=== PATIENT | male | born 1940 | race Hispanic/Latino ===

== ENCOUNTER 2017-05-25 10:32 | Inpatient (IN) | payer BC, MEDICARE ==
[2017-05-25 10:35] VITALS: BMI 26.4
[2017-05-25 11:25] LABS: BASO # 0.02 K/mm3 (0.0-2.0); BASO % 0.4 % (0.0-3.0); EOS # 0.1 (0.0-0.7); EOS % 1.2 % (1.5-5.0); GRAN # 2.57 (1.4-6.5); GRAN % 50.5 % (50.0-68.0); HEMATOCRIT 36.1 % (42.0-52.0); LYMPH # 1.7 (1.2-3.4); LYMPH % 32.9 % (22.0-35.0); MEAN CELL VOLUME 92.6 fl (80.0-105.0); MEAN CORPUSCULAR HEMOGLOBIN 31.5 pg (25.0-35.0); MEAN CORPUSCULAR HGB CONC 34.1 g/dl (31.0-37.0); MEAN PLATELET VOLUME 10.2 fl (7.0-11.0); MONO # 0.8 (0.1-0.6); RED CELL DISTRIBUTION WIDTH 14.6 % (11.5-14.5); WHITE BLOOD COUNT 5.1 10^3/ul (4.5-11.0)
[2017-05-25 11:29] LABS: ALB/GLOB RATIO 1.5 (1.1-1.8); ALKALINE PHOSPHATASE 108 U/L (38-126); ALT/SGPT 32 U/L (7-56); AST/SGOT 25 U/L (17-59); BILIRUBIN,TOTAL 0.6 mg/dL (0.2-1.3); BLOOD UREA NITROGEN 11 mg/dL (7-21); CALCIUM 8.8 mg/dL (8.4-10.5); CARBON DIOXIDE 27 mmol/L (21-33); CHLORIDE 107 mmol/L (98-107); GFR AFRICAN-AMERICAN > 60; GLUCOSE,RANDOM 104 mg/dL (70-110); POTASSIUM 3.7 mmol/L (3.6-5.0); SODIUM 143 mmol/L (132-148); TOTAL PROTEIN 6.9 g/dL (5.8-8.3)
--- NOTE | 2017-05-25 11:34 | ED PDOC ---
Arrival/HPI <Fabio Gallardo - Last Filed: 05/25/17 15:48> <Beverly Rowley - Last Filed: 05/25/17 17:33> - General Chief Complaint: Chest Pain Time Seen by Provider: 05/25/17 10:49 - History of Present Illness Narrative History of Present Illness (Text): 77 year old male with a past medical history of Parkinson's disease, Kishore's disease, and CAD s/p PTCA with stent placement who presents with one day duration of chest pain, dyspnea, and dizziness that started at 10:00 AM this morning. The pain is dull and aching, substernal, 5/10 in intensity, and without radiation. On further questioning, he admits to concurrent dysphagia over the past week with solids and liquids. He denies any fever, chills, nausea , or syncopal episodes. 05/25/17 11:33 (Fabio Gallardo) Past Medical History - Provider Review Nursing Documentation Reviewed: Yes - Cardiac Hx Hypertension: Yes - Pulmonary Hx Respiratory Disorders: No - Neurological Hx Parkinson's Disease: Yes - HEENT Hx HEENT Disorder: No - Renal Hx Renal Disorder: Yes Hx Pyelonephritis: Yes (right sided) - Endocrine/Metabolic Hx Endocrine Disorders: Yes - Hematological/Oncological Hx Blood Transfusions: No - Integumentary Hx Dermatological Disorder: No - Musculoskeletal/Rheumatological Hx Musculoskeletal Disorders: Yes Hx Unsteady Gait: Yes Other/Comment: uses walker - Gastrointestinal Hx Gastrointestinal Disorders: Yes Other/Comment: constipation - Genitourinary/Gynecological Hx Genitourinary Disorders: Yes Hx Urinary Tract Infection: Yes (e.coli) - Psychiatric Hx Emotional Abuse: No Hx Physical Abuse: No Hx Substance Use: No - Surgical History Other/Comment: 4 stents - Anesthesia Hx Anesthesia: Yes Hx Anesthesia Reactions: No Hx Malignant Hyperthermia: No - Suicidal Assessment Feels Threatened In Home Enviroment: No <Fabio Gallardo - Last Filed: 05/25/17 15:48> Family/Social History - Physician Review Nursing Documentation Reviewed: Yes Family/Social History: Unknown Family HX Smoking Status: Former Smoker Hx Alcohol Use: No (PAST HX HEAVY DRINKING;STOPPED PAST YR) Amount per day: 4 Hx Substance Use: No Hx Substance Use Treatment: No <Fabio Gallardo - Last Filed: 05/25/17 15:48> Allergies/Home Meds <SamiFabio - Last Filed: 05/25/17 15:48> <Beverly Rowley - Last Filed: 05/25/17 17:33> Allergies/Adverse Reactions: Allergies acetaminophen [From Percocet] Adverse Reaction (Verified 05/25/17 16:23) FATIGUE also more confused oxycodone [From Percocet] Adverse Reaction (Verified 05/25/17 16:23) FATIGUE also more confused Home Medications: Home Meds Medication Instructions Recorded Confirmed Carbidopa/Levodopa/Entacapone 1 tab PO TID 03/04/12 05/25/17 [Stalevo 150] Rasagiline Mesylate [Azilect] 1 mg PO DAILY 03/04/12 05/25/17 Aspirin [Ecotrin] 81 mg PO DAILY 06/14/16 05/25/17 Fludrocortisone [Florinef] 1 tab PO DAILY 06/14/16 05/25/17 Simvastatin 20 mg PO DAILY 06/14/16 05/25/17 Potassium Chloride [K-Dur 20 mEq 1 tab PO DAILY 05/25/17 05/25/17 ER Tab] Vit C/E/Zn/Coppr/Lutein/Zeaxan 1 cap PO DAILY 05/25/17 05/25/17 [Preservision Areds 2 Softgel] Review of Systems - Review of Systems Constitutional: absent: Fatigue, Fevers, Night Sweats Eyes: absent: Vision Changes, Eye Pain ENT: Voice Changes. absent: Hearing Changes, Tinnitus Respiratory: SOB. absent: Cough, Sputum, Wheezing Cardiovascular: Chest Pain. absent: Palpitations, Edema, Calf Pain, Orthopnea Gastrointestinal: absent: Abdominal Pain, Stool Changes, Constipation, Diarrhea , Nausea, Vomiting Genitourinary Male: absent: Dysuria, Frequency, Hematuria Musculoskeletal: absent: Arthralgias, Back Pain, Neck Pain Skin: absent: Rash, Pruritis, Skin Lesions Neurological: Dizziness. absent: Headache, Focal Weakness Hemo/Lymphatic: absent: Easy Bleeding, Easy Bruising Psychiatric: absent: Anxiety, Depression <Fabio Gallardo - Last Filed: 05/25/17 15:48> Physical Exam Temperature: Afebrile Blood Pressure: Hypertensive Pulse: Regular Respiratory Rate: Normal Appearance: Positive for: Non-Toxic, Other (statuesque facial appearance) Mental Status: Positive for: Alert and Oriented X 3 - Systems Exam Head: Present: Atraumatic, Normocephalic Pupils: Present: PERRL Extroacular Muscles: Present: EOMI Conjunctiva: Present: Normal Mouth: Present: Moist Mucous Membranes Respiratory/Chest: Present: Clear to Auscultation, Good Air Exchange. No: Respiratory Distress, Accessory Muscle Use Cardiovascular: Present: Regular Rate and Rhythm, Normal S1, S2. No: Murmurs Abdomen: Present: Normal Bowel Sounds. No: Tenderness, Distention Back: Present: Normal Inspection. No: CVA Tenderness, Midline Tenderness Upper Extremity: Present: Other (resting tremor) Lower Extremity: Present: Normal Inspection. No: Edema, CALF TENDERNESS Neurological: Present: CN II-XII Intact, Memory Normal. No: Gait Normal Skin: Present: Warm, Dry, Normal Color Psychiatric: Present: Alert, Oriented x 3, Normal Insight <Fabio Gallardo - Last Filed: 05/25/17 15:48> Vital Signs Temp Pulse Resp BP Pulse Ox 05/25/17 16:04 65 18 158/89 H 99 05/25/17 14:20 162/95 H 05/25/17 13:40 69 18 145/71 99 05/25/17 12:26 71 18 148/75 99 05/25/17 11:46 75 19 150/86 99 05/25/17 10:33 98.1 F 70 18 150/85 98 Medical Decision Making - EKG Interpretation Interpreted by ED Physician: Yes (NSR with no ST-T wave changes) Type: 12 lead EKG <Fabio Gallardo - Last Filed: 05/25/17 15:48> - RAD Interpretation Mental Health Nurse Practitioner: Radiologist <Beverly Rowley - Last Filed: 05/25/17 17:33> ED Course and Treatment: Diagnostic test, including, but not limited to EKG, troponin I, CBC, UA were grossly unremarkable, or of any clinical significance. D-dimer was slightly elevated; CT PE protocol preliminary read is grossly negative for pulmonary embolism. Will follow up with official radiologist read. 05/25/17 14:36 (Fabio Gallardo) 05/25/17 17:30 Patient seen and examined by me with medical insurance coder. On my exam, which is supplemented by family, patient has had intemittent chest pain and shortness of breath for SEVERAL WEEKS, possibly worse for past few days. He currently denies chest pain while in Emergency department but states that he has been short of breath with exertion recently. His past history is significant for cardiac cath late 2015 with history of multiple cardiac stents. He states he has been compliant with plavix, aspirin and his other medications. Initial EKG unremarkable and he continues to deny chest pain while in Emergency department. Initial troponin unremarakble. As ddimer elevated, ct angio obtained which was unremarkable for gross PE, other abormal findings reviewed with patient. He denies back pain or pain radiating to arm or neck. As he has significant past cardiac history, have consulted Dr. Corrales and discussed case with pmd Dr. Juan Pablo Levy, accepts admission to his service. Treatment plan reviewed with patient and family. (Beverly Rowley) - Lab Interpretations Lab Results: 05/25/17 11:16 05/25/17 11:16 Lab Results 05/25/17 11:16: D-Dimer, Quantitative 1.53 H 05/25/17 11:16: Sodium 143, Potassium 3.7, Chloride 107, Carbon Dioxide 27, Anion Gap 13, BUN 11, Creatinine 0.6 L, Est GFR ( Amer) > 60, Est GFR ( Non-Af Amer) > 60, Random Glucose 104, Calcium 8.8, Total Bilirubin 0.6, AST 25 , ALT 32, Alkaline Phosphatase 108, Lactate Dehydrogenase 499, Total Creatine Kinase 125, Troponin I < 0.01 D, NT-Pro-B Natriuret Pep 845 H, Total Protein 6.9, Albumin 4.1, Globulin 2.8, Albumin/Globulin Ratio 1.5 05/25/17 11:16: WBC 5.1 D, RBC 3.90, Hgb 12.3 L, Hct 36.1 L, MCV 92.6, MCH 31.5 , MCHC 34.1, RDW 14.6 H, Plt Count 146, MPV 10.2, Gran % 50.5, Lymph % (Auto) 32.9, [place] % (Auto) 15.0 H, Eos % (Auto) 1.2 L, Baso % (Auto) 0.4, Gran # 2.57, Lymph # 1.7, [place] # 0.8 H, Eos # 0.1, Baso # 0.02 - RAD Interpretation Radiology Orders: 05/25/17 11:07 CHEST PORTABLE [RAD] Stat - Medication Orders Current Medication Orders: Aspirin (Ecotrin) 81 mg PO DAILY PENDING SALE TO [facility] Atorvastatin Calcium (Lipitor) 10 mg PO DIN PENDING SALE TO [facility] Last Admin: 05/25/17 17:05 Dose: 10 mg Carbidopa/Levodopa/Entacapone (Stalevo 150) 1 tab PO TID PENDING SALE TO [facility] Clopidogrel Bisulfate (Plavix) 75 mg PO DAILY PENDING SALE TO [facility] Fludrocortisone Acetate (Florinef) 0.1 mg PO DAILY PENDING SALE TO [facility] Sodium Chloride (Sodium Chloride 0.9%) 1,000 mls @ 75 mls/hr IV .[id number] BRISEYDA Stop: 05/26/17 23:59 Last Admin: 05/25/17 16:39 Dose: 75 mls/hr eMAR Start Stop Document 05/25/17 16:39 AD (Rec: 05/25/17 16:39 AD [id number]) Intravenous Solution Start Date 05/25/17 Start Time 16:39 Potassium Chloride (K-Dur 20 Meq Er Tab) 20 meq PO DAILY PENDING SALE TO [facility] Discontinued Medications Aspirin (Aspirin) 325 mg PO STAT ONE Stop: 05/25/17 12:56 Last Admin: 05/25/17 13:43 Dose: 325 mg Enoxaparin Sodium (Lovenox) 80 mg SC STAT STA PRN Reason: Protocol Stop: 05/25/17 15:44 Last Admin: 05/25/17 16:27 Dose: 80 mg Subcutaneous Administrations Document 05/25/17 16:27 GMI (Rec: 05/25/17 16:27 GMI [id number]) Injection Site MAR Injection Site Left Abdomen Charges for Administration # of Subcutaneous Administrations 1 Potassium Chloride (K-Dur 20 Meq Er Tab) 40 meq PO STAT STA Stop: 05/25/17 16:08 Last Admin: 05/25/17 16:27 Dose: 40 meq Disposition/Present on Arrival - Present on Arrival Any Indicators Present on Arrival: No History of DVT/PE: No History of Uncontrolled Diabetes: No Urinary Catheter: No History of Decub. Ulcer: No History Surgical Site Infection Following: None - Disposition Have Diagnosis and Disposition been Completed?: Yes Disposition Time: 15:49 <Fabio Gallardo - Last Filed: 05/25/17 15:48> - Disposition Patient Plan: Admission, Telemetry <Beverly Rowley - Last Filed: 05/25/17 17:33> - Disposition Diagnosis: Chest pain, Dyspnea Disposition: HOSPITALIZED Patient Problems: Current Active Problems Problem Status Onset Chest pain Acute Condition: FAIR
[2017-05-25 11:43] LABS: TROPONIN I < 0.01 ng/mL
[2017-05-25] MEDS ORDERED: Iohexol 350 MG/100 ML VIAL ONE (12:44)
[2017-05-25 12:56] LABS: URINE BILIRUBIN NEGATIVE (NEGATIVE); URINE BLOOD NEGATIVE (NEGATIVE); URINE GLUCOSE (UA) NEGATIVE (NEGATIVE); URINE KETONE NEGATIVE (NEGATIVE); URINE LEUKOCYTE ESTERASE NEGATIVE Leu/uL (NEGATIVE)
[2017-05-25 12:57] LABS: URINE APPEARANCE CLEAR (CLEAR); URINE COLOR YELLOW (YELLOW); URINE PROTEIN NEGATIVE mg/dL (<30 mg/dL)
[2017-05-25 13:06] LABS: INR 1.06 (0.93-1.08); PARTIAL THROMBOPLASTIN TIME 28.4 Seconds (23.7-30.8)
--- NOTE | 2017-05-25 13:32 | RAD ---
HISTORY: chest pain COMPARISON: Correlation made with concurrent CTA of the chest. FINDINGS: LUNGS: No active pulmonary disease. PLEURA: No significant pleural effusion identified, no pneumothorax apparent. CARDIOVASCULAR: Cardiomegaly. OSSEOUS STRUCTURES: No significant abnormalities. VISUALIZED UPPER ABDOMEN: Normal. OTHER FINDINGS: None. IMPRESSION: No acute infiltrates. . Cardiomegaly.
--- NOTE | 2017-05-25 14:46 | CT ---
PROCEDURE: CT Chest with contrast (Pulmonary Angiogram) HISTORY: r/o PE COMPARISON: Correlation made with concurrent chest radiograph 05/25/2017 TECHNIQUE: Axial computed tomography images were obtained of the chest in the pulmonary arterial phase of enhancement. Coronal and sagittal reformatted images were created and reviewed. Intravenous contrast dose: In 100 cc Omnipaque 350 Radiation dose: Total exam DLP = 669.59 mGy-cm. This CT exam was performed using one or more of the following dose reduction techniques: Automated exposure control, adjustment of the mA and/or kV according to patient size, and/or use of iterative reconstruction technique. FINDINGS: PULMONARY ARTERIES: The visualized pulmonary trunk, right and left main, lobar, segmental and proximal subsegmental branches of the pulmonary arteries are well opacified with no definitive filling defects seen to suggest acute pulmonary embolus. The pulmonary trunk measures approximately 2.83 cm. AORTA: Mild fusiform aneurysmal dilatation of the ascending thoracic aorta measuring nearly 4 cm in transverse dimension. Descending thoracic aorta measures approximately 3.6 cm. . There is a small amount of fluid anterior to the ascending aorta and pulmonary trunk. LUNGS: Mild passive-dependent atelectasis both posterior lower lung muse. Chronic atelectasis and or scarring changes seen left lingular region which appears to be associate with a tiny calcified granuloma. Lung muse are otherwise clear without focal consolidation. There is a small elliptical shaped bleb seen along the pleural surface superior aspect right lower lobe bordering the fissure. PLEURAL SPACES: No effusion or pneumothorax HEART: Heart size upper limits of normal. No evidence of significant pericardial effusion. LYMPH NODES: Small calcified subcarinal lymph nodes and few tiny at calcified left hilar lymph nodes present. Central airways are midline and patent. No significant central endobronchial lesions are identified. BONES, CHEST WALL: Mild multilevel degenerative spondylosis of the thoracic spine OTHER FINDINGS: Unremarkable. IMPRESSION: No evidence acute central pulmonary embolus. Mild fusiform aneurysmal dilatation at ascending thoracic aorta. . There is a small amount of fluid seen adjacent to the anterior margin of the the ascending aorta and pulmonary trunk
[2017-05-25] MEDS ORDERED: Enoxaparin 80 mg Syringe SC STA (15:43)
[2017-05-25] MEDS ORDERED: Potassium Chloride 20 mEq ER Tab PO STA (16:07)
[2017-05-25] MEDS ORDERED: Sodium Chloride 0.9% 1,000 ML IV SCH (16:15)
[2017-05-25] MEDS: Carbidopa/Levodopa/Entacapone 37.5mg-150mg-200mg PO SCH (18:53)
--- NOTE | 2017-05-26 03:19 | CON ---
DATE: 05/26/2017 CONSULT SERVICE: Cardiology division. REASON FOR CONSULTATION: Followup chest pain, history of coronary artery disease, cardiac evaluation. HISTORY OF PRESENT ILLNESS: This is a 77-year-old male with a past medical history of significant coronary artery disease, status post stent who came into the emergency room with a one day duration of chest pain, shortness of breath, and dizziness with exertion. It started at 10:00 a.m. this morning. The chest pain is a dull aching sensation and moderate in intensity without radiation, retrosternal associated with mild shortness of breath. A 77-year-old male with past medical history of significant of Parkinson's disease, postural hypotension, hypertension, Garland's disease, history of coronary artery disease, triple-vessel disease status post cardiac catheterization on 06/11/2016, in stable disease, [id number] EF. EDP with a range of 16, ejection fraction 50%, rate is 94 target CABG, high risk postop complication of CABG, with Parkinson disease. Mostly, the patient is bed bound and on a vent. The patient's PTCA of RCA and LAD and mid circumflex, had PTCA done LAD to mid circumflex in 07/05/2016, so twice the patient had staged angioplasty in 06/2016 of RCA and a staged PTCA of LAD and circumflex on 07/05/2016. PAST MEDICAL HISTORY: Significant as mentioned history of PTCA of RCA on 06/11/2016 of RCA and then a staged PTCA on 07/15/2016 of mid LAD stent of a diagonal. Circumflex was attempted and it was unsuccessful, admitted with shortness of breath and one day chest pain, though it appears a atypical. The patient's other previous workup as follows; the patient has history of echocardiography, diastolic ejection fraction of 30%, LV diastolic dysfunction. The patient has a bilateral carotid duplex that shows 20% to 39% right ICA, the left ICA has 30% to 49% stenosis, Last catheterization on 07/15/2016, with a PTCA of the LAD and diagonal, one was done and status post attempt was unsuccessful. Estimated ejection fraction 50%, left ventricular ejection fraction 20% to 24%. REVIEW OF SYSTEMS: As per HPI. CURRENT MEDICATIONS: The patient is taking aspirin, Plavix, potassium chloride and simvastatin. PHYSICAL EXAMINATION: VITAL SIGNS: Temperature afebrile, heart rate is 89, blood pressure 162/95. HEENT: PERRLA intact. NECK: Supple. No carotid bruits. No thyromegaly. CHEST: Clear to auscultation. HEART: S1, S2 regular. ABDOMEN: Soft. EXTREMITIES: Clubbing and cyanosis negative. LABORATORY DATA: Blood workup as follows; WBC is 5.0, hemoglobin 12.3, hematocrit 36.1, platelet count 146. Chemistry shows sodium 140, potassium 3.0, chloride 105, carbon dioxide 29, anion gap of 13, BUN 11, creatinine 0.6. IMPRESSION: Unstable angina, hypertension, diabetes, history of coronary artery disease, status post percutaneous transluminal coronary angioplasty of the right coronary artery on 06/11/2016 and a staged percutaneous transluminal coronary angioplasty of the left anterior descending and diagonal on 07/15/2016, and admitted with unstable angina, D-dimer positive. RECOMMENDATIONS: We will get a CT angiogram to rule out PE as a negative. We will start Lovenox, as stabilized possible cardiac catheterization. The risks, benefits and alternatives discussed with the patient. The patient agreed to proceed for cardiac catheterization. Further recommendations after cardiac catheterization. We will load with Plavix. Thank you Dr. Urias for providing us the opportunity in taking care of patient, Edwardo Morrison. We will follow with you. Lai Corrales MD
[2017-05-26 06:33] VITALS: TEMP 97.6; O2SAT 95
[2017-05-26 06:49] LABS: BASO # 0.01 K/mm3 (0.0-2.0); BASO % 0.2 % (0.0-3.0); EOS % 0.5 % (1.5-5.0); GRAN # 3.34 (1.4-6.5); LYMPH # 1.9 (1.2-3.4); LYMPH % 30.6 % (22.0-35.0); MEAN CELL VOLUME 90.9 fl (80.0-105.0); MEAN CORPUSCULAR HEMOGLOBIN 30.8 pg (25.0-35.0); MEAN CORPUSCULAR HGB CONC 33.9 g/dl (31.0-37.0); MEAN PLATELET VOLUME 9.8 fl (7.0-11.0); MONO # 0.8 (0.1-0.6); MONO % 13.7 % (1.0-6.0); RED CELL DISTRIBUTION WIDTH 14.5 % (11.5-14.5); WHITE BLOOD COUNT 6.1 10^3/ul (4.5-11.0)
[2017-05-26 07:11] LABS: ALB/GLOB RATIO 1.5 (1.1-1.8); ALKALINE PHOSPHATASE 93 U/L (38-126); ALT/SGPT 27 U/L (7-56); AST/SGOT 25 U/L (17-59); BILIRUBIN,TOTAL 0.9 mg/dL (0.2-1.3); BLOOD UREA NITROGEN 9 mg/dL (7-21); CALCIUM 8.8 mg/dL (8.4-10.5); CARBON DIOXIDE 26 mmol/L (21-33); CHLORIDE 109 mmol/L (98-107); CHOLESTEROL 145 mg/dL (130-200); GFR AFRICAN-AMERICAN > 60; GLUCOSE,RANDOM 108 mg/dL (70-110); MAGNESIUM 1.8 mg/dL (1.7-2.2); PHOSPHOROUS 2.4 mg/dL (2.5-4.5); POTASSIUM 3.5 mmol/L (3.6-5.0); SODIUM 141 mmol/L (132-148); TOTAL PROTEIN 6.7 g/dL (5.8-8.3)
[2017-05-26] MEDS ORDERED: Lidocaine 2% Inj (20ml) ONE (09:48)
[2017-05-26] MEDS ORDERED: Potassium Chloride 20 mEq ER Tab PO SCH (10:00)
[2017-05-26] MEDS ORDERED: Midazolam 2 MG/2 ML VIAL ONE (11:15)
[2017-05-26] MEDS ORDERED: Nitroglycerin 50mg in D5W 50 MG/250 ML BOTTLE IV ONE (11:31)
[2017-05-26] MEDS ORDERED: Bacitracin 500 Units/gm Oint Foilpak UD TOP ONE (12:09)
[2017-05-26] MEDS ORDERED: Potassium Chloride 20 mEq ER Tab PO ONE (12:14)
[2017-05-26] MEDS ORDERED: Sodium Chloride 0.9% 1,000 ML IV SCH (12:15)
--- NOTE | 2017-05-26 12:20 | HP ---
HISTORY OF PRESENT ILLNESS: The patient is a 77-year-old man with a past medical history of triple vessel CAD s/ PCI with stent placement and hypertension who presented to [facility] with a 2-3 day history of progressively worsening substernal chest discomfort. The patient states that he was in usual state of health until the onset of his symptoms approximately 2 to 3 days ago and states that over the following couple of days his symptoms had increased. He also reports associated dyspnea with exertion but denies radiation of chest pain. Upon arrival to the ED he was noted to be afebrile and hemodynamically stable and routine laboratory studies were initially unremarkable with the exception of a elevated D-dimmer. He underwent a CT of the chest with IV contrast which was negative for PE and was subsequently admitted to the telemetry estrella for continued monitoring and to rule out acute coronary syndrome. PAST MEDICAL HISTORY: As per HPI. Also history of Parkinson's disease. PAST SURGICAL HISTORY: As per HPI. Also appendectomy ALLERGIES: ACETAMINOPHEN AND OXYCODONE. MEDICATIONS: Florinef 0.1 mg p.o. daily, Plavix 75 mg p.o. daily, Lipitor 10 mg p.o. daily, Aspirin 81 mg p.o. daily, Stalevo 150 mg p.o. t.i.d., and Azilect 1 mg p.o. daily. FAMILY HISTORY: Noncontributory. SOCIAL HISTORY: The patient reports social alcohol use and denies tobacco or illicit drug abuse. REVIEW OF SYSTEMS: A 14-point review of systems is negative except as per HPI. PHYSICAL EXAMINATION VITAL SIGNS: Temperature of 97.6, pulse of 75, blood pressure of 128/88, respiratory rate of 20, and oxygen saturation of 95% on room air. GENERAL: No apparent distress. HEENT: PERRL. EOMI. No scleral icterus. No conjunctival pallor. NECK: No JVD. No bruits. LUNGS: Clear to auscultation. CARDIOVASCULAR: Regular rate and rhythm. Normal S1 and S2. Grade III/ murmur to RUSB, Grade II/ murmur to LLSB ABDOMEN: Normoactive bowel sounds. Soft, nontender and nondistended. EXTREMITIES: No edema. NEUROLOGICAL: Awake, alert and oriented x3. No focal motor deficits. LABORATORY DATA: WBC of 6.1 with 55% neutrophils, hemoglobin of 12, hematocrit of 36, and platelets of 142. Chemistry reviewed and largely unremarkable. Troponin is less than 0.01. IMAGING STUDIES: 1. Chest x-ray demonstrates no acute pathology. 2. CT of the chest with IV contrast demonstrates no evidence of PE. ASSESSMENT: The patient is a 77-year-old man with a past medical history of CAD s/p PCI with stent placement and hypertension who presented with a 2-3 day history of worsening substernal chest discomfort associated with dyspnea PLAN: 1. Chest pain, rule out ACS. Initial troponin is negative. The patient has been evaluated by Dr. Corrales of cardiology and is pending cardiac catheterization this morning. We will continue to monitor hemodynamics. 2. Hypertension, blood pressure remains stable. We will continue to monitored and adjust antihypertensive as needed. 3. Triple vessel CAD s/p PCI with stent placement. Continue with Aspirin 81 mg p.o. daily, Plavix 75 mg daily, and Lipitor 10 mg p.o. daily. As above the patient is pending cardiac catheterization later today. 4. Parkinson's diseases. Continue Stalevo 150 mg p.o. t.i.d. 5. Prophylaxis. GI prophylaxis is not indicated as the patient is eating. DVT prophylaxis is not as the patient is ambulatory. CODE STATUS: Full code. Orlando Levy MD MTDD
--- NOTE | 2017-05-26 12:25 | CARD ---
APPROVED REPORT EKG Measurement Heart [id number] 112P [id number] <Conclusion> Normal sinus rhythm Normal ECG
[2017-05-26] MEDS: Carbidopa/Levodopa/Entacapone 37.5mg-150mg-200mg PO SCH ×2 (13:40→17:24)
[2017-05-26] MEDS ORDERED: Bacitracin 500 Units/gm Oint Foilpak UD ONE (14:38)
[2017-05-26 15:40] VITALS: RESP 18
[2017-05-26 16:43] VITALS: BP 130/70; PULSE 72
--- NOTE | 2017-05-26 19:25 | PN ---
REASON FOR CONSULTATION: Follow up chest pain, acute coronary syndrome, and unstable angina. SUBJECTIVE: Denies any chest pain today. OBJECTIVE: GENERAL: Not in apparent distress. VITAL SIGNS: Temperature afebrile, heart rate 75, blood pressure 127/79. HEENT: PERRLA intact. NECK: Supple. No carotid bruit or thyromegaly. CHEST: Clear to auscultation. HEART: S1 and S2 regular. ABDOMEN: Soft. EXTREMITIES: Clubbing and cyanosis negative. LABORATORY DATA: Blood workup as follows: WBC is 6.3, hemoglobin 12.2, hematocrit 36, platelet count 142. Troponin remains negative. Chemistry shows sodium 141, potassium 3.5, chloride 109, carbon dioxide 26, anion gap of 10, creatinine 0.5, TSH 2.49, total protein 6.7, albumin-globulin ratio 1.5, triglyceride 79, cholesterol 145, LDL 80, HDL 50. IMPRESSION: Acute coronary syndrome with history of coronary artery disease, history of percutaneous transluminal coronary angioplasty of the right coronary artery on 06/11/2016, and history of left anterior descending and diagonal stent in 2011. The patient underwent cardiac catheterization, admitted because of unstable angina. She had patent stent in diagonal, patent stent in left anterior descending, has had totally occluded unchanged patent stent widely in right coronary artery. Medical treatment recommended. No significant aortic stenosis noted across the valve. RECOMMENDATION: We will continue aspirin, continue Plavix, supplement potassium, continue atorvastatin. We will add Ranexa 500 mg p.o. b.i.d. in addition to pervious medications because of underlying segmental disease. We will discuss with Dr. Orlando Levy. When the patient is stable, we will discharge home. Thank you Dr. Levy for providing me the opportunity in taking care of the patient. We will follow with you. We will supplement potassium. Lai Corrales MD
--- NOTE | 2017-05-26 22:17 | CARD ---
APPROVED REPORT Procedure(s) performed: Left Heart Catheterization HISTORY The patient is a 77 year-old male with a history of : peripheral vascular disease, previous diagnostic cath, tobacco history() : The patient is a former smoker , previous PCI (The PCI date was 06/17/2016), hypertension , dyslipidemia , Hx ofParkinson's Disease, admitted with ACS/ Unstable angina. INDICATION The indication(s) include : unstable angina . CASE TECHNIQUE The patient was brought urgently to the Cardiac Catheterization Laboratory in a fasting state and was prepped and draped in a sterile manner. The left wrist was infiltrated with 2% Lidocaine subcutaneous anesthesia. A 6 Fr Glidesheath (Radial) sheath was inserted into the left radial artery without difficulty. Coronary angiography was performed using coronary diagnostic catheters. The left coronary system was accessed and visualized with a Diagnostic ,5 Fr JL 3.5 catheter. The right coronary system was accessed and visualized with a Diagnostic ,5 Fr JR 4 catheter. The left ventricle was accessed and visualized with a 5 Fr Pigtail 145 (Angled) catheter. Left ventricular/Aortic Valve gradient assessed on pullback. Left ventriculogram was performed in DEY projection. Closure device was deployed with a Fr TR Band (Large) without any complications. The patient tolerated the procedure well and there were no complications associated with the procedure. Vessel Analysis The patient's coronary anatomy is right dominant. The left main coronary artery is a medium size vessel with diffuse calcification noted throughout this vessel and without significant stenosis. There is a 20% stenosis in the distal segment. The left main bifurcates to the left anterior descending and circumflex. The left anterior descending artery is a medium size vessel with diffuse calcification noted throughout this vessel and without significant stenosis. patent stent in mid segment The first diagonal branch is a large size vessel patent stent in mid segment. The second diagonal branch is a medium size vessel with diffuse calcification noted throughout this vessel and without significant stenosis. The circumflex artery is a medium size vessel with diffuse calcification noted throughout this vessel and with significant stenosis. There is a 100% stenosis in the mid segment. bridge collateral The right coronary artery is a large size vessel with diffuse calcification noted throughout this vessel and without significant stenosis. patent stent in mid segment The right posterior descending artery is a large size vessel with intimal irregularities and without significant stenosis. The right posterolateral branch is a medium size vessel with intimal irregularities and without significant stenosis. RCA is a superdominant Large vessel wrap around apex Left Ventricle The left ventricle is borderline in size in size with low normal contractility. Ischemic cardiomyopathy. The left ventricular ejection fraction is estimated to be 45-50%. The left ventricular end diastolic pressure is 20 mmHg. There was no gradient across the aortic valve upon pullback. Conclusion Patent stents in LAD/D1 and RCA Circumflex is HELIUM ARC WELDER ( chronic total occlusion) with bridge collateral mild ischemic CMP.EF-45-50%,EDP-20 Recommendations Daily ASA with Plavix for at least one year Aggressive Medical Therapy Add Ranexa 500 po BID in current regimen. continue diuretics, JOSEPHINE, and Beta-christy Continue base line meds for Parkinson's disease. Cc: tyler; Juan Pablo Benites/ anthony.
== END 2017-05-26 18:20 | disposition home or self-care (01) | DRG 287 ==
LOC: ED 10:32 → ERH 12:32 → 2RNO 05-26 01:31 → 2RSO 05-26 12:16
PROVIDERS: ADMIT Student in an Organized Health Care Education/Training Program; ATTEND Student in an Organized Health Care Education/Training Program
PROC: 4A023N7 Measurement of Cardiac Sampling and Pressure, Left Heart, Percutaneous Approach (ICD-10-PCS; principal; 2017-05-26)
PROC: B2111ZZ Fluoroscopy of Multiple Coronary Arteries using Low Osmolar Contrast (ICD-10-PCS; 2017-05-26)
PROC: B2151ZZ Fluoroscopy of Left Heart using Low Osmolar Contrast (ICD-10-PCS; 2017-05-26)
DX: I25.110 Atherosclerotic heart disease of native coronary artery with unstable angina pectoris (principal); E11.51 Type 2 diabetes mellitus with diabetic peripheral angiopathy without gangrene; G20 Parkinson's disease; I25.5 Ischemic cardiomyopathy; R07.89 Other chest pain; E78.5 Hyperlipidemia, unspecified; I10 Essential (primary) hypertension; Z95.5 Presence of coronary angioplasty implant and graft; Z95.1 Presence of aortocoronary bypass graft; Z87.891 Personal history of nicotine dependence; Z79.82 Long term (current) use of aspirin; Z79.02 Long term (current) use of antithrombotics/antiplatelets

== ENCOUNTER 2018-02-23 18:23 | Emergency (ER) | payer MEDICARE ==
[2018-02-23 18:34] VITALS: BMI 27.8
[2018-02-23 18:51] VITALS: TEMP 98.6
--- NOTE | 2018-02-23 19:21 | ED PDOC ---
Arrival/HPI - General Chief Complaint: Weakness/Neurological Deficit Time Seen by Provider: 02/23/18 19:16 Historian: Patient - History of Present Illness Narrative History of Present Illness (Text): 02/23/18 19:18 77 year old male with a past medical history of Parkinson's disease, Kishore's disease, and CAD s/p PTCA with 5 stents placement, presents to the Emergency department complaining of generalized weakness and increased right hand tremors for past few days. Patient states worsening symptoms with difficulty ambulating today prompting him to present to the Emergency department for medical evaluation. Patient denies any trauma, fever, chills, nausea, vomiting, abdominal pain, chest pain, shortness of breath, or any other complaints. PMD: Dr. Levy Time/Duration: < week Symptom Onset: Gradual Symptom Course: Unchanged Activities at Onset: Light Context: Home Past Medical History - Provider Review Nursing Documentation Reviewed: Yes - Cardiac Hx Hypertension: Yes - Pulmonary Hx Respiratory Disorders: No - Neurological Hx Parkinson's Disease: Yes - HEENT Hx HEENT Disorder: No - Renal Hx Renal Disorder: Yes Hx Pyelonephritis: Yes (right sided) - Endocrine/Metabolic Hx Endocrine Disorders: Yes - Hematological/Oncological Hx Blood Transfusions: No Hx Blood Transfusion Reaction: No - Integumentary Hx Dermatological Disorder: No - Musculoskeletal/Rheumatological Hx Falls: No - Gastrointestinal Hx Gastrointestinal Disorders: Yes Other/Comment: constipation - Genitourinary/Gynecological Hx Genitourinary Disorders: Yes Hx Urinary Tract Infection: Yes (e.coli) - Psychiatric Hx Emotional Abuse: No Hx Physical Abuse: No Hx Substance Use: No - Surgical History Hx Cardiac Catheterization: Yes Hx Coronary Stent: Yes - Anesthesia Hx Anesthesia: Yes Hx Anesthesia Reactions: No Hx Malignant Hyperthermia: No - Suicidal Assessment Feels Threatened In Home Enviroment: No Family/Social History - Physician Review Nursing Documentation Reviewed: Yes Family/Social History: No Known Family HX Smoking Status: Former Smoker Hx Alcohol Use: Yes (former) Amount per day: 4 Hx Substance Use: No Hx Substance Use Treatment: No Allergies/Home Meds Allergies/Adverse Reactions: Allergies acetaminophen [From Percocet] Adverse Reaction (Verified 02/23/18 18:40) FATIGUE also more confused oxycodone [From Percocet] Adverse Reaction (Verified 02/23/18 18:40) FATIGUE also more confused Home Medications: Home Meds Medication Instructions Recorded Confirmed Carbidopa/Levodopa/Entacapone 1 tab PO TID 03/04/12 02/23/18 [Stalevo 150] Rasagiline Mesylate [Azilect] 1 mg PO DAILY 03/04/12 02/23/18 Aspirin [Ecotrin] 81 mg PO DAILY 06/14/16 02/23/18 Potassium Chloride [K-Dur 20 mEq 1 tab PO DAILY 05/25/17 02/23/18 ER Tab] Vit C/E/Zn/Coppr/Lutein/Zeaxan 1 cap PO DAILY 05/25/17 02/23/18 [Preservision Areds 2 Softgel] Celecoxib [Celebrex] 200 mg PO BID PRN 02/23/18 02/23/18 Donepezil [Aricept] 10 mg PO HS 02/23/18 02/23/18 Review of Systems - Physician Review All systems were reviewed & negative as marked: Yes - Review of Systems Constitutional: absent: Fevers Respiratory: absent: SOB Cardiovascular: absent: Chest Pain Gastrointestinal: absent: Abdominal Pain, Diarrhea, Nausea, Vomiting Musculoskeletal: Other (Generalized weakness with difficulty walking. Increased tremors in right hand.) Physical Exam Vital Signs Reviewed: Yes Vital Signs Temp Pulse Resp BP Pulse Ox 02/23/18 21:40 80 17 142/88 97 02/23/18 18:35 98.6 F 85 18 109/71 98 Temperature: Afebrile Blood Pressure: Normal Pulse: Regular Respiratory Rate: Normal Appearance: Positive for: Well-Appearing, Non-Toxic, Comfortable Pain Distress: None Mental Status: Positive for: Alert and Oriented X 3 - Systems Exam Head: Present: Atraumatic, Normocephalic Pupils: Present: PERRL Extroacular Muscles: Present: EOMI Conjunctiva: Present: Normal Respiratory/Chest: Present: Clear to Auscultation, Good Air Exchange. No: Respiratory Distress, Accessory Muscle Use Cardiovascular: Present: Murmurs (Low pitched systolic murmur ), Normal S1, S2 Abdomen: No: Tenderness, Distention, Peritoneal Signs Back: Present: Normal Inspection Upper Extremity: Present: Other (Intermittent tremor in his right hand). No: Cyanosis, Edema Lower Extremity: Present: Normal Inspection, NORMAL PULSES, Neurovascularly Intact, Other (3/5 strength in bilteral legs). No: Edema Neurological: Present: GCS=15, CN II-XII Intact, Speech Normal Skin: Present: Warm (skin warm with 2+ pulses.), Dry, Normal Color. No: Rashes Psychiatric: Present: Alert, Oriented x 3, Normal Insight, Normal Concentration Medical Decision Making ED Course and Treatment: 02/23/18 19:25 Impression: 78 year old male presents to the Emergency department for generalized weakness and increased right hand tremor. Plan: -- EKG -- Labs -- Urinalysis -- Reassess and disposition Prior Visits: Notes and results from previous visits were reviewed. Progress Notes: 02/23/18 21:25 Upon reassessment, patient informs improved symptoms with no new complaints. Patient was made aware of his negative results and was given the option to stay in the hospital for further observation. Patient denies admission and requests to go home. Patient is in stable conditions and will be discharged home with instructions to follow-up with PMD. 02/23/18 21:[address] Levy, who is aware and agrees with Emergency department management plan to discharge patient with outpatient follow-up instructions. - Lab Interpretations Lab Results: 02/23/18 19:35 02/23/18 19:35 Lab Results 02/23/18 20:25: Urine Color Light yellow, Urine Appearance Clear, Urine pH 6.0, Ur Specific [place] 1.025, Urine Protein Negative, Urine Glucose (UA) Negative, Urine Ketones Trace H, Urine Blood Negative, Urine Nitrate Negative, Urine Bilirubin Negative, Urine Urobilinogen 1.0 H, Ur Leukocyte Esterase Negative 02/23/18 19:35: Sodium 141, Potassium 4.0, Chloride 107, Carbon Dioxide 24, Anion Gap 14, BUN 17, Creatinine 0.6 L, Est GFR ( Amer) > 60, Est GFR ( Non-Af Amer) > 60, Random Glucose 101, Calcium 8.7, Phosphorus 2.6, Magnesium 1.9, Total Bilirubin 0.4, AST 29, ALT 24, Alkaline Phosphatase 81, Total Protein 6.9, Albumin 4.1, Globulin 2.8, Albumin/Globulin Ratio 1.4 02/23/18 19:35: WBC 5.7, RBC 3.85, Hgb 12.2 L, Hct 35.6 L, MCV 92.5, MCH 31.7, MCHC 34.3, RDW 13.9, Plt Count 144, MPV 9.9, Gran % 60.6, Lymph % (Auto) 27.4, [place] % (Auto) 10.7 H, Eos % (Auto) 1.1 L, Baso % (Auto) 0.2, Gran # 3.45, Lymph # (Auto) 1.6, [place] # (Auto) 0.6, Eos # (Auto) 0.1, Baso # (Auto) 0.01 - EKG Interpretation EKG Interpretation (Text): 18:29- NSR, rate 85, normal axis, normal intervals, no ST/T changes Interpreted by ED Physician: Yes Type: 12 lead EKG - Medication Orders Current Medication Orders: Discontinued Medications Sodium Chloride (Sodium Chloride 0.9%) 1,000 mls @ 999 mls/hr IV .Q1H1M STA Stop: 02/23/18 20:28 Last Admin: 02/23/18 19:39 Dose: 999 mls/hr eMAR Start Stop Document 02/23/18 19:39 CNR (Rec: 02/23/18 19:39 CNR [id number]) Intravenous Solution Start Date 02/23/18 Start Time 19:39 - Scribe Statement The provider has reviewed the documentation as recorded by the Scribe Edwige Palomares. All medical record entries made by the Scribe were at my direction and personally dictated by me. I have reviewed the chart and agree that the record accurately reflects my personal performance of the history, physical exam, medical decision making, and the department course for this patient. I have also personally directed, reviewed, and agree with the discharge instructions and disposition. Disposition/Present on Arrival - Present on Arrival Any Indicators Present on Arrival: No History of DVT/PE: No History of Uncontrolled Diabetes: No Urinary Catheter: No History of Decub. Ulcer: No History Surgical Site Infection Following: None - Disposition Have Diagnosis and Disposition been Completed?: Yes Diagnosis: Generalized weakness Disposition: HOME/ ROUTINE Disposition Time: 21:40 Condition: FAIR Discharge Instructions (ExitCare): Weakness (ED) Additional Instructions: ZACHARY STERN, thank you for letting us take care of you today. Your provider was Steff Mendoza MD and you were treated for GENERAL WEAKNESS. The emergency medical care you received today was directed at your acute symptoms. If you were prescribed any medication, please fill it and take as directed. It may take several days for your symptoms to resolve. Return to the Emergency Department if your symptoms worsen, do not improve, or if you have any other problems. Please contact your doctor or call one of the physicians/clinics you have been referred to that are listed on the Patient Visit Information form that is included in your discharge packet. Bring any paperwork you were given at discharge with you along with any medications you are taking to your follow up visit. Our treatment cannot replace ongoing medical care by a primary care provider outside of the emergency department. Thank you for allowing the [facility] team to be part of your care today. If you had an X-Ray or CT scan: A Radiologist will review the ED reading if any change in treatment is needed we will contact you. If you had a blood, urine, or wound culture: It will take several days for the results, if any change in treatment is needed we will contact you. If you had an STI test: It will take 48 hours for the results. Please call after 1 week if you have not heard back. Referrals: Mildred REIS,Orlando Stone MD [Primary Care Provider] - Follow up with primary Forms: [employer] (Citizen Of [place])
[2018-02-23] MEDS ORDERED: Sodium Chloride 0.9% 1,000 ML IV STA (19:28)
[2018-02-23 19:49] LABS: BASO # 0.01 K/mm3 (0.0-2.0); BASO % 0.2 % (0.0-3.0); EOS # 0.1 (0.0-0.7); EOS % 1.1 % (1.5-5.0); GRAN # 3.45 (1.4-6.5); GRAN % 60.6 % (50.0-68.0); HEMOGLOBIN 12.2 g/dL (14.0-18.0); LYMPH # 1.6 (1.2-3.4); LYMPH % 27.4 % (22.0-35.0); MEAN CELL VOLUME 92.5 fl (80.0-105.0); MEAN CORPUSCULAR HEMOGLOBIN 31.7 pg (25.0-35.0); MEAN CORPUSCULAR HGB CONC 34.3 g/dl (31.0-37.0); MEAN PLATELET VOLUME 9.9 fl (7.0-11.0); MONO # 0.6 (0.1-0.6); MONO % 10.7 % (1.0-6.0); RBC 3.85 10^6/uL (3.5-6.1); RED CELL DISTRIBUTION WIDTH 13.9 % (11.5-14.5); WHITE BLOOD COUNT 5.7 10^3/ul (4.5-11.0)
[2018-02-23 20:06] LABS: ALB/GLOB RATIO 1.4 (1.1-1.8); ALBUMIN 4.1 g/dL (3.0-4.8); ALT/SGPT 24 U/L (7-56); AST/SGOT 29 U/L (17-59); BLOOD UREA NITROGEN 17 mg/dL (7-21); CALCIUM 8.7 mg/dL (8.4-10.5); GFR AFRICAN-AMERICAN > 60; GFR NON-AFRICAN AMERICAN > 60
[2018-02-23 20:41] LABS: URINE BILIRUBIN NEGATIVE (NEGATIVE); URINE BLOOD NEGATIVE (NEGATIVE); URINE GLUCOSE (UA) NEGATIVE (NEGATIVE); URINE LEUKOCYTE ESTERASE NEGATIVE Leu/uL (NEGATIVE); URINE PROTEIN NEGATIVE mg/dL (<30 mg/dL)
[2018-02-23 20:42] LABS: URINE APPEARANCE CLEAR (CLEAR); URINE COLOR LIGHT YELLOW (YELLOW)
[2018-02-23 21:57] VITALS: BP 142/88; PULSE 80; RESP 17; O2SAT 97
--- NOTE | 2018-02-24 09:32 | CARD ---
APPROVED REPORT Date of service: 02/23/2018 EKG Measurement Heart [id number] <Conclusion> Normal sinus rhythm Normal ECG
== END 2018-02-23 21:40 | disposition home or self-care (01) ==
LOC: ED 18:23
DX: R53.1 Weakness (principal); I25.10 Atherosclerotic heart disease of native coronary artery without angina pectoris; I10 Essential (primary) hypertension; G20 Parkinson's disease; Z98.61 Coronary angioplasty status; Z87.891 Personal history of nicotine dependence
CPT/HCPCS: 80053; 81003; 83735; 84100; 85025; 93005; 99284; J7030

== ENCOUNTER 2018-06-06 17:55 | Inpatient (IN) | payer BC, MEDICARE ==
--- NOTE | 2018-06-06 18:28 | ED PDOC ---
Arrival/HPI - History of Present Illness Narrative History of Present Illness (Text): 06/06/18 18:52 78 y/o male with PMH [place]'s disease, Parkinson's disease, and CAD s/p PTCA with 5 stents last year presents to the ED with c/o worsening confusion x 1 week. states pt is "talking nonsense" and seems very sleepy. Family found pt sleeping under dining room table this afternoon. Pt states he may have fallen sometime this week but is unsure. Pt was placed on a new unknown medication for his Parkinson's 2 weeks ago by his neurologist, which was stopped by his 5 days ago after she noticed increased confusion. Also c/o bilateral lower leg swelling that has worsened over the last week. Denies fever, chills, chest pain, palpitations, syncope, SOB, cough, headache, abdominal pain, urinary symptoms, weakness, numbness, paresthesias. <Manisha Francis - Last Filed: 06/07/18 01:42> <Reva Jones - Last Filed: 06/07/18 12:14> - General Chief Complaint: Altered Mental Status Time Seen by Provider: 06/06/18 17:59 Past Medical History - Provider Review Nursing Documentation Reviewed: Yes - Infectious Disease Hx of Infectious Diseases: None - Cardiac Hx Hypertension: Yes Other/Comment: cardiac stent - Pulmonary Hx Respiratory Disorders: No - Neurological Hx Dementia: Yes Hx Parkinson's Disease: Yes - HEENT Hx HEENT Disorder: No - Renal Hx Renal Disorder: Yes Hx Pyelonephritis: Yes (right sided) - Endocrine/Metabolic Hx Endocrine Disorders: Yes Other/Comment: oscar disease - Hematological/Oncological Hx Blood Transfusions: No Hx Blood Transfusion Reaction: No - Integumentary Hx Dermatological Disorder: No - Musculoskeletal/Rheumatological Hx Falls: No - Gastrointestinal Hx Gastrointestinal Disorders: Yes Other/Comment: constipation - Genitourinary/Gynecological Hx Genitourinary Disorders: Yes Hx Urinary Tract Infection: Yes (e.coli) - Psychiatric Hx Emotional Abuse: No Hx Physical Abuse: No Hx Substance Use: No - Surgical History Hx Cardiac Catheterization: Yes Hx Coronary Stent: Yes - Anesthesia Hx Anesthesia: Yes Hx Anesthesia Reactions: No Hx Malignant Hyperthermia: No - Suicidal Assessment Feels Threatened In Home Enviroment: No <Manisha Francis - Last Filed: 06/07/18 01:42> Family/Social History - Physician Review Nursing Documentation Reviewed: Yes Family/Social History: No Known Family HX Smoking Status: Former Smoker Hx Alcohol Use: Yes (former) Amount per day: 4 Hx Substance Use: No Hx Substance Use Treatment: No <Manisha Francis - Last Filed: 06/07/18 01:42> Allergies/Home Meds <Manisha Francis - Last Filed: 06/07/18 01:42> <Reva Jones - Last Filed: 06/07/18 12:14> Allergies/Adverse Reactions: Allergies acetaminophen [From Percocet] Adverse Reaction (Verified 02/23/18 18:40) FATIGUE also more confused oxycodone [From Percocet] Adverse Reaction (Verified 02/23/18 18:40) FATIGUE also more confused Home Medications: Home Meds Medication Instructions Recorded Confirmed RX: Carbidopa/Levodopa/Entacapone 1 tab PO TID 03/04/12 06/06/18 [Stalevo 150] RX: Rasagiline Mesylate [Azilect] 1 mg PO DAILY 03/04/12 06/06/18 RX: Potassium Chloride [K-Dur 20 1 tab PO DAILY 05/25/17 06/06/18 mEq ER Tab] Vit C/E/Zn/Coppr/Lutein/Zeaxan 1 cap PO DAILY 05/25/17 06/06/18 [Preservision Areds 2 Softgel] Donepezil [Aricept] 10 mg PO HS 02/23/18 06/06/18 Aspirin [Ecotrin] 81 mg PO DAILY 06/06/18 06/06/18 RX: Meclizine [Meclizine*] 1 tab PO Q8 PRN 06/06/18 06/06/18 RX: OLANZapine [Zyprexa] 2.5 mg PO HS 06/06/18 06/06/18 Review of Systems - Physician Review All systems were reviewed & negative as marked: Yes - Review of Systems Systems not reviewed;Unavailable: Altered Mental Status (AMS) Constitutional: Normal. absent: Fatigue, Weight Change, Fevers, Night Sweats Eyes: Normal. absent: Vision Changes, Eye Pain ENT: Normal. absent: Hearing Changes, Sore Throat, Epistaxis, Sinus Congestion Respiratory: Normal. absent: SOB, Cough Cardiovascular: Normal. absent: Chest Pain, Palpitations Gastrointestinal: Normal. absent: Abdominal Pain, Nausea, Vomiting Genitourinary Male: Normal. absent: Dysuria, Frequency Musculoskeletal: Other (bilateral leg swelling; no erythema, no warmth ). a bsent: Arthralgias Skin: absent: Rash, Pruritis, Skin Lesions, Laceration, Abscess, Ulcer, Cellulitis Neurological: Other (disoriented, confused). absent: Headache, Dizziness, Focal Weakness, Gait Changes, Speech Changes, Facial Droop, Disequilibrium, Seizure Endocrine: Normal. absent: Diaphoresis Hemo/Lymphatic: Normal. absent: Adenopathy Psychiatric: Normal <Manisha Francis - Last Filed: 06/07/18 01:42> Physical Exam Vital Signs Reviewed: Yes Temperature: Afebrile Blood Pressure: Normal Pulse: Regular Respiratory Rate: Normal Appearance: Positive for: Well-Appearing, Non-Toxic, Comfortable Pain Distress: None Mental Status: Positive for: Confused, Lethargic. No: Alert and Oriented X 3 (Alert; Oriented to self, time, but not place. Pt thinks he is in [place]. ) - Systems Exam Head: Present: Atraumatic, Normocephalic. No: Tenderness, Contusion, Swelling Pupils: Present: PERRL Extroacular Muscles: Present: EOMI Conjunctiva: Present: Normal Ears: Present: Normal Mouth: Present: Moist Mucous Membranes Pharnyx: Present: Normal. No: ERYTHEMA, EXUDATE Nose (External): Present: Atraumatic Nose (Internal): Present: Normal Inspection Neck: Present: Normal Range of Motion Respiratory/Chest: Present: Clear to Auscultation, Good Air Exchange. No: Respiratory Distress, Accessory Muscle Use Cardiovascular: Present: Regular Rate and Rhythm, Murmurs (systolic murmur loudest over aortic valve area), Normal S1, S2, Peripheal Pulses Present Abdomen: Present: Normal Bowel Sounds. No: Tenderness, Distention, Peritoneal Signs Upper Extremity: Present: Normal Inspection, Normal ROM, NORMAL PULSES, Neurovascularly Intact, Capillary Refill < 2s. No: Cyanosis, Edema, Tenderness, Swelling, Erythema, Temperature Abnormalties, Deformity Lower Extremity: Present: Edema (bilateral feet and ankles), NORMAL PULSES, Normal ROM, Neurovascularly Intact, Capillary Refill < 2 s. No: CALF TENDERNESS, Deformity, Temperature Abnormalties Neurological: Present: GCS=15, CN II-XII Intact, Motor Func Grossly Intact, Normal Sensory Function, Normal Cerebellar Funct. No: Other (facial droop) Skin: Present: Warm, Dry, Normal Color. No: Rashes Psychiatric: Present: Alert, Normal Insight, Normal Concentration, Normal Affect, Normal Mood, Other (able to follow commands and answer questions). No: Oriented x 3 (Oriented to person, time, not oriented to place. Pt thinks he is in [place]), Anxious, Agitated, Suicidal Ideation, Lethargic <Manisha Francis - Last Filed: 06/07/18 01:42> Vital Signs Pulse Resp BP Pulse Ox 06/06/18 19:26 79 18 149/80 99 06/06/18 18:24 83 19 127/80 97 <Reva Jones - Last Filed: 06/07/18 12:14> Medical Decision Making ED Course and Treatment: 06/07/18 18:20 Initial Plan: * CBC, CMP, Troponin * UA, culture * UDS (on 's request) * EKG * CT head * CXR NIHSS 0 CBC: wnl CMP: wnl Troponin: 0.03 EKG: rate 79, NSR, normal interval, no ST elevations or other signs of ischemia. Comparable to prior EKG 02/24/18. CXR: no active disease. read by me and Dr. Jones. [address] Santiago who accepted the pt for inpatient admission, remote telemetry on his service. Pending UA and CT head. 1944 CT head: no intracranial hemorrhage UA: no signs of infection Plan of care discussed with pt and family. They understand and agree with inpatient admission. Impression: Altered Mental Status Plan: Admission to remote tele - Lab Interpretations Narrative Lab Interpretation (Text): 06/07/18 02:18 06/06/18 06/06/18 06/06/18 21:45 18:23 18:23 WBC 7.6 D RBC 3.75 Hgb 12.0 L Hct 35.2 L MCV 93.9 MCH 32.0 MCHC 34.1 RDW 13.9 Plt Count 159 MPV 10.5 Gran % 62.9 Lymph % (Auto) 23.2 [place] % (Auto) 13.5 H Eos % (Auto) 0.3 L Baso % (Auto) 0.1 Gran # 4.80 Lymph # (Auto) 1.8 [place] # (Auto) 1.0 H Eos # (Auto) 0.0 Baso # (Auto) 0.01 Sodium 138 Potassium 4.4 Chloride 107 Carbon Dioxide 23 Anion Gap 13 BUN 15 Creatinine 0.6 L Est GFR ( Amer) > 60 Est GFR (Non-Af Amer) > 60 Random Glucose 85 Calcium 9.2 Total Bilirubin 1.3 AST 64 H D ALT 32 Alkaline Phosphatase 77 Troponin I 0.03 D NT-Pro-B Natriuret Pep 988 H Total Protein 7.7 Albumin 4.3 Globulin 3.4 Albumin/Globulin Ratio 1.3 Urine Color Yellow Urine Appearance Clear Urine pH 6.0 Ur Specific [place] >= 1.030 Urine Protein Negative Urine Glucose (UA) Negative Urine Ketones >=80 Urine Blood Negative Urine Nitrate Negative Urine Bilirubin Negative Urine Urobilinogen 0.2 Ur Leukocyte Esterase Negative I have reviewed the lab results: Yes Interpretation: All labs normal - RAD Interpretation Radiology Orders: 06/06/18 18:18 CHEST PORTABLE [RAD] Stat 06/06/18 18:23 HEAD W/O CONTRAST [CT] Stat Slabbing Machine Operator: ED Physician - EKG Interpretation Interpreted by ED Physician: Yes Type: 12 lead EKG Comparison: Com.w/previous EKG <Manisha Francis - Last Filed: 06/07/18 01:42> - Lab Interpretations Lab Results: 06/06/18 18:23 06/06/18 18:23 Lab Results 06/06/18 21:45: Urine Color Yellow, Urine Appearance Clear, Urine pH 6.0, Ur Specific [place] >= 1.030, Urine Protein Negative, Urine Glucose (UA) Negative, Urine Ketones >=80, Urine Blood Negative, Urine Nitrate Negative, Urine Bilirubin Negative, Urine Urobilinogen 0.2, Ur Leukocyte Esterase Negative 06/06/18 18:23: Sodium 138, Potassium 4.4, Chloride 107, Carbon Dioxide 23, Anion Gap 13, BUN 15, Creatinine 0.6 L, Est GFR ( Amer) > 60, Est GFR (Non-Af Amer) > 60, Random Glucose 85, Calcium 9.2, Total Bilirubin 1.3, AST 64 H D, ALT 32, Alkaline Phosphatase 77, Troponin I 0.03 D, NT-Pro-B Natriuret Pep 988 H, Total Protein 7.7, Albumin 4.3, Globulin 3.4, Albumin/Globulin Ratio 1.3 06/06/18 18:23: WBC 7.6 D, RBC 3.75, Hgb 12.0 L, Hct 35.2 L, MCV 93.9, MCH 32.0, MCHC 34.1, RDW 13.9, Plt Count 159, MPV 10.5, Gran % 62.9, Lymph % (Auto) 23.2, [place] % (Auto) 13.5 H, Eos % (Auto) 0.3 L, Baso % (Auto) 0.1, Gran # 4.80, Lymph # (Auto) 1.8, [place] # (Auto) 1.0 H, Eos # (Auto) 0.0, Baso # (Auto) 0.01 - RAD Interpretation Radiology Orders: 06/06/18 18:18 CHEST PORTABLE [RAD] Stat 06/06/18 18:23 HEAD W/O CONTRAST [CT] Stat - Medication Orders Current Medication Orders: Aspirin (Aspirin Chewable) 81 mg PO DAILY [facility] Last Admin: 06/07/18 09:35 Dose: 81 mg Carbidopa/Levodopa/Entacapone (Stalevo 150) 1 tab PO TID BRISEYDA Last Admin: 06/07/18 09:35 Dose: 1 tab Clopidogrel Bisulfate (Plavix) 75 mg PO DAILY BRISEYDA Donepezil HCl (Aricept) 10 mg PO HS BRISEYDA Last Admin: 06/06/18 21:57 Dose: 10 mg Sodium Chloride (Sodium Chloride 0.9%) 1,000 mls @ 75 mls/hr IV .[id number] BRISEYDA Last Admin: 06/07/18 09:36 Dose: 75 mls/hr eMAR Start Stop Document 06/07/18 09:36 RV (Rec: 06/07/18 09:36 RV [facility]) Intravenous Solution Start Date 06/07/18 Start Time 09:36 Olanzapine (Zyprexa) 2.5 mg PO DAILY [facility]; Protocol Last Admin: 06/07/18 09:35 Dose: 2.5 mg Behavioural Document 06/07/18 09:35 RV (Rec: 06/07/18 09:35 RV [facility]) Maintenance Maintenance Dose Yes Nonmedicinal Nonmedicinal Interventions Redirect Therapeutic Communication Give food/fluids Behavior Behavior for Medication: Anxiety Discontinued Medications Influenza Virus Vaccine (Flucelvax Quad 1423-2087 Syr) 60 mcg IM .ONCE ONE Stop: 06/07/18 00:48 Pneumococcal Polyvalent Vaccine (Pneumovax 23 Vaccine) 0.5 ml IM .ONCE ONE Stop: 06/07/18 00:48 <Reva Jones - Last Filed: 06/07/18 12:14> NIHSS Scale ([place]) Time Performed: 18:15 - How Severe is the [place] Baseline Level of Consciousness: 0=Alert LOC to Questions: 0=Both comments correct LOC to commands: 0=Obeys both correctly Best Gaze: 0=Normal Visual: 0=No visual loss Facial: 0=Normal Motor Arm - Left: 0=No drift Motor Arm - Right: 0=No drift Motor Leg - Left: 0=No drift Motor Leg - Right: 0=No drift Limb Ataxia: 0=Absent Sensory: 0=Normal Best Language: 0=No aphasia Dysarthia: 0=Normal articulation Extinction & Inattention (Neglect): 0=Normal, no object Score: 0 Risk Level: No Stroke Risk <Manisha Francis - Last Filed: 06/07/18 01:42> - PA / LUMBER STACKER DRIVER / Resident Statement MD/ has reviewed & agrees with the documentation as recorded. <Rvea Jones - Last Filed: 06/07/18 12:14> Disposition/Present on Arrival - Present on Arrival Any Indicators Present on Arrival: No History of DVT/PE: No History of Uncontrolled Diabetes: No Urinary Catheter: No History of Decub. Ulcer: No History Surgical Site Infection Following: None - Disposition Have Diagnosis and Disposition been Completed?: Yes Disposition Time: 20:00 Patient Plan: Admission <Manisha Francis - Last Filed: 06/07/18 01:42> <Reva Jones - Last Filed: 06/07/18 12:14> - Disposition Diagnosis: Altered mental status Disposition: HOSPITALIZED Patient Problems: Current Active Problems Problem Status Onset Altered mental status Acute Condition: STABLE
[2018-06-06 18:42] LABS: ALB/GLOB RATIO 1.3 (1.1-1.8); ALBUMIN 4.3 g/dL (3.0-4.8); BLOOD UREA NITROGEN 15 mg/dL (7-21); CALCIUM 9.2 mg/dL (8.4-10.5); GFR NON-AFRICAN AMERICAN > 60
[2018-06-06 18:50] LABS: BASO # 0.01 K/mm3 (0.0-2.0); BASO % 0.1 % (0.0-3.0); EOS % 0.3 % (1.5-5.0); GRAN # 4.8 (1.4-6.5); GRAN % 62.9 % (50.0-68.0); LYMPH # 1.8 (1.2-3.4); LYMPH % 23.2 % (22.0-35.0); MEAN CELL VOLUME 93.9 fl (80.0-105.0); MEAN CORPUSCULAR HGB CONC 34.1 g/dl (31.0-37.0); MEAN PLATELET VOLUME 10.5 fl (7.0-11.0); MONO % 13.5 % (1.0-6.0); RBC 3.75 10^6/uL (3.5-6.1); RED CELL DISTRIBUTION WIDTH 13.9 % (11.5-14.5); WHITE BLOOD COUNT 7.6 10^3/uL (4.5-11.0)
[2018-06-06 18:54] LABS: B-TYPE NATRIURETIC PEPTIDE 988 pg/mL (0-450); TROPONIN I 0.03 ng/mL
[2018-06-06 19:15] LABS: ALT/SGPT 32 U/L (7-56); AST/SGOT 64 U/L (17-59)
[2018-06-06] MEDS: Sodium Chloride 0.9% 1,000 ML IV SCH (21:57)
[2018-06-06 21:58] LABS: URINE BILIRUBIN NEGATIVE (NEGATIVE); URINE BLOOD NEGATIVE (NEGATIVE); URINE GLUCOSE (UA) NEGATIVE (NEGATIVE); URINE LEUKOCYTE ESTERASE NEGATIVE Leu/uL (NEGATIVE); URINE PROTEIN NEGATIVE mg/dL (<30 mg/dL); URINE UROBILINOGEN 0.2 E.U./dL (<1 E.U./dL)
[2018-06-06 21:59] LABS: URINE APPEARANCE CLEAR (CLEAR); URINE COLOR YELLOW (YELLOW)
--- NOTE | 2018-06-06 22:08 | CT ---
Date of service: 06/06/2018 PROCEDURE: CT HEAD WITHOUT CONTRAST. HISTORY: AMS COMPARISON: MRI brain without contrast from 10/17/2014. TECHNIQUE: Axial computed tomography images were obtained through the head/brain without intravenous contrast. Radiation dose: Total exam DLP = 1055.75 mGy-cm. This CT exam was performed using one or more of the following dose reduction techniques: Automated exposure control, adjustment of the mA and/or kV according to patient size, and/or use of iterative reconstruction technique. FINDINGS: HEMORRHAGE: No intracranial hemorrhage. BRAIN: There are mild chronic microangiopathic changes. There is no mass, mass effect or abnormal extra-axial fluid collection. There is no territorial infarction. The midline sagittal structures are normal. VENTRICLES: The ventricles are normal in size, shape and configuration. CALVARIUM: There is no calvarial fracture or extracranial soft tissue swelling. PARANASAL SINUSES: Predominantly clear. MASTOID AIR CELLS: Predominantly clear. OTHER FINDINGS: None. IMPRESSION: No acute intracranial abnormality.
[2018-06-06 22:33] LABS: BARBITURATES, UR NEGATIVE (NEGATIVE); BENZODIAZEPINES, UR NEGATIVE (NEGATIVE); OPIATES, UR NEGATIVE (NEGATIVE); PHENCYCLIDINE, UR NEGATIVE (NEGATIVE)
[2018-06-07 00:47] VITALS: BMI 25.0
[2018-06-07] MEDS ORDERED: Influenza Vaccine 60 mcg/0.5 mL SYR (4YR UP) IM ONE (00:47)
[2018-06-07] MEDS ORDERED: Pneumococcal 23-Valent Vaccine IM ONE (00:47)
[2018-06-07 08:14] LABS: BASO # 0.01 K/mm3 (0.0-2.0); BASO % 0.1 % (0.0-3.0); EOS % 0.2 % (1.5-5.0); GRAN # 5.9 (1.4-6.5); GRAN % 70.4 % (50.0-68.0); HEMOGLOBIN 11.7 g/dL (14.0-18.0); LYMPH # 1.3 (1.2-3.4); LYMPH % 15.8 % (22.0-35.0); MEAN CELL VOLUME 94.1 fl (80.0-105.0); MEAN CORPUSCULAR HEMOGLOBIN 31.2 pg (25.0-35.0); MEAN CORPUSCULAR HGB CONC 33.1 g/dl (31.0-37.0); MEAN PLATELET VOLUME 10.2 fl (7.0-11.0); MONO # 1.1 (0.1-0.6); MONO % 13.5 % (1.0-6.0); RBC 3.75 10^6/uL (3.5-6.1); RED CELL DISTRIBUTION WIDTH 13.8 % (11.5-14.5); WHITE BLOOD COUNT 8.4 10^3/uL (4.5-11.0)
[2018-06-07 08:56] LABS: ALB/GLOB RATIO 1.2 (1.1-1.8); ALBUMIN 3.7 g/dL (3.0-4.8); ALT/SGPT 34 U/L (7-56); AST/SGOT 78 U/L (17-59); BLOOD UREA NITROGEN 12 mg/dL (7-21); CALCIUM 8.8 mg/dL (8.4-10.5); GFR NON-AFRICAN AMERICAN > 60
[2018-06-07] MEDS: Carbidopa/Levodopa/Entacapone 37.5mg-150mg-200mg PO SCH ×4 (09:35→19:22)
[2018-06-07] MEDS: Sodium Chloride 0.9% 1,000 ML IV SCH (09:36)
--- NOTE | 2018-06-07 09:52 | CARD ---
APPROVED REPORT Date of service: 06/06/2018 EKG Measurement Heart [id number] <Conclusion> Normal sinus rhythm Normal ECG No change
--- NOTE | 2018-06-07 10:03 | RAD ---
Date of service: 06/06/2018 HISTORY: bilateral pedal edema COMPARISON: 05/25/2017. FINDINGS: LUNGS: The lungs are well inflated and clear. PLEURA: No pleural effusions or pneumothorax. CARDIOVASCULAR: The heart is normal in size. Atherosclerotic aortic arch calcifications are present. OSSEOUS STRUCTURES: Within normal limits for the patient's age. VISUALIZED UPPER ABDOMEN: Normal. OTHER FINDINGS: None. IMPRESSION: No active pulmonary disease.
--- NOTE | 2018-06-07 15:43 | HP ---
HISTORY OF PRESENT ILLNESS: The patient is a 78-year-old man with a past medical history of Parkinson disease who was brought to [facility] ED by his family for evaluation of a 1 week history of progressively worsening altered mental status. According to the patient's , for the past 1 week he has been progressively more somnolent and lethargic. He has also been becoming more confused and "talking nonsense". There was no report of auditory or visual hallucinations, head trauma, falls, fevers, chills, photophobia or nuchal rigidity. Furthermore there were no reports of GI or urinary complaints. Of note, the patient was started on a new medicine for his underlying Parkinson disease and his altered mental status appears to coincide with initiation of his new drug therapy. PAST MEDICAL HISTORY: As per HPI, also CAD s/p PCI with stent placement, ischemic cardiomyopathy (EF 45-50%) and hypertension. PAST SURGICAL HISTORY: Appendectomy. ALLERGIES: Acetaminophen and Oxycodone. MEDICATIONS: Aspirin 81 mg p.o. daily, Plavix 75 mg p.o. daily, Aricept 10 mg p.o. at bedtime, Stalevo 150 mg p.o. t.i.d., Azilect 1 mg p.o. daily and Olanzapine 2.5 mg p.o. at bedtime. FAMILY HISTORY: Noncontributory. SOCIAL HISTORY: The patient reports social alcohol use and denies tobacco or illicit drug abuse. REVIEW OF SYSTEMS: A 12-point review of systems is negative except as per HPI. PHYSICAL EXAMINATION: VITAL SIGNS: Temperature 98.1, pulse 67, blood pressure 139/82, respiratory rate 20, oxygen saturation 96% on room air. GENERAL: Elderly man appearing his stated age, lying in bed in no apparent distress. HEENT: Normocephalic and atraumatic. PERRL. EOMI. No scleral icterus. No conjunctival pallor. NECK: No JVD, no bruits. LUNGS: Decreased breath sounds at the bases. CARDIOVASCULAR: Regular rate and rhythm. Normal S1 and S2. Grade III/ murmur to RUSB and Grade II/ murmur to LLSB. ABDOMEN: Normoactive bowel sounds. Soft, nontender and nondistended. EXTREMITIES: No edema. NEUROLOGIC: Awake and alert, oriented only to person. Moving all extremities and able to follow simple commands. LABORATORY DATA: WBC 8.4 with 70% neutrophils, hemoglobin 11.7, hematocrit 35, platelets 151. Chemistry reviewed and unremarkable. Urinalysis unremarkable. Urine toxicology negative. IMAGING STUDIES: 1. Chest x-ray demonstrates no acute pathology. 2. CT of the head without contrast demonstrates no acute pathology. ASSESSMENT: The patient is a 78-year-old man with a past medical history of Parkinson disease, CAD s/p PCI with stent placement, ischemic cardiomyopathy and hypertension who presented for evaluation of a 1 week history of altered mental status. PLAN: 1. Altered mental status, etiology unknown, however consider secondary toxic metabolic encephalopathy vs drug-induced. Neuroimaging reviewed and negative for acute pathology. Furthermore there is no evidence of underlying infection at present. Input with Dr. Rehman of Neurology pending. Input with Dr. Obando of Psychiatry pending. We will need to discuss with the patient's and the neurologist regarding the new medical therapy which was initiated for his underlying Parkinson disease as this may have precipitated his confusion. 2. CAD s/p PCI with stent placement. Continue Aspirin 81 mg p.o. daily and Plavix 75 mg p.o. daily. The patient is off statin therapy due to prior history of myopathy. 3. Ischemic cardiomyopathy. The patient remains clinically euvolemic. Evaluation with Dr. Costello of Cardiology is pending. 4. Parkinson disease. Continue Stalevo 150 mg p.o. t.i.d. and Aricept 10 mg p.o. at bedtime. Evaluation with Dr. Rehman is pending. 5. Prophylaxis. GI prophylaxis not indicated as the patient is eating. Continue with Venodynes for DVT prophylaxis. Code status full code. Orlando Levy MD MTDLynne
--- NOTE | 2018-06-07 16:29 | CON ---
DATE: 06/07/2018 NEUROLOGY CONSULTATION CHIEF COMPLAINT: Confusion. HISTORY OF PRESENT ILLNESS: This is a 78-year-old man; history of K[place] disease, Parkinson disease, on Stalevo, coronary artery disease status post PTCA with 5 stents, who presented with worsening confusion over the past week. According to the , he was started on some new Parkinson's medication by his outpatient neurologist, which was stopped by his 5 days ago due to she noticed increased confusion. He also has bilateral leg swelling, which has worsened over the past week hence been admitted. He definitely have some severe cognitive impairment,which is Parkinson related, he is currently on Stalevo for his Parkinson's disease. CAT scan of the head showed no acute intracranial abnormalities, generalized atrophy. He is mildly dehydrated. Vital signs are stable. PAST MEDICAL HISTORY: As above. SOCIAL HISTORY: No illicit drug use, smoking, or EtOH abuse. REVIEW OF SYSTEMS: Fourteen-point review of systems is negative except as per the HPI. MEDICATIONS: Reviewed by nurses' reconciliation sheet. ALLERGIES: NO KNOWN DRUG ALLERGIES. FAMILY HISTORY: Noncontributory. LABORATORY DATA: Current labs, sodium is 136, potassium 4.1, chloride 105, carbon dioxide 25. BUN 12, creatinine 0.6. PHYSICAL EXAMINATION: VITAL SIGNS: Temperature of 98.1, pulse rate of 67, blood pressure 139/80, respiratory rate of 20, oxygen saturation 96% by room air. GENERAL: The patient is mildly lethargic, sitting up in bed, following simple commands. Has right hand tremor, resting tremor from his underlying Parkinson disease. HEENT: Head is atraumatic, normocephalic. PERRLA. Extraocular muscles intact. NECK: Supple. No JVD, no adenopathy noted. LUNGS: Clear to auscultation. No adventitious sounds. HEART: S1, S2. Normal rate and rhythm. No murmurs, rubs or gallops. ABDOMEN: Soft, nontender, and nondistended. Bowel sounds are present. EXTREMITIES: No clubbing. No cyanosis. Peripheral pulses are 2+ felt bilaterally. NEUROLOGIC: The patient is alert and oriented to person, place, month and year. Recall after 5 minutes is 0/3. Poor attention span. Slow thought process. Flat affect. Cranial nerves II through XII are intact. Speech is hypophonic, but no aphasia noted. Motor examination: Increased tone throughout, cognitive rigidity at the wrist bilaterally. Resting tremor seen mostly in the right hand, tremors of the chin, otherwise moves all extremities equally. Sensory exam is intact except for decreased vibration of the toes. DTRs are 2+ throughout and 1 at both ankles and knees. Coordination: [id number] intact, but slightly tremor . Gait is deferred for now. IMPRESSION: Worsening confusion secondary to underlying Parkinson's disease with underlying severe cognitive impairment. There is some episodes of delirium and I will recommend, 1. To continue his Stalevo which is 1 tablet p.o. t.i.d., which is given by his outpatient neurologist. No further adjustment seemed to be done. 2. Continue Zyprexa for his history of unknown psychiatric disorder, though could consider to stop if his rigidity worse. 4. Continue Aricept 10 mg p.o. at bedtime and consider Namenda as an outpatient 10 p.o., b.i.d. cognitive retrieval. 5. At this time Physical Therapy/Occupational Therapy evaluation could be better for some subacute rehab for his underling Parkinson's deconditioned state. 6. We will recommend to follow up with his outpatient neurologist. Thank you. Jeffrey Rehman MD
[2018-06-08 07:16] LABS: BASO # 0.01 K/mm3 (0.0-2.0); BASO % 0.1 % (0.0-3.0); EOS % 0.4 % (1.5-5.0); GRAN # 5.49 (1.4-6.5); GRAN % 69.7 % (50.0-68.0); HEMOGLOBIN 11.5 g/dL (14.0-18.0); LYMPH # 1.2 (1.2-3.4); LYMPH % 15.5 % (22.0-35.0); MEAN CELL VOLUME 94.5 fl (80.0-105.0); MEAN CORPUSCULAR HEMOGLOBIN 31.4 pg (25.0-35.0); MEAN CORPUSCULAR HGB CONC 33.2 g/dl (31.0-37.0); MONO # 1.1 (0.1-0.6); MONO % 14.3 % (1.0-6.0); RBC 3.66 10^6/uL (3.5-6.1); RED CELL DISTRIBUTION WIDTH 13.7 % (11.5-14.5); WHITE BLOOD COUNT 7.9 10^3/uL (4.5-11.0)
[2018-06-08 08:59] LABS: BLOOD UREA NITROGEN 11 mg/dL (7-21)
[2018-06-08 09:00] LABS: ALB/GLOB RATIO 1.2 (1.1-1.8); ALBUMIN 3.6 g/dL (3.0-4.8); ALT/SGPT 34 U/L (7-56); AST/SGOT 69 U/L (17-59); CALCIUM 8.6 mg/dL (8.4-10.5); GFR NON-AFRICAN AMERICAN > 60
[2018-06-08] MEDS: Carbidopa/Levodopa/Entacapone 37.5mg-150mg-200mg PO SCH ×3 (09:49→17:06)
--- NOTE | 2018-06-08 13:23 | CP.PCM.PN ---
Subjective - Date & Time of Evaluation Date of Evaluation: 06/08/18 Time of Evaluation: 13:00 - Subjective Subjective: DATE: 06/08/2018 NEUROLOGY CONSULTATION CHIEF COMPLAINT: F/U for Confusion. SUBJECTIVE: Patient was agitated and delirious overnight. Psych input awating. Patient is on geodon prn for agitation. PAST MEDICAL HISTORY: As above. SOCIAL HISTORY: No illicit drug use, smoking, or EtOH abuse. REVIEW OF SYSTEMS: Fourteen-point review of systems is negative except as per the HPI. MEDICATIONS: Reviewed by nurses' reconciliation sheet. ALLERGIES: NO KNOWN DRUG ALLERGIES. FAMILY HISTORY: Noncontributory. LABORATORY DATA: Reviewed via chart. PHYSICAL EXAMINATION: VITAL SIGNS: Reviewed via chart. GENERAL: The patient is mildly lethargic, sitting up in bed, following simple commands. Has right hand tremor, resting tremor from his underlying Parkinson disease. HEENT: Head is atraumatic, normocephalic. PERRLA. Extraocular muscles intact. NECK: Supple. No JVD, no adenopathy noted. LUNGS: Clear to auscultation. No adventitious sounds. HEART: S1, S2. Normal rate and rhythm. No murmurs, rubs or gallops. ABDOMEN: Soft, nontender, and nondistended. Bowel sounds are present. EXTREMITIES: No clubbing. No cyanosis. Peripheral pulses are 2+ felt bilaterally. NEUROLOGIC: The patient is alert and oriented to person, place, month and year. Recall after 5 minutes is 0/3. Poor attention span. Slow thought process. Flat affect. Cranial nerves II through XII are intact. Speech is hypophonic, but no aphasia noted. Motor examination: Increased tone throughout, cognitive rigidity at the wrist bilaterally. Resting tremor seen mostly in the right hand, tremors of the chin, otherwise moves all extremities equally. Sensory exam is intact except for decreased vibration of the toes. DTRs are 2+ throughout and 1 at both ankles and knees. Coordination: [id number] intact, but slightly tremor on the upper extremities. Gait is deferred for now. IMPRESSION: Worsening confusion secondary to underlying Parkinson's disease with underlying severe cognitive impairment. There is some episodes of delirium which can be expected in these type of cases. Recommend, 1. To continue his Stalevo which is 1 tablet p.o. t.i.d., which is given by his outpatient neurologist. No further adjustment seemed to be done. 2. Continue Zyprexa for his history of psychiatric disorder, though could consider to stop if his rigidity worse. 4. Continue Aricept 10 mg p.o. at bedtime and consider Namenda as an outpatient 10mg p.o., b.i.d. for cognition. 5. At this time Physical Therapy/Occupational Therapy evaluation could be better for some subacute rehab for his underling Parkinson's deconditioned state. 6. We will recommend to follow up with his outpatient neurologist. 7. consider seroquel 25 mg po qhs for agitation. Await psych input. Thank you. Jeffrey Rehman MD Objective - Vital Signs/Intake and Output Vital Signs (last 24 hours): Temp Pulse Resp BP Pulse Ox 97.8 F 79 20 151/81 H 96 06/08/18 06:00 06/08/18 10:00 06/08/18 06:00 06/08/18 06:00 06/08/18 06:00 Intake and Output: 06/08/18 06/08/18 06:59 18:59 Intake Total 240 Output Total 200 Balance 40 - Medications Medications: Current Medications Aspirin (Aspirin Chewable) 81 mg PO DAILY [facility] Last Admin: 06/08/18 09:49 Dose: 81 mg Carbidopa/Levodopa/Entacapone (Stalevo 150) 1 tab PO TID [facility] Last Admin: 06/08/18 09:49 Dose: 1 tab Clopidogrel Bisulfate (Plavix) 75 mg PO DAILY [facility] Last Admin: 06/08/18 09:49 Dose: 75 mg Donepezil HCl (Aricept) 10 mg PO HS [facility] Last Admin: 06/07/18 22:26 Dose: 10 mg Quetiapine Fumarate (Seroquel) 12.5 mg PO HS [facility]; Protocol Ziprasidone (Geodon Inj) 10 mg IM Q6 PRN; Protocol PRN Reason: Agitation Last Admin: 06/07/18 22:26 Dose: 10 mg - Labs Labs: 06/08/18 06:45 06/08/18 06:45
--- NOTE | 2018-06-08 14:11 | PN ---
SUBJECTIVE: The patient was seen and examined at bedside on the remote telemetry estrella. He remains confused, agitated and combative with the nursing staff staff. This morning he remains largely clinically unchanged. OBJECTIVE: VITAL SIGNS: Temperature 97.8, pulse 74, blood pressure 151/81, respiratory rate 20, and oxygen saturation 96% on room air. GENERAL: Elderly man appearing his stated age, in no apparent distress. HEENT: PERRL, EOMI. No scleral icterus. No conjunctival pallor. NECK: No JVD. LUNGS: Decreased breath sounds at the bases. CARDIOVASCULAR: Regular rate and rhythm. Normal S1 and S2. Grade III/ murmur to RUSB and Grade II/ murmur to LLSB. ABDOMEN: Normoactive bowel sounds. Soft, nontender and nondistended. EXTREMITIES: No edema. NEUROLOGIC: Awake and alert, oriented only to person. Moving all extremities and able to follow simple commands. LABORATORY DATA: WBC 7.9, hemoglobin 11.5, hematocrit 35, and platelets 156. Chemistry reviewed and unremarkable. ASSESSMENT: The patient is a 78-year-old man with a past medical history of Parkinson disease, CAD s/p PCI with stent placement, ischemic cardiomyopathy and hypertension who presented for evaluation of 1 week history of altered mental status. PLAN: 1. Altered mental status, etiology unknown; however, consider secondary to drug-induced vs toxic metabolic encephalopathy vs progression of underlying Parkinson disease. Input from Dr. Rehman noted and appreciated. Evaluation with Dr. Obando of Psychiatry is pending. 2. CAD s/p PCI with stent placement. Continue Aspirin 81 mg p.o. daily and Plavix 75 mg p.o. daily. 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 3. Ischemic cardiomyopathy. The patient remains clinically euvolemic. Evaluation with Dr. Costello of Cardiology is pending. 4. Parkinson disease. Continue Stalevo 150 mg p.o. t.i.d. and Aricept 10 mg p.o. at bedtime. Evaluation with Dr. Rehman greatly appreciated. 5. Prophylaxis. GI prophylaxis not indicated as the patient is eating. DVT prophylaxis not indicated as the patient is ambulatory. CODE STATUS: Full code. Orlando Padkowsky, MD [facility] # [id number] [facility]
--- NOTE | 2018-06-08 17:02 | RAD ---
Date of service: 06/08/2018 HISTORY: r/o aspiration COMPARISON: 06/06/2018 FINDINGS: LUNGS: No active pulmonary disease. PLEURA: No significant pleural effusion identified, no pneumothorax apparent. CARDIOVASCULAR: No radiographic findings to suggest acute or significant cardiovascular disease. Atherosclerotic calcifications identified primarily aortic arch. OSSEOUS STRUCTURES: No significant abnormalities. VISUALIZED UPPER ABDOMEN: Normal. OTHER FINDINGS: None. IMPRESSION: No active disease. No significant interval change compared to the prior examination(s).
--- NOTE | 2018-06-08 21:51 | CON ---
DATE: 06/08/2018 HISTORY OF PRESENT ILLNESS: The patient is a 78-year-old male with a medical history of Parkinson's disease. He was brought in by his family to [facility] ER for evaluation and treatment of a 1-week history of progressively worsening altered mental status with symptoms of confusion, disorientation, hallucination, delusions, and personality changes. Psychiatry was called to help elucidate the etiology of the patient's acute changes in mental status and I met with patient's at bedside and as well as met with the patient who notably could not contribute much to the entire conversation as he could not even respond to questioning or commands. is adamant that this is not the patient's baseline at all. He is usually quite verbal, active, and more reactive. She has fears that the patient also starts slurring his speech recently and she has fears about him having a stroke; however, she does confirm your reports about patient's change in mental status. She indicates that he has been actively hallucinating, is anxious, scared, unpredictable, and speaking nonsense and he can easily "snap out of this," however, has been unable and symptoms have been progressively worsening. does indicate that patient has tried a number of antipsychotics to help with these symptoms including Haldol and Zyprexa and she cannot remember others, and the Zyprexa has not been beneficial and she stopped giving it to him. also indicates that he has tried Seroquel in the past, unknown dose, but this was a long time ago and she might try this medication again at a much lower dose after I explained its indications, its preference for use in individuals with Parkinson's disease and possible benefits for hallucinations, anxiety, lability, and sleep. She reports preference that he starts this while he is hospitalized so that he can be monitored. As far as she knows, he does not have any depressive symptoms; however, she was never able to determine this fully because of his confusion and disorganization. His insight and judgment are obviously poor. He appear to be possibly hallucinating during my visit; however, he is unpredictable and has attempted to climb out of bed multiple times. He needs to be reoriented and redirected constantly and has had a burst of agitation and swearing at staff. RELEVANT PSYCHIATRIC MEDICATION: Geodon injection 10 mg IM every 6 hours p.r.n., the patient received 1 dose yesterday and Zyprexa 2.5 mg daily. Vital signs and labs are reviewed. IMPRESSION: This appears to be anxious delirium; although, cause is not nearly apparent at this time and likely psychosis and anxiety disorder secondary to general medical condition. RECOMMENDATIONS: We will start Seroquel. We will discontinue the Zyprexa and initiate Seroquel, which is the preferred antipsychotic for patients with Parkinson's disease. We will start Seroquel at 12.5 mg at very small dose for patient and try to determine if he tolerates this medication and see if there are any resultant benefit. is in agreement with this recommendation and Psychiatry will follow up with patient on 06/09/2018, specifically Dr. Obando will be meeting with the patient at that time to follow up on his progress. Echo Ferraro MD
--- NOTE | 2018-06-09 03:25 | CON ---
DATE: 06/08/2018 The patient is in room 377, bed 1. REASON FOR CONSULTATION: Altered mental status, coronary artery disease, mild ischemic cardiomyopathy, history of stent insertion. HISTORY OF PRESENT ILLNESS: The patient is a 78-year-old male admitted with 1-week history of progressive altered mental status and also the patient getting more somnolent and lethargic and the patient was recently started new medication for parkinsonism and change of symptoms started and coincided with that change. The patient known to have parkinsonism, postural hypotension, Kishore disease, history of hypertension, coronary artery disease status post stent insertion and angioplasty. The patient's ejection fraction 45-50% suggestive of mild ischemic cardiomyopathy. There is no history of chest pain, shortness of breath or palpitation associated with onset of this altered mental status. The patient lying flat in bed without any respiratory distress in the bed at present. PAST MEDICAL HISTORY: The patient known to have Parkinson, postural hypotension, Kishore disease, history of hypertension and the patient has history of coronary artery disease. He had PTCA of RCA on 06/11/2016 and then staged PTCA of mid LAD and diagonal stent on 07/15/2016. Circumflex was totally occluded and was not able to open; however, it has bridge collaterals. The patient had another cardiac catheterization on 05/26/2017, which showed a patent stent in LAD, diagonal 1 in RCA and circumflex was totally occluded with bridge collaterals, mild ischemic cardiomyopathy with LV ejection fraction 45-50% and EDP was 20 mmHg. The patient has also history of appendectomy. ALLERGIES: THE PATIENT ALLERGIC TO ACETAMINOPHEN AND OXYCODONE. PERSONAL HISTORY: Drinks socially. No smoking. HOME MEDICATIONS: The patient takes Zyprexa 2.5 mg p.o. at bedtime, Aricept 10 mg at bedtime, aspirin 81 mg daily, meclizine 1 tablet p.r.n. every 8 hourly, potassium 20 mEq daily, Azilect 1 mg daily, Plavix 75 mg daily, carbidopa/levodopa/entacapone 1 tablet p.o. t.i.d. PHYSICAL EXAMINATION: GENERAL: The patient on examination is still confused. VITAL SIGNS: Blood pressure 125/57, respirations 20, pulse 58 and temperature 100.3. HEENT: Head is normocephalic. Eyes: Pupils are normal. Conjunctivae normal. Nose and throat normal. NECK: JVP low. Carotid equal. Thorax; AP diameter normal. LUNGS: No rales. CARDIOVASCULAR: S1 and S2. ABDOMEN: Soft and nontender. No organomegaly. EXTREMITIES: No clubbing. No cyanosis. LABORATORY DATA: WBC 10.9, hemoglobin 11.5, hematocrit 34.6 and platelets 156. Sodium 140 and potassium 3.7. Troponin negative 0.03. Total protein and albumin normal. AST 69, ALT 34, alkaline phosphatase 75. BUN 11, creatinine 0.6. Random sugar 124, earlier sugar was 85 and 92. EKG showed normal sinus rhythm. Chest x-ray, no active pulmonary disease, lungs are clear, heart is normal size. CAT scan of the head, no acute intracranial abnormality. DIAGNOSES: Altered mental status, Parkinson disease, coronary artery disease, history of stent insertion, very mild ischemic cardiomyopathy with ejection fraction 45-50%, history of hypertension. The patient has low-grade fever, rule out sepsis. PLAN: We will do blood cultures and will do urine cultures and will also put Rocephin 1 g IV daily and we will continue Aricept 10 mg at bedtime, aspirin 81 daily, Plavix 75 daily, Seroquel 12.5 mg at bedtime, carbidopa/levodopa 1 tablet p.o. t.i.d. Diagnoses as mentioned before altered mental status, coronary artery disease, history of stent insertion, history of hypertension, history of hypotension, Hand disease. We will follow with you. Lai Costello MD
--- NOTE | 2018-06-09 06:09 | CP.PCM.PN ---
Subjective - Date & Time of Evaluation Date of Evaluation: 06/09/18 Time of Evaluation: 06:25 - Subjective Subjective: Awake,alert, verbally responds to questions, no distress Reason for consultation and follow up: Cardiac evaluation of coronary artery d isолег,post cardiac stent, admitted for altered mental status. Seen and examined by me and Dr. Corrales Objective - Vital Signs/Intake and Output Vital Signs (last 24 hours): Temp Pulse Resp BP Pulse Ox 100.3 F H 92 H 20 125/57 L 95 06/08/18 17:38 06/09/18 02:00 06/08/18 17:38 06/08/18 17:38 06/08/18 17:38 - Medications Medications: Current Medications Acetaminophen (Tylenol 650 Mg Supp) 650 mg RC Q6H PRN PRN Reason: Fever >100.4 F Last Admin: 06/08/18 17:06 Dose: 650 mg Aspirin (Aspirin Chewable) 81 mg PO DAILY [facility] Last Admin: 06/08/18 09:49 Dose: 81 mg Carbidopa/Levodopa/Entacapone (Stalevo 150) 1 tab PO TID [facility] Last Admin: 06/08/18 17:06 Dose: 1 tab Clopidogrel Bisulfate (Plavix) 75 mg PO DAILY [facility] Last Admin: 06/08/18 09:49 Dose: 75 mg Donepezil HCl (Aricept) 10 mg PO HS [facility] Last Admin: 06/08/18 23:40 Dose: 10 mg Ceftriaxone Sodium (Rocephin 1 Gram Ivpb) 1 gm in 100 mls @ 100 mls/hr IVPB DAILY [facility]; Protocol Quetiapine Fumarate (Seroquel) 12.5 mg PO HS [facility]; Protocol Last Admin: 06/08/18 23:40 Dose: 12.5 mg Ziprasidone (Geodon Inj) 10 mg IM Q6 PRN; Protocol PRN Reason: Agitation Last Admin: 06/08/18 19:26 Dose: 10 mg - Labs Labs: 06/08/18 06:45 06/08/18 06:45 - Constitutional Appears: Non-toxic, No Acute Distress - Head Exam Head Exam: NORMAL INSPECTION, NORMOCEPHALIC - ENT Exam ENT Exam: Mucous Membranes Dry - Respiratory Exam Respiratory Exam: Decreased Breath Sounds, NORMAL BREATHING PATTERN - Cardiovascular Exam Cardiovascular Exam: REGULAR RHYTHM, +S1, +S2 Additional comments: Telemetry NSR 70's - GI/Abdominal Exam GI & Abdominal Exam: Soft, Normal Bowel Sounds - Extremities Exam Extremities Exam: Full ROM, Normal Capillary Refill - Neurological Exam Neurological Exam: Alert, Awake Additional comments: confuse - Psychiatric Exam Additional comments: confuse - Skin Skin Exam: Dry, Normal Color, Warm Assessment and Plan - Assessment and Plan (Free Text) Assessment: A 78 year old male who was brought to the ER due to progressive altered mental status for the past week, being somnolent and lethargic. He was recently prescribed new medication for Parkinson's disease. attributed these symptoms to the new medication. History of postural hypotension,[place]'s disease, hypertension, coronary artery disease with stents,(PTCA of RCA 06/11/2016 and staged PTCA of mid LAD and D1 on 07/15/2016)circumflex totally occluded with collaterals. Recent cath was 05/26/2017 with patent stents. History of appendectomy Admitted for altered mental status. Cardiac status stable Plan: No distress, denies chest pain, denies shortness of breath Heart rate controlled Blood pressure controlled Cardiac status stable Neuro and Psych on consult Will discontinue telemetry On ASA 81 mg daily,plavix 75 mg daily Continue current treatment Continue current medications Will follow up Plan and treatment discussed with Dr. Corrales
[2018-06-09 07:18] LABS: BASO # 0.01 K/mm3 (0.0-2.0); BASO % 0.1 % (0.0-3.0); EOS % 0.2 % (1.5-5.0); GRAN # 8.2 (1.4-6.5); GRAN % 73.8 % (50.0-68.0); HEMOGLOBIN 12.3 g/dL (14.0-18.0); LYMPH # 1.6 (1.2-3.4); LYMPH % 14.1 % (22.0-35.0); MEAN CELL VOLUME 95.1 fl (80.0-105.0); MEAN CORPUSCULAR HEMOGLOBIN 31.9 pg (25.0-35.0); MEAN CORPUSCULAR HGB CONC 33.6 g/dl (31.0-37.0); MEAN PLATELET VOLUME 10.3 fl (7.0-11.0); MONO # 1.3 (0.1-0.6); MONO % 11.8 % (1.0-6.0); RBC 3.85 10^6/uL (3.5-6.1); RED CELL DISTRIBUTION WIDTH 13.9 % (11.5-14.5); WHITE BLOOD COUNT 11.1 10^3/uL (4.5-11.0)
[2018-06-09 07:41] LABS: ALB/GLOB RATIO 1.2 (1.1-1.8); ALBUMIN 3.8 g/dL (3.0-4.8); ALT/SGPT 33 U/L (7-56); AST/SGOT 53 U/L (17-59); BLOOD UREA NITROGEN 13 mg/dL (7-21); CALCIUM 9.2 mg/dL (8.4-10.5); GFR NON-AFRICAN AMERICAN > 60
--- NOTE | 2018-06-09 08:51 | PN ---
SUBJECTIVE: The patient was seen and examined at bedside on the remote telemetry estrella. Overnight he had a low-grade temperature of 100.3 and was started on intravenous Ceftriaxone. A chest x-ray was obtained which was negative and a urine culture and blood culture are pending. This morning he otherwise remains largely clinically unchanged. OBJECTIVE: VITAL SIGNS: Temperature 97.4, pulse 69, blood pressure 120/64, respiratory rate 20, oxygen saturation 94% on room air. GENERAL:. No apparent distress. HEENT: PERRL, EOMI. No scleral icterus. No conjunctival pallor. NECK: No JVD. LUNGS: Clear to auscultation anteriorly. CARDIOVASCULAR: Regular rate and rhythm. Normal S1 and S2. Grade III/ murmur to RUSB and grade II/ murmur to LLSB. ABDOMEN: Normoactive bowel sounds. Soft, nontender and nondistended. EXTREMITIES: No edema. NEUROLOGIC: Awake, alert and oriented to person and place. Moving all extremities and able to follow simple commands. LABORATORY DATA: WBC 11 with 74% neutrophils, hemoglobin 12, hematocrit 36, platelets 174. Chemistry reviewed and unremarkable. ASSESSMENT: The patient is a 78-year-old man with a past medical history of Parkinson disease, CAD s/p PCI with stent placement, ischemic cardiomyopathy and hypertension who presented for evaluation of a 1 week history of altered mental status. PLAN: 1. Altered mental status, etiology unknown however consider secondary to drug- induced vs toxic metabolic encephalopathy vs progression of underlying Parkinson disease. Input from Dr. Rehman and Dr. Ferraro greatly appreciated. In the setting of the patient's low-grade temperature a sepsis workup has been initiated. We will await culture reports. The patient remains on Ceftriaxone 1 g IV daily. 2. CAD s/p PCI with stent placement. Input from Dr. Costello appreciated. Continue Aspirin 81 mg p.o. daily and Plavix 75 mg p.o. daily. 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 3. Ischemic cardiomyopathy. The patient remains clinically euvolemic. Continue with care as above. 4. Parkinson disease. Continue Stalevo 150 mg p.o. t.i.d. and Aricept 10 mg p.o. at bedtime. Zyprexa has been discontinued and the patient has been started on Seroquel 12.5 mg p.o. at bedtime. 5. Prophylaxis. GI prophylaxis is not indicated as the patient is eating. Continue with SCDs for DVT prophylaxis. CODE STATUS: Full code. Orlando Levy MD [facility]
[2018-06-09] MEDS: Carbidopa/Levodopa/Entacapone 37.5mg-150mg-200mg PO SCH ×2 (09:42→13:42)
[2018-06-09] MEDS: cefTRIAXone 1 gm 1 GM/100 ML BAG IVPB SCH (09:44)
[2018-06-09] MEDS ORDERED: Potassium Chloride 20 mEq ER Tab PO ONE (11:44)
--- NOTE | 2018-06-09 17:26 | PN ---
DATE: 06/09/2018 REASON FOR CONSULTATION: Altered mental status, coronary artery disease, status post PTCA in the past. SUBJECTIVE: The patient denies any chest pain, shortness of breath, or any palpitations. The patient remained stable, no complaint of chest pain or dyspnea, this is more of an addition to dictated by nurse practitioner, Tiffany Lugo. OBJECTIVE: GENERAL: Not in apparent distress. VITAL SIGNS: Temperature afebrile, heart rate 60, and blood pressure 120/64. LABORATORY DATA: Hemoglobin 12, hematocrit 36.6, BUN 13, creatinine 0.62, and potassium 3.6. ASSESSMENT AND PLAN: Admitted with altered mental status, cardiac status is stable, history of percutaneous transluminal coronary angioplasty of right coronary artery on 06/11/2016 and percutaneous transluminal coronary angioplasty of left anterior descending on 07/15/2016, circumflex is totally occluded with collaterals. Recent catheterization on 05/26/2017, patent stent. The patient's cerebrovascular accident status is stable. Continue aspirin and continue Plavix. We will follow with you. Discontinue telemetry. History of underlying Parkinson's disease as well. We will supplement potassium. Thank you for providing us the opportunity in taking care of the patient. Lai Corrales MD
--- NOTE | 2018-06-09 20:29 | PN ---
DATE: 06/09/2018 SUBJECTIVE: In short, the patient is a 78-year-old male with history of Parkinson disease. The patient was brought for evaluation of altered mental status. Psych consult was called because the patient had hallucinations and also the patient is on anti-Parkinsonian medications, it is hard to find good balance between antipsychotic medications and anti-Parkinsonian medications. Agree with Dr. Ferraro to initiate Seroquel 12.5 mg at the nighttime. The patient was followed up today. The patient presented to be somewhat confused but not agitated. There is no option to have a meaningful conversation because of stuttering and some dysarthria. The patient does not present to be agitated, seems to be comfortable at the moment of the interview. VITAL SIGNS: This script writer reviewed vital signs. Vital signs seem to be stable. Temperature 97.4, pulse is 69, blood pressure 120/64, respiration 20, and oxygen saturation is 94. MEDICATIONS: Reviewed. The patient is on aspirin, carbidopa and levodopa, entacapone. The patient is on Rocephin, Plavix, Aricept. The patient was on Seroquel 12.5 mg at the nighttime and Geodon as needed. LABORATORY DATA: Reviewed. WBC cells climbing up 11.1. Chemistry reviewed. Urinalysis reviewed. Toxicology reviewed. MENTAL STATUS EXAMINATION: As this script writer described above, the patient presented to be alert but has dysarthria, speech garbled, difficulty to express himself. The patient knows that he is in the hospital, but he thinks that he is in the Emergency Room. Mood described as the patient was mumbling something. Affect was flat. Thought process seems to be disorganized, but compared with description in the Emergency Room, the patient seems to be doing a little bit better. Insight and judgment seem to seems to be limited. Impulses are unpredictable. IMPRESSION: Delirium. The patient also has Parkinson disease, hallucinations might be related to delirium as well as side effects from the medications. PLAN: Agree with Junito. Agree with Tameka. We will follow up and advise accordingly. This script writer wants to know who is power of document review attorney for the patient. The patient might be improving from ECT treatment. We will discuss that with medical team as well as with the family. Meanwhile, physical therapy recommended. Should you have any questions, give me a call back. Thank you very much for letting me to participate in the care of your patient. Michelle Obando MD [facility]
[2018-06-10 06:44] LABS: ALB/GLOB RATIO 1.2 (1.1-1.8); ALBUMIN 3.8 g/dL (3.0-4.8); ALT/SGPT 25 U/L (7-56); AST/SGOT 43 U/L (17-59); BLOOD UREA NITROGEN 18 mg/dL (7-21); CALCIUM 8.8 mg/dL (8.4-10.5); GFR NON-AFRICAN AMERICAN > 60
[2018-06-10 07:24] LABS: BASO # 0.01 K/mm3 (0.0-2.0); BASO % 0.1 % (0.0-3.0); EOS % 0.1 % (1.5-5.0); GRAN # 8.6 (1.4-6.5); GRAN % 74.9 % (50.0-68.0); HEMOGLOBIN 11.2 g/dL (14.0-18.0); LYMPH # 1.4 (1.2-3.4); LYMPH % 11.8 % (22.0-35.0); MEAN CELL VOLUME 95.2 fl (80.0-105.0); MEAN CORPUSCULAR HEMOGLOBIN 31.4 pg (25.0-35.0); MEAN CORPUSCULAR HGB CONC 32.9 g/dl (31.0-37.0); MEAN PLATELET VOLUME 10.6 fl (7.0-11.0); MONO # 1.5 (0.1-0.6); MONO % 13.1 % (1.0-6.0); RBC 3.57 10^6/uL (3.5-6.1); WHITE BLOOD COUNT 11.5 10^3/uL (4.5-11.0)
--- NOTE | 2018-06-10 08:06 | CP.PCM.PN ---
Subjective - Date & Time of Evaluation Date of Evaluation: 06/10/18 Time of Evaluation: 06:50 - Subjective Subjective: Awake,alert, no distress Reason for consultation and follow up: Cardiac evaluation of coronary artery disease,post cardiac stent, admitted for altered mental status. Seen and examined by me and Dr. Corrales Objective - Vital Signs/Intake and Output Vital Signs (last 24 hours): Temp Pulse Resp BP Pulse Ox 98.3 F 87 20 109/58 L 94 L 06/09/18 18:00 06/09/18 18:00 06/09/18 18:00 06/09/18 18:00 06/09/18 18:00 Intake and Output: 06/10/18 06/10/18 06:59 18:59 Intake Total 240 Balance 240 - Medications Medications: Current Medications Aspirin (Aspirin Chewable) 81 mg PO DAILY [facility] Last Admin: 06/09/18 09:42 Dose: 81 mg Carbidopa/Levodopa/Entacapone (Stalevo 150) 1 tab PO TID [facility] Last Admin: 06/09/18 13:42 Dose: 1 tab Clopidogrel Bisulfate (Plavix) 75 mg PO DAILY [facility] Last Admin: 06/09/18 09:42 Dose: 75 mg Donepezil HCl (Aricept) 10 mg PO HS [facility] Last Admin: 06/09/18 21:23 Dose: 10 mg Ceftriaxone Sodium (Rocephin 1 Gram Ivpb) 1 gm in 100 mls @ 100 mls/hr IVPB DAILY [facility]; Protocol Last Admin: 06/09/18 09:44 Dose: 100 mls/hr Quetiapine Fumarate (Seroquel) 12.5 mg PO HS [facility]; Protocol Last Admin: 06/09/18 21:23 Dose: 12.5 mg - Labs Labs: 06/10/18 06:10 06/10/18 06:10 - Constitutional Appears: Non-toxic, No Acute Distress - Head Exam Head Exam: NORMAL INSPECTION, NORMOCEPHALIC - Eye Exam Eye Exam: Normal appearance Pupil Exam: NORMAL ACCOMODATION - ENT Exam ENT Exam: Mucous Membranes Dry - Respiratory Exam Respiratory Exam: Decreased Breath Sounds, NORMAL BREATHING PATTERN - Cardiovascular Exam Cardiovascular Exam: +S1, +S2 - GI/Abdominal Exam GI & Abdominal Exam: Soft, Normal Bowel Sounds - Neurological Exam Neurological Exam: Alert, Awake Additional comments: confuse - Psychiatric Exam Psychiatric exam: Normal Affect, Normal Mood - Skin Skin Exam: Dry, Normal Color, Warm Assessment and Plan - Assessment and Plan (Free Text) Assessment: A 78 year old male who was brought to the ER due to progressive altered mental status for the past week, being somnolent and lethargic. He was recently prescribed new medication for Parkinson's disease. attributed these symptoms to the new medication. History of postural hypotension,Raymond's disease, hypertension, coronary artery disease with stents,(PTCA of RCA 06/11/2016 and staged PTCA of mid LAD and D1 on 07/15/2016)circumflex totally occluded with collaterals. Recent cath was 05/26/2017 with patent stents. History of appendectomy Admitted for altered mental status. Cardiac status stable Plan: Cardiac status stable No distress, denies chest pain, Denies shortness of breath Heart rate controlled Blood pressure controlled confuse but not agitated or combative Neuro and Psych on consult On ASA 81 mg daily,Plavix 75 mg daily Continue current treatment Continue current medications Chart reviewed Physical therapy Fall precaution Will follow up Plan and treatment discussed with Dr. Corrales
[2018-06-10] MEDS ORDERED: Potassium Chloride 20 mEq ER Tab PO ONE (09:55)
--- NOTE | 2018-06-10 10:18 | PN ---
SUBJECTIVE: The patient was seen and examined at bedside on the remote telemetry estrella. No acute events overnight. He remains afebrile and hemodynamically stable. He continues to remain confused and otherwise remains largely clinically unchanged. OBJECTIVE: VITAL SIGNS: Temperature 97.9, pulse 75, blood pressure 110/76, respiratory rate 20, oxygen saturation 100% on room air. GENERAL: No apparent distress. HEENT: PERRL, EOMI. No scleral icterus. No conjunctival pallor. NECK: No JVD. LUNGS: Clear to auscultation anteriorly. CARDIOVASCULAR: Regular rate and rhythm. Normal S1 and S2. Grade III/ murmur to RUSB and grade II/ murmur to LLSB. ABDOMEN: Normoactive bowel sounds. Soft, nontender and nondistended. EXTREMITIES: No edema. NEUROLOGIC: Awake, alert and oriented to person and place. Moving all extremity. LABORATORY DATA: WBC 11.5 with 75% neutrophils, hemoglobin 11, hematocrit 34, platelets 157. Chemistry reviewed and unremarkable. Blood culture with no growth to date. ASSESSMENT: The patient is a 78-year-old man with a past medical history of Parkinson disease, CAD s/p PCI with stent placement, ischemic cardiomyopathy and hypertension who presented for evaluation of 1 week history of altered mental status. PLAN: 1. Altered mental status, etiology unknown, however consider secondary to drug- induced versus toxic metabolic encephalopathy versus progression of underlying Parkinson disease. Input from Dr. Rehman and Dr. Obando greatly appreciated. MRI brain pending to r/o CVA. 2. CAD s/p PCI with stent placement. Input from Dr. Costello appreciated. Continue Aspirin 81 mg p.o. daily and Plavix 75 mg p.o. daily. 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 3. Ischemic cardiomyopathy. The patient remains clinically euvolemic. Continue with care as above. 4. Parkinson disease. Continue Stalevo 150 mg p.o. t.i.d., Aricept 10 mg p.o. at bedtime and Seroquel 12.5 mg p.o. at bedtime. 5. Prophylaxis. GI prophylaxis is not indicated as the patient is eating. Continue SCDs for DVT prophylaxis. CODE STATUS: Full code. Orlando Levy MD [facility] # [id number] [facility]
[2018-06-10] MEDS: cefTRIAXone 1 gm 1 GM/100 ML BAG IVPB SCH ×2 (10:23→10:24)
[2018-06-10] MEDS: Carbidopa/Levodopa/Entacapone 37.5mg-150mg-200mg PO SCH ×3 (10:23→18:19)
--- NOTE | 2018-06-10 15:50 | PN ---
DATE: 06/10/2018 REASON FOR CONSULTATION: History of coronary artery disease, status post PTCA in the past, admitted with altered mental status. This note is in addition to dictated by nurse practitioner. SUBJECTIVE: Patient denies any chest pain, shortness of breath, lying flat in the bed, comfortable. Cardiac status is stable. History of coronary artery disease status post PTCA of RCA on 06/11/2016 and staged PTCA of LAD and diagonal on 07/15/2016, circumflex totally occluded, well collateralized. Repeat cath on 05/26/2017, patent stent, patent PTCA site. Admitted with altered mental status, now improving. Mild confused, but not agitated or combative. Continue aspirin, continue Plavix, continue antibiotics. We will continue carbidopa for Parkinson's disease. We will follow with you. Potassium 3.8, we will supplement. Thank you, Dr. Levy, for providing us the opportunity in taking care of the patient, Edwardo Morrison. Lai Corrales MD
--- NOTE | 2018-06-10 18:30 | PN ---
DATE: 06/10/2018 FOLLOWUP SUBJECTIVE: The patient was seen today. The patient was not able to express himself, mumbling something to himself. This proposal lead writer would like to rule out refractory Parkinson's. This proposal lead writer needs to discuss case with Neurology team as well as primary care. At this point, the patient might benefit from ECT treatment, but as per report, the patient does not have power of attorney general and family is working on obtaining legal guardianship over the patient. PHYSICAL EXAMINATION: VITAL SIGNS: Seem to be stable. Temperature 97.9, pulse 75, blood pressure 110/76, respirations 20, oxygen saturation is 100%. MEDICATIONS: Reviewed. The patient is on aspirin, Rocephin, Plavix, Aricept, Seroquel 12.5 mg at the nighttime schedule. LABORATORY DATA: Reviewed. Most recent was from today. Leukocytosis 11.5, hemoglobin 11.2, and hematocrit 34. Chemistry reviewed. Urinalysis reviewed. Toxicology reviewed. Microbiology reviewed. MENTAL STATUS EXAMINATION: The patient seems to be confused, delirious, not able to provide any information. Insight and judgment seem to be impaired. IMPRESSION: Most likely, the patient is in delirium stage and advanced Parkinson's. Rule out refractory Parkinson's. PLAN: Seroquel was started 12.5 mg at the nighttime. We will continue that. We will discuss with the family as well as primary care team about option of ECT. Family should be involved. We will get back to you and advise accordingly. Thank you very much for letting me participate in care of your patient. Michelle Obando MD [facility]
--- NOTE | 2018-06-11 06:59 | CP.PCM.PN ---
Subjective - Date & Time of Evaluation Date of Evaluation: 06/11/18 Time of Evaluation: 06:25 - Subjective Subjective: Awake,alert, no distress, denies shortness of breath Reason for consultation and follow up: Cardiac evaluation of coronary artery dis ease,post cardiac stent, admitted for altered mental status. Seen and examined by me and Dr. Corrales Objective - Vital Signs/Intake and Output Vital Signs (last 24 hours): Temp Pulse Resp BP Pulse Ox 98.5 F 88 20 111/70 97 06/10/18 18:00 06/10/18 18:00 06/10/18 18:00 06/10/18 18:00 06/10/18 18:00 - Medications Medications: Current Medications Aspirin (Aspirin Chewable) 81 mg PO DAILY [facility] Last Admin: 06/10/18 10:23 Dose: 81 mg Carbidopa/Levodopa/Entacapone (Stalevo 150) 1 tab PO TID [facility] Last Admin: 06/10/18 18:19 Dose: 1 tab Clopidogrel Bisulfate (Plavix) 75 mg PO DAILY [facility] Last Admin: 06/10/18 10:23 Dose: 75 mg Donepezil HCl (Aricept) 10 mg PO HS [facility] Last Admin: 06/10/18 21:55 Dose: 10 mg Ceftriaxone Sodium (Rocephin 1 Gram Ivpb) 1 gm in 100 mls @ 100 mls/hr IVPB DAILY [facility]; Protocol Stop: 06/12/18 10:59 Last Admin: 06/10/18 10:24 Dose: 100 mls/hr Quetiapine Fumarate (Seroquel) 12.5 mg PO HS [facility]; Protocol Last Admin: 06/10/18 21:55 Dose: 12.5 mg - Labs Labs: 06/10/18 06:10 06/10/18 06:10 - Constitutional Appears: Non-toxic, No Acute Distress - Head Exam Head Exam: NORMAL INSPECTION, NORMOCEPHALIC - Eye Exam Eye Exam: Normal appearance Pupil Exam: NORMAL ACCOMODATION - ENT Exam ENT Exam: Mucous Membranes Dry - Respiratory Exam Respiratory Exam: Decreased Breath Sounds, NORMAL BREATHING PATTERN - Cardiovascular Exam Cardiovascular Exam: +S1, +S2 Additional comments: No JVD - GI/Abdominal Exam GI & Abdominal Exam: Soft, Normal Bowel Sounds - Extremities Exam Extremities Exam: Full ROM, Normal Capillary Refill - Neurological Exam Neurological Exam: Alert, Awake Additional comments: confuse - Psychiatric Exam Additional comments: confuse - Skin Skin Exam: Dry, Normal Color, Warm Assessment and Plan - Assessment and Plan (Free Text) Assessment: A 78 year old male who was brought to the ER due to progressive altered mental status for the past week, being somnolent and lethargic. He was recently prescribed new medication for Parkinson's disease. attributed these symptoms to the new medication. History of postural hypotension,Lamoure's disease, hypertension, coronary artery disease with stents,(PTCA of RCA 06/11/2016 and staged PTCA of mid LAD and D1 on 07/15/2016)circumflex totally occluded with collaterals. Recent cath was 05/26/2017 with patent stents. History of appendectomy Admitted for altered mental status. Cardiac status stable.For MRI of the brain to rule out CVA. Plan: Scheduled for MRI of brain to rule out CVA however unable to do the procedure due to patient unable to keep still inspite of giving Ativan No distress, denies chest pain, Denies shortness of breath Heart rate controlled Blood pressure controlled Cardiac status stable Neuro and Psych on consult On ASA 81 mg daily,Plavix 75 mg daily Continue current treatment Continue current medications Chart reviewed Physical therapy Fall precaution Will follow up Plan and treatment discussed with Dr. Corrales
[2018-06-11 07:06] LABS: BASO # 0.01 K/mm3 (0.0-2.0); BASO % 0.1 % (0.0-3.0); EOS # 0.1 (0.0-0.7); EOS % 0.6 % (1.5-5.0); GRAN # 8.96 (1.4-6.5); GRAN % 77.9 % (50.0-68.0); HEMOGLOBIN 11.5 g/dL (14.0-18.0); LYMPH # 1.3 (1.2-3.4); LYMPH % 11.7 % (22.0-35.0); MEAN CELL VOLUME 97.3 fl (80.0-105.0); MEAN CORPUSCULAR HEMOGLOBIN 31.3 pg (25.0-35.0); MEAN CORPUSCULAR HGB CONC 32.1 g/dl (31.0-37.0); MEAN PLATELET VOLUME 10.5 fl (7.0-11.0); MONO # 1.1 (0.1-0.6); MONO % 9.7 % (1.0-6.0); RBC 3.68 10^6/uL (3.5-6.1); WHITE BLOOD COUNT 11.5 10^3/uL (4.5-11.0)
[2018-06-11 07:19] LABS: ALB/GLOB RATIO 1.1 (1.1-1.8); ALBUMIN 3.8 g/dL (3.0-4.8); ALT/SGPT 16 U/L (7-56); AST/SGOT 40 U/L (17-59); BLOOD UREA NITROGEN 22 mg/dL (7-21); CALCIUM 9.2 mg/dL (8.4-10.5); GFR NON-AFRICAN AMERICAN > 60
--- NOTE | 2018-06-11 08:23 | PN ---
SUBJECTIVE: The patient was seen and examined at bedside on the remote telemetry estrella. He was unable to perform his MRI due to inability to lay still despite being administered Ativan. This morning he continues to have garbled speech and remains confused but denies any specific complaints. OBJECTIVE: VITAL SIGNS: Temperature 97.9, pulse 88, blood pressure 110/70, respiratory rate 20, oxygen saturation 98% on room air. GENERAL: No apparent distress. HEENT: PERRL, EOMI. No scleral icterus. No conjunctival pallor. NECK: No JVD. LUNGS: Clear to auscultation anteriorly. CARDIOVASCULAR: Regular rate and rhythm. Normal S1 and S2. Grade III/ murmur to RUSB and grade II/ murmur to LLSB. ABDOMEN: Normoactive bowel sounds. Soft, nontender, nondistended. EXTREMITIES: No edema. NEUROLOGIC: Awake, alert and oriented to person. Upper extremity tremors noted bilaterally. Moving all extremities. LABORATORY DATA: WBC 11.5 with 78% neutrophils, hemoglobin 11.5, hematocrit 36, platelets 167. Chemistry reviewed and unremarkable. Blood cultures with no growth to date. ASSESSMENT: The patient is a 78-year-old man with a past medical history of Parkinson disease, CAD s/p PCI with stent placement, ischemic cardiomyopathy and hypertension who presented for evaluation of 1 week history of altered mental status. PLAN: 1. Altered mental status, etiology unknown, however consider secondary to drug- induced vs toxic metabolic encephalopathy vs progression of underlying Parkinson disease. Input from Dr. Rehman and Dr. Obando appreciated. MRI was not performed due to the patient's inability to lay still. We will discuss with Neurology the utility of a repeat CT head at this point in time in lieu of an MRI. 2. CAD s/p PCI with stent placement. Input from Dr. Corrales appreciated. Continue Aspirin 81 mg p.o. daily and Plavix 75 mg p.o. daily. 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 3. Ischemic cardiomyopathy. The patient remains clinically euvolemic. Continue with care as above. 4. Parkinson disease. Continue Stalevo 150 mg p.o. t.i.d., Aricept 10 mg p.o. at bedtime and Seroquel 12.5 mg p.o. at bedtime. Continue PT OT. 5. Prophylaxis. GI prophylaxis is not indicated as the patient is eating. Continue SCDs for DVT prophylaxis. CODE STATUS: Full code. Orlando Levy MD [facility]
[2018-06-11] MEDS: cefTRIAXone 1 gm 1 GM/100 ML BAG IVPB SCH (09:14)
[2018-06-11] MEDS: Carbidopa/Levodopa/Entacapone 37.5mg-150mg-200mg PO SCH ×4 (09:14→17:11)
[2018-06-11] MEDS ORDERED: Potassium Chloride 20 mEq ER Tab PO ONE (15:20)
--- NOTE | 2018-06-11 16:04 | CT ---
Date of service: 06/11/2018 PROCEDURE: CT HEAD WITHOUT CONTRAST. HISTORY: AMS/agitation, r/o cva COMPARISON: 06/06/2018 TECHNIQUE: Axial computed tomography images were obtained through the head/brain without intravenous contrast. Radiation dose: Total exam DLP = 1115.23 mGy-cm. This CT exam was performed using one or more of the following dose reduction techniques: Automated exposure control, adjustment of the mA and/or kV according to patient size, and/or use of iterative reconstruction technique. FINDINGS: HEMORRHAGE: No intracranial hemorrhage. BRAIN: No mass effect or edema. Mild atrophy and mild microvascular changes VENTRICLES: Unremarkable. No hydrocephalus. CALVARIUM: Unremarkable. PARANASAL SINUSES: Unremarkable as visualized. No significant inflammatory changes. MASTOID AIR CELLS: Unremarkable as visualized. No inflammatory changes. OTHER FINDINGS: None. IMPRESSION: No acute intracranial findings
--- NOTE | 2018-06-11 16:54 | PN ---
DATE: 06/11/2018 SUBJECTIVE: In short, the patient is 78-year-old male with reported history of Parkinson's. The patient was admitted on the medical side in confusion stage and hallucinations. Etiology related most likely to combination of the factors. The patient's Parkinson's medications were recently increased and the patient most likely has metabolic encephalopathy and delirium. This data analyst report writer was involved into the patient care because of the confusion as well as hallucinations. Initially, the patient was seen by Dr. Ferraro who started small dose of Seroquel 12.5 mg at the nighttime, which I agree with. The patient was followed up for the past couple of days. The patient still has episodes of confusion as well as seeing things. Today, the patient was talking about people are jumping on him which is not true, but there is no aggression, no agitation. Movements are little bit better. This data analyst report writer would like to rule out refractory Parkinson's at this point. Discussed with the case management services as of now. The patient does not have power of associate attorney and family is working in order to obtain guardianship for the patient, but it is not clear. Also, this data analyst report writer contacted Dr. Orlando Levy. We will discuss this case in details. Going back to the patient's presentation, vital signs are stable. Temperature 97.5, pulse is 80, blood pressure 123/77, respiration 20, oxygen saturation is 97. Medications reviewed. The patient is on aspirin, Stalevo, Rocephin, also Plavix, Aricept as well as Seroquel 12.5 mg at the nighttime. Labs reviewed. The patient has leukocytosis 11.5, hemoglobin and hematocrit 11.5 and 35.8. Chemistry reviewed. Urinalysis reviewed. Toxicology reviewed. As per report, the patient was not able to stay still and was not able to have MRI testing. MENTAL STATUS EXAMINATION: The patient was alert and very incoherent speech. The patient is mumbling something. Patient has upper extremity cogwheel rigidity. Mood described like bad. Affect was flat. Thought process seems to be circumstantial, tangential and confused. Thought content, the patient had impression that somebody was jumping on him, which is not true. The patient has episodes of hallucinations and confusions. Insight and judgment seems to be impaired. Impulses are better controlled, but still unpredictable. IMPRESSION: Combination of medications for Parkinson's as well as delirium. Also, this data analyst report writer cannot exclude medication-induced psychosis as well as delirium, which seems to be multifactorial. Also rule out refractory Parkinson's. Considering the fact that patient's mental status was changed within couple of days leaves this data analyst report writer to impression that this is delirium. PLAN: In regards of the management, we will continue Seroquel as of now. We will need to speak to the family. I need to speak to the patient's primary care physician, Dr. Levy. We will discuss in details. Also, the patient was seen by Dr. Kramer as outpatient. We will give a call. Option to have ECT should be discussed, but at the same time, the patient needs to have power of associate attorney or legal guardian who is making decision for him because at present moment, the patient cannot make decision for himself. We will follow up and advise accordingly. Should you have any questions give me a call back. Thank you very much for letting me participate in the care of your patient. Michelle Obando MD [facility]
--- NOTE | 2018-06-11 22:52 | CP.PCM.PCO ---
<Ruben Bejarano - Last Filed: 06/11/18 22:50> Physician Communication Note - Physician Communication Note Physician Communication Note: Pt. seen overnight Addendum Addendum: 06/11/18 22:51 Nursing called resident to inform that patient was agitated, climbing out of bed, spitting/biting, refusing PO medications, extremely, punching staff. I assessed patient, agree with nursing findings; patient is very agitated at this time; Unable to reason with him to take PO medications (PO Seroquel not given, PO aricept not given) At this time we will sedate patient w/ GEODON 10mg IM <Nitish Huggins - Last Filed: 06/12/18 06:05> Attending/Attestation - Attestation I have personally seen and examined this patient.: Yes I have fully participated in the care of the patient.: Yes I have reviewed all pertinent clinical information: Yes
--- NOTE | 2018-06-12 07:06 | CP.PCM.PN ---
Subjective - Date & Time of Evaluation Date of Evaluation: 06/12/18 Time of Evaluation: 06:45 - Subjective Subjective: Awake,alert, no distress, denies shortness of breath,confuse Reason for consultation and follow up: Cardiac evaluation of coronary artery disease,post cardiac stent, admitted for altered mental status. Seen and examined by me and Dr. Corrales Objective - Vital Signs/Intake and Output Vital Signs (last 24 hours): Temp Pulse Resp BP Pulse Ox 99.2 F 71 19 104/66 94 L 06/11/18 16:29 06/11/18 16:29 06/11/18 16:29 06/11/18 16:29 06/11/18 16:29 - Medications Medications: Current Medications Aspirin (Aspirin Chewable) 81 mg PO DAILY [facility] Last Admin: 06/11/18 09:14 Dose: 81 mg Carbidopa/Levodopa/Entacapone (Stalevo 150) 1 tab PO TID [facility] Last Admin: 06/11/18 17:11 Dose: 1 tab Clopidogrel Bisulfate (Plavix) 75 mg PO DAILY [facility] Last Admin: 06/11/18 09:14 Dose: 75 mg Donepezil HCl (Aricept) 10 mg PO HS [facility] Last Admin: 06/11/18 21:07 Dose: Not Given Ceftriaxone Sodium (Rocephin 1 Gram Ivpb) 1 gm in 100 mls @ 100 mls/hr IVPB DAILY [facility]; Protocol Stop: 06/12/18 10:59 Last Admin: 06/11/18 09:14 Dose: 100 mls/hr Quetiapine Fumarate (Seroquel) 12.5 mg PO HS [facility]; Protocol Last Admin: 06/11/18 21:07 Dose: Not Given - Labs Labs: 06/11/18 06:30 06/11/18 06:30 - Constitutional Appears: Non-toxic, No Acute Distress - Head Exam Head Exam: NORMAL INSPECTION, NORMOCEPHALIC - Eye Exam Eye Exam: Normal appearance - ENT Exam ENT Exam: Mucous Membranes Dry - Respiratory Exam Respiratory Exam: Clear to Ausculation Bilateral, NORMAL BREATHING PATTERN - Cardiovascular Exam Cardiovascular Exam: +S1, +S2 - GI/Abdominal Exam GI & Abdominal Exam: Soft, Normal Bowel Sounds - Extremities Exam Extremities Exam: Full ROM, Normal Capillary Refill - Neurological Exam Neurological Exam: Alert, Awake Additional comments: confuse - Skin Skin Exam: Dry, Intact, Normal Color, Warm Assessment and Plan - Assessment and Plan (Free Text) Assessment: A 78 year old male who was brought to the ER due to progressive altered mental status for the past week, being somnolent and lethargic. He was recently prescribed new medication for Parkinson's disease. attributed these symptoms to the new medication. History of postural hypotension,Kishore's disease, hypertension, coronary artery disease with stents,(PTCA of RCA 06/11/2016 and staged PTCA of mid LAD and D1 on 07/15/2016)circumflex totally occluded with collaterals. Recent cath was 05/26/2017 with patent stents. History of appendectomy Admitted for altered mental status. Cardiac status stable.For MRI of the brain to rule out CVA.Scheduled for MRI of brain to rule out CVA however unable to do the procedure due to patient unable to keep still inspite of giving Ativan Episode of agitation last night. refuse oral medications.Geodon IM given. Plan: Episode of agitation and combative last night, uncooperative and unable to take oral medications, Geodon IM given. No distress, denies chest pain, Denies shortness of breath Heart rate controlled Blood pressure controlled Cardiac status stable On ASA 81 mg daily,Plavix 75 mg daily Continue current treatment Continue current medications Chart reviewed Physical therapy Fall precaution Will follow up Plan and treatment discussed with Dr. Corrales
[2018-06-12 07:23] LABS: BASO # 0.01 K/mm3 (0.0-2.0); BASO % 0.1 % (0.0-3.0); EOS # 0.1 (0.0-0.7); GRAN # 7.86 (1.4-6.5); GRAN % 76.3 % (50.0-68.0); HEMOGLOBIN 11.1 g/dL (14.0-18.0); LYMPH # 1.2 (1.2-3.4); LYMPH % 11.5 % (22.0-35.0); MEAN CELL VOLUME 97.2 fl (80.0-105.0); MEAN CORPUSCULAR HEMOGLOBIN 31.4 pg (25.0-35.0); MEAN CORPUSCULAR HGB CONC 32.4 g/dl (31.0-37.0); MEAN PLATELET VOLUME 11.1 fl (7.0-11.0); MONO # 1.1 (0.1-0.6); MONO % 11.1 % (1.0-6.0); RBC 3.53 10^6/uL (3.5-6.1); RED CELL DISTRIBUTION WIDTH 14.3 % (11.5-14.5); WHITE BLOOD COUNT 10.3 10^3/uL (4.5-11.0)
[2018-06-12 08:08] LABS: ALB/GLOB RATIO 1.1 (1.1-1.8); ALBUMIN 3.8 g/dL (3.0-4.8); ALT/SGPT 65 U/L (7-56); AST/SGOT 77 U/L (17-59); BLOOD UREA NITROGEN 27 mg/dL (7-21); CALCIUM 9.1 mg/dL (8.4-10.5); GFR NON-AFRICAN AMERICAN > 60
[2018-06-12] MEDS ORDERED: Potassium Chloride 20 mEq ER Tab PO ONE (08:40)
[2018-06-12 08:42] VITALS: RESP 20; TEMP 98.7
[2018-06-12] MEDS: Carbidopa/Levodopa/Entacapone 37.5mg-150mg-200mg PO SCH ×2 (09:24→13:29)
[2018-06-12] MEDS: cefTRIAXone 1 gm 1 GM/100 ML BAG IVPB SCH (09:24)
--- NOTE | 2018-06-12 09:48 | PN ---
DATE: 06/11/2018 REASON FOR CONSULTATION AND FOLLOWUP: Cardiac evaluation, history of coronary artery disease, status post PTCA admitted with altered mental status. SUBJECTIVE: The patient denies any chest pain, shortness of breath, or any palpitation. This note is in addition to dictated by our nurse practitioner. History of coronary artery disease, status post PTCA of LAD diagonal 1 in July 2016 and PTCA of RCA in 06/11/2016, status post repeat cardiac enzymes because of abnormal stress test 05/26/2017 patent stent. CVA status is stable. The patient has a Parkinson's disease but of pain because patient is shaking. RECOMMENDATIONS: Previous stent stable, continue aspirin, continue Plavix, continue medication for Parkinson disease. stent stable, we will follow with you. We will supplement potassium. Thank you Dr. Levy for providing us the opportunity in taking care of patient, Prince Brooke. We will follow with you stent stable. No further cardiac workup is planned at this time. Lai Corrales MD
--- NOTE | 2018-06-12 13:57 | PN ---
DATE: 06/12/2018 SUBJECTIVE: The patient is in room 377, bed 1. He is confused x3 and there have been no acute events overnight. PHYSICAL EXAMINATION: VITAL SIGNS: Temperature of 98.7, pulse rate is 74, blood pressure 127/73, respiration rate of 20 with O2 saturation of 94% on room air. HEENT: Unremarkable. NECK: Supple with a full range of motion. LUNGS: Clear bilaterally. HEART: With a regular rate and rhythm with a grade 2/6 systolic murmur in the lower left sternal border. ABDOMEN: Soft, nontender. No organomegaly. NEUROLOGICAL: The patient is confused x3, but there are no focal motor deficits. LABORATORY DATA: CBC: WBC 10.3, H and H 11.1 and 34.3. Chemistry: Chloride of 111, BUN and creatinine of 27 and 0.6, random glucose of 145. ALT and AST are slightly elevated at 77 and 65. ASSESSMENT AND PLAN: We will continue current regimen and ambulate the patient. Bubba Levy MD
--- NOTE | 2018-06-12 15:51 | PN ---
DATE: 06/12/2018 SUBJECTIVE: In short, the patient is 78-year-old male with reported history of Parkinson disease. The patient was admitted on the medical site for evaluation of altered mental status and worsening of Parkinson's. This publicity writer had prolonged conversation with primary care physician, Dr. Orlando Levy today. The patient was started on Zyprexa recently and since that time, the patient started to feel much worse. The patient was discontinued Zyprexa, but the patient was continued to be confused and that is why he was admitted on the medical site. In regards of patient worsening of his symptoms, Parkinson's was worsening for past 3-4 months. The patient was seen by Dr. Kramer in the community, this patient's neurologist. This publicity writer attempted to speak to Dr. Kramer, left him a message, awaiting for call back. The patient's , Melly contacted this publicity writer and left her message. This publicity writer called back on the phone, left her a message, awaiting for call back. This publicity writer is not sure who is the patient's power of health care attorney and if he has power of health care attorney or if the patient has legal guardianship because obviously, the patient is confused and required family members to make decisions for him. Vital signs: Reviewed. Temperature 98.7, pulse 74, blood pressure 127/73, respiration 26 and saturation is 94. Medications reviewed. The patient is on aspirin, Stalevo 150 mg daily, Plavix, Aricept, and Seroquel 12.5 mg at the nighttime. Labs reviewed. Microbiology reviewed. As per nursing staff report, the patient was combative, agitated yesterday, but today, the patient presented much better, comfortable and calm. MENTAL STATUS EXAMINATION: The patient presented to be alert. The patient appears to be confused. Speech was disorganized and garbled. The rest this publicity writer was not able to assess because of the speech. Insight and judgment seems to be limited. Impulses are unpredictable. IMPRESSION: Multifactorial delirium. The patient has Parkinson's disease, rule out refractory Parkinson's. CT scan of the head was obtained. There is no acute intracranial abnormalities. PLAN: Discussed with the primary care physician, Dr. Levy, attempted to speak to Dr. Kramer and left him a message, called back to the patient's , left her a message. Discussed about ECT option at this point because it is very fine line between antipsychotic medication and worsening of psychosis as well as antiparkinsonian medication worsening psychosis. At this point, ECT might be very attractive option for the patient. We need to discuss with the patient's family as well as life science research assistant as well as medical team need to give clearance. In the legal perspective, family need to obtain legal guardianship or power of health care attorney. As per nursing staff on the medical site, the patient was scheduled to be transferred to skilled facility for rehab, agree with that. This publicity writer discussed option of ECT for the future, especially, it might be beneficial for refractory Parkinson well as psychosis as well as depression. Motor function will be much better. We will also need to speak to neurologist in order to discuss this option. Care of this patient took more than 45 minutes. Meanwhile, continue Seroquel 12.5 mg at the nighttime, p.r.n. Geodon could be given in case of agitation. If the patient will be accepted to subacute rehab, there is no contraindication for that. Should you have any questions give me a call back Michelle Obando MD
--- NOTE | 2018-06-12 16:09 | PN ---
DATE: 06/12/2018 REASON FOR CONSULTATION AND FOLLOWUP: Cardiac evaluation, altered mental status, Parkinson's disease, history of CAD. This note is in addition to dictated by nurse practitioner. Patient is lying flat. Blood workup is within normal limit. Mild hypokalemia. No new complaints. RECOMMENDATIONS: Continue current treatment. We will supplement potassium. Continue antibiotics. Patient had episodes of agitation, on Geodon. We will follow with you. Thank you Dr. Levy for providing the opportunity in taking care of patient, Edwardo Morrison. Lai Corrales MD
[2018-06-12 16:18] VITALS: BP 135/85; PULSE 72; O2SAT 96
--- NOTE | 2018-06-15 08:41 | DS ---
ADMISSION DIAGNOSIS: Altered mental status. 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 SECONDARY DIAGNOSES: CAD s/p PCI with stent placement, ischemic cardiomyopathy and hypertension. CONSULTATIONS: Dr. Obando (Psychiatry), Dr. Rehman (Neurology) and Dr. Costello (Cardiology). IMAGING STUDIES: 1. Chest x-ray demonstrated no acute pathology. 2. CT of the head without contrast demonstrated no acute pathology. HISTORY OF PRESENT ILLNESS: The patient is a 78-year-old man with a past medical history of Parkinson disease who was brought to [facility] ED by his family for evaluation of a 1 week history of progressively worsening altered mental status. According to the patient's , for the past 1 week he has been progressively more somnolent and lethargic. He has also been increasingly more confused and "talking nonsense." There was no report of auditory or visual hallucinations, head trauma, falls, fevers, chills, photophobia or nuchal rigidity. Furthermore there were no reports of GI or urinary complaints. Of note, the patient was newly started on Zyprexa and his altered mental status appears to coincide with initiation of his new drug therapy. HOSPITAL COURSE: Upon admission to the remote telemetry estrella he was restarted on his home medications with the exception of Zyprexa. He was also evaluated by Dr. Rehman of Neurology and Dr. Obando of Psychiatry. Initial laboratory studies were consistent with dehydration and initially his altered mental status was felt to be secondary to profound dehydration and uremia. After adequate fluid resuscitation he remained altered, albeit improved, and thus continued workup was performed. Dr. Rehman of Neurology had ordered an MRI of the brain to rule out a CVA but the patient was unable to remain still for the exam. As such, he had a repeat CT of the head was obtained which was unremarkable. After conferring with the neurologist and psychiatrist it was felt that the etiology of the patient's altered mental status may be secondary to refractory Parkinson disease and recommendations were made from Dr. Obando for consideration for ECT therapy. The remainder of the patient's hospital course was unremarkable and he remained clinically stable. On hospital day #5 arrangements were made for transfer to subacute rehab. CONDITION: Fair, improved. DISPOSITION: [facility]. DISCHARGE MEDICATIONS: Aspirin 81 mg p.o. daily, Plavix 75 mg p.o. daily, Aricept 10 mg p.o. at bedtime, Stalevo 150 mg p.o. t.i.d., Azilect 1 mg p.o. daily and Seroquel 12.5 mg p.o. at bedtime. DISCHARGE INSTRUCTIONS: The patient's family was advised if he has any recurrence of the symptoms or any continued deterioration in his neuropsychiatric status to present to his PMD or to the nearest ED immediately. FOLLOWUP: The patient to follow up with his PMD within 1 week of discharge from [facility]. The patient to follow up with his neurologist as scheduled. Arrangements will be made for followup with Dr. Obando for possible ECT therapy if the family is agreeable. Orlando Levy MD MTDD
== END 2018-06-12 17:51 | DRG 947 ==
LOC: ED 17:55 → ERH 21:48 → 3RSO 22:40
PROVIDERS: ADMIT Student in an Organized Health Care Education/Training Program; ATTEND Student in an Organized Health Care Education/Training Program
DX: R41.82 Altered mental status, unspecified (principal); G93.41 Metabolic encephalopathy; E27.1 Primary adrenocortical insufficiency; T50.995A Adverse effect of other drugs, medicaments and biological substances, initial encounter; G20 Parkinson's disease; E86.0 Dehydration; F03.90 Unspecified dementia, unspecified severity, without behavioral disturbance, psychotic disturbance, mood disturbance, and anxiety; F80.81 Childhood onset fluency disorder; I25.5 Ischemic cardiomyopathy; I10 Essential (primary) hypertension; I25.10 Atherosclerotic heart disease of native coronary artery without angina pectoris; I25.82 Chronic total occlusion of coronary artery; E87.6 Hypokalemia; Z95.5 Presence of coronary angioplasty implant and graft; Z79.02 Long term (current) use of antithrombotics/antiplatelets; Z79.82 Long term (current) use of aspirin

== ENCOUNTER 2018-06-25 19:15 | Observation (INO) | payer MEDICARE ==
[2018-06-25 19:16] VITALS: BMI 25.0
--- NOTE | 2018-06-25 19:40 | ED PDOC ---
Arrival/HPI - General Chief Complaint: Psychiatric Evaluation Time Seen by Provider: 06/25/18 19:21 Historian: Patient, Retirement - History of Present Illness Narrative History of Present Illness (Text): 06/25/18 19:36 78 year old male, with past medical history of Parkinson's disease and dementia, presents to the ED from [facility] for evaluation of aggressive behavior prior to arrival. As per senior care documentation, patient was hitting and kicking staff and was difficult to be redirected by the staff. Patient was given 0.25mg of Zanax at 6pm prior to arrival. Upon arrival to ED, patient appears confused but denies any somatic complaints. HPI and ROS limited secondary to patient's dementia. PMD: Dr. Jose Yuan 06/25/18 21:20 Time/Duration: Prior to Arrival Symptom Onset: Gradual Symptom Course: Unchanged Activities at Onset: Light Context: Other (snf) Past Medical History - Provider Review Nursing Documentation Reviewed: Yes - Infectious Disease Hx of Infectious Diseases: None - Cardiac Other/Comment: cardiac stent - Pulmonary Hx Respiratory Disorders: No - Neurological Hx Dementia: Yes - HEENT Hx HEENT Disorder: No - Renal Hx Renal Disorder: Yes Hx Pyelonephritis: Yes (right sided) - Endocrine/Metabolic Hx Endocrine Disorders: Yes Other/Comment: oscar disease - Hematological/Oncological Hx Blood Transfusions: No Hx Blood Transfusion Reaction: No - Integumentary Hx Dermatological Disorder: No - Musculoskeletal/Rheumatological Hx Falls: No - Gastrointestinal Hx Gastrointestinal Disorders: Yes Other/Comment: constipation - Genitourinary/Gynecological Hx Incontinence: Yes - Psychiatric Hx Emotional Abuse: No Hx Physical Abuse: No Hx Substance Use: No - Surgical History Hx Cardiac Catheterization: Yes Hx Coronary Stent: Yes - Anesthesia Hx Anesthesia: Yes Hx Anesthesia Reactions: No Hx Malignant Hyperthermia: No - Suicidal Assessment Feels Threatened In Home Enviroment: No Family/Social History - Physician Review Nursing Documentation Reviewed: Yes Family/Social History: Unknown Family HX Smoking Status: Former Smoker Hx Alcohol Use: Yes (former) Amount per day: 4 Hx Substance Use: No Hx Substance Use Treatment: No Allergies/Home Meds Allergies/Adverse Reactions: Allergies acetaminophen [From Percocet] Adverse Reaction (Verified 02/23/18 18:40) FATIGUE also more confused oxycodone [From Percocet] Adverse Reaction (Verified 02/23/18 18:40) FATIGUE also more confused Home Medications: Home Meds Medication Instructions Recorded Confirmed Carbidopa/Levodopa/Entacapone 1 tab PO TID 03/04/12 06/06/18 [Stalevo 150] Potassium Chloride [K-Dur 20 mEq 1 tab PO DAILY 05/25/17 06/06/18 ER Tab] Vit C/E/Zn/Coppr/Lutein/Zeaxan 1 cap PO DAILY 05/25/17 06/06/18 [Preservision Areds 2 Softgel] Donepezil [Aricept] 10 mg PO HS 02/23/18 06/06/18 Aspirin [Ecotrin] 81 mg PO DAILY 06/06/18 06/06/18 Review of Systems - Review of Systems Systems not reviewed;Unavailable: Dementia Psychiatric: Other (aggressive behavior as per senior care documentation) Physical Exam Vital Signs Reviewed: Yes Vital Signs Temp Pulse Resp BP Pulse Ox 06/25/18 19:33 97.8 F 88 20 93/56 L 100 Temperature: Afebrile Blood Pressure: Normal Pulse: Regular Respiratory Rate: Normal Appearance: Positive for: Well-Appearing, Non-Toxic, Comfortable Pain Distress: None Mental Status: Positive for: other (Alert and oriented x 1) - Systems Exam Head: Present: Atraumatic, Normocephalic Pupils: Present: PERRL Extroacular Muscles: Present: EOMI Conjunctiva: Present: Normal Mouth: Present: Moist Mucous Membranes Neck: Present: Normal Range of Motion Respiratory/Chest: Present: Clear to Auscultation, Good Air Exchange. No: Respiratory Distress, Accessory Muscle Use Cardiovascular: Present: Regular Rate and Rhythm, Normal S1, S2. No: Murmurs Abdomen: No: Tenderness, Distention, Peritoneal Signs Upper Extremity: Present: Normal Inspection. No: Cyanosis, Edema Lower Extremity: Present: Normal Inspection. No: Edema Neurological: Present: GCS=15, CN II-XII Intact, Speech Normal Skin: Present: Warm, Dry, Normal Color. No: Rashes Psychiatric: Present: Alert (Alert and oriented x1. Is able to follow commands. ) Medical Decision Making ED Course and Treatment: 06/25/18 19:37 Impression: 78 year old male presents to the ED for evaluation of aggressive behavior. Plan: -- CT of Head -- Labs -- CXR -- Blood Culture -- Urine Culture -- UA Progress Notes: 06/25/18 20:10 EKG shows sinus rhythm at 76bpm with 1st degree AV block 06/25/18 20:39 Cxray negative. Labs show mild worsening of baseline anemia and hypokalemia which was repleted. Trop x 1 negative. Chemistry grossly normal. 06/25/18 20:55 CT head shows "generalized parenchymal strophy as demonstrated by symmetrical dilatation of ventricles and sulci. Crhonic periventricular and subcortical microvascular disease is seen. No acute intracranial pathology" 06/25/18 20:59 Cxray negative as read by me 06/25/18 21:[address] Torres as pending urinalysis and reevaluation - Scribe Statement The provider has reviewed the documentation as recorded by the Scribe Edwige Palomares. All medical record entries made by the Scribe were at my direction and personally dictated by me. I have reviewed the chart and agree that the record accurately reflects my personal performance of the history, physical exam, medical decision making, and the department course for this patient. I have also personally directed, reviewed, and agree with the discharge instructions and disposition. Disposition/Present on Arrival - Present on Arrival Any Indicators Present on Arrival: No History of DVT/PE: No History of Uncontrolled Diabetes: No Urinary Catheter: No History of Decub. Ulcer: No History Surgical Site Infection Following: None - Disposition Have Diagnosis and Disposition been Completed?: Yes Diagnosis: Agitation Disposition Time: 21:47 Condition: UNKNOWN Forms: [employer] (Georgian)
[2018-06-25 20:09] LABS: ACETAMINOPHEN < 10.0 ug/ml (10.0-20.0); SALICYLATE < 1 mg/dL (2.0-20.0)
[2018-06-25 20:10] LABS: BASO # 0.02 K/mm3 (0.0-2.0); BASO % 0.3 % (0.0-3.0); EOS # 0.1 (0.0-0.7); EOS % 0.9 % (1.5-5.0); GRAN # 4.04 (1.4-6.5); GRAN % 57.9 % (50.0-68.0); HEMOGLOBIN 10.3 g/dL (14.0-18.0); LYMPH # 1.8 (1.2-3.4); LYMPH % 25.7 % (22.0-35.0); MEAN CORPUSCULAR HEMOGLOBIN 30.3 pg (25.0-35.0); MEAN CORPUSCULAR HGB CONC 32.9 g/dl (31.0-37.0); MEAN PLATELET VOLUME 9.5 fl (7.0-11.0); MONO # 1.1 (0.1-0.6); MONO % 15.2 % (1.0-6.0); RBC 3.4 10^6/uL (3.5-6.1)
[2018-06-25 20:14] LABS: INR 1.31; PARTIAL THROMBOPLASTIN TIME 29.9 Seconds (25.1-36.5)
[2018-06-25 20:15] LABS: ALB/GLOB RATIO 0.9 (1.1-1.8); ALBUMIN 3.1 g/dL (3.0-4.8); ALT/SGPT 29 U/L (7-56); AST/SGOT 38 U/L (17-59); BLOOD UREA NITROGEN 12 mg/dL (7-21); CALCIUM 8.5 mg/dL (8.4-10.5); GFR NON-AFRICAN AMERICAN > 60
[2018-06-25] MEDS ORDERED: Potassium Chloride 20 mEq ER Tab PO STA (20:16)
[2018-06-25] MEDS ORDERED: Sodium Chloride 0.9% 500 ML IV STA (20:17)
[2018-06-25 20:22] LABS: TROPONIN I < 0.01 ng/mL
[2018-06-25 20:24] LABS: MEAN CELL VOLUME 92.1 fl (80.0-105.0)
[2018-06-25] MEDS ORDERED: Potassium Chloride 20 mEq/15 ml LIQ UD PO STA (20:54)
--- NOTE | 2018-06-25 21:39 | ED PDOC ---
Physical Exam Vital Signs Temp Pulse Resp BP Pulse Ox 06/25/18 21:20 61 18 116/64 98 06/25/18 19:33 97.8 F 88 20 93/56 L 100 Temperature: Afebrile Blood Pressure: Normal Pulse: Regular Respiratory Rate: Normal Appearance: Positive for: Well-Appearing, Non-Toxic, Comfortable Mental Status: Positive for: Alert and Oriented X 3 Medical Decision Making ED Course and Treatment: 06/25/18 21:37 Progress Notes Signout received from Dr. Herrera with patient pending UA results. CTH imaging negative with potassium repleted as well as unremarkable labs. Blood pressure normotensive after 500cc bolus of NSS. Will call Dr. Ana Staples(PCP) once UA results for final dispositioning. 06/25/18 22:15 UA reviewed and negative. Case discussed with Dr. Staples who requests patient to be kept on his service for Observation. - Lab Interpretations Lab Results: 06/25/18 19:50 06/25/18 19:50 Lab Results 06/25/18 19:50: Alcohol, Quantitative < 10 06/25/18 19:50: Salicylates < 1 L, Acetaminophen < 10.0 L 06/25/18 19:50: PT 15.0 H, INR 1.31, APTT 29.9 06/25/18 19:50: Sodium 138, Potassium 3.2 L, Chloride 106, Carbon Dioxide 26, Anion Gap 10, BUN 12, Creatinine 0.6 L, Est GFR ( Amer) > 60, Est GFR (Non-Af Amer) > 60, Random Glucose 113 H, Calcium 8.5, Phosphorus 3.0, Magnesium 1.8, Total Bilirubin 0.5, AST 38, ALT 29, Alkaline Phosphatase 85, Total Creatine Kinase 55, Troponin I < 0.01 D, Total Protein 6.6, Albumin 3.1, Globulin 3.5, Albumin/Globulin Ratio 0.9 L 06/25/18 19:50: WBC 7.0 D, RBC 3.40 L, Hgb 10.3 L, Hct 31.3 L, MCV 92.1 D, MCH 30.3, MCHC 32.9, RDW 13.0, Plt Count 329, MPV 9.5, Gran % 57.9, Lymph % (Auto) 25.7, [place] % (Auto) 15.2 H, Eos % (Auto) 0.9 L, Baso % (Auto) 0.3, Gran # 4.04, Lymph # (Auto) 1.8, [place] # (Auto) 1.1 H, Eos # (Auto) 0.1, Baso # (Auto) 0.02 - RAD Interpretation Radiology Orders: 06/25/18 19:36 HEAD W/O CONTRAST [CT] Stat CHEST PORTABLE [RAD] Stat - Medication Orders Current Medication Orders: Discontinued Medications Sodium Chloride (Sodium Chloride 0.9%) 500 mls @ 999 mls/hr IV .Q31M STA Stop: 06/25/18 20:47 Last Admin: 06/25/18 20:56 Dose: 999 mls/hr eMAR Start Stop Document 06/25/18 20:56 CNR (Rec: 06/25/18 20:56 CNR [id number]) Intravenous Solution Start Date 06/25/18 Start Time 20:56 End Date 06/25/18 End time 21:56 Total Infusion Time 60 Potassium Chloride (Potassium Chloride Oral Soln) 20 meq PO STAT STA Stop: 06/25/18 20:55 Last Admin: 06/25/18 21:24 Dose: 20 meq Disposition/Present on Arrival - Present on Arrival Any Indicators Present on Arrival: No History of DVT/PE: No History of Uncontrolled Diabetes: No Urinary Catheter: No History of Decub. Ulcer: No History Surgical Site Infection Following: None - Disposition Have Diagnosis and Disposition been Completed?: Yes Diagnosis: Agitation Disposition Time: 22:15 Patient Plan: Observation Patient Problems: Current Active Problems Problem Status Onset Agitation Acute Condition: GUARDED Forms: [employer] (Cuban)
[2018-06-25 21:57] LABS: URINE APPEARANCE CLEAR (CLEAR); URINE BILIRUBIN NEGATIVE (NEGATIVE); URINE BLOOD NEGATIVE (NEGATIVE); URINE COLOR YELLOW (YELLOW); URINE GLUCOSE (UA) NEGATIVE (NEGATIVE); URINE LEUKOCYTE ESTERASE NEGATIVE Leu/uL (NEGATIVE); URINE PROTEIN NEGATIVE mg/dL (<30 mg/dL); URINE UROBILINOGEN 0.2 E.U./dL (<1 E.U./dL)
[2018-06-25 22:28] LABS: BARBITURATES, UR NEGATIVE (NEGATIVE); BENZODIAZEPINES, UR POSITIVE (NEGATIVE); OPIATES, UR NEGATIVE (NEGATIVE); PHENCYCLIDINE, UR NEGATIVE (NEGATIVE)
[2018-06-26] MEDS ORDERED: Pneumococcal 23-Valent Vaccine IM ONE (03:09)
[2018-06-26] MEDS ORDERED: Influenza Vaccine 60 mcg/0.5 mL SYR (4YR UP) IM ONE (03:09)
--- NOTE | 2018-06-26 07:42 | CP.PCM.HP ---
<Fabio Gallardo - Last Filed: 06/26/18 09:31> History of Present Illness - History of Present Illness History of Present Illness: Fabio Gallardo DO, PGY-2: HPI for Dr. Yuan 78 year old male with a past medical history of Parkinson's disease, CAD, and hypertension who presents from [facility] for aggressive behavior prior to arrival. According to the [facility] staff, the patient was hitting and kicking staff and was difficult to be redirected by the staff. He was given 0.25 mg of Xanax at 6pm prior to arrival. 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 Prior to this admission he had one week of AMS after starting a new medication/medications for his Parkinson's. Dr. Rehman and Dr. Martinez were on the case on the patient's last admission. HPI and ROS were attempted, but limited secondary to the patient's altered mental status. Overnight, he was not noted to be aggressive. PMH: Parkinson's disease, CAD, and hypertension PSH: PCI Allergies: Acetaminophen and Oxycodone Social: Lives in [facility] Family History: Unknown Present on Admission - Present on Admission Any Indicators Present on Admission: No Review of Systems - Review of Systems All systems: reviewed and no additional remarkable complaints except (as per HPI) Past Patient History - Infectious Disease Hx of Infectious Diseases: None - Past Social History Smoking Status: Unknown If Ever Smoked - CARDIAC Hx Cardiac Disorders: Yes (1st degree av block; cardiac stent) Hx Cardia Arrhythmia: Yes (1st degree avb) Hx Hypertension: Yes - PULMONARY Hx Respiratory Disorders: No - NEUROLOGICAL Hx Alzheimer's Disease: Yes Hx Dementia: Yes Hx Parkinson's Disease: Yes - HEENT Hx HEENT Problems: No - RENAL Hx Chronic Kidney Disease: Yes Hx Pyelonephritis: Yes (right sided) - ENDOCRINE/METABOLIC Other/Comment: oscar's disease - HEMATOLOGICAL/ONCOLOGICAL Hx Blood Transfusions: No Hx Blood Transfusion Reaction: No - INTEGUMENTARY Hx Dermatological Problems: No - MUSCULOSKELETAL/RHEUMATOLOGICAL Hx Unsteady Gait: Yes - GASTROINTESTINAL Hx Gastrointestinal Disorders: Yes Other/Comment: constipation - GENITOURINARY/GYNECOLOGICAL Hx Incontinence: Yes - PSYCHIATRIC Hx Psychophysiologic Disorder: Yes Hx Anxiety: Yes Other/Comment: pt has hx of: parkinsons; demential oscar's disease, cardiac stent; htn - SURGICAL HISTORY Hx Coronary Stent: Yes - ANESTHESIA Hx Anesthesia: Yes Hx Anesthesia Reactions: No Hx Malignant Hyperthermia: No Meds Allergies/Adverse Reactions: Allergies Allergy/AdvReac Type Severity Reaction Status Date / Time acetaminophen [From Percocet] AdvReac FATIGUE Verified 02/23/18 18:40 oxycodone [From Percocet] AdvReac FATIGUE Verified 02/23/18 18:40 Physical Exam - Constitutional Appears: No Acute Distress - Head Exam Head Exam: ATRAUMATIC, NORMOCEPHALIC - Eye Exam Eye Exam: PERRL - ENT Exam ENT Exam: Mucous Membranes Dry - Neck Exam Neck exam: Positive for: Normal Inspection - Respiratory Exam Respiratory Exam: Clear to Auscultation Bilateral, NORMAL BREATHING PATTERN. absent: Accessory Muscle Use - Cardiovascular Exam Cardiovascular Exam: RRR, +S1, +S2 - GI/Abdominal Exam GI & Abdominal Exam: Guarding, Rebound - Extremities Exam Extremities exam: Negative for: pedal edema Additional comments: left hand is wrapped - Neurological Exam Neurological exam: Altered - Psychiatric Exam Psychiatric exam: Flat Affect - Skin Skin Exam: Dry, Intact, Normal Color, Warm Results - Vital Signs Recent Vital Signs: Last Vital Signs Temp 97.8 F 06/25/18 19:33 Pulse 72 06/26/18 00:08 Resp 16 06/26/18 02:10 BP 113/66 06/26/18 00:08 Pulse Ox 97 06/26/18 00:08 - Labs Result Diagrams: 06/26/18 07:30 06/26/18 07:30 Labs: Laboratory Results - last 24 hr 06/25/18 06/25/18 06/25/18 19:50 19:50 19:50 WBC 7.0 D RBC 3.40 L Hgb 10.3 L Hct 31.3 L MCV 92.1 D MCH 30.3 MCHC 32.9 RDW 13.0 Plt Count 329 MPV 9.5 Gran % 57.9 Lymph % (Auto) 25.7 [place] % (Auto) 15.2 H Eos % (Auto) 0.9 L Baso % (Auto) 0.3 Gran # 4.04 Lymph # (Auto) 1.8 [place] # (Auto) 1.1 H Eos # (Auto) 0.1 Baso # (Auto) 0.02 PT 15.0 H INR 1.31 APTT 29.9 Sodium 138 Potassium 3.2 L Chloride 106 Carbon Dioxide 26 Anion Gap 10 BUN 12 Creatinine 0.6 L Est GFR ( Amer) > 60 Est GFR (Non-Af Amer) > 60 Random Glucose 113 H Calcium 8.5 Phosphorus 3.0 Magnesium 1.8 Total Bilirubin 0.5 AST 38 ALT 29 Alkaline Phosphatase 85 Total Creatine Kinase 55 Troponin I < 0.01 D Total Protein 6.6 Albumin 3.1 Globulin 3.5 Albumin/Globulin Ratio 0.9 L Urine Color Urine Appearance Urine pH Ur Specific [place] Urine Protein Urine Glucose (UA) Urine Ketones Urine Blood Urine Nitrate Urine Bilirubin Urine Urobilinogen Ur Leukocyte Esterase Salicylates Urine Opiates Screen Urine Methadone Screen Acetaminophen Ur Barbiturates Screen Ur Phencyclidine Scrn Ur Amphetamines Screen U Benzodiazepines Scrn U Oth Cocaine Metabols U Cannabinoids Screen Alcohol, Quantitative 06/25/18 06/25/18 06/25/18 19:50 19:50 21:50 WBC RBC Hgb Hct MCV MCH MCHC RDW Plt Count MPV Gran % Lymph % (Auto) [place] % (Auto) Eos % (Auto) Baso % (Auto) Gran # Lymph # (Auto) [place] # (Auto) Eos # (Auto) Baso # (Auto) PT INR APTT Sodium Potassium Chloride Carbon Dioxide Anion Gap BUN Creatinine Est GFR ( Amer) Est GFR (Non-Af Amer) Random Glucose Calcium Phosphorus Magnesium Total Bilirubin AST ALT Alkaline Phosphatase Total Creatine Kinase Troponin I Total Protein Albumin Globulin Albumin/Globulin Ratio Urine Color Yellow Urine Appearance Clear Urine pH 6.0 Ur Specific [place] 1.020 Urine Protein Negative Urine Glucose (UA) Negative Urine Ketones Negative Urine Blood Negative Urine Nitrate Negative Urine Bilirubin Negative Urine Urobilinogen 0.2 Ur Leukocyte Esterase Negative Salicylates < 1 L Urine Opiates Screen Urine Methadone Screen Acetaminophen < 10.0 L Ur Barbiturates Screen Ur Phencyclidine Scrn Ur Amphetamines Screen U Benzodiazepines Scrn U Oth Cocaine Metabols U Cannabinoids Screen Alcohol, Quantitative < 10 06/25/18 21:50 WBC RBC Hgb Hct MCV MCH MCHC RDW Plt Count MPV Gran % Lymph % (Auto) [place] % (Auto) Eos % (Auto) Baso % (Auto) Gran # Lymph # (Auto) [place] # (Auto) Eos # (Auto) Baso # (Auto) PT INR APTT Sodium Potassium Chloride Carbon Dioxide Anion Gap BUN Creatinine Est GFR ( Amer) Est GFR (Non-Af Amer) Random Glucose Calcium Phosphorus Magnesium Total Bilirubin AST ALT Alkaline Phosphatase Total Creatine Kinase Troponin I Total Protein Albumin Globulin Albumin/Globulin Ratio Urine Color Urine Appearance Urine pH Ur Specific [place] Urine Protein Urine Glucose (UA) Urine Ketones Urine Blood Urine Nitrate Urine Bilirubin Urine Urobilinogen Ur Leukocyte Esterase Salicylates Urine Opiates Screen Negative Urine Methadone Screen Negative Acetaminophen Ur Barbiturates Screen Negative Ur Phencyclidine Scrn Negative Ur Amphetamines Screen Negative U Benzodiazepines Scrn Positive H U Oth Cocaine Metabols Negative U Cannabinoids Screen Negative Alcohol, Quantitative Assessment & Plan - Assessment and Plan (Free Text) Assessment: 78 year old with a past medical history of Parkinson's disease, CAD, hypertension who presents with altered mental status and aggresive behavior from [facility]. Plan: 1) AMS secondary to drug-induced psychosis versus refractory Parkinson's - Labs and imaging show no pneumonia, UTI, stroke, or leukocytosis and the patient remains afebrile. - Patient was observed overnight and rehydrated - Patient was not agitated this morning - Discontinuing aricept given the fact that in Parkinson's disease, dopamine depletion produces a state of cholinergic sensitivity so that cholingegic drugs exacerbatie parkisonism symptoms while anticholinergics drugs. - Will start low dose Levodopa/Carbidopa q8h BRISEYDA and monitor response - Seroquel 25 mg AMHS for possible dopaminergic dysregulation syndrome - Ativan 1 mg q6h PRN for agitation 2) CAD - Aspirin 81 mg - Plavix 75 mg 3) Hypokalemia - repleted Case reviewed and discussed with attending physician, Dr. Yuan - Date & Time Date: 06/26/18 Time: 09:55 <Jose Yuan - Last Filed: 06/27/18 15:00> Results - Vital Signs Recent Vital Signs: Last Vital Signs Temp 98 F 06/26/18 14:00 Pulse 78 06/26/18 14:00 Resp 16 06/26/18 14:00 BP 99/62 L 06/26/18 14:00 Pulse Ox 96 06/26/18 14:00 - Labs Result Diagrams: 06/26/18 07:30 06/26/18 07:30 Assessment & Plan - Assessment and Plan (Free Text) Plan: Pt seen and examined. I have reviewed the note of the clinical medical transcriptionist and agree with it. I have discussed the assessment and plan with the resident. I have reviewed the patient's labs and medications. Pt with delerium. He has a hx of agitation that is most likely due to his dementia from Parkinson's. He has CAD and is on ASA and Plavix. Hypokalemia will be treated with KCl. His meds from the [facility] has been reviewed.
[2018-06-26 07:51] LABS: BASO # 0.02 K/mm3 (0.0-2.0); BASO % 0.3 % (0.0-3.0); EOS # 0.1 (0.0-0.7); EOS % 1.3 % (1.5-5.0); GRAN # 3.58 (1.4-6.5); GRAN % 58.9 % (50.0-68.0); LYMPH # 1.7 (1.2-3.4); MEAN CELL VOLUME 91.3 fl (80.0-105.0); MEAN CORPUSCULAR HEMOGLOBIN 29.9 pg (25.0-35.0); MEAN CORPUSCULAR HGB CONC 32.8 g/dl (31.0-37.0); MEAN PLATELET VOLUME 9.1 fl (7.0-11.0); MONO # 0.7 (0.1-0.6); MONO % 11.5 % (1.0-6.0); RBC 3.34 10^6/uL (3.5-6.1); WHITE BLOOD COUNT 6.1 10^3/uL (4.5-11.0)
[2018-06-26 07:58] VITALS: TEMP 98
[2018-06-26 08:26] LABS: ALB/GLOB RATIO 0.9 (1.1-1.8); ALT/SGPT 52 U/L (7-56); AST/SGOT 36 U/L (17-59); BLOOD UREA NITROGEN 9 mg/dL (7-21); CALCIUM 8.3 mg/dL (8.4-10.5); GFR NON-AFRICAN AMERICAN > 60
--- NOTE | 2018-06-26 09:18 | CT ---
Date of service: 06/25/2018 PROCEDURE: CT HEAD WITHOUT CONTRAST. HISTORY: altered mental status COMPARISON: None available. TECHNIQUE: Axial computed tomography images were obtained through the head/brain without intravenous contrast. Radiation dose: Total exam DLP = 877.17 mGy-cm. This CT exam was performed using one or more of the following dose reduction techniques: Automated exposure control, adjustment of the mA and/or kV according to patient size, and/or use of iterative reconstruction technique. FINDINGS: HEMORRHAGE: No intracranial hemorrhage. BRAIN: No mass effect or edema. No atrophy or chronic microvascular ischemic changes. VENTRICLES: Unremarkable. No hydrocephalus. CALVARIUM: Unremarkable. PARANASAL SINUSES: Unremarkable as visualized. No significant inflammatory changes. MASTOID AIR CELLS: Unremarkable as visualized. No inflammatory changes. OTHER FINDINGS: None. IMPRESSION: Normal CT of the Head.
--- NOTE | 2018-06-26 09:18 | RAD ---
Date of service: 06/25/2018 HISTORY: altered mental COMPARISON: 06/08/2018 FINDINGS: LUNGS: There is a patchy infiltrate in the right lower lobe suspicious for pneumonia PLEURA: No significant pleural effusion identified, no pneumothorax apparent. CARDIOVASCULAR: Aortic calcifications Normal cardiac size. No pulmonary vascular congestion. OSSEOUS STRUCTURES: No significant abnormalities. VISUALIZED UPPER ABDOMEN: Normal. OTHER FINDINGS: None. IMPRESSION: There is a patchy infiltrate in the right lower lobe suspicious for pneumonia
[2018-06-26] MEDS ORDERED: Carbidopa/Levodopa/Entacapone 37.5mg-150mg-200mg PO SCH (10:00)
--- NOTE | 2018-06-26 12:59 | CP.PCM.DIS ---
<Fabio Gallardo - Last Filed: 06/26/18 14:34> Provider - Provider Date of Admission: 06/25/18 22:15 Attending physician: Jose Yuan MD Time Spent in preparation of Discharge (in minutes): 35 Hospital Course - Lab Results Lab Results: Most Recent Lab Values WBC 6.1 10^3/uL (4.5-11.0) 06/26/18 07:30 RBC 3.34 10^6/uL (3.5-6.1) L 06/26/18 07:30 Hgb 10.0 g/dL (14.0-18.0) L 06/26/18 07:30 Hct 30.5 % (42.0-52.0) L 06/26/18 07:30 MCV 91.3 fl (80.0-105.0) 06/26/18 07:30 MCH 29.9 pg (25.0-35.0) 06/26/18 07:30 MCHC 32.8 g/dl (31.0-37.0) 06/26/18 07:30 RDW 13.0 % (11.5-14.5) 06/26/18 07:30 Plt Count 322 10^3/uL (120.0-450.0) 06/26/18 07:30 MPV 9.1 fl (7.0-11.0) 06/26/18 07:30 Gran % 58.9 % (50.0-68.0) 06/26/18 07:30 Lymph % (Auto) 28.0 % (22.0-35.0) 06/26/18 07:30 [place] % (Auto) 11.5 % (1.0-6.0) H 06/26/18 07:30 Eos % (Auto) 1.3 % (1.5-5.0) L 06/26/18 07:30 Baso % (Auto) 0.3 % (0.0-3.0) 06/26/18 07:30 Gran # 3.58 (1.4-6.5) 06/26/18 07:30 Lymph # (Auto) 1.7 (1.2-3.4) 06/26/18 07:30 [place] # (Auto) 0.7 (0.1-0.6) H 06/26/18 07:30 Eos # (Auto) 0.1 (0.0-0.7) 06/26/18 07:30 Baso # (Auto) 0.02 K/mm3 (0.0-2.0) 06/26/18 07:30 PT 15.0 SECONDS (9.4-12.5) H 06/25/18 19:50 INR 1.31 06/25/18 19:50 APTT 29.9 Seconds (25.1-36.5) 06/25/18 19:50 Sodium 139 mmol/L (132-148) 06/26/18 07:30 Potassium 3.7 mmol/L (3.6-5.0) 06/26/18 07:30 Chloride 108 mmol/L (98-107) H 06/26/18 07:30 Carbon Dioxide 25 mmol/L (21-33) 06/26/18 07:30 Anion Gap 9 (10-20) L 06/26/18 07:30 BUN 9 mg/dL (7-21) 06/26/18 07:30 Creatinine 0.6 mg/dl (0.8-1.5) L 06/26/18 07:30 Est GFR ( Amer) > 60 06/26/18 07:30 Est GFR (Non-Af Amer) > 60 06/26/18 07:30 Random Glucose 106 mg/dL (70-110) 06/26/18 07:30 Calcium 8.3 mg/dL (8.4-10.5) L 06/26/18 07:30 Phosphorus 3.2 mg/dL (2.5-4.5) 06/26/18 07:30 Magnesium 1.9 mg/dL (1.7-2.2) 06/26/18 07:30 Total Bilirubin 0.4 mg/dL (0.2-1.3) 06/26/18 07:30 AST 36 U/L (17-59) 06/26/18 07:30 ALT 52 U/L (7-56) 06/26/18 07:30 Alkaline Phosphatase 85 U/L (38-126) 06/26/18 07:30 Total Creatine Kinase 55 U/L (35-230) 06/25/18 19:50 Troponin I < 0.01 ng/mL D 06/25/18 19:50 Total Protein 6.3 g/dL (5.8-8.3) 06/26/18 07:30 Albumin 3.0 g/dL (3.0-4.8) 06/26/18 07:30 Globulin 3.4 gm/dL 06/26/18 07:30 Albumin/Globulin Ratio 0.9 (1.1-1.8) L 06/26/18 07:30 Urine Color Yellow (YELLOW) 06/25/18 21:50 Urine Appearance Clear (CLEAR) 06/25/18 21:50 Urine pH 6.0 (4.7-8.0) 06/25/18 21:50 Ur Specific [place] 1.020 (1.005-1.035) 06/25/18 21:50 Urine Protein Negative mg/dL (<30 mg/dL) 06/25/18 21:50 Urine Glucose (UA) Negative mg/dL (NEGATIVE) 06/25/18 21:50 Urine Ketones Negative mg/dL (NEGATIVE) 06/25/18 21:50 Urine Blood Negative (NEGATIVE) 06/25/18 21:50 Urine Nitrate Negative (NEGATIVE) 06/25/18 21:50 Urine Bilirubin Negative (NEGATIVE) 06/25/18 21:50 Urine Urobilinogen 0.2 E.U./dL (<1 E.U./dL) 06/25/18 21:50 Ur Leukocyte Esterase Negative Alli/uL (NEGATIVE) 06/25/18 21:50 Salicylates < 1 mg/dL (2.0-20.0) L 06/25/18 19:50 Urine Opiates Screen Negative (NEGATIVE) 06/25/18 21:50 Urine Methadone Screen Negative (NEGATIVE) 06/25/18 21:50 Acetaminophen < 10.0 ug/ml (10.0-20.0) L 06/25/18 19:50 Ur Barbiturates Screen Negative (NEGATIVE) 06/25/18 21:50 Ur Phencyclidine Scrn Negative (NEGATIVE) 06/25/18 21:50 Ur Amphetamines Screen Negative (NEGATIVE) 06/25/18 21:50 U Benzodiazepines Scrn Positive (NEGATIVE) H 06/25/18 21:50 U Oth Cocaine Metabols Negative (NEGATIVE) 06/25/18 21:50 U Cannabinoids Screen Negative (NEGATIVE) 06/25/18 21:50 Alcohol, Quantitative < 10 mg/dL (0-10) 06/25/18 19:50 - Hospital Course Hospital Course: Fabio Gallardo DO, PGY-2: 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 According to the [facility] staff, the patient was hitting and kicking staff and was difficult to be redirected by the staff. He was given 0.25 mg of Xanax at 6pm prior to arrival. 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 Prior to this admission he had one week of AMS after starting a new medication/medications for his Parkinson's. Dr. Rehman and Dr. Martinez were on the case on the patient's last admission. HPI and ROS were attempted, but limited secondary to the patient's underlying cognitive disorder. Overnight, he was not noted to be aggressive. Labs and imaging showed no pneumonia, UTI, stroke, or leukocytosis and the patient remained afebrile. The patient was observed over night and rehydrated along with his potassium being repleted. The patient was not agitated this morning. His Aricept was discontinued given the fact that in Parkinson's disease, dopamine depletion produces a state of cholinergic sensitivity, such that cholinergic drugs exacerbate parkisonism. The patient was started on low dose Levodopa/Carbidopa q8h BRISEYDA, Seroquel 25 mg AMHS for possible dopaminergic dysregulation syndrome and his agitation. He was discharged back to [facility] given the patient altered mental status was not related to an underlying infection and the work-up performed on his last admission lead to the same conclusion. The patient's condition was discussed in detail with the at bedside. She reported that he was much more calm at the time of his discharge. He will be going back to [facility]. - Date & Time of H&P Date of H&P: 06/26/18 Time of H&P: 14:37 Discharge Exam - Head Exam Head Exam: ATRAUMATIC, NORMOCEPHALIC - Eye Exam Eye Exam: EOMI, Normal appearance - ENT Exam ENT Exam: Mucous Membranes Moist - Neck Exam Neck exam: Normal Inspection - Respiratory Exam Respiratory Exam: Clear to PA & Lateral, NORMAL BREATHING PATTERN. absent: Accessory Muscle Use - Cardiovascular Exam Cardiovascular Exam: RRR, +S1, +S2 - GI/Abdominal Exam GI & Abdominal Exam: Normal Bowel Sounds - Extremities Exam Extremities exam: normal inspection - Neurological Exam Neurological exam: Alert, CN II-XII Intact, Oriented x3 - Psychiatric Exam Psychiatric exam: Normal Affect, Normal Mood - Skin Skin Exam: Dry, Intact, Normal Color, Warm Discharge Plan - Follow Up Plan Condition: GUARDED Disposition: NURSING FACILITY MEDICAID CERT Instructions: Heart Healthy Diet, How to Prevent Pressure Sores, Preventing Falls, Pneumococcal Polysaccharide Vaccine (23-Valent), Flu Vaccine Additional Instructions: 1) Patient to be discharged to [facility] with Sinemet 10/100 q8h, Seroquel 25 mg AMHS, aspirin 81 mg daily, Plavix 75 mg daily. <Jose Yuan - Last Filed: 06/26/18 20:26> Provider - Provider Date of Admission: 06/25/18 22:15 Attending physician: Jose Yuan MD Hospital Course - Lab Results Lab Results: Most Recent Lab Values WBC 6.1 10^3/uL (4.5-11.0) 06/26/18 07:30 RBC 3.34 10^6/uL (3.5-6.1) L 06/26/18 07:30 Hgb 10.0 g/dL (14.0-18.0) L 06/26/18 07:30 Hct 30.5 % (42.0-52.0) L 06/26/18 07:30 MCV 91.3 fl (80.0-105.0) 06/26/18 07:30 MCH 29.9 pg (25.0-35.0) 06/26/18 07:30 MCHC 32.8 g/dl (31.0-37.0) 06/26/18 07:30 RDW 13.0 % (11.5-14.5) 06/26/18 07:30 Plt Count 322 10^3/uL (120.0-450.0) 06/26/18 07:30 MPV 9.1 fl (7.0-11.0) 06/26/18 07:30 Gran % 58.9 % (50.0-68.0) 06/26/18 07:30 Lymph % (Auto) 28.0 % (22.0-35.0) 06/26/18 07:30 [place] % (Auto) 11.5 % (1.0-6.0) H 06/26/18 07:30 Eos % (Auto) 1.3 % (1.5-5.0) L 06/26/18 07:30 Baso % (Auto) 0.3 % (0.0-3.0) 06/26/18 07:30 Gran # 3.58 (1.4-6.5) 06/26/18 07:30 Lymph # (Auto) 1.7 (1.2-3.4) 06/26/18 07:30 [place] # (Auto) 0.7 (0.1-0.6) H 06/26/18 07:30 Eos # (Auto) 0.1 (0.0-0.7) 06/26/18 07:30 Baso # (Auto) 0.02 K/mm3 (0.0-2.0) 06/26/18 07:30 PT 15.0 SECONDS (9.4-12.5) H 06/25/18 19:50 INR 1.31 06/25/18 19:50 APTT 29.9 Seconds (25.1-36.5) 06/25/18 19:50 Sodium 139 mmol/L (132-148) 06/26/18 07:30 Potassium 3.7 mmol/L (3.6-5.0) 06/26/18 07:30 Chloride 108 mmol/L (98-107) H 06/26/18 07:30 Carbon Dioxide 25 mmol/L (21-33) 06/26/18 07:30 Anion Gap 9 (10-20) L 06/26/18 07:30 BUN 9 mg/dL (7-21) 06/26/18 07:30 Creatinine 0.6 mg/dl (0.8-1.5) L 06/26/18 07:30 Est GFR ( Amer) > 60 06/26/18 07:30 Est GFR (Non-Af Amer) > 60 06/26/18 07:30 Random Glucose 106 mg/dL (70-110) 06/26/18 07:30 Calcium 8.3 mg/dL (8.4-10.5) L 06/26/18 07:30 Phosphorus 3.2 mg/dL (2.5-4.5) 06/26/18 07:30 Magnesium 1.9 mg/dL (1.7-2.2) 06/26/18 07:30 Total Bilirubin 0.4 mg/dL (0.2-1.3) 06/26/18 07:30 AST 36 U/L (17-59) 06/26/18 07:30 ALT 52 U/L (7-56) 06/26/18 07:30 Alkaline Phosphatase 85 U/L (38-126) 06/26/18 07:30 Total Creatine Kinase 55 U/L (35-230) 06/25/18 19:50 Troponin I < 0.01 ng/mL D 06/25/18 19:50 Total Protein 6.3 g/dL (5.8-8.3) 06/26/18 07:30 Albumin 3.0 g/dL (3.0-4.8) 06/26/18 07:30 Globulin 3.4 gm/dL 06/26/18 07:30 Albumin/Globulin Ratio 0.9 (1.1-1.8) L 06/26/18 07:30 Urine Color Yellow (YELLOW) 06/25/18 21:50 Urine Appearance Clear (CLEAR) 06/25/18 21:50 Urine pH 6.0 (4.7-8.0) 06/25/18 21:50 Ur Specific [place] 1.020 (1.005-1.035) 06/25/18 21:50 Urine Protein Negative mg/dL (<30 mg/dL) 06/25/18 21:50 Urine Glucose (UA) Negative mg/dL (NEGATIVE) 06/25/18 21:50 Urine Ketones Negative mg/dL (NEGATIVE) 06/25/18 21:50 Urine Blood Negative (NEGATIVE) 06/25/18 21:50 Urine Nitrate Negative (NEGATIVE) 06/25/18 21:50 Urine Bilirubin Negative (NEGATIVE) 06/25/18 21:50 Urine Urobilinogen 0.2 E.U./dL (<1 E.U./dL) 06/25/18 21:50 Ur Leukocyte Esterase Negative Alli/uL (NEGATIVE) 06/25/18 21:50 Salicylates < 1 mg/dL (2.0-20.0) L 06/25/18 19:50 Urine Opiates Screen Negative (NEGATIVE) 06/25/18 21:50 Urine Methadone Screen Negative (NEGATIVE) 06/25/18 21:50 Acetaminophen < 10.0 ug/ml (10.0-20.0) L 06/25/18 19:50 Ur Barbiturates Screen Negative (NEGATIVE) 06/25/18 21:50 Ur Phencyclidine Scrn Negative (NEGATIVE) 06/25/18 21:50 Ur Amphetamines Screen Negative (NEGATIVE) 06/25/18 21:50 U Benzodiazepines Scrn Positive (NEGATIVE) H 06/25/18 21:50 U Oth Cocaine Metabols Negative (NEGATIVE) 06/25/18 21:50 U Cannabinoids Screen Negative (NEGATIVE) 06/25/18 21:50 Alcohol, Quantitative < 10 mg/dL (0-10) 06/25/18 19:50 - Hospital Course Hospital Course: Pt seen and examined. I have reviewed the note of the medical diagnostic radiographer and agree with it. I have discussed the assessment and plan with the resident. I have reviewed the patient's labs and medications. Pt was admitted for agitation. Continue with Seroquel. Family was updated. Neuro evaluated pt. Parkinson' s disease is controlled. HTN is controlled.
[2018-06-26 14:16] VITALS: BP 99/62; PULSE 78; RESP 16; O2SAT 96
--- NOTE | 2018-06-26 14:54 | RAD ---
Date of service: 06/26/2018 HISTORY: suspicious for PNA COMPARISON: 06/25/2018 FINDINGS: LUNGS: Minimal infiltrate at the right lung base showing improvement PLEURA: No significant pleural effusion identified, no pneumothorax apparent. CARDIOVASCULAR: Aortic calcification Normal cardiac size. No pulmonary vascular congestion. OSSEOUS STRUCTURES: No significant abnormalities. VISUALIZED UPPER ABDOMEN: Normal. OTHER FINDINGS: None. IMPRESSION: Minimal infiltrate at the right lung base showing improvement
--- NOTE | 2018-06-26 18:58 | CARD ---
APPROVED REPORT Date of service: 06/25/2018 EKG Measurement Heart [id number] <Conclusion> Sinus rhythm with 1st degree AV block Otherwise normal ECG
--- NOTE | 2018-06-27 00:10 | CON ---
DATE: 06/26/2018 SUBJECTIVE: In short, the patient is 78-year-old male, multiple medical issues including Parkinson's disease, coronary artery disease, hypertension. The patient was transferred from [facility] for aggressive behavior prior to arrival. Psych consult was called for evaluation of medication. This credit underwriter attempted to speak to the patient today, but the patient presented to be lethargic. As per nursing staff report, the patient does not exhibit any aggression or agitation. The patient was much calmer. This credit underwriter reviewed vital signs. Vital signs seem to be stable. Temperature 98.0, pulse 78, blood pressure 99/62, respirations 16, oxygen saturation is 96. Medications reviewed. The patient is on aspirin, Sinemet, Plavix, and Seroquel. Labs were reviewed. There are no signs of infection. Vital signs are stable. MENTAL STATUS EXAMINATION: This credit underwriter was not able to assess. The patient is resting comfortably. This credit underwriter was not able to wake the patient up. IMPRESSION: This credit underwriter is familiar with this patient from the previous admission. The patient has refractory Parkinson and also medication-induced psychosis, levodopa, carbidopa, as well as visual hallucinations. PLAN: From the psychiatric standpoint, the patient seems to be stable right now. The patient is much calmer to compare with description of [facility]. The patient needs to be followed up with psychiatrist in the [facility]. It was discussed with the patient's family about option of ECT treatment for refractory Parkinson. As of now, the patient is medically stable and the patient is in the process to be transferred back to [facility]. Thank you very much for letting me participate in care of your patient. Should you have any questions give me a call back. The patient needs to be followed up with psychiatrist within 48 to 72 hours after discharge. Michelle Obando MD
== END 2018-06-26 19:13 ==
LOC: ED 19:15 → ERH 22:15 → 5RNO 06-26 00:45
PROVIDERS: ADMIT Internal Medicine Nephrology; ATTEND Internal Medicine Nephrology
DX: R41.82 Altered mental status, unspecified (principal); G20 Parkinson's disease; F02.81 Dementia in other diseases classified elsewhere, unspecified severity, with behavioral disturbance; I10 Essential (primary) hypertension; E27.1 Primary adrenocortical insufficiency; E87.6 Hypokalemia; I44.0 Atrioventricular block, first degree; I25.10 Atherosclerotic heart disease of native coronary artery without angina pectoris; Z95.5 Presence of coronary angioplasty implant and graft; Z79.82 Long term (current) use of aspirin
CPT/HCPCS: 36415; 70450; 71045; 80053; 81003; 82550; 83735; 84100; 84484; 85025; 85610; 85730; 87040; 87086; 93005; 96360; 99285; G0378; G0480; J7040

== ENCOUNTER 2018-09-11 18:50 | Inpatient (IN) | payer MEDICARE ==
[2018-09-11 20:21] LABS: HEMOGLOBIN 12.1 g/dL (14.0-18.0); MEAN CELL VOLUME 93.3 fl (80.0-105.0); MEAN CORPUSCULAR HGB CONC 32.2 g/dl (31.0-37.0); RBC 4.03 10^6/uL (3.5-6.1); RED CELL DISTRIBUTION WIDTH 15.6 % (11.5-14.5); WHITE BLOOD COUNT 10.8 10^3/uL (4.5-11.0)
[2018-09-11 20:30] LABS: INR 1.17; PARTIAL THROMBOPLASTIN TIME 33.6 Seconds (26.9-38.3)
[2018-09-11] MEDS ORDERED: Morphine 2 mg/ml ISec IVP STA (20:30)
[2018-09-11 20:32] LABS: ALB/GLOB RATIO 1.3 (1.1-1.8); ALBUMIN 4.5 g/dL (3.0-4.8); ALT/SGPT 35 U/L (7-56); AST/SGOT 31 U/L (17-59); BLOOD UREA NITROGEN 18 mg/dL (7-21); CALCIUM 9.3 mg/dL (8.4-10.5); GFR NON-AFRICAN AMERICAN > 60
--- NOTE | 2018-09-11 20:35 | ED PDOC ---
Arrival/HPI - General Chief Complaint: Lower Extremity Problem/Injury Time Seen by Provider: 09/11/18 19:42 Historian: Patient, Family - History of Present Illness Narrative History of Present Illness (Text): 09/11/18 19:50 78 year old male, whose past medical history includes Parkinson's disease, CAD, and hypertension, presents to the emergency department for evaluation of AMS according to daughter. Daughter states patient was hallucinating today and states he saw people in the room. Daughter states patient also had been complaining of discomfort to his lower legs and is having difficulty walking. Patient does walk with a walker at times. Noted that the legs appeared reddened. Denies any history of any known fever or trauma. Patient has a history of dementia, but denies any chills, chest pain, shortness of breath, nausea, vomiting, diarrhea, urinary symptoms, back pain, neck pain, headache, dizziness, or any other complaints. PMD: Dr. Levy Symptom Onset: Gradual Symptom Course: Unchanged Activities at Onset: Light Context: Home Past Medical History - Provider Review Nursing Documentation Reviewed: Yes - Infectious Disease Hx of Infectious Diseases: None - Cardiac Hx Cardiac Disorders: Yes (1st degree av block; cardiac stent) Hx Cardiac Arrhythmia: Yes (1st degree avb) Hx Hypertension: Yes - Pulmonary Hx Respiratory Disorders: No - Neurological Hx Alzheimer's Disease: Yes Hx Dementia: Yes Hx Parkinson's Disease: Yes - HEENT Hx HEENT Disorder: No - Renal Hx Renal Disorder: Yes Hx Pyelonephritis: Yes (right sided) - Endocrine/Metabolic Other/Comment: oscar's disease - Hematological/Oncological Hx Blood Transfusions: No Hx Blood Transfusion Reaction: No - Integumentary Hx Dermatological Disorder: No - Musculoskeletal/Rheumatological Hx Unsteady Gait: Yes - Gastrointestinal Hx Gastrointestinal Disorders: Yes Other/Comment: constipation - Genitourinary/Gynecological Hx Incontinence: Yes - Psychiatric Hx Psychophysiologic Disorder: Yes Hx Anxiety: Yes Hx Substance Use: (unable to assess) Other/Comment: pt has hx of: parkinsons; demential oscar's disease, cardiac stent; htn - Surgical History Hx Coronary Stent: Yes - Anesthesia Hx Anesthesia: Yes Hx Anesthesia Reactions: No Hx Malignant Hyperthermia: No - Suicidal Assessment Feels Threatened In Home Enviroment: No Family/Social History - Physician Review Nursing Documentation Reviewed: Yes Family/Social History: No Known Family HX Smoking Status: Unknown If Ever Smoked Hx Alcohol Use: (unable to assess) Amount per day: 4 Hx Substance Use: (unable to assess) Hx Substance Use Treatment: No Allergies/Home Meds Allergies/Adverse Reactions: Allergies acetaminophen [From Percocet] Adverse Reaction (Verified 09/11/18 19:43) FATIGUE also more confused haloperidol [From Haldol] Adverse Reaction (Verified 09/11/18 19:43) FATIGUE oxycodone [From Percocet] Adverse Reaction (Verified 09/11/18 19:43) FATIGUE also more confused Home Medications: Home Meds Medication Instructions Recorded Confirmed RX: Carbidopa/Levodopa 1 tab PO QID 09/11/18 09/11/18 [Sinemet ] Review of Systems - Physician Review All systems were reviewed & negative as marked: Yes - Review of Systems Constitutional: absent: Fevers, Other (Chills) Respiratory: absent: SOB Cardiovascular: absent: Chest Pain Gastrointestinal: absent: Diarrhea, Nausea, Vomiting Genitourinary Male: absent: Dysuria, Frequency, Hematuria Musculoskeletal: Other (lower extremity pain and difficulty walking ). absent: Back Pain, Neck Pain Neurological: absent: Headache, Dizziness Psychiatric: Other (AMS and hallucinations) Physical Exam Vital Signs Reviewed: Yes Vital Signs Temp Pulse Resp BP Pulse Ox 09/11/18 19:42 97.3 F L 89 18 124/74 98 Temperature: Afebrile Blood Pressure: Normal Pulse: Regular Respiratory Rate: Normal Appearance: Positive for: Well-Appearing, Non-Toxic, Comfortable Pain Distress: None Mental Status: Positive for: other (Alert and oriented to place and person) - Systems Exam Head: Present: Atraumatic, Normocephalic Pupils: Present: PERRL Extroacular Muscles: Present: EOMI Conjunctiva: Present: Normal Mouth: Present: Moist Mucous Membranes Neck: Present: Normal Range of Motion Respiratory/Chest: Present: Clear to Auscultation, Good Air Exchange. No: Respiratory Distress, Accessory Muscle Use Cardiovascular: Present: Regular Rate and Rhythm, Normal S1, S2. No: Murmurs Abdomen: No: Tenderness, Distention, Peritoneal Signs Back: Present: Normal Inspection Upper Extremity: Present: Normal Inspection. No: Cyanosis, Edema Lower Extremity: Present: Swelling (some leg swelling to the lower extremity bilaterally), Erythema (faint to bilateral lower extremity ), Neurovascularly Intact. No: Edema Neurological: Present: GCS=15, CN II-XII Intact, Speech Normal Skin: Present: Warm, Dry, Normal Color. No: Rashes Psychiatric: Present: Alert (Alert and oriented to place and person only) Medical Decision Making ED Course and Treatment: 09/11/18 19:50 Impression: 78 year old male present for evaluation of AMS according to daughter and hallucinations earlier today. Patient also noted lower extremity redness and difficulty walking. Plan: -- EKG -- Labs -- Chest X-ray -- Morphine -- Blood Culture -- Duplex LE vein US -- Reassess and disposition Prior Visits: Notes and results from previous visits were reviewed. Progress Notes: 09/11/18 20:08 EKG shows NSR at 86 BPM with non-specific ST/T changes. Interpreted by me. 09/11/18: 21:39 CXR Impression: As read by me, no acute process. Duplex LE vein US Impression: Negative EXAM: CT Head without Intravenous Contrast. Electronically signed on Sep 11, 2018 11:01:35 PM EST by: Rob Atkins M.D. IMPRESSION: 1. There is generalized parenchymal atrophy noted as demonstrated by symmetrical dilatation of ventricles and sulci. 2. Chronic periventricular and subcortical microvascular disease is seen. 3. No acute intracranial pathology. 09/11/18 23:[address] Bubba Levy who is aware and agrees with plan. Accepts patient into his service for AMS. - Lab Interpretations I have reviewed the lab results: Yes - RAD Interpretation Radiology Orders: 09/11/18 19:50 CHEST PORTABLE [RAD] Stat 09/11/18 19:51 DUPLEX LOWER EXTRM VEIN BILAT [US] Stat Bone Drier: ED Physician - EKG Interpretation Interpreted by ED Physician: Yes Type: 12 lead EKG - Scribe Statement The provider has reviewed the documentation as recorded by the Jyoti Brewer Provider Scribe Attestation: All medical record entries made by the Scribe were at my direction and personally dictated by me. I have reviewed the chart and agree that the record accurately reflects my personal performance of the history, physical exam, medical decision making, and the department course for this patient. I have also personally directed, reviewed, and agree with the discharge instructions and disposition. Disposition/Present on Arrival - Present on Arrival Any Indicators Present on Arrival: No History of DVT/PE: No History of Uncontrolled Diabetes: No Urinary Catheter: No History of Decub. Ulcer: No History Surgical Site Infection Following: None, Obstetrical/Gynecological Surgery - Disposition Have Diagnosis and Disposition been Completed?: Yes Diagnosis: Altered mental status, Impaired ambulation Disposition: HOSPITALIZED Disposition Time: 23:42 Patient Plan: Observation Patient Problems: Current Active Problems Problem Status Onset Altered mental status Acute Impaired ambulation Acute Condition: STABLE
[2018-09-11 20:43] LABS: TROPONIN I 0.01 ng/mL
[2018-09-11 20:55] LABS: CK-MB 2.8 ng/mL (0.0-3.6)
[2018-09-11] MEDS ORDERED: cefTRIAXone 1 gm 1 GM/100 ML BAG IV STA (23:18)
[2018-09-12 01:45] VITALS: BMI 24.7
[2018-09-12] MEDS: Carbidopa/Levodopa/Entacapone 37.5mg-150mg-200mg PO SCH ×3 (09:29→17:41)
--- NOTE | 2018-09-12 11:20 | CT ---
Date of service: 09/11/2018 PROCEDURE: CT HEAD WITHOUT CONTRAST. HISTORY: AMS COMPARISON: Comparison made with prior CT scan 06/25/2018. TECHNIQUE: Axial computed tomography images were obtained through the head/brain without intravenous contrast. Radiation dose: Total exam DLP = 1448.94 mGy-cm. This CT exam was performed using one or more of the following dose reduction techniques: Automated exposure control, adjustment of the mA and/or kV according to patient size, and/or use of iterative reconstruction technique. FINDINGS: HEMORRHAGE: No acute parenchymal, subarachnoid or extra-axial hemorrhage. BRAIN: Mild chronic periventricular white matter ischemic changes. Moderate generalized volume loss. Minor vascular calcifications both carotid siphons and left vertebral artery. VENTRICLES: No obstructive hydrocephalus. CALVARIUM: Unremarkable. Minimal mucosal thickening seen in the right maxillary antrum. PARANASAL SINUSES: Frontal sinuses are slightly underpneumatized more so on the right. The remaining visualized paranasal sinuses well-developed and currently well-aerated. No fluid levels seen to suggest acute sinusitis MASTOID AIR CELLS: Unremarkable as visualized. No inflammatory changes. OTHER FINDINGS: . Changes of bilateral cataract surgery again noted IMPRESSION: No acute intracranial hemorrhage. Mild chronic white matter ischemic changes. Moderate generalized volume loss.
--- NOTE | 2018-09-12 11:59 | HP ---
HISTORY OF PRESENT ILLNESS: The patient is a 78-year-old man with a past medical history of Parkinson disease who presented for evaluation of a 1 day history of altered mental status. According to the daughter the patient was experiencing visual and auditory hallucinations on day of presentation to the ED. There was no report of falls, head trauma, fevers, chills, rigors or any further associated symptoms. Given his altered mentation she opted for ED evaluation. In the ED he was afebrile and hemodynamically stable. Routine laboratory studies were unremarkable. A CT of the head was obtained and he was subsequently admitted to the general medical [facility] for continued workup of altered mental status. PAST MEDICAL HISTORY: As per HPI, also CAD s/p PCI with stent placement, ischemic cardiomyopathy and hypertension. PAST SURGICAL HISTORY: Appendectomy. ALLERGIES: Acetominophen and Oxycodone. MEDICATIONS: Aspirin 81 mg p.o. daily, Aricept 10 mg p.o. qhs, Stalevo 150 mg p.o. t.i.d, Azilect 1 mg p.o. daily and Seroquel 12.5 mg p.o. qhs. FAMILY HISTORY: Noncontributory. SOCIAL HISTORY: The patient denies any toxic habits. REVIEW OF SYSTEMS: Unobtainable given the patient's altered mental status. PHYSICAL EXAMINATION: VITAL SIGNS: Temperature 97.3, pulse 86, blood pressure 128/68, respiratory rate 18, oxygen saturation 98% on room air. GENERAL: Frail elderly man, appearing his stated age, lying in bed in no apparent distress. HEENT: PERRL, EOMI. No scleral icterus. No conjunctival pallor. NECK: No JVD. LUNGS: Clear to auscultation. CARDIOVASCULAR: Regular rate and rhythm. Normal S1, S2. Grade III/ murmur to RUSB and grade II/ murmur to LLSB. ABDOMEN: Normoactive bowel sounds, soft, nontender, nondistended. EXTREMITIES: No edema. NEUROLOGIC: Awake and alert, oriented to person and place. Moving all extremities and able to follow simple commands. LABORATORY DATA: WBC 10.8, hemoglobin 12, hematocrit 38, platelets 195. Sodium 139, potassium 4.3, chloride 108, bicarb 25, BUN 18, creatinine 0.6, glucose 106. IMAGING STUDIES: 1. Chest x-ray pending. 2. CT of the head without contrast pending. DIAGNOSTIC STUDIES: Lower extremity venous ultrasound with Doppler pending. ASSESSMENT: The patient is a 78-year-old man with a past medical history of Parkinson disease who presented with a 1 day history of altered mental status. PLAN: 1. Altered mental status, consider secondary to toxic metabolic encephalopathy vs underlying Parkinson disease. Neuroimaging pending. PT evaluation pending given his deconditioned status. The patient appears to be back to his baseline mentation. 2. Parkinson disease. Resume Stalevo 150 mg p.o. t.i.d, Aricept 10 mg p.o. qhs and Seroquel 12.5 mg p.o. qhs. 3. CAD s/p PCI with stent placement. Continue Aspirin 81 mg p.o. daily and Plavix 75 mg p.o. daily. 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 4. Ischemic cardiomyopathy. The patient remains clinically euvolemic. Continue with care as per #3. 5. Prophylaxis. GI prophylaxis not indicated as the patient is eating. Continue with SCD's for DVT prophylaxis. CODE STATUS: Full code. Orlando Levy MD MTDD
--- NOTE | 2018-09-12 18:25 | RAD ---
Date of service: 09/11/2018 HISTORY: ams COMPARISON: Comparison made with chest radiograph 06/26/2018 FINDINGS: LUNGS: No active pulmonary disease. PLEURA: No significant pleural effusion identified, no pneumothorax apparent. CARDIOVASCULAR: Mild aortic atherosclerotic calcification present. Borderline cardiomegaly no pulmonary vascular congestion. OSSEOUS STRUCTURES: No significant abnormalities. VISUALIZED UPPER ABDOMEN: Normal. OTHER FINDINGS: None. IMPRESSION: No active disease.
--- NOTE | 2018-09-12 21:27 | CARD ---
APPROVED REPORT Date of service: 09/11/2018 EKG Measurement Heart [id number] IN [id number] [id number] <Conclusion> Sinus rhythm with premature supraventricular complexes Otherwise normal ECG
[2018-09-13] MEDS: Carbidopa/Levodopa/Entacapone 37.5mg-150mg-200mg PO SCH ×3 (12:45→19:16)
--- NOTE | 2018-09-13 17:49 | RAD ---
Date of service: 09/13/2018 HISTORY: fever COMPARISON: Comparison made with chest radiograph 09/11/2018 FINDINGS: LUNGS: There appears to be mild bibasilar atelectasis left greater than right. Slight blunting left CP angle could be due to small effusion or mild chronic pleural thickening. There is a somewhat triangular shaped density right CP angle region which is of uncertain etiology. This could represent overlying artifact. Repeat erect PA and lateral views of the chest recommended to further characterize the CP angle. Alternately, consider follow-up CT scan. PLEURA: No significant pleural effusion identified, no pneumothorax apparent. CARDIOVASCULAR: Mild moderate o aortic atherosclerotic calcification present. Heart appears mildly enlarged. No pulmonary vascular congestion. OSSEOUS STRUCTURES: No significant abnormalities. VISUALIZED UPPER ABDOMEN: Normal. OTHER FINDINGS: None. IMPRESSION: There appears to be mild bibasilar atelectasis left greater than right. Slight blunting left CP angle could be due to small effusion or mild chronic pleural thickening. There is a somewhat triangular shaped density right CP angle region which is of uncertain etiology. This could represent overlying artifact. Repeat erect PA and lateral views of the chest recommended to further characterize the CP angle. Alternately, consider follow-up CT scan.
--- NOTE | 2018-09-13 18:16 | US ---
HISTORY: Leg pain and swelling. Evaluate for DVT PHYSICIAN(S): Benito Gomez MD. TECHNIQUE: Duplex sonography and color-flow Doppler with graded compression were used to evaluate the deep venous systems of both lower extremities. FINDINGS: The visualized deep venous systems of both lower extremities are sonographically normal and compressible. Normal wave forms and augmentation are seen. There is no sonographic evidence for deep venous thrombosis in the visualized segments of both lower extremities. IMPRESSION: No sonographic evidence for deep venous thrombosis in the visualized segments of both lower extremities.
--- NOTE | 2018-09-13 19:59 | PN ---
SUBJECTIVE: The patient was seen and examined at bedside on the general medical [facility]. No acute events overnight. OBJECTIVE: VITAL SIGNS: Temperature 100.8, pulse 89, blood pressure 120/73, respiratory rate 20, oxygen saturation 94% on room air. GENERAL: A frail elderly man appearing stated age, lying in bed in no apparent distress. HEENT: PERRL, EOMI. No scleral icterus. No conjunctival pallor. NECK: No JVD. LUNGS: Clear to auscultation. CARDIOVASCULAR: Regular rate and rhythm. Normal S1, S2. Grade III/ murmur to RUSB and grade II/ murmur to LLSB. ABDOMEN: Normoactive bowel sounds, soft, nontender, nondistended. EXTREMITIES: No edema. NEUROLOGIC: Awake and alert, oriented to person and place. Moving all extremities and able to follow simple commands. LABORATORY DATA: Morning labs are pending. ASSESSMENT: The patient is a 78-year-old man with a past medical history of Parkinson disease who presented with a 1 day history of AMS. PLAN: 1. Altered mental status, consider secondary to toxic metabolic encephalopathy and underlying Parkinson disease. CT of the head reviewed and negative for acute pathology. PT evaluation pending given his deconditioned status. 2. Parkinson disease. Continues Stalevo 150 mg p.o. t.i.d., Aricept 10 mg p.o. at bedtime and Seroquel 12.5 mg p.o. at bedtime. 3. CAD s/p PCI with stent placement. Continue Aspirin 81 mg p.o. daily and Plavix 75 mg p.o. daily. 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 4. Ischemic cardiomyopathy. The patient remains clinically euvolemic. Continue with care as per #3. 5. Prophylaxis. GI prophylaxis not indicated as the patient is eating. Continue with SCDs for DVT prophylaxis. CODE STATUS: Full code. Orlando Levy MD MTDD
[2018-09-13] MEDS ORDERED: Sodium Chloride 0.9% 500 ML IV STA (21:46)
--- NOTE | 2018-09-13 21:50 | CP.PCM.PN ---
Subjective - Date & Time of Evaluation Date of Evaluation: 09/13/18 Time of Evaluation: 22:00 - Subjective Subjective: Called to bedside to evaluate pt for fever. Pt currently admitted for AMS. Observed resting comfortably with no acute complaints. Heart sounds normal s1/s2, no m/r/g. Lung sounds CTA b/l, no wheezes, rales, or rhonchi. Sepsis work-up ordered. PMD Dr. Levy notified. Pending CBC, CMP, procal, U/a, urine cx, blood cx, CXR, EKG. Given Tylenol x1. Will continue to follow overnight. Objective - Vital Signs/Intake and Output Vital Signs (last 24 hours): Temp Pulse Resp BP Pulse Ox 100.8 F H 89 20 120/73 94 L 09/13/18 14:00 09/13/18 14:00 09/13/18 14:00 09/13/18 14:00 09/13/18 14:00 Intake and Output: 09/13/18 09/14/18 18:59 06:59 Intake Total 240 Balance 240 - Medications Medications: Current Medications Aspirin (Aspirin Chewable) 81 mg PO DAILY [facility] Last Admin: 09/13/18 12:45 Dose: 81 mg Carbidopa/Levodopa/Entacapone (Stalevo 150) 1 tab PO TID [facility] Last Admin: 09/13/18 19:16 Dose: 1 tab Clopidogrel Bisulfate (Plavix) 75 mg PO DAILY [facility] Last Admin: 09/13/18 12:45 Dose: 75 mg Donepezil HCl (Aricept) 10 mg PO HS [facility] Last Admin: 09/12/18 21:59 Dose: 10 mg Sodium Chloride (Sodium Chloride 0.9%) 500 mls @ 999 mls/hr IV .Q31M STA Stop: 09/13/18 22:16 Ibuprofen (Motrin Tab) 600 mg PO Q6H PRN PRN Reason: Fever >100.4 F Last Admin: 09/13/18 13:33 Dose: 600 mg Quetiapine Fumarate (Seroquel) 12.5 mg PO HS [facility]; Protocol Last Admin: 09/12/18 21:56 Dose: 12.5 mg - Labs Labs: 09/11/18 20:01 09/11/18 20:01 PT 13.0 SECONDS (9.4-12.5) H 09/11/18 20: INR 1.17 09/11/18 20: APTT 33.6 Seconds (26.9-38.3) 09/11/18 20:01
[2018-09-13 22:19] LABS: BASO # 0.01 K/mm3 (0.0-2.0); BASO % 0.1 % (0.0-3.0); EOS % 0.1 % (1.5-5.0); HEMOGLOBIN 11.9 g/dL (14.0-18.0); LYMPH # 1.5 (1.2-3.4); LYMPH % 13.2 % (22.0-35.0); MEAN CELL VOLUME 94.4 fl (80.0-105.0); MEAN CORPUSCULAR HEMOGLOBIN 30.5 pg (25.0-35.0); MEAN CORPUSCULAR HGB CONC 32.3 g/dl (31.0-37.0); MONO # 1.7 (0.1-0.6); MONO % 15.6 % (1.0-6.0); RBC 3.9 10^6/uL (3.5-6.1); VENOUS BLOOD GAS BASE EXCESS 1.7 mmol/L (0.0-2.0); VENOUS BLOOD GAS PO2 53 mm/Hg (30-55); VENOUS BLOOD PH 7.49 (7.32-7.43); WHITE BLOOD COUNT 11.1 10^3/uL (4.5-11.0)
[2018-09-13 22:44] LABS: ALB/GLOB RATIO 1.1 (1.1-1.8); ALBUMIN 3.8 g/dL (3.0-4.8); ALT/SGPT 7 U/L (7-56); AST/SGOT 63 U/L (17-59); BLOOD UREA NITROGEN 16 mg/dL (7-21); CALCIUM 8.9 mg/dL (8.4-10.5); GFR NON-AFRICAN AMERICAN > 60
[2018-09-13] MEDS: Vancomycin 1gm in NS 250ml 1 GM/250 ML BAG IVPB SCH (23:36)
[2018-09-14 04:24] LABS: URINE BILIRUBIN NEGATIVE (NEGATIVE); URINE BLOOD NEGATIVE (NEGATIVE); URINE GLUCOSE (UA) NEGATIVE (NEGATIVE); URINE LEUKOCYTE ESTERASE NEGATIVE Leu/uL (NEGATIVE); URINE PROTEIN NEGATIVE mg/dL (<30 mg/dL); URINE UROBILINOGEN 0.2 E.U./dL (<1 E.U./dL)
[2018-09-14 04:25] LABS: URINE APPEARANCE CLEAR (CLEAR); URINE COLOR YELLOW (YELLOW)
[2018-09-14] MEDS: Cefepime 1gm in NS 100ml 1 GM/100 ML BAG IVPB SCH ×4 (04:54→21:51)
[2018-09-14] MEDS: Vancomycin 1gm in NS 250ml 1 GM/250 ML BAG IVPB SCH ×2 (10:14→23:45)
[2018-09-14] MEDS: Carbidopa/Levodopa/Entacapone 37.5mg-150mg-200mg PO SCH ×3 (10:14→18:10)
[2018-09-14] MEDS: Sodium Chloride 0.9% 1,000 ML IV SCH ×2 (10:16→23:53)
--- NOTE | 2018-09-14 10:16 | RAD ---
Date of service: 09/13/2018 HISTORY: code sepsis COMPARISON: Earlier same day FINDINGS: LUNGS: No active pulmonary disease. PLEURA: No significant pleural effusion identified, no pneumothorax apparent. CARDIOVASCULAR: Aortic calcification Normal cardiac size. No pulmonary vascular congestion. OSSEOUS STRUCTURES: No significant abnormalities. VISUALIZED UPPER ABDOMEN: Normal. OTHER FINDINGS: None. IMPRESSION: No active disease.
--- NOTE | 2018-09-14 11:01 | PN ---
SUBJECTIVE: The patient was seen and examined at bedside on the general medical [facility]. Overnight he was found to be febrile with temperature of 101.2, tachycardic with a pulse of 116 and hypotensive with a blood pressure of 93/59. A Code Sepsis was called and the patient was pancultured, started on IV fluid hydration and antibiotics. This morning he remains clinically unchanged and offers no complaints. OBJECTIVE: VITAL SIGNS: Temperature 101.2, pulse 116, blood pressure 93/59, respiratory rate 18, oxygen saturation 97% on room air. GENERAL: Frail elderly man, appearing stated age, lying in bed in no apparent distress. HEENT: PERRL, EOMI. No scleral icterus. No conjunctival pallor. NECK: No JVD. LUNGS: Scattered rhonchi. CARDIOVASCULAR: Regular rate and rhythm. Normal S1, S2. Grade III/ murmur to RUSB and grade II/ murmur to LLSB. ABDOMEN: Normoactive bowel sounds, soft, nontender, nondistended. EXTREMITIES: No edema. NEUROLOGIC: Awake and alert, oriented to person and place. Moving all extremities and able to follow simple commands. LABORATORY DATA: Morning labs are pending. ASSESSMENT: The patient is a 78-year-old man with a past medical history of Parkinson disease who presented with a 1 day history of AMS and whose hospital course was complicated by SIRS syndrome of unclear etiology. PLAN: 1. Altered mental status, consider secondary toxic metabolic encephalopathy vs underlying Parkinson disease. CT of the head reviewed and negative for acute pathology. We will continue to monitor labs and correct for any electrolyte derangements. We will continue therapy for underlying SIRS syndrome. 2. SIRS syndrome of unclear etiology. Input from Dr. Augustine noted and the patient has been started on Cefepime 1 g IV q. 8 hours, Doxycycline 100 mg p.o. q. 12 hours and Vancomycin 1 g IV q. 12 hours. He has been pancultured and we will await the results. Continue to monitor for fever and leukocytosis. 3. Parkinson disease. Continue Stalevo 150 mg p.o. t.i.d., Aricept 10 mg p.o. qhs and Seroquel 12.5 mg p.o. qhs. 4. CAD s/p PCI with stent placement. Continue Aspirin 81 mg p.o. daily and Plavix 75 mg p.o. daily. 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 5. Ischemic cardiomyopathy. The patient remains clinically euvolemic. Continue with care as per #4. 6. Prophylaxis. GI prophylaxis not indicated as the patient is eating. Continue with SCDs for DVT prophylaxis. CODE STATUS: Full Code. Orlando Levy MD MTDD
--- NOTE | 2018-09-14 11:07 | CP.PCM.CON ---
<Carlos Alberto Menon - Last Filed: 09/14/18 14:03> History of Present Illness - History of Present Illness History of Present Illness: Infectious disease consult note: 78 year old male, whose past medical history includes Parkinson's disease, CAD, and hypertension, presents to the ED for evaluation of AMS. Pt is a poor historian and HPI taken mainly from prior note, nursing staff. Reportedly as per patients daughter he was hallucinating both visually and auditory. She also stated that he has been having some discomfort to his lower legs with difficulty walking. No reported history of fall or trauma. ID was consulted to r/o sepsis. 12 Point ROS limited 09/12 AMS PMH: as above PSH: appendectomy Med: refer to MAR All: acetominophen, haloperidol, oxycodone SH: Denies smoking, drinking, or drugs FH: npon contributory Review of Systems - Review of Systems Systems not reviewed;Unavailable: Altered Mental Status Past Patient History - Infectious Disease Hx of Infectious Diseases: None - Past Social History Smoking Status: Never Smoked - CARDIAC Hx Cardiac Disorders: Yes (CAD w/ stents) Hx Hypertension: Yes - PULMONARY Hx Respiratory Disorders: No - NEUROLOGICAL Hx Neurological Disorder: Yes Hx Alzheimer's Disease: Yes Hx Dementia: Yes Hx Parkinson's Disease: Yes - HEENT Hx HEENT Problems: No - RENAL Hx Chronic Kidney Disease: Yes Hx Pyelonephritis: Yes (right sided) - ENDOCRINE/METABOLIC Hx Endocrine Disorders: Yes Other/Comment: oscar's disease - HEMATOLOGICAL/ONCOLOGICAL Hx Blood Disorders: No - INTEGUMENTARY Hx Dermatological Problems: No - MUSCULOSKELETAL/RHEUMATOLOGICAL Hx Falls: No - GASTROINTESTINAL Hx Gastrointestinal Disorders: Yes Other/Comment: constipation - GENITOURINARY/GYNECOLOGICAL Hx Genitourinary Disorders: Yes Hx Incontinence: Yes Hx Urinary Tract Infection: Yes - PSYCHIATRIC Hx Psychophysiologic Disorder: Yes Hx Anxiety: Yes Hx Depression: Yes Hx Hallucinations: Yes Other/Comment: pt has hx of: parkinsons; demential oscar's disease, cardiac stent; htn - SURGICAL HISTORY Hx Surgeries: No Hx Cardiac Catheterization: Yes Hx Coronary Stent: Yes - ANESTHESIA Hx Anesthesia: Yes Hx Anesthesia Reactions: No Hx Malignant Hyperthermia: No Meds Allergies/Adverse Reactions: Allergies Allergy/AdvReac Type Severity Reaction Status Date / Time acetaminophen [From Percocet] AdvReac FATIGUE Verified 09/11/18 19:43 haloperidol [From Haldol] AdvReac FATIGUE Verified 09/11/18 19:43 oxycodone [From Percocet] AdvReac FATIGUE Verified 09/11/18 19:43 - Medications Medications: Current Medications Aspirin (Aspirin Chewable) 81 mg PO DAILY [facility] Last Admin: 09/14/18 10:14 Dose: 81 mg Carbidopa/Levodopa/Entacapone (Stalevo 150) 1 tab PO TID [facility] Last Admin: 09/14/18 10:14 Dose: 1 tab Clopidogrel Bisulfate (Plavix) 75 mg PO DAILY [facility] Last Admin: 09/14/18 10:14 Dose: 75 mg Donepezil HCl (Aricept) 10 mg PO HS [facility] Last Admin: 09/13/18 23:14 Dose: 10 mg Doxycycline Hyclate (Doryx) 100 mg PO Q12 [facility]; Protocol Stop: 09/23/18 10:01 Last Admin: 09/14/18 10:14 Dose: 100 mg Cefepime HCl (Maxipime 1gm) 1 gm in 100 mls @ 100 mls/hr IVPB Q8 [facility]; Protocol Stop: 09/23/18 06:01 Last Admin: 09/14/18 05:05 Dose: Not Given Vancomycin HCl (Vancomycin 1gm) 1 gm in 250 mls @ 167 mls/hr IVPB Q12H [facility]; Protocol Stop: 09/22/18 23:01 Last Admin: 09/14/18 10:14 Dose: 167 mls/hr Sodium Chloride (Sodium Chloride 0.9%) 1,000 mls @ 100 mls/hr IV .Q10H [facility] Last Admin: 09/14/18 10:16 Dose: 100 mls/hr Ibuprofen (Motrin Tab) 600 mg PO Q6H PRN PRN Reason: Fever >100.4 F Last Admin: 09/13/18 13:33 Dose: 600 mg Quetiapine Fumarate (Seroquel) 12.5 mg PO HS [facility]; Protocol Last Admin: 09/13/18 23:12 Dose: 12.5 mg Physical Exam - Constitutional Appears: No Acute Distress - Head Exam Head Exam: ATRAUMATIC, NORMOCEPHALIC - Eye Exam Eye Exam: EOMI - ENT Exam ENT Exam: Mucous Membranes Moist - Respiratory Exam Respiratory Exam: Clear to Auscultation Bilateral. absent: Rales, Wheezes - Cardiovascular Exam Cardiovascular Exam: REGULAR RHYTHM, +S1, +S2 - GI/Abdominal Exam GI & Abdominal Exam: Normal Bowel Sounds, Soft. absent: Tenderness - Extremities Exam Extremities exam: Negative for: calf tenderness, pedal edema - Neurological Exam Neurological exam: Altered Additional comments: AAO x 1 - Psychiatric Exam Psychiatric exam: Normal Mood - Skin Skin Exam: Dry, Warm Results - Vital Signs Recent Vital Signs: Last Vital Signs Temp 98.7 F 09/14/18 06:00 Pulse 78 09/14/18 06:00 Resp 19 09/14/18 06:00 BP 101/41 L 09/14/18 06:00 Pulse Ox 94 L 09/14/18 06:00 - Labs Result Diagrams: 09/14/18 10:50 09/14/18 10:50 Labs: Laboratory Results - last 24 hr 09/13/18 09/13/18 09/13/18 22:14 22:14 22:14 WBC 11.1 H RBC 3.90 Hgb 11.9 L Hct 36.8 L MCV 94.4 MCH 30.5 MCHC 32.3 RDW 16.0 H Plt Count 147 MPV 10.0 Neut % (Auto) 71.0 H Lymph % (Auto) 13.2 L [place] % (Auto) 15.6 H Eos % (Auto) 0.1 L Baso % (Auto) 0.1 Lymph # (Auto) 1.5 [place] # (Auto) 1.7 H Eos # (Auto) 0.0 Baso # (Auto) 0.01 Absolute Neuts (auto) 7.85 H pO2 53 VBG pH 7.49 H VBG pCO2 32.0 L VBG HCO3 24.4 VBG Total CO2 25.4 VBG O2 Sat (Calc) 92.6 H VBG Base Excess 1.7 VBG Potassium 3.3 L Sodium 140.0 139 Chloride 108.0 H 106 Glucose 93 Lactate 1.1 FiO2 21.0 Potassium 3.4 L Carbon Dioxide 25 Anion Gap 11 BUN 16 Creatinine 0.6 L Est GFR ( Amer) > 60 Est GFR (Non-Af Amer) > 60 Random Glucose 95 Calcium 8.9 Total Bilirubin 1.1 AST 63 H D ALT 7 Alkaline Phosphatase 76 Total Protein 7.3 Albumin 3.8 Globulin 3.4 Albumin/Globulin Ratio 1.1 Venous Blood Potassium 3.3 L Urine Color Urine Appearance Urine pH Ur Specific [place] Urine Protein Urine Glucose (UA) Urine Ketones Urine Blood Urine Nitrate Urine Bilirubin Urine Urobilinogen Ur Leukocyte Esterase Influenza Typ A,B (EIA) 09/14/18 09/14/18 03:40 06:59 WBC RBC Hgb Hct MCV MCH MCHC RDW Plt Count MPV Neut % (Auto) Lymph % (Auto) [place] % (Auto) Eos % (Auto) Baso % (Auto) Lymph # (Auto) [place] # (Auto) Eos # (Auto) Baso # (Auto) Absolute Neuts (auto) pO2 VBG pH VBG pCO2 VBG HCO3 VBG Total CO2 VBG O2 Sat (Calc) VBG Base Excess VBG Potassium Sodium Chloride Glucose Lactate FiO2 Potassium Carbon Dioxide Anion Gap BUN Creatinine Est GFR ( Amer) Est GFR (Non-Af Amer) Random Glucose Calcium Total Bilirubin AST ALT Alkaline Phosphatase Total Protein Albumin Globulin Albumin/Globulin Ratio Venous Blood Potassium Urine Color Yellow Urine Appearance Clear Urine pH 6.0 Ur Specific [place] 1.025 Urine Protein Negative Urine Glucose (UA) Negative Urine Ketones Negative Urine Blood Negative Urine Nitrate Negative Urine Bilirubin Negative Urine Urobilinogen 0.2 Ur Leukocyte Esterase Negative Influenza Typ A,B (EIA) Negative for flu a/b Assessment & Plan - Assessment and Plan (Free Text) Assessment: 78 year old male, whose past medical history includes Parkinson's disease, CAD, and hypertension, presents to the ED for evaluation of AMS. SIRS (with fever 101.3) r/o sepsis. Cont on Vanc, Doxy, and Cefepime Started on Tamiflu F/u septic work up UA. CXR. and flu were neg Cont to monitor for any change Case and plan was reviewed and discussed with Dr Scanlon. <Jairo Scanlon - Last Filed: 09/14/18 14:43> Meds - Medications Medications: Current Medications Aspirin (Aspirin Chewable) 81 mg PO DAILY [facility] Last Admin: 09/14/18 10:14 Dose: 81 mg Carbidopa/Levodopa/Entacapone (Stalevo 150) 1 tab PO TID [facility] Last Admin: 09/14/18 14:05 Dose: 1 tab Clopidogrel Bisulfate (Plavix) 75 mg PO DAILY [facility] Last Admin: 09/14/18 10:14 Dose: 75 mg Donepezil HCl (Aricept) 10 mg PO HS [facility] Last Admin: 09/13/18 23:14 Dose: 10 mg Doxycycline Hyclate (Doryx) 100 mg PO Q12 [facility]; Protocol Stop: 09/23/18 10:01 Last Admin: 09/14/18 10:14 Dose: 100 mg Cefepime HCl (Maxipime 1gm) 1 gm in 100 mls @ 100 mls/hr IVPB Q8 [facility]; Protocol Stop: 09/23/18 06:01 Last Admin: 09/14/18 14:04 Dose: 100 mls/hr Vancomycin HCl (Vancomycin 1gm) 1 gm in 250 mls @ 167 mls/hr IVPB Q12H [facility]; Protocol Stop: 09/22/18 23:01 Last Admin: 09/14/18 10:14 Dose: 167 mls/hr Sodium Chloride (Sodium Chloride 0.9%) 1,000 mls @ 100 mls/hr IV .Q10H [facility] Last Admin: 09/14/18 10:16 Dose: 100 mls/hr Ibuprofen (Motrin Tab) 600 mg PO Q6H PRN PRN Reason: Fever >100.4 F Last Admin: 09/13/18 13:33 Dose: 600 mg Oseltamivir Phosphate (Tamiflu Cap) 75 mg PO BID [facility]; Protocol Stop: 09/19/18 14:03 Quetiapine Fumarate (Seroquel) 12.5 mg PO HS [facility]; Protocol Last Admin: 09/13/18 23:12 Dose: 12.5 mg Results - Vital Signs Recent Vital Signs: Last Vital Signs Temp 100.4 F H 09/14/18 14:00 Pulse 80 09/14/18 14:00 Resp 18 09/14/18 14:00 BP 101/71 09/14/18 14:00 Pulse Ox 95 09/14/18 14:00 - Labs Result Diagrams: 09/14/18 10:50 09/14/18 10:50 Labs: Laboratory Results - last 24 hr 09/13/18 09/13/18 09/13/18 22:14 22:14 22:14 WBC 11.1 H RBC 3.90 Hgb 11.9 L Hct 36.8 L MCV 94.4 MCH 30.5 MCHC 32.3 RDW 16.0 H Plt Count 147 MPV 10.0 Neut % (Auto) 71.0 H Lymph % (Auto) 13.2 L [place] % (Auto) 15.6 H Eos % (Auto) 0.1 L Baso % (Auto) 0.1 Lymph # (Auto) 1.5 [place] # (Auto) 1.7 H Eos # (Auto) 0.0 Baso # (Auto) 0.01 Absolute Neuts (auto) 7.85 H pO2 53 VBG pH 7.49 H VBG pCO2 32.0 L VBG HCO3 24.4 VBG Total CO2 25.4 VBG O2 Sat (Calc) 92.6 H VBG Base Excess 1.7 VBG Potassium 3.3 L Sodium 140.0 Chloride 108.0 H Glucose 93 Lactate 1.1 FiO2 21.0 Potassium Carbon Dioxide Anion Gap BUN Creatinine Est GFR ( Amer) Est GFR (Non-Af Amer) Random Glucose Calcium Total Bilirubin AST ALT Alkaline Phosphatase Total Protein Albumin Globulin Albumin/Globulin Ratio Procalcitonin 0.13 L Venous Blood Potassium 3.3 L Urine Color Urine Appearance Urine pH Ur Specific [place] Urine Protein Urine Glucose (UA) Urine Ketones Urine Blood Urine Nitrate Urine Bilirubin Urine Urobilinogen Ur Leukocyte Esterase Influenza Typ A,B (EIA) 09/13/18 09/14/18 09/14/18 22:14 03:40 06:59 WBC RBC Hgb Hct MCV MCH MCHC RDW Plt Count MPV Neut % (Auto) Lymph % (Auto) [place] % (Auto) Eos % (Auto) Baso % (Auto) Lymph # (Auto) [place] # (Auto) Eos # (Auto) Baso # (Auto) Absolute Neuts (auto) pO2 VBG pH VBG pCO2 VBG HCO3 VBG Total CO2 VBG O2 Sat (Calc) VBG Base Excess VBG Potassium Sodium 139 Chloride 106 Glucose Lactate FiO2 Potassium 3.4 L Carbon Dioxide 25 Anion Gap 11 BUN 16 Creatinine 0.6 L Est GFR ( Amer) > 60 Est GFR (Non-Af Amer) > 60 Random Glucose 95 Calcium 8.9 Total Bilirubin 1.1 AST 63 H D ALT 7 Alkaline Phosphatase 76 Total Protein 7.3 Albumin 3.8 Globulin 3.4 Albumin/Globulin Ratio 1.1 Procalcitonin Venous Blood Potassium Urine Color Yellow Urine Appearance Clear Urine pH 6.0 Ur Specific [place] 1.025 Urine Protein Negative Urine Glucose (UA) Negative Urine Ketones Negative Urine Blood Negative Urine Nitrate Negative Urine Bilirubin Negative Urine Urobilinogen 0.2 Ur Leukocyte Esterase Negative Influenza Typ A,B (EIA) Negative for flu a/b 09/14/18 09/14/18 10:50 10:50 WBC 8.7 D RBC 3.61 Hgb 10.9 L Hct 34.4 L MCV 95.3 MCH 30.2 MCHC 31.7 RDW 16.1 H Plt Count 143 MPV 10.7 Neut % (Auto) 72.4 H Lymph % (Auto) 13.5 L [place] % (Auto) 13.5 H Eos % (Auto) 0.5 L Baso % (Auto) 0.1 Lymph # (Auto) 1.2 [place] # (Auto) 1.2 H Eos # (Auto) 0.0 Baso # (Auto) 0.01 Absolute Neuts (auto) 6.30 pO2 VBG pH VBG pCO2 VBG HCO3 VBG Total CO2 VBG O2 Sat (Calc) VBG Base Excess VBG Potassium Sodium 140 Chloride 109 H Glucose Lactate FiO2 Potassium 3.3 L Carbon Dioxide 27 Anion Gap 8 L BUN 21 Creatinine 0.7 L Est GFR ( Amer) > 60 Est GFR (Non-Af Amer) > 60 Random Glucose 108 Calcium 8.7 Total Bilirubin 0.7 AST 58 ALT 17 Alkaline Phosphatase 66 Total Protein 6.7 Albumin 3.5 Globulin 3.2 Albumin/Globulin Ratio 1.1 Procalcitonin Venous Blood Potassium Urine Color Urine Appearance Urine pH Ur Specific [place] Urine Protein Urine Glucose (UA) Urine Ketones Urine Blood Urine Nitrate Urine Bilirubin Urine Urobilinogen Ur Leukocyte Esterase Influenza Typ A,B (EIA) Assessment & Plan - Assessment and Plan (Free Text) Assessment: Infectious diseases Attending Physician Attestation Patient seen and examined, discussed with health care / medical job titles. I have reviewed the patient's history of present illness, past medical, social, personal and family histories, pertinent physical exam findings, course so far in this hospital admission, pertinent laboratory and imaging results. I agree with the above findings, assessment and plan. In addition, started Vancomycin, Cefepime and Doxycycline for this patient with SIRS, R/O sepsis from systemic viral illness R/O Influenza, R/O HCAP. Follow up rapid flu test, check cultures and will trend fever curve.
[2018-09-14 11:25] LABS: ALB/GLOB RATIO 1.1 (1.1-1.8); ALBUMIN 3.5 g/dL (3.0-4.8); ALT/SGPT 17 U/L (7-56); AST/SGOT 58 U/L (17-59); BLOOD UREA NITROGEN 21 mg/dL (7-21); CALCIUM 8.7 mg/dL (8.4-10.5); GFR NON-AFRICAN AMERICAN > 60
[2018-09-14 11:53] LABS: BASO # 0.01 K/mm3 (0.0-2.0); BASO % 0.1 % (0.0-3.0); EOS % 0.5 % (1.5-5.0); HEMOGLOBIN 10.9 g/dL (14.0-18.0); LYMPH # 1.2 (1.2-3.4); LYMPH % 13.5 % (22.0-35.0); MEAN CELL VOLUME 95.3 fl (80.0-105.0); MEAN CORPUSCULAR HEMOGLOBIN 30.2 pg (25.0-35.0); MEAN CORPUSCULAR HGB CONC 31.7 g/dl (31.0-37.0); MEAN PLATELET VOLUME 10.7 fl (7.0-11.0); MONO # 1.2 (0.1-0.6); MONO % 13.5 % (1.0-6.0); RBC 3.61 10^6/uL (3.5-6.1); RED CELL DISTRIBUTION WIDTH 16.1 % (11.5-14.5); WHITE BLOOD COUNT 8.7 10^3/uL (4.5-11.0)
[2018-09-14] MEDS ORDERED: Potassium Chloride 20 mEq ER Tab PO ONE (15:31)
--- NOTE | 2018-09-14 18:19 | CON ---
DATE: 09/14/2018 NEUROLOGY CONSULTATION CHIEF COMPLAINT: History of Parkinson's. HISTORY OF PRESENT ILLNESS: This is a 78-year-old male with a past medical history of Parkinson's disease, on Stalevo; coronary artery disease, status post PTCA with stents; who presented to the hospital with altered mental status. His hospital course was complicated by SIRS syndrome of unclear etiology, I was called to evaluate. He has underlying toxic metabolic encephalopathy with underlying severe Parkinson's disease superimposed underlying moderate to severe cognitive impairment, for which he is supposed to be on Aricept 10 mg p.o. nighttime and Namenda 10 mg p.o. two times a day for cognitive rejuvenation. He is also supposed to be on Seroquel at night for agitation. He currently has some chills. He has an elevated temperature overnight. Pancultures are sent. PAST MEDICAL HISTORY: As above. SOCIAL HISTORY: No illicit drug use, smoking, or EtOH abuse. ALLERGIES: ACETAMINOPHEN, HALOPERIDOL AND OXYCODONE. FAMILY HISTORY: Noncontributory. MEDICATIONS: Reviewed by nurses' reconciliation sheet. REVIEW OF SYSTEMS: Fourteen-point review of systems is negative except as per the HPI. PHYSICAL EXAMINATION VITAL SIGNS: Temperature 100.4, pulse of 80, blood pressure 101/71, respirations 18, oxygen saturation 95% via nasal cannula. GENERAL: The patient is seen up in bed, in chills. HEENT: Head is atraumatic, normocephalic. PERRLA. Extraocular muscles intact. NECK: Supple. No JVD. No adenopathy noted. LUNGS: Clear to auscultation. No adventitious sounds. HEART: S1 and S2. Normal rate and rhythm. No murmurs, rubs or gallops. ABDOMEN: Soft, nontender, and nondistended. Bowel sounds are present. EXTREMITIES: No clubbing. No cyanosis. Peripheral pulses are 2+ bilaterally. NEUROLOGIC: The patient is alert and oriented to person and place. Recall after 5 minutes is 0/3. Poor attention span. Slow thought process. Flat affect. Cranial nerves II through XII are intact. Speech is hypophonic, but no aphasia noted. Motor examination, increased tone throughout. rigidity at the wrist bilaterally. Resting tremor mostly in the right hand, tremors of the chin, otherwise moves all extremities. Sensory exam decreased light touch, pinprick, up to the calves bilaterally. Decreased vibration of the toes. DTRs are 2+ throughout and 1 at both knees and ankles. Coordination, [id number] intact. No dysmetria noted. There is resting tremor in both hands. Gait is deferred for now. IMPRESSION: Worsening confusion secondary to underlying severe Parkinson's disease with underlying severe cognitive impairment superimposed underlying possible systemic inflammatory response syndrome given the toxic-metabolic encephalopathy affect. RECOMMENDATIONS: At this time we recommend; 1. Continue on Stalevo 150 mg p.o. two times a day Parkinson's. 2. Continue with Aricept 10 mg p.o. at bedtime and Namenda 10 mg p.o. two times a day for more cognition. 3. Continue with Seroquel 12.5 mg p.o. at bedtime for agitation. 4. Continue to monitor any etiology for underlying SIRS syndrome and continue his current antibiotics. Monitor electrolytes and correct accordingly. PT and OT evaluation and in addition continue with aspirin 81 mg and Plavix 75 mg and for his underlying coronary artery disease, status post PCI. At this time, continue with SCD's for DVT prophylaxis and continue current and present medical management. Thank you for this consult. Jeffrey Rehman MD
--- NOTE | 2018-09-14 23:53 | CARD ---
APPROVED REPORT Date of service: 09/14/2018 EKG Measurement Heart [id number] <Conclusion> Atrial fibrillation Abnormal ECG
[2018-09-15] MEDS: Cefepime 1gm in NS 100ml 1 GM/100 ML BAG IVPB SCH ×3 (05:26→22:52)
[2018-09-15 07:32] LABS: BASO # 0.01 K/mm3 (0.0-2.0); BASO % 0.1 % (0.0-3.0); EOS # 0.1 (0.0-0.7); EOS % 1.3 % (1.5-5.0); HEMOGLOBIN 10.6 g/dL (14.0-18.0); LYMPH # 1.1 (1.2-3.4); LYMPH % 14.6 % (22.0-35.0); MEAN CELL VOLUME 95.7 fl (80.0-105.0); MEAN CORPUSCULAR HEMOGLOBIN 30.1 pg (25.0-35.0); MEAN CORPUSCULAR HGB CONC 31.5 g/dl (31.0-37.0); MEAN PLATELET VOLUME 10.4 fl (7.0-11.0); MONO % 12.5 % (1.0-6.0); RBC 3.52 10^6/uL (3.5-6.1); WHITE BLOOD COUNT 7.8 10^3/uL (4.5-11.0)
[2018-09-15 07:51] LABS: ALBUMIN 3.2 g/dL (3.0-4.8); ALT/SGPT 24 U/L (7-56); AST/SGOT 70 U/L (17-59); BLOOD UREA NITROGEN 21 mg/dL (7-21); CALCIUM 8.7 mg/dL (8.4-10.5); GFR NON-AFRICAN AMERICAN > 60
--- NOTE | 2018-09-15 09:59 | PN ---
SUBJECTIVE: The patient was seen and examined at bedside on the general medical estrella. No acute events overnight. He had recurrent low grade fever and otherwise remains clinically unchanged. OBJECTIVE: VITAL SIGNS: Tm 100.4, Tc 97.6, pulse 72, blood pressure 120/61, respiratory rate 20 and oxygen saturation 96% on room air. GENERAL: Frail elderly man lying in bed in no apparent distress. HEENT: PERRL, EOMI. No scleral icterus. No conjunctival pallor. NECK: No JVD. LUNGS: Scattered rhonchi. CARDIOVASCULAR: Regular rate and rhythm. Normal S1, S2. Grade III/ murmur to RUSB and grade II/ murmur to LLSB. ABDOMEN: Normoactive bowel sounds, soft, nontender and nondistended. EXTREMITIES: No edema. NEUROLOGIC: Awake and alert. Oriented to person, able to answer simple questions and follow simple commands. LABORATORY DATA: WBC 7.8 with 72% neutrophils, hemoglobin 10.6, hematocrit 34 and platelets 138. Sodium 143, potassium 3.8, chloride 112, bicarb 27, BUN 21, creatinine 0.6, and glucose 125. Procalcitonin 0.13. Influenza serology negative. Blood cultures with no growth to date. ASSESSMENT: The patient is a 78-year-old man with a past medical history of Parkinson disease who presented with a 1 day history of AMS and whose hospital course was complicated by SIRS syndrome. PLAN: 1. Altered mental status, secondary to toxic metabolic encephalopathy vs underlying Parkinson disease. CT of the head reviewed and negative for acute pathology. Input from Dr. Rehman noted. We will continue to monitor labs and correct for any electrolyte derangements and target therapy for underlying SIRS syndrome. 2. SIRS syndrome of unclear etiology. Input from Dr. Scanlon noted. Continue with current antimicrobials as per Dr. Scanlon. 3. Parkinson disease. Continues Stalevo 150 mg p.o. t.i.d. and Seroquel 12.5 mg p.o. at bedtime. 4. CAD s/p PCI with stent placement. Continue Aspirin 81 mg p.o. daily and Plavix 75 mg p.o. daily. 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 5. Ischemic cardiomyopathy. The patient remains clinically euvolemic. Continue with care as per #4. 6. Prophylaxis. GI prophylaxis not indicated as the patient is eating. Continue with SCDs for DVT prophylaxis. CODE STATUS: Full code. Orlando Levy MD RAYA
[2018-09-15] MEDS: Carbidopa/Levodopa/Entacapone 37.5mg-150mg-200mg PO SCH ×3 (11:16→17:46)
[2018-09-15] MEDS: Vancomycin 1gm in NS 250ml 1 GM/250 ML BAG IVPB SCH (11:16)
--- NOTE | 2018-09-15 14:28 | CP.PCM.PN ---
<Carlos Alberto Menon - Last Filed: 09/15/18 14:29> Subjective - Date & Time of Evaluation Date of Evaluation: 09/15/18 Time of Evaluation: 09:10 - Subjective Subjective: Infectious diseases progress note: Patient seen and examined at bedside. No acute events overnight. Patient still with some altered mental status however answering some questions. . Denies any cough or shortness of breath. 12 point ROS performed however limited due to dementia Objective - Vital Signs/Intake and Output Vital Signs (last 24 hours): Temp Pulse Resp BP Pulse Ox 97.6 F 72 20 120/61 96 09/15/18 06:00 09/15/18 06:00 09/15/18 06:00 09/15/18 06:00 09/15/18 06:00 Intake and Output: 09/15/18 09/15/18 06:59 18:59 Intake Total 240 Balance 240 - Medications Medications: Current Medications Aspirin (Aspirin Chewable) 81 mg PO DAILY [facility] Last Admin: 09/15/18 11:15 Dose: 81 mg Carbidopa/Levodopa/Entacapone (Stalevo 150) 1 tab PO TID [facility] Last Admin: 09/15/18 11:16 Dose: 1 tab Clopidogrel Bisulfate (Plavix) 75 mg PO DAILY [facility] Last Admin: 09/15/18 11:16 Dose: 75 mg Doxycycline Hyclate (Doryx) 100 mg PO Q12 [facility]; Protocol Stop: 09/23/18 10:01 Last Admin: 09/15/18 11:15 Dose: 100 mg Cefepime HCl (Maxipime 1gm) 1 gm in 100 mls @ 100 mls/hr IVPB Q8 [facility]; Protocol Stop: 09/23/18 06:01 Last Admin: 09/15/18 14:06 Dose: 100 mls/hr Vancomycin HCl (Vancomycin 1gm) 1 gm in 250 mls @ 167 mls/hr IVPB Q12H [facility]; Protocol Stop: 09/22/18 23:01 Last Admin: 09/15/18 11:16 Dose: 167 mls/hr Ibuprofen (Motrin Tab) 600 mg PO Q6H PRN PRN Reason: Fever >100.4 F Last Admin: 09/14/18 16:08 Dose: 600 mg Oseltamivir Phosphate (Tamiflu Cap) 75 mg PO BID [facility]; Protocol Stop: 09/19/18 14:03 Last Admin: 09/15/18 11:16 Dose: 75 mg Quetiapine Fumarate (Seroquel) 12.5 mg PO HS [facility]; Protocol Last Admin: 09/14/18 21:50 Dose: 12.5 mg - Labs Labs: 09/15/18 07:00 09/15/18 07:00 PT 13.0 SECONDS (9.4-12.5) H 09/11/18 20:01 INR 1.17 09/11/18 20:01 APTT 33.6 Seconds (26.9-38.3) 09/11/18 20:01 - Constitutional Appears: No Acute Distress - Head Exam Head Exam: ATRAUMATIC, NORMOCEPHALIC - Eye Exam Eye Exam: EOMI - ENT Exam ENT Exam: Mucous Membranes Moist - Respiratory Exam Respiratory Exam: Clear to Ausculation Bilateral. absent: Wheezes - Cardiovascular Exam Cardiovascular Exam: REGULAR RHYTHM, +S1, +S2 - GI/Abdominal Exam GI & Abdominal Exam: Soft. absent: Tenderness - Extremities Exam Extremities Exam: absent: Calf Tenderness, Pedal Edema - Neurological Exam Neurological Exam: Alert, Awake, Oriented x3 - Psychiatric Exam Psychiatric exam: Normal Mood - Skin Skin Exam: Dry, Warm Assessment and Plan - Assessment and Plan (Free Text) Assessment: 78 year old male, whose past medical history includes Parkinson's disease, CAD, and hypertension, presents to the ED for evaluation of AMS. SIRS (with fever 101.3) r/o sepsis. Cont on Doxy, and Cefepime. We will discontinue vancomycin. Continue with Tamiflu for total of 5 days F/u septic work up Cont to monitor for any change Case and plan was reviewed and discussed with Dr Scanlon. <Jairo Scanlon - Last Filed: 09/15/18 15:50> Objective - Vital Signs/Intake and Output Vital Signs (last 24 hours): Temp Pulse Resp BP Pulse Ox 97.6 F 72 20 120/61 96 09/15/18 06:00 09/15/18 06:00 09/15/18 06:00 09/15/18 06:00 09/15/18 06:00 Intake and Output: 09/15/18 09/15/18 06:59 18:59 Intake Total 240 360 Balance 240 360 - Medications Medications: Current Medications Aspirin (Aspirin Chewable) 81 mg PO DAILY [facility] Last Admin: 09/15/18 11:15 Dose: 81 mg Carbidopa/Levodopa/Entacapone (Stalevo 150) 1 tab PO TID [facility] Last Admin: 09/15/18 14:49 Dose: 1 tab Clopidogrel Bisulfate (Plavix) 75 mg PO DAILY [facility] Last Admin: 09/15/18 11:16 Dose: 75 mg Doxycycline Hyclate (Doryx) 100 mg PO Q12 [facility]; Protocol Stop: 09/23/18 10:01 Last Admin: 09/15/18 11:15 Dose: 100 mg Cefepime HCl (Maxipime 1gm) 1 gm in 100 mls @ 100 mls/hr IVPB Q8 [facility]; Protocol Stop: 09/23/18 06:01 Last Admin: 09/15/18 14:06 Dose: 100 mls/hr Ibuprofen (Motrin Tab) 600 mg PO Q6H PRN PRN Reason: Fever >100.4 F Last Admin: 09/14/18 16:08 Dose: 600 mg Oseltamivir Phosphate (Tamiflu Cap) 75 mg PO BID [facility]; Protocol Stop: 09/19/18 14:03 Last Admin: 09/15/18 11:16 Dose: 75 mg Quetiapine Fumarate (Seroquel) 12.5 mg PO HS [facility]; Protocol Last Admin: 09/14/18 21:50 Dose: 12.5 mg - Labs Labs: 09/15/18 07:00 09/15/18 07:00 PT 13.0 SECONDS (9.4-12.5) H 09/11/18 20:01 INR 1.17 09/11/18 20:01 APTT 33.6 Seconds (26.9-38.3) 09/11/18 20:01 Assessment and Plan - Assessment and Plan (Free Text) Assessment: Infectious diseases Attending Physician Attestation Patient seen and examined, discussed with medical appointment scheduler. I have reviewed the patient's history of present illness, past medical, social, personal and family histories, pertinent physical exam findings, course so far in this hospital admission, pertinent laboratory and imaging results. I agree with the above findings, assessment and plan. In addition, continue Doxycycline and Cefepime for patient with SIRS, R/O sepsis from pneumonia, systemic viral illness. Blood cx are negative and will d/c Vancomycin. Complete 5 days of Tamiflu.
[2018-09-16] MEDS: Cefepime 1gm in NS 100ml 1 GM/100 ML BAG IVPB SCH ×3 (05:37→21:41)
[2018-09-16] MEDS ORDERED: Sodium Chloride 0.9% 500 ML IV STA (06:13)
[2018-09-16 07:25] LABS: BASO # 0.01 K/mm3 (0.0-2.0); BASO % 0.1 % (0.0-3.0); EOS # 0.1 (0.0-0.7); EOS % 0.9 % (1.5-5.0); HEMOGLOBIN 9.6 g/dL (14.0-18.0); LYMPH # 1.6 (1.2-3.4); MEAN CELL VOLUME 94.7 fl (80.0-105.0); MEAN CORPUSCULAR HEMOGLOBIN 29.8 pg (25.0-35.0); MEAN CORPUSCULAR HGB CONC 31.5 g/dl (31.0-37.0); MEAN PLATELET VOLUME 10.3 fl (7.0-11.0); MONO # 1.3 (0.1-0.6); MONO % 16.2 % (1.0-6.0); RBC 3.22 10^6/uL (3.5-6.1); RED CELL DISTRIBUTION WIDTH 15.8 % (11.5-14.5); WHITE BLOOD COUNT 7.8 10^3/uL (4.5-11.0)
[2018-09-16 07:59] LABS: ALT/SGPT 39 U/L (7-56); AST/SGOT 78 U/L (17-59); BLOOD UREA NITROGEN 18 mg/dL (7-21); CALCIUM 8.2 mg/dL (8.4-10.5); GFR NON-AFRICAN AMERICAN > 60
--- NOTE | 2018-09-16 09:03 | CP.PCM.PN ---
<Carlos Alberto Menon - Last Filed: 09/16/18 09:05> Subjective - Date & Time of Evaluation Date of Evaluation: 09/16/18 Time of Evaluation: 08:00 - Subjective Subjective: Infectious diseases progress note: Patient seen and examined at bedside. No acute events overnight. Denies any cough or shortness of breath. no complaints. 12 point ROS performed however limited due to dementia Objective - Vital Signs/Intake and Output Vital Signs (last 24 hours): Temp Pulse Resp BP Pulse Ox 98.2 F 71 19 123/67 98 09/16/18 07:40 09/16/18 07:40 09/16/18 07:40 09/16/18 07:40 09/16/18 07:40 Intake and Output: 09/16/18 09/16/18 06:59 18:59 Intake Total 900 Balance 900 - Medications Medications: Current Medications Aspirin (Aspirin Chewable) 81 mg PO DAILY [facility] Last Admin: 09/15/18 11:15 Dose: 81 mg Carbidopa/Levodopa/Entacapone (Stalevo 150) 1 tab PO TID [facility] Last Admin: 09/15/18 17:46 Dose: 1 tab Clopidogrel Bisulfate (Plavix) 75 mg PO DAILY [facility] Last Admin: 09/15/18 11:16 Dose: 75 mg Doxycycline Hyclate (Doryx) 100 mg PO Q12 [facility]; Protocol Stop: 09/23/18 10:01 Last Admin: 09/15/18 22:53 Dose: 100 mg Cefepime HCl (Maxipime 1gm) 1 gm in 100 mls @ 100 mls/hr IVPB Q8 [facility]; Protocol Stop: 09/23/18 06:01 Last Admin: 09/16/18 05:37 Dose: 100 mls/hr Ibuprofen (Motrin Tab) 600 mg PO Q6H PRN PRN Reason: Fever >100.4 F Last Admin: 09/14/18 16:08 Dose: 600 mg Oseltamivir Phosphate (Tamiflu Cap) 75 mg PO BID [facility]; Protocol Stop: 09/19/18 14:03 Last Admin: 09/15/18 17:46 Dose: 75 mg Quetiapine Fumarate (Seroquel) 12.5 mg PO HS [facility]; Protocol Last Admin: 09/15/18 22:55 Dose: 12.5 mg - Labs Labs: 09/16/18 07:00 09/16/18 07:00 PT 13.0 SECONDS (9.4-12.5) H 09/11/18 20:01 INR 1.17 09/11/18 20:01 APTT 33.6 Seconds (26.9-38.3) 09/11/18 20:01 - Constitutional Appears: No Acute Distress - Head Exam Head Exam: ATRAUMATIC, NORMOCEPHALIC - Eye Exam Eye Exam: EOMI - ENT Exam ENT Exam: Mucous Membranes Moist - Respiratory Exam Respiratory Exam: Clear to Ausculation Bilateral Additional comments: no RRW - Cardiovascular Exam Cardiovascular Exam: REGULAR RHYTHM, +S1, +S2 - GI/Abdominal Exam GI & Abdominal Exam: Soft - Extremities Exam Extremities Exam: absent: Calf Tenderness, Pedal Edema - Neurological Exam Neurological Exam: Alert, Awake - Psychiatric Exam Psychiatric exam: Normal Mood - Skin Skin Exam: Dry, Warm Assessment and Plan - Assessment and Plan (Free Text) Assessment: 78 year old male, whose past medical history includes Parkinson's disease, CAD, and hypertension, presents to the ED for evaluation of AMS. SIRS (with fever 101.3) r/o sepsis. Cont on Doxy, and Cefepime Continue Tamiflu for total of 5 days F/u septic work up - blood cx neg thus far Cont to monitor for any change Case and plan was reviewed and discussed with Dr Scanlon. <Jairo Scanlon - Last Filed: 09/16/18 15:01> Objective - Vital Signs/Intake and Output Vital Signs (last 24 hours): Temp Pulse Resp BP Pulse Ox 98.1 F 62 20 109/72 97 09/16/18 14:00 09/16/18 14:00 09/16/18 14:00 09/16/18 14:00 09/16/18 14:00 Intake and Output: 09/16/18 09/16/18 06:59 18:59 Intake Total 900 Balance 900 - Medications Medications: Current Medications Aspirin (Aspirin Chewable) 81 mg PO DAILY [facility] Last Admin: 09/16/18 10:57 Dose: 81 mg Carbidopa/Levodopa/Entacapone (Stalevo 150) 1 tab PO TID [facility] Last Admin: 09/16/18 13:31 Dose: 1 tab Clopidogrel Bisulfate (Plavix) 75 mg PO DAILY [facility] Last Admin: 09/16/18 10:57 Dose: 75 mg Doxycycline Hyclate (Doryx) 100 mg PO Q12 [facility]; Protocol Stop: 09/23/18 10:01 Last Admin: 09/16/18 10:57 Dose: 100 mg Cefepime HCl (Maxipime 1gm) 1 gm in 100 mls @ 100 mls/hr IVPB Q8 [facility]; Protocol Stop: 09/23/18 06:01 Last Admin: 09/16/18 14:30 Dose: 100 mls/hr Ibuprofen (Motrin Tab) 600 mg PO Q6H PRN PRN Reason: Fever >100.4 F Last Admin: 09/14/18 16:08 Dose: 600 mg Oseltamivir Phosphate (Tamiflu Cap) 75 mg PO BID [facility]; Protocol Stop: 09/19/18 14:03 Last Admin: 09/16/18 10:57 Dose: 75 mg Quetiapine Fumarate (Seroquel) 12.5 mg PO HS [facility]; Protocol Last Admin: 09/15/18 22:55 Dose: 12.5 mg - Labs Labs: 09/16/18 07:00 09/16/18 07:00 PT 13.0 SECONDS (9.4-12.5) H 09/11/18 20:01 INR 1.17 09/11/18 20:01 APTT 33.6 Seconds (26.9-38.3) 09/11/18 20:01 Assessment and Plan - Assessment and Plan (Free Text) Assessment: Infectious diseases Attending Physician Attestation Patient seen and examined, discussed with medical coding technician. I have reviewed the patient's history of present illness, past medical, social, personal and family histories, pertinent physical exam findings, course so far in this hospital admission, pertinent laboratory and imaging results. I agree with the above findings, assessment and plan. In addition, continue Doxycycline and Cefepime and Tamiflu for patient with SIRS, R/O sepsis from respiratory tract infection, R/O influenza. Follow up final culture results.
[2018-09-16] MEDS: Carbidopa/Levodopa/Entacapone 37.5mg-150mg-200mg PO SCH ×3 (10:57→20:54)
--- NOTE | 2018-09-16 14:00 | PN ---
SUBJECTIVE: The patient was seen and examined at bedside on the general medical estrella. No acute events overnight. He remains afebrile and hemodynamically stable. The patient's mentation waxes and wanes but overall appears to be at his baseline. OBJECTIVE VITAL SIGNS: Temperature 98.2, pulse 71, blood pressure 123/67, respiratory rate 19, oxygen saturation 98% on room air. GENERAL: Frail elderly man, lying in bed, in no apparent distress. HEENT: PERRL, EOMI. No scleral icterus. No conjunctival pallor. NECK: No JVD. LUNGS: Faint scattered rhonchi. CARDIOVASCULAR: Regular rate and rhythm. Normal S1 and S2. Grade III/ murmur to RUSB and grade II/ murmur to LLSB. ABDOMEN: Normoactive bowel sounds, soft, nontender, nondistended. EXTREMITIES: No edema. NEUROLOGIC: Awake and alert, oriented to person, able to answer simple questions and follow simple commands. LABORATORY DATA: WBC 7.8 with 63% neutrophils, hemoglobin 9.6, hematocrit 31, platelets 138. Sodium 140, potassium 3.4, chloride 110, bicarb 26, BUN 18, creatinine 0.6, glucose 100. Blood cultures with no growth to date. Urine culture with no growth to date. Influenza serology negative. ASSESSMENT: The patient is a 78-year-old man with a past medical history of Parkinson disease who presented with a 1 day history of altered mental status and whose hospital course was complicated by SIRS syndrome. PLAN 1. Altered mental status, secondary to toxic metabolic encephalopathy vs underlying Parkinson disease. CT of the head reviewed and negative for acute pathology. Input from Dr. Rehman noted. We will continue with current care. 2. SIRS syndrome of unclear etiology. Input from Dr. Scanlon noted. Continue with antimicrobials as per Dr. Scanlon. 3. Parkinson disease. Continue Stalevo 150 mg p.o. t.i.d. and Seroquel 12.5 mg p.o. at bedtime. 4. CAD s/p PCI with stent placement. Continue Aspirin 81 mg p.o. daily and Plavix 75 mg p.o. daily. 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 5. Ischemic cardiomyopathy. Continue with care as per #4. 6. Prophylaxis. GI prophylaxis not indicated as the patient is eating. Continue with SCDs for DVT prophylaxis. CODE STATUS: Full code. Orlando Levy MD MTDD
[2018-09-17] MEDS: Cefepime 1gm in NS 100ml 1 GM/100 ML BAG IVPB SCH ×3 (05:21→21:41)
[2018-09-17 07:28] LABS: BASO # 0.02 K/mm3 (0.0-2.0); BASO % 0.3 % (0.0-3.0); EOS # 0.1 (0.0-0.7); EOS % 1.8 % (1.5-5.0); HEMOGLOBIN 10.3 g/dL (14.0-18.0); LYMPH # 1.6 (1.2-3.4); LYMPH % 23.2 % (22.0-35.0); MEAN CELL VOLUME 93.8 fl (80.0-105.0); MEAN CORPUSCULAR HEMOGLOBIN 30.7 pg (25.0-35.0); MEAN CORPUSCULAR HGB CONC 32.7 g/dl (31.0-37.0); MEAN PLATELET VOLUME 10.3 fl (7.0-11.0); MONO # 0.9 (0.1-0.6); MONO % 12.6 % (1.0-6.0); RBC 3.36 10^6/uL (3.5-6.1); RED CELL DISTRIBUTION WIDTH 15.2 % (11.5-14.5)
[2018-09-17 07:53] LABS: ALBUMIN 3.1 g/dL (3.0-4.8); ALT/SGPT 81 U/L (7-56); AST/SGOT 124 U/L (17-59); BLOOD UREA NITROGEN 17 mg/dL (7-21); CALCIUM 8.5 mg/dL (8.4-10.5); GFR NON-AFRICAN AMERICAN > 60
--- NOTE | 2018-09-17 08:32 | CP.PCM.PN ---
<Carlos Alberto Menon - Last Filed: 09/17/18 12:34> Subjective - Date & Time of Evaluation Date of Evaluation: 09/17/18 Time of Evaluation: 07:30 - Subjective Subjective: Infectious diseases progress note: Patient seen and examined at bedside. No acute events overnight. patient lethargic and mumbling words this am. No fevers. No complaints. 12 point ROS performed however limited due to dementia Objective - Vital Signs/Intake and Output Vital Signs (last 24 hours): Temp Pulse Resp BP Pulse Ox 98.8 F 72 18 116/73 97 09/17/18 07:00 09/17/18 07:00 09/17/18 07:00 09/17/18 07:00 09/17/18 07:00 Intake and Output: 09/17/18 09/17/18 06:59 18:59 Intake Total 120 Balance 120 - Medications Medications: Current Medications Aspirin (Aspirin Chewable) 81 mg PO DAILY [facility] Last Admin: 09/16/18 10:57 Dose: 81 mg Carbidopa/Levodopa/Entacapone (Stalevo 150) 1 tab PO TID [facility] Last Admin: 09/16/18 20:54 Dose: 1 tab Clopidogrel Bisulfate (Plavix) 75 mg PO DAILY [facility] Last Admin: 09/16/18 10:57 Dose: 75 mg Doxycycline Hyclate (Doryx) 100 mg PO Q12 [facility]; Protocol Stop: 09/23/18 10:01 Last Admin: 09/16/18 21:40 Dose: 100 mg Cefepime HCl (Maxipime 1gm) 1 gm in 100 mls @ 100 mls/hr IVPB Q8 [facility]; Protocol Stop: 09/23/18 06:01 Last Admin: 09/17/18 05:21 Dose: 100 mls/hr Ibuprofen (Motrin Tab) 600 mg PO Q6H PRN PRN Reason: Fever >100.4 F Last Admin: 09/14/18 16:08 Dose: 600 mg Oseltamivir Phosphate (Tamiflu Cap) 75 mg PO BID [facility]; Protocol Stop: 09/19/18 14:03 Last Admin: 09/16/18 17:36 Dose: 75 mg Quetiapine Fumarate (Seroquel) 12.5 mg PO HS [facility]; Protocol Last Admin: 09/16/18 21:44 Dose: 12.5 mg - Labs Labs: 09/17/18 07:15 09/17/18 07:15 PT 13.0 SECONDS (9.4-12.5) H 09/11/18 20:01 INR 1.17 09/11/18 20:01 APTT 33.6 Seconds (26.9-38.3) 09/11/18 20:01 - Constitutional Appears: No Acute Distress - Head Exam Head Exam: ATRAUMATIC, NORMOCEPHALIC - Eye Exam Eye Exam: EOMI - ENT Exam ENT Exam: Mucous Membranes Moist - Respiratory Exam Respiratory Exam: Clear to Ausculation Bilateral. absent: Rales, Rhonchi, Wheezes - Cardiovascular Exam Cardiovascular Exam: REGULAR RHYTHM, +S1, +S2 - GI/Abdominal Exam GI & Abdominal Exam: Soft. absent: Tenderness - Extremities Exam Extremities Exam: absent: Calf Tenderness, Pedal Edema - Neurological Exam Neurological Exam: Alert, Awake - Psychiatric Exam Psychiatric exam: Normal Mood - Skin Skin Exam: Dry, Warm Assessment and Plan - Assessment and Plan (Free Text) Assessment: 78 year old male, whose past medical history includes Parkinson's disease, CAD, and hypertension, presents to the ED for evaluation of AMS. SIRS (with fever 101.3) r/o sepsis with resp tract infection. Cont antibiotics with Doxy, and Cefepime for total 5-7 day duration Tamiflu for total of 5 days blood cx and urine cx neg thus far Cont to monitor for any change Case and plan was reviewed and discussed with Dr Scanlon. <Jairo Scanlon - Last Filed: 09/17/18 18:19> Objective - Vital Signs/Intake and Output Vital Signs (last 24 hours): Temp Pulse Resp BP Pulse Ox 98 F 80 19 108/67 97 09/17/18 14:00 09/17/18 14:00 09/17/18 14:00 09/17/18 14:00 09/17/18 14:00 Intake and Output: 09/17/18 09/17/18 06:59 18:59 Intake Total 120 Balance 120 - Medications Medications: Current Medications Aspirin (Aspirin Chewable) 81 mg PO DAILY [facility] Last Admin: 09/17/18 11:05 Dose: 81 mg Carbidopa/Levodopa/Entacapone (Stalevo 150) 1 tab PO TID [facility] Last Admin: 09/17/18 17:58 Dose: 1 tab Clopidogrel Bisulfate (Plavix) 75 mg PO DAILY [facility] Last Admin: 09/17/18 11:05 Dose: 75 mg Doxycycline Hyclate (Doryx) 100 mg PO Q12 [facility]; Protocol Stop: 09/23/18 10:01 Last Admin: 09/17/18 11:04 Dose: 100 mg Cefepime HCl (Maxipime 1gm) 1 gm in 100 mls @ 100 mls/hr IVPB Q8 [facility]; Protocol Stop: 09/23/18 06:01 Last Admin: 09/17/18 13:20 Dose: 100 mls/hr Ibuprofen (Motrin Tab) 600 mg PO Q6H PRN PRN Reason: Fever >100.4 F Last Admin: 09/14/18 16:08 Dose: 600 mg Oseltamivir Phosphate (Tamiflu Cap) 75 mg PO BID [facility]; Protocol Stop: 09/19/18 14:03 Last Admin: 09/17/18 17:58 Dose: 75 mg Quetiapine Fumarate (Seroquel) 12.5 mg PO HS [facility]; Protocol Last Admin: 09/16/18 21:44 Dose: 12.5 mg - Labs Labs: 09/17/18 07:15 09/17/18 07:15 PT 13.0 SECONDS (9.4-12.5) H 09/11/18 20:01 INR 1.17 09/11/18 20:01 APTT 33.6 Seconds (26.9-38.3) 09/11/18 20:01 Assessment and Plan - Assessment and Plan (Free Text) Assessment: Infectious diseases Attending Physician Attestation Patient seen and examined, discussed with biomedical scientist. I have reviewed the patient's history of present illness, past medical, social, personal and family histories, pertinent physical exam findings, course so far in this hospital admission, pertinent laboratory and imaging results. I agree with the above findings, assessment and plan. In addition, continue CEfepime and Doxycycline to complete 5-7 days for probable sepsis from respiratory tract infection. Complete total 5 days of Tamiflu for possible Influenza infection. Cultures are negative so far and will follow up final culture results.
[2018-09-17] MEDS: Carbidopa/Levodopa/Entacapone 37.5mg-150mg-200mg PO SCH ×3 (11:04→17:58)
--- NOTE | 2018-09-17 13:25 | PN ---
SUBJECTIVE: The patient was seen and examined at bedside on the general medical estrella. No acute events overnight. He remains afebrile and hemodynamically stable. The patient seems to have waxing and waning mentation and has required placement of mittens as he has been pulling on his medical devices. He furthermore remains on droplet precautions pending completion of his course of Tamiflu. OBJECTIVE: VITAL SIGNS: Temperature 98.8, pulse 72, blood pressure 116/73, respiratory rate 18, oxygen saturation 97% on room air. GENERAL: Frail elderly man, lying in bed in no apparent distress. HEENT: PERRL. EOMI. No scleral icterus. No conjunctival pallor. NECK: No JVD. LUNGS: Faint scattered rhonchi. CARDIOVASCULAR: Regular rate and rhythm. Normal S1 and S2. Grade III/ murmur to RUSB and grade II/ murmur to LLSB. ABDOMEN: Normoactive bowel sounds, soft, nontender, nondistended. EXTREMITIES: No edema. NEUROLOGIC: Awake and alert, oriented to person, able to answer simple questions and follow commands. LABORATORY DATA: WBC 7 with 62% neutrophils, hemoglobin 10, hematocrit 32, platelets 157. Sodium 136, potassium 3.7, chloride 107, bicarb 26, BUN 17, creatinine 0.6, glucose 103. Blood cultures negative. Urine culture negative. Influenza serology negative. ASSESSMENT: The patient is a 78-year-old man with a past medical history of Parkinson disease who presented with a 1 day history of altered mental status and whose hospital course was complicated by SIRS syndrome. PLAN: 1. Altered mental status, secondary to toxic metabolic encephalopathy vs Parkinson disease. Input from Dr. Rehman noted. We will continue with current care. 2. SIRS syndrome of unclear etiology. Input from Dr. Scanlon noted. Continue with antimicrobials as per Dr. Scanlon. 3. Parkinson disease. Continue Stalevo 150 mg p.o. t.i.d. and Seroquel 12.5 mg p.o. at bedtime. 4. CAD s/p PCI with stent placement. Continue Aspirin 81 mg p.o. daily and Plavix 75 mg p.o. daily. 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 5. Ischemic cardiomyopathy. Continue with care as above. 6. Prophylaxis. GI prophylaxis not indicated as the patient is eating. Continue with SCDs for DVT prophylaxis. CODE STATUS: Full code. Orlando Levy MD MTDD
[2018-09-18] MEDS: Cefepime 1gm in NS 100ml 1 GM/100 ML BAG IVPB SCH ×2 (06:10→13:43)
[2018-09-18 07:38] LABS: BASO # 0.01 K/mm3 (0.0-2.0); BASO % 0.1 % (0.0-3.0); EOS # 0.1 (0.0-0.7); EOS % 1.3 % (1.5-5.0); LYMPH # 1.5 (1.2-3.4); LYMPH % 19.1 % (22.0-35.0); MEAN CELL VOLUME 92.6 fl (80.0-105.0); MEAN CORPUSCULAR HEMOGLOBIN 30.1 pg (25.0-35.0); MEAN CORPUSCULAR HGB CONC 32.4 g/dl (31.0-37.0); MEAN PLATELET VOLUME 10.1 fl (7.0-11.0); MONO # 1.1 (0.1-0.6); MONO % 13.9 % (1.0-6.0); RBC 3.66 10^6/uL (3.5-6.1); RED CELL DISTRIBUTION WIDTH 14.8 % (11.5-14.5); WHITE BLOOD COUNT 7.7 10^3/uL (4.5-11.0)
[2018-09-18 07:52] LABS: ALBUMIN 3.2 g/dL (3.0-4.8); ALT/SGPT 111 U/L (7-56); AST/SGOT 153 U/L (17-59); BLOOD UREA NITROGEN 17 mg/dL (7-21); CALCIUM 8.7 mg/dL (8.4-10.5); GFR NON-AFRICAN AMERICAN > 60
--- NOTE | 2018-09-18 08:40 | CP.PCM.PN ---
<Carlos Alberto Menon - Last Filed: 09/18/18 13:39> Subjective - Date & Time of Evaluation Date of Evaluation: 09/18/18 Time of Evaluation: 07:00 - Subjective Subjective: Infectious diseases progress note: Patient seen and examined at bedside. No acute events overnight. Patient less lethargic today however AAO x 1. No fevers. No complaints. 12 point ROS performed however limited due to dementia Objective - Vital Signs/Intake and Output Vital Signs (last 24 hours): Temp Pulse Resp BP Pulse Ox 99.4 F 66 16 129/69 97 09/18/18 06:00 09/18/18 06:00 09/18/18 06:00 09/18/18 06:00 09/18/18 06:00 Intake and Output: 09/18/18 09/18/18 06:59 18:59 Intake Total 1260 0 Balance 1260 0 - Medications Medications: Current Medications Aspirin (Aspirin Chewable) 81 mg PO DAILY [facility] Last Admin: 09/17/18 11:05 Dose: 81 mg Carbidopa/Levodopa/Entacapone (Stalevo 150) 1 tab PO TID [facility] Last Admin: 09/17/18 17:58 Dose: 1 tab Clopidogrel Bisulfate (Plavix) 75 mg PO DAILY [facility] Last Admin: 09/17/18 11:05 Dose: 75 mg Doxycycline Hyclate (Doryx) 100 mg PO Q12 [facility]; Protocol Stop: 09/23/18 10:01 Last Admin: 09/17/18 21:41 Dose: 100 mg Cefepime HCl (Maxipime 1gm) 1 gm in 100 mls @ 100 mls/hr IVPB Q8 [facility]; Protocol Stop: 09/23/18 06:01 Last Admin: 09/18/18 06:10 Dose: 100 mls/hr Ibuprofen (Motrin Tab) 600 mg PO Q6H PRN PRN Reason: Fever >100.4 F Last Admin: 09/14/18 16:08 Dose: 600 mg Oseltamivir Phosphate (Tamiflu Cap) 75 mg PO BID [facility]; Protocol Stop: 09/19/18 14:03 Last Admin: 09/17/18 17:58 Dose: 75 mg Quetiapine Fumarate (Seroquel) 12.5 mg PO HS [facility]; Protocol Last Admin: 09/18/18 06:59 Dose: Not Given - Labs Labs: 09/18/18 07:25 09/18/18 07:25 PT 13.0 SECONDS (9.4-12.5) H 09/11/18 20:01 INR 1.17 09/11/18 20:01 APTT 33.6 Seconds (26.9-38.3) 09/11/18 20:01 - Constitutional Appears: No Acute Distress - Head Exam Head Exam: ATRAUMATIC, NORMOCEPHALIC - Eye Exam Eye Exam: EOMI - ENT Exam ENT Exam: Mucous Membranes Moist - Respiratory Exam Respiratory Exam: Clear to Ausculation Bilateral. absent: Rales, Rhonchi, Wheezes - Cardiovascular Exam Cardiovascular Exam: RRR, +S1, +S2 - GI/Abdominal Exam GI & Abdominal Exam: Soft. absent: Tenderness - Extremities Exam Extremities Exam: absent: Calf Tenderness, Pedal Edema - Neurological Exam Neurological Exam: Alert, Awake - Psychiatric Exam Psychiatric exam: Normal Mood - Skin Skin Exam: Dry, Warm Assessment and Plan - Assessment and Plan (Free Text) Assessment: 78 year old male, whose past medical history includes Parkinson's disease, CAD, and hypertension, presents to the ED for evaluation of AMS. SIRS (with fever 101.3) r/o sepsis with resp tract infection. Cont antibiotics with Doxy, and Cefepime to complete a total of 5-7 day duration Tamiflu for 5 days Septic wrk up - neg thus far Cont to monitor for any change Case and plan was reviewed and discussed with Dr Scanlon. <Jairo Scanlon - Last Filed: 09/18/18 19:33> Objective - Vital Signs/Intake and Output Vital Signs (last 24 hours): Temp Pulse Resp BP Pulse Ox 99.4 F 82 20 135/91 H 97 09/18/18 06:00 09/18/18 18:58 09/18/18 18:58 09/18/18 18:58 09/18/18 18:58 Intake and Output: 09/18/18 09/19/18 18:59 06:59 Intake Total 0 Balance 0 - Medications Medications: Current Medications Aspirin (Aspirin Chewable) 81 mg PO DAILY [facility] Last Admin: 09/18/18 09:14 Dose: 81 mg Carbidopa/Levodopa/Entacapone (Stalevo 150) 1 tab PO TID [facility] Last Admin: 09/18/18 18:12 Dose: 1 tab Clopidogrel Bisulfate (Plavix) 75 mg PO DAILY [facility] Last Admin: 09/18/18 09:14 Dose: 75 mg Doxycycline Hyclate (Doryx) 100 mg PO Q12 [facility]; Protocol Stop: 09/23/18 10:01 Last Admin: 09/18/18 09:14 Dose: 100 mg Cefepime HCl (Maxipime 1gm) 1 gm in 100 mls @ 100 mls/hr IVPB Q8 [facility]; Protocol Stop: 09/23/18 06:01 Last Admin: 09/18/18 13:43 Dose: 100 mls/hr Ibuprofen (Motrin Tab) 600 mg PO Q6H PRN PRN Reason: Fever >100.4 F Last Admin: 09/14/18 16:08 Dose: 600 mg Lorazepam (Ativan) 1 mg IVP HS [facility]; Protocol Oseltamivir Phosphate (Tamiflu Cap) 75 mg PO BID [facility]; Protocol Stop: 09/19/18 14:03 Last Admin: 09/18/18 18:12 Dose: 75 mg - Labs Labs: 09/18/18 07:25 09/18/18 07:25 PT 13.0 SECONDS (9.4-12.5) H 09/11/18 20:01 INR 1.17 09/11/18 20:01 APTT 33.6 Seconds (26.9-38.3) 09/11/18 20:01 Assessment and Plan - Assessment and Plan (Free Text) Assessment: Infectious diseases Attending Physician Attestation Patient seen and examined, discussed with medical sales specialist. I have reviewed the patient's history of present illness, past medical, social, personal and family histories, pertinent physical exam findings, course so far in this hospital admission, pertinent laboratory and imaging results. I agree with the above findings, assessment and plan. In addition, continue Cefepime and Doxycycline for SIRS, R/O sepsis from HCAP. Day 5 of 4-7 days of antibiotics. Complete 5 days of Tamiflu for possible viral illness such as Influenza.
[2018-09-18] MEDS: Carbidopa/Levodopa/Entacapone 37.5mg-150mg-200mg PO SCH ×4 (09:14→18:12)
--- NOTE | 2018-09-18 21:19 | PN ---
DATE: 09/18/2018 SUBJECTIVE: The patient is a 78-year-old white male in room 570, bed 1. He has a past medical history of Parkinson's disease and dementia. There have been no acute events overnight. The patient is confused x3 and unable to give a history. PHYSICAL EXAMINATION VITAL SIGNS: Temperature of 99.4, pulse rate of 66, blood pressure 129/69 with a respiratory rate of 16 and an O2 saturation of 97% on room air. HEENT: Unremarkable. NECK: Supple with full range of motion. HEART: Regular rate and rhythm with no murmurs, rubs or gallops. LUNGS: Clear to auscultation and percussion bilaterally. ABDOMEN: Benign. EXTREMITIES: Show no deformities in. NEUROLOGICAL: The patient is confused x3. There are no focal motor deficit and he does have a tremor. LABORATORY DATA: WBC of 7.7 which is down from 11.1, hemoglobin and hematocrit are 11.0 and 33.9. Chemistry is essentially normal with the exception of a random glucose of 112. AST and ALT are 153 and 111. IMPRESSION: At this time is: 1. Senile dementia. 2. Parkinson's disease. PLAN: Continue current regimen and search for placement. Bubba Levy MD
[2018-09-18] MEDS: Meropenem IV 1 gm in NS 1 GM/50 ML BAG IVPB SCH (21:31)
[2018-09-18] MEDS: Vancomycin 1gm in NS 250ml 1 GM/250 ML BAG IVPB SCH (23:02)
[2018-09-19] MEDS: Meropenem IV 1 gm in NS 1 GM/50 ML BAG IVPB SCH ×3 (05:11→23:49)
[2018-09-19 07:27] LABS: BASO # 0.02 K/mm3 (0.0-2.0); BASO % 0.3 % (0.0-3.0); EOS # 0.2 (0.0-0.7); EOS % 2.4 % (1.5-5.0); HEMOGLOBIN 10.8 g/dL (14.0-18.0); LYMPH # 1.4 (1.2-3.4); LYMPH % 18.1 % (22.0-35.0); MEAN CELL VOLUME 93.3 fl (80.0-105.0); MEAN CORPUSCULAR HEMOGLOBIN 30.1 pg (25.0-35.0); MEAN CORPUSCULAR HGB CONC 32.2 g/dl (31.0-37.0); MEAN PLATELET VOLUME 10.4 fl (7.0-11.0); MONO # 1.2 (0.1-0.6); MONO % 15.6 % (1.0-6.0); RBC 3.59 10^6/uL (3.5-6.1); RED CELL DISTRIBUTION WIDTH 14.7 % (11.5-14.5); WHITE BLOOD COUNT 7.4 10^3/uL (4.5-11.0)
[2018-09-19 08:00] LABS: ALBUMIN 3.2 g/dL (3.0-4.8); ALT/SGPT 113 U/L (7-56); AST/SGOT 106 U/L (17-59); BLOOD UREA NITROGEN 19 mg/dL (7-21); CALCIUM 8.6 mg/dL (8.4-10.5); GFR NON-AFRICAN AMERICAN > 60
[2018-09-19] MEDS: Vancomycin 1gm in NS 250ml 1 GM/250 ML BAG IVPB SCH (08:40)
--- NOTE | 2018-09-19 08:49 | RAD ---
Date of service: 09/18/2018 HISTORY: rule out pneumonia COMPARISON: 09/13/2018 FINDINGS: LUNGS: No active pulmonary disease. PLEURA: No significant pleural effusion identified, no pneumothorax apparent. CARDIOVASCULAR: Aortic calcification Normal cardiac size. No pulmonary vascular congestion. OSSEOUS STRUCTURES: No significant abnormalities. VISUALIZED UPPER ABDOMEN: Normal. OTHER FINDINGS: None. IMPRESSION: No active disease.
[2018-09-19] MEDS: Carbidopa/Levodopa/Entacapone 37.5mg-150mg-200mg PO SCH ×3 (10:21→18:08)
--- NOTE | 2018-09-19 15:38 | PN ---
SUBJECTIVE: The patient was seen and examined at bedside on the general medical estrella. No acute events overnight. OBJECTIVE: VITAL SIGNS: Temperature 97.6, pulse 72, blood pressure 117/76, respiratory rate 18, oxygen saturation 99% on room air. GENERAL: Frail elderly man, lying in bed, in no apparent distress. HEENT: PERRL, EOMI. No scleral icterus. No conjunctival pallor. NECK: No JVD. LUNGS: Faint scattered rhonchi. CARDIOVASCULAR: Regular rate and rhythm. Normal S1 and S2. Grade III/ murmur to RUSB and grade II/ murmur to LLSB. ABDOMEN: Normoactive bowel sounds, soft, nontender, nondistended. EXTREMITIES: No edema. NEUROLOGIC: Awake and alert, oriented to person, able to follow simple commands. LABORATORY DATA: WBC 7.4 with 64% neutrophils, hemoglobin 11, hematocrit 34, platelets 224. Chemistry reviewed and unremarkable. Procalcitonin < 0.05. ASSESSMENT: The patient is a 78-year-old man with a past medical history of Parkinson disease who presented with a 1 day history of altered mental status and whose hospital course was complicated by SIRS syndrome. ARIAS: 1. Altered mental status, secondary to toxic metabolic encephalopathy vs Parkinson disease. Input from Dr. Rehman noted. We will continue with current care. 2. SIRS syndrome of unclear etiology. Input from Dr. Scanlon noted. Continue with care as per Dr. Scanlon. 3. Parkinson disease. Continue Stalevo 150 mg p.o. t.i.d. 4. CAD s/p PCI with stent placement. Continue Aspirin 81 mg p.o. daily and Plavix 75 mg p.o. daily. 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 5. Ischemic cardiomyopathy. Continue with care as above. 6. Prophylaxis. GI prophylaxis not indicated as the patient is eating. Continue with SCDs for DVT prophylaxis. CODE STATUS: Full Code. Orlando Levy MD [facility]
--- NOTE | 2018-09-20 00:10 | PN ---
DATE: 09/19/2018 SUBJECTIVE: The patient is in bed, in no acute distress. PHYSICAL EXAMINATION: VITAL SIGNS: Temperature is 98, blood pressure is 100/50, respiratory rate of 20. HEENT: Unremarkable. NECK: Supple. LUNGS: Have decreased breath sounds. HEART: Normal S1, S2. ABDOMEN: Soft. LABORATORY DATA: White count of 7.4, hemoglobin of 10, platelets of 224. Chemistries reveals a BUN of 19, creatinine of 0.6. Urinalysis is noted and serology is noted and microbiology reveals the blood cultures are negative. Urine cultures no growth. Chest x-ray, no active disease. Review of orders reveals the patient to be on p.o. doxycycline, IV vancomycin, and IV meropenem. ASSESSMENT AND PLAN: This is a 78-year-old with past medical history of Parkinson's disease, coronary artery disease, hypertension with systemic inflammatory response syndrome, must rule out sepsis with respiratory tract infection, on doxycycline, vancomycin, meropenem, Tamiflu 5 days. The patient's temperature appears to have resolved. Yesterday's T-max was 102.8 with repeat pancultures pending. Urine Legionella is pending. Pradeep Augustine MD
[2018-09-20] MEDS: Vancomycin 1gm in NS 250ml 1 GM/250 ML BAG IVPB SCH ×3 (00:57→22:02)
[2018-09-20] MEDS: Meropenem IV 1 gm in NS 1 GM/50 ML BAG IVPB SCH ×3 (05:56→21:08)
[2018-09-20 07:45] LABS: BASO # 0.01 K/mm3 (0.0-2.0); BASO % 0.1 % (0.0-3.0); EOS # 0.2 (0.0-0.7); EOS % 2.1 % (1.5-5.0); HEMOGLOBIN 11.1 g/dL (14.0-18.0); LYMPH # 1.4 (1.2-3.4); LYMPH % 19.9 % (22.0-35.0); MEAN CELL VOLUME 92.9 fl (80.0-105.0); MEAN CORPUSCULAR HEMOGLOBIN 30.2 pg (25.0-35.0); MEAN CORPUSCULAR HGB CONC 32.5 g/dl (31.0-37.0); MEAN PLATELET VOLUME 10.1 fl (7.0-11.0); MONO % 14.4 % (1.0-6.0); RBC 3.68 10^6/uL (3.5-6.1); RED CELL DISTRIBUTION WIDTH 14.6 % (11.5-14.5); WHITE BLOOD COUNT 7.2 10^3/uL (4.5-11.0)
[2018-09-20 08:08] LABS: ALBUMIN 3.2 g/dL (3.0-4.8); ALT/SGPT 74 U/L (7-56); AST/SGOT 99 U/L (17-59); BLOOD UREA NITROGEN 16 mg/dL (7-21); CALCIUM 8.5 mg/dL (8.4-10.5); GFR NON-AFRICAN AMERICAN > 60
[2018-09-20] MEDS: Carbidopa/Levodopa/Entacapone 37.5mg-150mg-200mg PO SCH ×3 (09:42→17:23)
--- NOTE | 2018-09-20 14:27 | PN ---
SUBJECTIVE: The patient was seen and examined at bedside on the general medical estrella. No acute events overnight. He remains clinically unchanged. OBJECTIVE: VITAL SIGNS: Temperature 99.9, pulse 75, blood pressure 115/85, respiratory rate 18, oxygen saturation 90% on room air. GENERAL: Frail elderly man, lying in bed, in no apparent distress. HEENT: PERRL, EOMI. No scleral icterus. No conjunctival pallor. NECK: No JVD. LUNGS: Decreased breath sounds at the bases. CARDIOVASCULAR: Regular rate and rhythm. Normal S1 and S2. Grade III/ murmur to RUSB and grade II/ murmur to LLSB. ABDOMEN: Normoactive bowel sounds, soft, nontender, nondistended. EXTREMITIES: No edema. NEUROLOGIC: Awake and alert, oriented to person. Able to follow simple commands. LABORATORY DATA: WBC 7.2 with 64% neutrophils, hemoglobin 11, hematocrit 34, platelets 263. Chemistry reviewed and unremarkable. Blood cultures with no growth to date. ASSESSMENT: The patient is a 78-year-old man with a past medical history of Parkinson disease who presented with a 1 day history of altered mental status and whose hospital course was complicated by SIRS syndrome. PLAN: 1. Altered mental status, secondary to toxic metabolic encephalopathy vs Parkinson disease. Input from Dr. Rehman noted. We will continue with current care. 2. SIRS syndrome consider secondary to viral illness. Input from Dr. Augustine noted. Repeat blood cultures negative. He has completed a course of Tamiflu. Continue with current antimicrobials. 3. Parkinson disease. Continue Stalevo 150 mg p.o. t.i.d. 4. CAD s/p PCI with stent placement. Continue Aspirin 81 mg p.o. daily and Plavix 75 mg p.o. daily. 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 5. Ischemic cardiomyopathy. Continue with care as above. 6. Prophylaxis. GI prophylaxis not indicated as the patient is eating. Continue with SCDs for DVT prophylaxis. CODE STATUS: Full code. Orlando Levy MD [facility]
--- NOTE | 2018-09-20 17:52 | CP.PCM.PN ---
Subjective - Date & Time of Evaluation Date of Evaluation: 09/20/18 Time of Evaluation: 11:10 - Subjective Subjective: A little more awake today, no fevers this morning. Objective - Vital Signs/Intake and Output Vital Signs (last 24 hours): Temp Pulse Resp BP Pulse Ox 98.4 F 75 20 109/67 99 09/20/18 14:00 09/20/18 14:00 09/20/18 14:00 09/20/18 14:00 09/20/18 14:00 - Medications Medications: Current Medications Aspirin (Aspirin Chewable) 81 mg PO DAILY [facility] Last Admin: 09/20/18 09:42 Dose: 81 mg Carbidopa/Levodopa/Entacapone (Stalevo 150) 1 tab PO TID [facility] Last Admin: 09/20/18 17:23 Dose: 1 tab Clopidogrel Bisulfate (Plavix) 75 mg PO DAILY [facility] Last Admin: 09/20/18 09:42 Dose: 75 mg Doxycycline Hyclate (Doryx) 100 mg PO Q12 [facility]; Protocol Stop: 09/23/18 10:01 Last Admin: 09/20/18 09:42 Dose: 100 mg Meropenem (Merrem Iv 1 Gm Premix) 1 gm in 50 mls @ 100 mls/hr IVPB Q8 [facility]; Protocol Last Admin: 09/20/18 13:40 Dose: 100 mls/hr Vancomycin HCl (Vancomycin 1gm) 1 gm in 250 mls @ 167 mls/hr IVPB Q12H [facility]; Protocol Last Admin: 09/20/18 09:02 Dose: 167 mls/hr Ibuprofen (Motrin Tab) 600 mg PO Q6H PRN PRN Reason: Fever >100.4 F Last Admin: 09/18/18 19:52 Dose: 600 mg Lorazepam (Ativan) 1 mg IVP HS [facility]; Protocol Last Admin: 09/19/18 23:49 Dose: 1 mg - Labs Labs: 09/20/18 07:00 09/20/18 07:00 PT 13.0 SECONDS (9.4-12.5) H 09/11/18 20:01 INR 1.17 09/11/18 20:01 APTT 33.6 Seconds (26.9-38.3) 09/11/18 20:01 - Constitutional Appears: Chronically Ill - Head Exam Head Exam: NORMAL INSPECTION - Respiratory Exam Respiratory Exam: Decreased Breath Sounds - Cardiovascular Exam Cardiovascular Exam: +S1, +S2 - GI/Abdominal Exam GI & Abdominal Exam: Soft. absent: Tenderness Assessment and Plan - Assessment and Plan (Free Text) Plan: Assessment SIRS R/O sepsis from HCAP Parkinson's disease dementia HTN CAD Plan continue Vancomycin, Merrem and Doxycycline day 6; repeat cultures are negative so far will continue to monitor clinically completed 5 days of Tamiflu
[2018-09-21] MEDS: Meropenem IV 1 gm in NS 1 GM/50 ML BAG IVPB SCH ×3 (05:00→23:31)
[2018-09-21 06:53] LABS: BASO # 0.01 K/mm3 (0.0-2.0); BASO % 0.1 % (0.0-3.0); EOS # 0.1 (0.0-0.7); EOS % 1.5 % (1.5-5.0); HEMOGLOBIN 11.2 g/dL (14.0-18.0); LYMPH # 1.6 (1.2-3.4); LYMPH % 20.3 % (22.0-35.0); MEAN CELL VOLUME 91.9 fl (80.0-105.0); MEAN CORPUSCULAR HEMOGLOBIN 30.2 pg (25.0-35.0); MEAN CORPUSCULAR HGB CONC 32.8 g/dl (31.0-37.0); MEAN PLATELET VOLUME 9.7 fl (7.0-11.0); MONO # 1.2 (0.1-0.6); MONO % 14.8 % (1.0-6.0); RBC 3.71 10^6/uL (3.5-6.1); RED CELL DISTRIBUTION WIDTH 14.5 % (11.5-14.5); WHITE BLOOD COUNT 7.8 10^3/uL (4.5-11.0)
[2018-09-21 07:34] LABS: ALBUMIN 3.3 g/dL (3.0-4.8); ALT/SGPT 62 U/L (7-56); AST/SGOT 81 U/L (17-59); BLOOD UREA NITROGEN 15 mg/dL (7-21); CALCIUM 8.8 mg/dL (8.4-10.5); GFR NON-AFRICAN AMERICAN > 60
[2018-09-21] MEDS: Vancomycin 1gm in NS 250ml 1 GM/250 ML BAG IVPB SCH ×2 (08:39→20:22)
[2018-09-21] MEDS: Carbidopa/Levodopa/Entacapone 37.5mg-150mg-200mg PO SCH ×3 (11:33→17:40)
--- NOTE | 2018-09-21 12:34 | PN ---
SUBJECTIVE: The patient was seen and examined at bedside on the general medical estrella. No acute events overnight. He remains afebrile, hemodynamically stable and with some improvement in his mental status. OBJECTIVE: VITAL SIGNS: Temperature 98.2, pulse 74, blood pressure 125/70, respiratory rate 20, oxygen saturation 95% on room air. GENERAL: Frail elderly man, lying in bed, in no apparent distress. HEENT: PERRL, EOMI. No scleral icterus. No conjunctival pallor. NECK: No JVD. LUNGS: Decreased breath sounds at the bases. CARDIOVASCULAR: Regular rate and rhythm. Normal S1, S2. Grade III/ murmur to RUSB and grade II/ murmur to LLSB. ABDOMEN: Normoactive bowel sounds, soft, nontender, nondistended. EXTREMITIES: No edema. NEUROLOGIC: Awake and alert, oriented to person, following simple commands. LABORATORY DATA: WBC 7.8 with 63% neutrophils, hemoglobin 11, hematocrit 34, platelets 292. Chemistry reviewed and unremarkable. Blood cultures with no growth to date. Urine culture negative. ASSESSMENT: The patient is a 78-year-old man with a past medical history of Parkinson disease who presented with a 1 day history of altered mental status and whose hospital course was complicated by SIRS syndrome. PLAN: 1. Altered mental status, consider secondary toxic metabolic encephalopathy vs Parkinson disease, improving. Input from Dr. Rehman noted. We will continue with current care. We will continue with current care. 2. SIRS syndrome, consider secondary to viral illness, resolved. Input from Dr. Scanlon noted. The patient remains afebrile and with negative cultures. Continue antimicrobials as per Dr. Scanlon. 3. Parkinson disease. Continue Stalevo 150 mg p.o. t.i.d. 4. CAD s/p PCI with stent placement. Continue Aspirin 81 mg p.o. daily and Plavix 75 mg p.o. daily. 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 5. Ischemic cardiomyopathy. Continue with care as above. 6. Prophylaxis. GI prophylaxis not indicated as the patient is eating. Continue with SCDs for DVT prophylaxis. CODE STATUS: Full code. Orlando Levy MD [facility]
--- NOTE | 2018-09-21 14:21 | CP.PCM.PN ---
Subjective - Date & Time of Evaluation Date of Evaluation: 09/21/18 Time of Evaluation: 12:25 - Subjective Subjective: Patient with low grade temperatures but not outright fevers. Objective - Vital Signs/Intake and Output Vital Signs (last 24 hours): Temp Pulse Resp BP Pulse Ox 98.4 F 75 20 109/67 99 09/20/18 14:00 09/20/18 14:00 09/20/18 14:00 09/20/18 14:00 09/20/18 14:00 - Medications Medications: Current Medications Aspirin (Aspirin Chewable) 81 mg PO DAILY [facility] Last Admin: 09/20/18 09:42 Dose: 81 mg Carbidopa/Levodopa/Entacapone (Stalevo 150) 1 tab PO TID [facility] Last Admin: 09/20/18 17:23 Dose: 1 tab Clopidogrel Bisulfate (Plavix) 75 mg PO DAILY [facility] Last Admin: 09/20/18 09:42 Dose: 75 mg Doxycycline Hyclate (Doryx) 100 mg PO Q12 [facility]; Protocol Stop: 09/23/18 10:01 Last Admin: 09/20/18 09:42 Dose: 100 mg Meropenem (Merrem Iv 1 Gm Premix) 1 gm in 50 mls @ 100 mls/hr IVPB Q8 [facility]; Protocol Last Admin: 09/20/18 13:40 Dose: 100 mls/hr Vancomycin HCl (Vancomycin 1gm) 1 gm in 250 mls @ 167 mls/hr IVPB Q12H [facility]; Protocol Last Admin: 09/20/18 09:02 Dose: 167 mls/hr Ibuprofen (Motrin Tab) 600 mg PO Q6H PRN PRN Reason: Fever >100.4 F Last Admin: 09/18/18 19:52 Dose: 600 mg Lorazepam (Ativan) 1 mg IVP HS [facility]; Protocol Last Admin: 09/19/18 23:49 Dose: 1 mg - Labs Labs: 09/20/18 07:00 09/20/18 07:00 PT 13.0 SECONDS (9.4-12.5) H 09/11/18 20:01 INR 1.17 09/11/18 20:01 APTT 33.6 Seconds (26.9-38.3) 09/11/18 20:01 - Constitutional Appears: Non-toxic, Chronically Ill - Head Exam Head Exam: NORMAL INSPECTION - Respiratory Exam Respiratory Exam: Decreased Breath Sounds - Cardiovascular Exam Cardiovascular Exam: +S1, +S2 - GI/Abdominal Exam GI & Abdominal Exam: Soft. absent: Tenderness Assessment and Plan - Assessment and Plan (Free Text) Plan: Assessment SIRS R/O sepsis from HCAP Parkinson's disease dementia HTN CAD Plan continue Vancomycin, Merrem and Doxycycline day 7; repeat cultures are negative so far will continue to monitor clinically completed 5 days of Tamiflu
[2018-09-22] MEDS: Meropenem IV 1 gm in NS 1 GM/50 ML BAG IVPB SCH ×3 (05:37→21:01)
[2018-09-22 07:05] LABS: BASO # 0.01 K/mm3 (0.0-2.0); BASO % 0.1 % (0.0-3.0); EOS # 0.1 (0.0-0.7); EOS % 1.2 % (1.5-5.0); LYMPH # 1.8 (1.2-3.4); MEAN CELL VOLUME 93.2 fl (80.0-105.0); MEAN CORPUSCULAR HGB CONC 32.2 g/dl (31.0-37.0); MEAN PLATELET VOLUME 9.7 fl (7.0-11.0); MONO % 13.3 % (1.0-6.0); RBC 3.67 10^6/uL (3.5-6.1); RED CELL DISTRIBUTION WIDTH 14.5 % (11.5-14.5); WHITE BLOOD COUNT 7.3 10^3/uL (4.5-11.0)
[2018-09-22 07:12] LABS: ALBUMIN 3.3 g/dL (3.0-4.8); ALT/SGPT 88 U/L (7-56); AST/SGOT 56 U/L (17-59); BLOOD UREA NITROGEN 17 mg/dL (7-21); GFR NON-AFRICAN AMERICAN > 60
[2018-09-22] MEDS: Vancomycin 1gm in NS 250ml 1 GM/250 ML BAG IVPB SCH ×2 (08:57→21:00)
--- NOTE | 2018-09-22 11:23 | PN ---
SUBJECTIVE: The patient was seen and examined at bedside on the general medical estrella. No acute events overnight. He remains afebrile and hemodynamically stable. OBJECTIVE: VITAL SIGNS: Temperature 97.8, pulse 74, blood pressure 115/70, respiratory rate 20, oxygen saturation 98% on room air. GENERAL: Frail elderly man, lying in bed, in no apparent distress. HEENT: PERRL, EOMI. No scleral icterus. No conjunctival pallor. NECK: No JVD. LUNGS: Decreased breath sounds at the bases. CARDIOVASCULAR: Regular rate and rhythm. Normal S1, S2. Grade III/ murmur to RUSB and grade II/ murmur to LLSB. ABDOMEN: Normoactive bowel sounds, soft, nontender, nondistended. EXTREMITIES: No edema. NEUROLOGIC: Awake and alert, oriented to person, following simple commands. LABORATORY DATA: CBC reviewed and unremarkable. CMP reviewed and unremarkable. Blood cultures negative. Urine culture negative. ASSESSMENT: The patient is a 78-year-old man with a past medical history of Parkinson disease who presented with a 1 day history of AMS. PLAN: 1. Altered mental status, consider secondary to toxic metabolic encephalopathy vs Parkinson disease, stable. Input from Dr. Rehman noted. We will continue with current care. 2. SIRS syndrome, consider secondary to viral illness, resolved. Input from Dr. Scanlon noted. The patient remains afebrile and with negative cultures. Continue with antimicrobials as per Dr. Scanlon. 3. Parkinson disease. Continue Stalevo 150 mg p.o. t.i.d. 4. CAD s/p PCI with stent placement. Continue Aspirin 81 mg p.o. daily and Plavix 75 mg p.o. daily. 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 5. Ischemic cardiomyopathy. Continue with care as above. 6. Prophylaxis. GI prophylaxis not indicated as the patient is eating. Continue with SCDs for DVT prophylaxis. CODE STATUS: Full code. Orlando Levy MD [facility]
[2018-09-22] MEDS: Carbidopa/Levodopa/Entacapone 37.5mg-150mg-200mg PO SCH ×3 (11:55→18:32)
--- NOTE | 2018-09-22 15:12 | CP.PCM.PN ---
Subjective - Date & Time of Evaluation Date of Evaluation: 09/22/18 Time of Evaluation: 10:40 - Subjective Subjective: Afebrile, comfortable, agitated at times, confused at times. Not in distress. Objective - Vital Signs/Intake and Output Vital Signs (last 24 hours): Temp Pulse Resp BP Pulse Ox 98.2 F 74 20 125/70 95 09/21/18 06:00 09/21/18 06:00 09/21/18 06:00 09/21/18 06:00 09/21/18 06:00 - Medications Medications: Current Medications Aspirin (Aspirin Chewable) 81 mg PO DAILY [facility] Last Admin: 09/21/18 11:31 Dose: 81 mg Carbidopa/Levodopa/Entacapone (Stalevo 150) 1 tab PO TID [facility] Last Admin: 09/21/18 11:33 Dose: 1 tab Clopidogrel Bisulfate (Plavix) 75 mg PO DAILY [facility] Last Admin: 09/21/18 11:31 Dose: 75 mg Doxycycline Hyclate (Doryx) 100 mg PO Q12 [facility]; Protocol Stop: 09/23/18 10:01 Last Admin: 09/21/18 11:31 Dose: 100 mg Meropenem (Merrem Iv 1 Gm Premix) 1 gm in 50 mls @ 100 mls/hr IVPB Q8 [facility]; Protocol Last Admin: 09/21/18 05:00 Dose: 100 mls/hr Vancomycin HCl (Vancomycin 1gm) 1 gm in 250 mls @ 167 mls/hr IVPB Q12H [facility]; Protocol Last Admin: 09/21/18 08:39 Dose: 167 mls/hr Ibuprofen (Motrin Tab) 600 mg PO Q6H PRN PRN Reason: Fever >100.4 F Last Admin: 09/18/18 19:52 Dose: 600 mg Lorazepam (Ativan) 1 mg IVP HS [facility]; Protocol Last Admin: 09/20/18 21:09 Dose: 1 mg - Labs Labs: 09/21/18 06:30 09/21/18 06:30 PT 13.0 SECONDS (9.4-12.5) H 09/11/18 20:01 INR 1.17 09/11/18 20:01 APTT 33.6 Seconds (26.9-38.3) 09/11/18 20:01 - Constitutional Appears: Chronically Ill - Head Exam Head Exam: NORMAL INSPECTION - Respiratory Exam Respiratory Exam: Decreased Breath Sounds - Cardiovascular Exam Cardiovascular Exam: +S1, +S2 - GI/Abdominal Exam GI & Abdominal Exam: Soft. absent: Tenderness Assessment and Plan - Assessment and Plan (Free Text) Plan: Assessment SIRS R/O sepsis from HCAP Parkinson's disease dementia HTN CAD Plan continue Vancomycin, Merrem and Doxycycline day 8; repeat cultures are negative so far - will consider d/c of antibiotics in the next 24-48 hours will continue to monitor clinically completed 5 days of Tamiflu
[2018-09-23] MEDS: Meropenem IV 1 gm in NS 1 GM/50 ML BAG IVPB SCH ×3 (05:15→21:15)
[2018-09-23 07:00] LABS: BASO # 0.02 K/mm3 (0.0-2.0); BASO % 0.3 % (0.0-3.0); EOS # 0.1 (0.0-0.7); EOS % 1.5 % (1.5-5.0); HEMOGLOBIN 11.4 g/dL (14.0-18.0); LYMPH # 1.4 (1.2-3.4); LYMPH % 18.8 % (22.0-35.0); MEAN CELL VOLUME 92.1 fl (80.0-105.0); MEAN CORPUSCULAR HGB CONC 32.6 g/dl (31.0-37.0); MEAN PLATELET VOLUME 9.8 fl (7.0-11.0); MONO # 1.2 (0.1-0.6); MONO % 15.2 % (1.0-6.0); RBC 3.8 10^6/uL (3.5-6.1); RED CELL DISTRIBUTION WIDTH 14.1 % (11.5-14.5); WHITE BLOOD COUNT 7.6 10^3/uL (4.5-11.0)
[2018-09-23 07:34] LABS: ALBUMIN 3.2 g/dL (3.0-4.8); ALT/SGPT 28 U/L (7-56); AST/SGOT 53 U/L (17-59); BLOOD UREA NITROGEN 17 mg/dL (7-21); CALCIUM 9.2 mg/dL (8.4-10.5); GFR NON-AFRICAN AMERICAN > 60
[2018-09-23] MEDS: Carbidopa/Levodopa/Entacapone 37.5mg-150mg-200mg PO SCH ×3 (09:18→17:36)
[2018-09-23] MEDS: Vancomycin 1gm in NS 250ml 1 GM/250 ML BAG IVPB SCH ×2 (09:25→21:15)
--- NOTE | 2018-09-23 09:27 | PN ---
SUBJECTIVE: The patient was seen and examined at bedside on the general medical estrella. No acute events overnight. He remains afebrile and hemodynamically stable. His soft mitten restraints have been removed and he remains clinically stable. OBJECTIVE: VITAL SIGNS: Temperature 98.3, pulse 84, blood pressure 124/76, respiratory rate 18, oxygen saturation 96% on room air. GENERAL: Frail elderly man, lying in bed, in no apparent distress. HEENT: PERRL, EOMI. No scleral icterus. No conjunctival pallor. NECK: No JVD. LUNGS: Clear to auscultation. CARDIOVASCULAR: Regular rate and rhythm. Normal S1, S2. Grade III/ murmur to RUSB and grade II/ murmur to LLSB. ABDOMEN: Normoactive bowel sounds, soft, nontender, nondistended. EXTREMITIES: No edema. NEUROLOGIC: Somnolent, but arousable, oriented to person, following simple commands. LABORATORY DATA: WBC 7.6, hemoglobin 11, hematocrit 35, platelets 326. Chemistry reviewed and unremarkable. Blood cultures negative. Urine culture negative. ASSESSMENT: The patient is a 78-year-old man with a past medical history of Parkinson disease who presented with a 1 day history of altered mental status. PLAN: 1. Altered mental status, consider secondary toxic metabolic encephalopathy vs Parkinson disease, stable. Input from Dr. Rehman noted. We will continue with current care. 2. SIRS syndrome, consider secondary to viral illness, resolved. Input from Dr. Scanlon noted. The patient remains afebrile and with negative cultures. He is scheduled to complete a course of antimicrobials as per Dr. Scanlon. 3. Parkinson disease. Continues Stalevo 150 mg p.o. t.i.d. 4. CAD s/p PCI with stent placement. Continue Aspirin 81 mg p.o. daily and Plavix 75 mg p.o. daily. 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 5. Ischemic cardiomyopathy. Continue with care as above. 6. Prophylaxis. GI prophylaxis not indicated as the patient is eating. Continue with SCDs for DVT prophylaxis. CODE STATUS: Full code. Orlando Levy MD [facility] # [id number] RAYA
--- NOTE | 2018-09-23 13:54 | CP.PCM.PN ---
Subjective - Date & Time of Evaluation Date of Evaluation: 09/23/18 Time of Evaluation: 11:15 - Subjective Subjective: No fevers overnight, confused, not in distress. Objective - Vital Signs/Intake and Output Vital Signs (last 24 hours): Temp Pulse Resp BP Pulse Ox 98 F 73 18 104/59 L 99 09/22/18 14:00 09/22/18 14:00 09/22/18 14:00 09/22/18 14:00 09/22/18 14:00 - Medications Medications: Current Medications Aspirin (Aspirin Chewable) 81 mg PO DAILY [facility] Last Admin: 09/22/18 11:55 Dose: 81 mg Carbidopa/Levodopa/Entacapone (Stalevo 150) 1 tab PO TID [facility] Last Admin: 09/22/18 11:55 Dose: 1 tab Clopidogrel Bisulfate (Plavix) 75 mg PO DAILY [facility] Last Admin: 09/22/18 11:55 Dose: 75 mg Doxycycline Hyclate (Doryx) 100 mg PO Q12 [facility]DA; Protocol Stop: 09/23/18 10:01 Last Admin: 09/22/18 11:55 Dose: 100 mg Meropenem (Merrem Iv 1 Gm Premix) 1 gm in 50 mls @ 100 mls/hr IVPB Q8 [facility]; Protocol Last Admin: 09/22/18 15:10 Dose: 100 mls/hr Vancomycin HCl (Vancomycin 1gm) 1 gm in 250 mls @ 167 mls/hr IVPB Q12H [facility]; Protocol Last Admin: 09/22/18 08:57 Dose: 167 mls/hr Ibuprofen (Motrin Tab) 600 mg PO Q6H PRN PRN Reason: Fever >100.4 F Last Admin: 09/18/18 19:52 Dose: 600 mg Lorazepam (Ativan) 1 mg IVP HS [facility]YDA; Protocol Last Admin: 09/21/18 23:30 Dose: 1 mg - Labs Labs: 09/22/18 06:45 09/22/18 06:45 PT 13.0 SECONDS (9.4-12.5) H 09/11/18 20:01 INR 1.17 09/11/18 20:01 APTT 33.6 Seconds (26.9-38.3) 09/11/18 20:01 - Constitutional Appears: Chronically Ill - Head Exam Head Exam: NORMAL INSPECTION - Respiratory Exam Respiratory Exam: Decreased Breath Sounds - Cardiovascular Exam Cardiovascular Exam: +S1, +S2 - GI/Abdominal Exam GI & Abdominal Exam: Soft. absent: Tenderness Assessment and Plan - Assessment and Plan (Free Text) Plan: Assessment SIRS R/O sepsis from HCAP Parkinson's disease dementia HTN CAD Plan continue Vancomycin, Merrem and Doxycycline day 9; repeat cultures are negative so far - will consider d/c of antibiotics in the next 24 hours will continue to monitor clinically completed 5 days of Tamiflu
[2018-09-24] MEDS: Meropenem IV 1 gm in NS 1 GM/50 ML BAG IVPB SCH (05:17)
[2018-09-24 07:06] LABS: BASO # 0.01 K/mm3 (0.0-2.0); BASO % 0.1 % (0.0-3.0); EOS # 0.1 (0.0-0.7); EOS % 1.3 % (1.5-5.0); HEMOGLOBIN 11.6 g/dL (14.0-18.0); LYMPH # 1.9 (1.2-3.4); LYMPH % 24.4 % (22.0-35.0); MEAN CELL VOLUME 91.8 fl (80.0-105.0); MEAN CORPUSCULAR HEMOGLOBIN 29.9 pg (25.0-35.0); MEAN CORPUSCULAR HGB CONC 32.6 g/dl (31.0-37.0); MEAN PLATELET VOLUME 9.6 fl (7.0-11.0); MONO % 12.9 % (1.0-6.0); RBC 3.88 10^6/uL (3.5-6.1); RED CELL DISTRIBUTION WIDTH 14.1 % (11.5-14.5); WHITE BLOOD COUNT 7.9 10^3/uL (4.5-11.0)
[2018-09-24 07:20] LABS: ALBUMIN 3.2 g/dL (3.0-4.8); ALT/SGPT 30 U/L (7-56); AST/SGOT 49 U/L (17-59); BLOOD UREA NITROGEN 16 mg/dL (7-21); GFR NON-AFRICAN AMERICAN > 60
--- NOTE | 2018-09-24 09:16 | PN ---
SUBJECTIVE: The patient was seen and examined at bedside on the general medical estrella. He is confused at times but redirectable. He furthermore remains off restraints and remains clinically unchanged. OBJECTIVE: VITAL SIGNS: Temperature 98.2, pulse 80, blood pressure 124/68, respiratory rate 20 and oxygen saturation 97% on room air. GENERAL: Frail elderly man, lying in bed, in no apparent distress. HEENT: PERRL, EOMI. No scleral icterus. No conjunctival pallor. NECK: No JVD. LUNGS: Clear to auscultation. CARDIOVASCULAR: Regular rate and rhythm. Normal S1 and S2. Grade III/ murmur to RUSB and grade II/ murmur to LLSB. ABDOMEN: Normoactive bowel sounds, soft, nontender, and nondistended. EXTREMITIES: No edema. NEUROLOGIC: Awake and alert, oriented to person, following simple commands. LABORATORY DATA: WBC 7.9 with 61% neutrophils, hemoglobin 11.6, hematocrit 36 and platelets 373. Chemistry reviewed and unremarkable. Blood cultures negative. Urine cultures negative. ASSESSMENT: The patient is a 78-year-old man with a past medical history of Parkinson disease who presented with a 1 day history of altered mental status. PLAN: 1. Altered mental status, consider secondary to toxic metabolic encephalopathy vs Parkinson disease, stable. Input from Dr. Rehman noted. We will continue with current care. 2. SIRS syndrome, consider secondary to viral illness, resolved. Input from Dr. Scanlon noted. The patient remains afebrile and with negative cultures. 3. Parkinson disease. Continues Stalevo 150 mg p.o. t.i.d. 4. CAD s/p PCI with stent placement. Continue Aspirin 81 mg p.o. daily and Plavix 75 mg p.o. daily. 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 5. Ischemic cardiomyopathy. Continue with care as above. 6. Prophylaxis. GI prophylaxis not indicated as the patient is eating. Continue with SCDs for DVT prophylaxis. CODE STATUS: Full code. Orlando Levy MD RAYA
[2018-09-24] MEDS: Vancomycin 1gm in NS 250ml 1 GM/250 ML BAG IVPB SCH (10:06)
[2018-09-24] MEDS: Carbidopa/Levodopa/Entacapone 37.5mg-150mg-200mg PO SCH ×3 (10:07→18:14)
--- NOTE | 2018-09-24 14:57 | CP.PCM.PN ---
Subjective - Date & Time of Evaluation Date of Evaluation: 09/24/18 Time of Evaluation: 12:00 - Subjective Subjective: Not in distress, no fevers this morning. Objective - Vital Signs/Intake and Output Vital Signs (last 24 hours): Temp Pulse Resp BP Pulse Ox 98.3 F 84 18 124/76 96 09/23/18 06:00 09/23/18 06:00 09/23/18 06:00 09/23/18 06:00 09/23/18 06:00 Intake and Output: 09/23/18 09/23/18 06:59 18:59 Intake Total 710 1020 Output Total 625 Balance 710 395 - Medications Medications: Current Medications Aspirin (Aspirin Chewable) 81 mg PO DAILY [facility] Last Admin: 09/23/18 09:18 Dose: 81 mg Carbidopa/Levodopa/Entacapone (Stalevo 150) 1 tab PO TID [facility] Last Admin: 09/23/18 13:48 Dose: 1 tab Clopidogrel Bisulfate (Plavix) 75 mg PO DAILY [facility] Last Admin: 09/23/18 09:18 Dose: 75 mg Meropenem (Merrem Iv 1 Gm Premix) 1 gm in 50 mls @ 100 mls/hr IVPB Q8 [facility]; Protocol Last Admin: 09/23/18 13:48 Dose: 100 mls/hr Vancomycin HCl (Vancomycin 1gm) 1 gm in 250 mls @ 167 mls/hr IVPB Q12H [facility]; Protocol Last Admin: 09/23/18 09:25 Dose: 167 mls/hr Ibuprofen (Motrin Tab) 600 mg PO Q6H PRN PRN Reason: Fever >100.4 F Last Admin: 09/22/18 21:00 Dose: 600 mg Lorazepam (Ativan) 1 mg IVP HS [facility]; Protocol Last Admin: 09/22/18 21:00 Dose: 1 mg Megestrol Acetate (Megace) 40 mg PO BID [facility] Last Admin: 09/23/18 13:47 Dose: 40 mg - Labs Labs: 09/23/18 06:35 09/23/18 06:35 PT 13.0 SECONDS (9.4-12.5) H 09/11/18 20:01 INR 1.17 09/11/18 20:01 APTT 33.6 Seconds (26.9-38.3) 09/11/18 20:01 - Constitutional Appears: Chronically Ill - Head Exam Head Exam: NORMAL INSPECTION - Respiratory Exam Respiratory Exam: Decreased Breath Sounds - Cardiovascular Exam Cardiovascular Exam: +S1, +S2 - GI/Abdominal Exam GI & Abdominal Exam: Soft. absent: Tenderness Assessment and Plan - Assessment and Plan (Free Text) Plan: Assessment SIRS R/O sepsis from HCAP Parkinson's disease dementia HTN CAD Plan onVancomycin, Merrem and Doxycycline day 10; repeat cultures are negative so far - will d/c of antibiotics and observe will continue to monitor clinically completed 5 days of Tamiflu
[2018-09-25] MEDS: Carbidopa/Levodopa/Entacapone 37.5mg-150mg-200mg PO SCH ×3 (09:04→17:03)
--- NOTE | 2018-09-25 11:33 | PN ---
DATE: 09/25/2018 LOCATION: Room 561, bed 1. SUBJECTIVE: The patient is confused x3. He is in no acute distress and there have been no reported acute events overnight. PHYSICAL EXAMINATION: VITAL SIGNS: Temperature 99.5, pulse rate 80, blood pressure 115/73, respiratory rate 20 with an O2 saturation of 96% on room air. HEENT: PERRLA. EOMI. No icterus present. NECK: Supple. Has full range of motion. No adenopathy or bruits present. LUNGS: Clear to auscultation and percussion bilaterally. HEART: Regular rate and rhythm. ABDOMEN: Benign. NEUROLOGIC: The patient is confused x3, but there are no focal motor deficits. LABORATORY DATA: WBC 7.9, hemoglobin/hematocrit 11.6 and 35.6. Chemistry is essentially normal. ASSESSMENT AND PLAN: The patient is currently waiting to be transferred to a long-term care facility. Bubba Levy MD
--- NOTE | 2018-09-25 12:18 | CP.PCM.PN ---
Subjective - Date & Time of Evaluation Date of Evaluation: 09/25/18 Time of Evaluation: 11:00 - Subjective Subjective: Comfortable, not in distress, no fevers. Objective - Vital Signs/Intake and Output Vital Signs (last 24 hours): Temp Pulse Resp BP Pulse Ox 98.5 F 67 17 119/80 97 09/24/18 06:00 09/24/18 06:00 09/24/18 06:00 09/24/18 06:00 09/24/18 06:00 Intake and Output: 09/24/18 09/24/18 06:59 18:59 Intake Total 360 Output Total 2 Balance 358 - Medications Medications: Current Medications Aspirin (Aspirin Chewable) 81 mg PO DAILY [facility] Last Admin: 09/24/18 10:07 Dose: 81 mg Carbidopa/Levodopa/Entacapone (Stalevo 150) 1 tab PO TID [facility] Last Admin: 09/24/18 10:07 Dose: 1 tab Clopidogrel Bisulfate (Plavix) 75 mg PO DAILY [facility] Last Admin: 09/24/18 10:07 Dose: 75 mg Ibuprofen (Motrin Tab) 600 mg PO Q6H PRN PRN Reason: Fever >100.4 F Last Admin: 09/22/18 21:00 Dose: 600 mg Lorazepam (Ativan) 1 mg IVP HS [facility]; Protocol Last Admin: 09/23/18 21:15 Dose: 1 mg Megestrol Acetate (Megace) 40 mg PO BID [facility] Last Admin: 09/24/18 10:07 Dose: 40 mg - Labs Labs: 09/24/18 06:55 09/24/18 06:55 PT 13.0 SECONDS (9.4-12.5) H 09/11/18 20:01 INR 1.17 09/11/18 20:01 APTT 33.6 Seconds (26.9-38.3) 09/11/18 20:01 - Constitutional Appears: Chronically Ill - Head Exam Head Exam: NORMAL INSPECTION - Respiratory Exam Respiratory Exam: Decreased Breath Sounds - Cardiovascular Exam Cardiovascular Exam: +S1, +S2 - GI/Abdominal Exam GI & Abdominal Exam: Soft. absent: Tenderness Assessment and Plan - Assessment and Plan (Free Text) Plan: Assessment SIRS R/O sepsis from HCAP Parkinson's disease dementia HTN CAD Plan S/P Vancomycin, Merrem and Doxycycline repeat cultures are negative - will continue to monitor off antibiotics and observe completed 5 days of Tamiflu
[2018-09-25 22:40] VITALS: O2SAT 98
[2018-09-26 08:34] VITALS: BP 108/59; PULSE 75; RESP 17; TEMP 98.6
--- NOTE | 2018-09-26 08:45 | PN ---
SUBJECTIVE: The patient was seen and examined at bedside on the general medical estrella. No acute events overnight. He remains afebrile, hemodynamically stable and clinically unchanged. He is pending discharge to subacute rehab later today. OBJECTIVE: VITAL SIGNS: Temperature 98, pulse 83, blood pressure 113/75, respiratory rate 20, oxygen saturation 98% on room air. GENERAL: Chronically ill appearing elderly man, lying in bed, in no apparent distress. HEENT: PERRL. EOMI. No scleral icterus. No conjunctival pallor. NECK: No JVD. LUNGS: Clear to auscultation. CARDIOVASCULAR: Regular rate and rhythm. Normal S1, S2. Grade III/ murmur to RUSB and grade II/ murmur to LLSB. ABDOMEN: Normoactive bowel sounds, soft, nontender, nondistended. EXTREMITIES: No edema. NEUROLOGIC: Awake and alert, oriented to person, following simple commands. LABORATORY DATA: No new labs. ASSESSMENT: The patient is a 78-year-old man with past medical history of Parkinson disease who presented with a 1 day history of altered mental status. PLAN: 1. Altered mental status, consider secondary toxic metabolic encephalopathy vs Parkinson disease, stable. Continue with current care. 2. SIRS syndrome, consider secondary to viral illness, resolved. Input from Dr. Scanlon noted. The patient remains afebrile and with negative cultures. 3. Parkinson disease. Continue Stalevo 150 mg p.o. t.i.d. 4. CAD s/p PCI with stent placement. Continue Aspirin 81 mg p.o. daily and Plavix 75 mg p.o. daily. He is off statins due to h/o myopathy. 5. Ischemic cardiomyopathy. Continue with care as above. 6. Prophylaxis. GI prophylaxis not indicated as the patient is eating. Continue with SCDs for DVT prophylaxis. CODE STATUS: Full code. Orlando Levy MD [facility]
--- NOTE | 2018-09-28 21:07 | DS ---
ADMITTING DIAGNOSIS: Altered mental status. DISCHARGE DIAGNOSES: Altered mental status secondary to toxic metabolic encephalopathy, systemic inflammatory response syndrome secondary to viral illness, and Parkinson disease. SECONDARY DIAGNOSES: Coronary artery disease, status post percutaneous coronary intervention with stent placement, ischemic cardiomyopathy, and hypertension. CONSULTATIONS: Dr. Augustine (Infectious Disease) and Dr. Rehman (Neurology). PROCEDURES: None. IMAGING STUDIES: CT of the head without contrast demonstrated chronic age-related white matter changes with generalized volume loss, but otherwise no acute pathology. HISTORY OF PRESENT ILLNESS: The patient is a 78-year-old man with past medical history of Parkinson disease who presented for evaluation of a 1-day history of altered mental status. According to the daughter, the patient was experiencing visual and auditory hallucinations on the day of presentation to the ED. There is no report of falls, head trauma, fevers, chills, rigors, or any further associated symptoms. Given his altered mentation, for ED evaluation. In the ED, he was found to be afebrile and hemodynamically stable. Routine laboratory studies were unremarkable. CT of the head was obtained and he was subsequently admitted to the general medical estrella for continued workup of altered mental status. HOSPITAL COURSE: Upon admission to the general medical estrella, he was evaluated by Dr. Rehman of Neurology and maintained on his outpatient medications. On hospital day #2, he developed fever and leukocytosis and was evaluated by Dr. Augustine of Infectious Disease. A workup in the hospital found the etiology of the patient's SIRS syndrome to be secondary to a viral illness. He completed a 7-day course of antimicrobials and was noted to return to his baseline mental status. After evaluation by physical therapy, recommendations were made for placement to subacute rehab and the patient was eventually accepted to subacute rehab at [facility]. CONDITION: Fair, improved. DISPOSITION: [facility]. DISCHARGE MEDICATIONS: Aspirin 81 mg p.o. daily, Plavix 75 mg p.o. daily, and Stalevo 150 mg p.o. t.i.d. DISCHARGE INSTRUCTIONS: The patient was advised to adhere to instructions and his subacute rehab. FOLLOWUP: The patient to follow with his PMD within 1 week of discharge. The patient to follow with Dr. Rehman as scheduled. Orlando Levy MD [facility] # [id number]
== END 2018-09-26 12:03 | DRG 92 ==
LOC: ED 18:50 → ERH 09-12 00:16 → 5RSO 09-12 01:13 → OBSVTOIN 09-13 14:39 → 5RNO 09-21 22:08
PROVIDERS: ADMIT Internal Medicine; ATTEND Internal Medicine
DX: G92 Toxic encephalopathy (principal); E27.1 Primary adrenocortical insufficiency; R65.10 Systemic inflammatory response syndrome (SIRS) of non-infectious origin without acute organ dysfunction; G20 Parkinson's disease; G30.9 Alzheimer's disease, unspecified; F02.80 Dementia in other diseases classified elsewhere, unspecified severity, without behavioral disturbance, psychotic disturbance, mood disturbance, and anxiety; I12.9 Hypertensive chronic kidney disease with stage 1 through stage 4 chronic kidney disease, or unspecified chronic kidney disease; N18.9 Chronic kidney disease, unspecified; I25.10 Atherosclerotic heart disease of native coronary artery without angina pectoris; I25.5 Ischemic cardiomyopathy; I44.0 Atrioventricular block, first degree; Z79.02 Long term (current) use of antithrombotics/antiplatelets; Z79.82 Long term (current) use of aspirin; Z87.440 Personal history of urinary (tract) infections; Z95.5 Presence of coronary angioplasty implant and graft; K59.00 Constipation, unspecified; R32 Unspecified urinary incontinence; B97.89 Other viral agents as the cause of diseases classified elsewhere; Z88.6 Allergy status to analgesic agent; Z88.5 Allergy status to narcotic agent; Z88.8 Allergy status to other drugs, medicaments and biological substances

== ENCOUNTER 2018-10-12 16:40 | Inpatient (IN) | payer MEDICARE ==
[2018-10-12 16:44] VITALS: BMI 21.9
[2018-10-12 17:37] LABS: BASO # 0.01 K/mm3 (0.0-2.0); BASO % 0.1 % (0.0-3.0); EOS # 0.1 (0.0-0.7); EOS % 0.5 % (1.5-5.0); HEMOGLOBIN 12.5 g/dL (14.0-18.0); LYMPH # 1.9 (1.2-3.4); LYMPH % 17.9 % (22.0-35.0); MEAN CELL VOLUME 89.9 fl (80.0-105.0); MEAN CORPUSCULAR HEMOGLOBIN 30.2 pg (25.0-35.0); MEAN CORPUSCULAR HGB CONC 33.6 g/dl (31.0-37.0); MEAN PLATELET VOLUME 9.6 fl (7.0-11.0); MONO # 1.4 (0.1-0.6); MONO % 13.3 % (1.0-6.0); RBC 4.14 10^6/uL (3.5-6.1); RED CELL DISTRIBUTION WIDTH 14.2 % (11.5-14.5); URINE BILIRUBIN NEGATIVE (NEGATIVE); URINE BLOOD NEGATIVE (NEGATIVE); URINE GLUCOSE (UA) NEGATIVE (NEGATIVE); URINE LEUKOCYTE ESTERASE TRACE Leu/uL (NEGATIVE); URINE PROTEIN NEGATIVE mg/dL (<30 mg/dL); URINE UROBILINOGEN 0.2 E.U./dL (<1 E.U./dL); WHITE BLOOD COUNT 10.4 10^3/uL (4.5-11.0)
[2018-10-12 17:39] LABS: URINE APPEARANCE CLEAR (CLEAR); URINE COLOR YELLOW (YELLOW)
--- NOTE | 2018-10-12 17:45 | ED PDOC ---
Arrival/HPI - General Chief Complaint: Altered Mental Status Historian: [facility] EM Caveat: Altered Mental Status - History of Present Illness Narrative History of Present Illness (Text): 10/12/18 17:00 78 year old male, whose past medical history includes Parkinson's disease, CAD, and hypertension, presents to the emergency department sent by intermediate for "change of mental status and hallucinations". Patient is nonverbal and mumbling offering no complaints. There was no documented fever at the intermediate. Patient was admitted to hospital floor for similar presentation in the past. HPI and ROS limited due to patient's altered mental status. PMD: Dr. Levy Past Medical History - Provider Review Nursing Documentation Reviewed: Yes - Infectious Disease Hx of Infectious Diseases: None - Cardiac Hx Cardiac Disorders: Yes (1st degree av block; cardiac stent) Hx Cardiac Arrhythmia: Yes (1st degree avb) Hx Hypertension: Yes Other/Comment: Ischemic cardiomyopathy - Pulmonary Hx Respiratory Disorders: No - Neurological Hx Alzheimer's Disease: Yes Hx Dementia: Yes Hx Parkinson's Disease: Yes - HEENT Hx HEENT Disorder: No - Renal Hx Renal Disorder: Yes Hx Pyelonephritis: Yes (right sided) - Endocrine/Metabolic Other/Comment: oscar's disease - Hematological/Oncological Hx Blood Transfusions: No Hx Blood Transfusion Reaction: No - Integumentary Hx Dermatological Disorder: No - Musculoskeletal/Rheumatological Hx Unsteady Gait: Yes - Gastrointestinal Hx Gastrointestinal Disorders: Yes Other/Comment: constipation - Genitourinary/Gynecological Hx Incontinence: Yes - Psychiatric Hx Psychophysiologic Disorder: Yes Hx Anxiety: Yes Hx Substance Use: (unable to assess) Other/Comment: pt has hx of: parkinsons; demential oscar's disease, cardiac stent; htn - Surgical History Hx Coronary Stent: Yes - Anesthesia Hx Anesthesia: Yes Hx Anesthesia Reactions: No Hx Malignant Hyperthermia: No - Suicidal Assessment Feels Threatened In Home Enviroment: No Family/Social History - Physician Review Nursing Documentation Reviewed: Yes Family/Social History: No Known Family HX Smoking Status: Unknown If Ever Smoked Hx Alcohol Use: (unable to assess) Amount per day: 4 Hx Substance Use: (unable to assess) Hx Substance Use Treatment: No Allergies/Home Meds Allergies/Adverse Reactions: Allergies acetaminophen [From Percocet] Adverse Reaction (Verified 10/12/18 16:45) FATIGUE also more confused haloperidol [From Haldol] Adverse Reaction (Verified 10/12/18 16:45) FATIGUE oxycodone [From Percocet] Adverse Reaction (Verified 10/12/18 16:45) FATIGUE also more confused Home Medications: Home Meds Medication Instructions Recorded Confirmed Ascorbic Acid [Vitamin C 500 mg 1 tab PO DAILY 10/12/18 10/12/18 Tab] Aspirin [Aspirin Chewable] 1 tab PO DAILY 10/12/18 10/12/18 Carbidopa/Levodopa [Sinemet 10-100 1 tab PO QID 10/12/18 10/12/18 mg Tablet] Carbidopa/Levodopa/Entacapone 1 tab PO TID 10/12/18 10/12/18 [Stalevo 150] Clopidogrel [Plavix] 1 tab PO DAILY 10/12/18 10/12/18 Ergocalciferol [Drisdol 50,000 1 cap PO Q7D 10/12/18 10/12/18 Intl Units Cap] Ibuprofen [Motrin Tab] 1 tab PO Q6H PRN 10/12/18 10/12/18 Iron Polysaccharide [Ferrex-150] 1 tab PO DAILY 10/12/18 10/12/18 LORazepam Half Tablet [Ativan] 1 tab PO Q6H PRN 10/12/18 10/12/18 Megestrol Acetate [Megace] 10 ml PO BID 10/12/18 10/12/18 Menthol [Icy Hot] 1 patch TOP DAILY 10/12/18 10/12/18 Multivitamin [Multivitamins] 1 cap PO DAILY 10/12/18 10/12/18 Mupirocin 2% Oint UD [Bactroban 1 applic TOP BID 10/12/18 10/12/18 Ointment] OLANZapine [Zyprexa] 1 tab PO DAILY 10/12/18 10/12/18 Zinc [Zinc Sulfate 220 mg Cap] 1 tab PO DAILY 10/12/18 10/12/18 Review of Systems - Physician Review All systems were reviewed & negative as marked: Yes - Review of Systems Systems not reviewed;Unavailable: Altered Mental Status Physical Exam Vital Signs Reviewed: Yes Vital Signs Temp Pulse Resp BP Pulse Ox 10/12/18 17:37 83 18 96 10/12/18 16:56 99.0 F 100 H 18 119/73 98 Temperature: Afebrile Blood Pressure: Normal Pulse: Tachycardic Respiratory Rate: Normal Appearance: Positive for: Well-Appearing, Non-Toxic, Comfortable Pain Distress: None Mental Status: Positive for: other (Noted eye contact and patient is mumbling ) - Systems Exam Head: Present: Atraumatic, Normocephalic Pupils: Present: PERRL Extroacular Muscles: Present: EOMI Conjunctiva: Present: Normal Mouth: Present: Dry Neck: Present: Normal Range of Motion Respiratory/Chest: Present: Clear to Auscultation, Good Air Exchange. No: Respiratory Distress, Accessory Muscle Use Cardiovascular: Present: Murmurs (systolic murmur ) Abdomen: No: Tenderness, Distention, Peritoneal Signs Back: Present: Decubitus Ulcer (Sacral) Upper Extremity: Present: Normal Inspection. No: Cyanosis, Edema Lower Extremity: Present: Normal Inspection. No: Edema Neurological: Present: Other (resting tremor) Skin: Present: Warm, Dry, Normal Color. No: Rashes Psychiatric: Present: Alert Medical Decision Making ED Course and Treatment: 10/12/18 17:00 Impression: 78 year old male sent in by intermediate for "change of mental status and hallucinations". Plan: -- CT Head w/o contrast -- EKG -- Labs -- Chest X-ray -- Blood Culture, Urine Culture -- Urinary Straight Cath -- Influenza A B -- Urinalysis w/ micro -- Reassess and disposition Prior Visits: Notes and results from previous visits were reviewed. Progress Notes: EKG shows EKG at 98 BPM with PVCs. Interpreted by me. Chest X-ray Dictator : Abiodun Hahn MD Table Keeper : Poly Area Supervisor : Abiodun Hahn MD IMPRESSION: No active disease. No significant interval change compared to the prior examination(s). PROCEDURE: CT HEAD WITHOUT CONTRAST. Dictator : Randee Mo MD Report Date : 10/12/2018 18:15:02 IMPRESSION: Chronic nonspecific white matter changes. Generalized volume loss. 10/12/18 18:[address] Levy who is aware and agrees with the plan. Accepts patient into his service. - Lab Interpretations Lab Results: Urine Color Yellow (YELLOW) 10/12/18 17:20 Urine Appearance Clear (CLEAR) 10/12/18 17:20 Urine pH 6.0 (4.7-8.0) 10/12/18 17:20 Ur Specific [place] >= 1.030 (1.005-1.035) 10/12/18 17:20 Urine Protein Negative mg/dL (<30 mg/dL) 10/12/18 17:20 Urine Glucose (UA) Negative mg/dL (NEGATIVE) 10/12/18 17:20 Urine Ketones Trace mg/dL (NEGATIVE) H 10/12/18 17:20 Urine Blood Negative (NEGATIVE) 10/12/18 17:20 Urine Nitrate Negative (NEGATIVE) 10/12/18 17:20 Urine Bilirubin Negative (NEGATIVE) 10/12/18 17:20 Urine Urobilinogen 0.2 E.U./dL (<1 E.U./dL) 10/12/18 17:20 Ur Leukocyte Esterase Trace Alli/uL (NEGATIVE) H 10/12/18 17:20 I have reviewed the lab results: Yes - RAD Interpretation Radiology Orders: 10/12/18 17:01 CHEST PORTABLE [RAD] Stat 10/12/18 17:02 HEAD W/O CONTRAST [CT] Stat Clinical Psychology Teacher: Radiologist - EKG Interpretation Interpreted by ED Physician: Yes Type: 12 lead EKG - Scribe Statement The provider has reviewed the documentation as recorded by the Jyoti Brewer Provider Scribe Attestation: All medical record entries made by the Jyoti were at my direction and personally dictated by me. I have reviewed the chart and agree that the record accurately reflects my personal performance of the history, physical exam, medical decision making, and the department course for this patient. I have also personally directed, reviewed, and agree with the discharge instructions and disposition. Disposition/Present on Arrival - Present on Arrival Any Indicators Present on Arrival: No History of DVT/PE: No History of Uncontrolled Diabetes: No Urinary Catheter: No History of Decub. Ulcer: No History Surgical Site Infection Following: None - Disposition Have Diagnosis and Disposition been Completed?: Yes Diagnosis: Altered mental status, Dehydration Disposition: HOSPITALIZED Disposition Time: 18:20 Condition: STABLE
[2018-10-12 17:52] LABS: ALT/SGPT 34 U/L (7-56); AST/SGOT 32 U/L (17-59); BLOOD UREA NITROGEN 23 mg/dL (7-21); CALCIUM 10.1 mg/dL (8.4-10.5); GFR NON-AFRICAN AMERICAN > 60
[2018-10-12 17:58] LABS: VENOUS BLOOD GAS BASE EXCESS 0.1 mmol/L (0.0-2.0); VENOUS BLOOD GAS PO2 33 mm/Hg (30-55); VENOUS BLOOD PH 7.41 (7.32-7.43)
[2018-10-12 18:03] LABS: TROPONIN I < 0.01 ng/mL
--- NOTE | 2018-10-12 18:04 | RAD ---
Date of service: 10/12/2018 HISTORY: AMS COMPARISON: 09/18/2018. FINDINGS: LUNGS: No active pulmonary disease. PLEURA: No significant pleural effusion identified, no pneumothorax apparent. CARDIOVASCULAR: Atherosclerotic calcifications identified primarily aortic arch. No radiographic findings to suggest acute or significant cardiovascular disease. OSSEOUS STRUCTURES: No significant abnormalities. VISUALIZED UPPER ABDOMEN: Normal. OTHER FINDINGS: None. IMPRESSION: No active disease. No significant interval change compared to the prior examination(s).
--- NOTE | 2018-10-12 18:18 | CT ---
Date of service: 10/12/2018 PROCEDURE: CT HEAD WITHOUT CONTRAST. HISTORY: change in mental status COMPARISON: Noncontrast head CT performed 09/11/18 TECHNIQUE: Axial computed tomography images were obtained through the head/brain without intravenous contrast. Radiation dose: Total exam DLP = 934.04 mGy-cm. This CT exam was performed using one or more of the following dose reduction techniques: Automated exposure control, adjustment of the mA and/or kV according to patient size, and/or use of iterative reconstruction technique. FINDINGS: HEMORRHAGE: No intracranial hemorrhage. BRAIN: Diffuse atrophy with prominence of the ventricles and sulci noted. No mass effect or edema. Intracranial atherosclerosis. Scattered periventricular and subcortical white matter hypodensities, which are nonspecific, but often seen with chronic microvascular ischemic disease. Please note that MRI with diffusion imaging is more sensitive in the detection of acute ischemic event. VENTRICLES: No hydrocephalus. CALVARIUM: Unremarkable. PARANASAL SINUSES: Unremarkable as visualized. No significant inflammatory changes. MASTOID AIR CELLS: Unremarkable as visualized. No inflammatory changes. OTHER FINDINGS: None. IMPRESSION: Chronic nonspecific white matter changes. Generalized volume loss.
[2018-10-12 18:19] LABS: BARBITURATES, UR NEGATIVE (NEGATIVE); BENZODIAZEPINES, UR NEGATIVE (NEGATIVE); OPIATES, UR NEGATIVE (NEGATIVE); PHENCYCLIDINE, UR NEGATIVE (NEGATIVE)
[2018-10-12 18:23] LABS: T3 0.97 ng/mL (0.97-1.69)
[2018-10-12 18:43] LABS: URINE BACTERIA SMALL /hpf; URINE RBC 0 - 2 /hpf (0-2)
[2018-10-12] MEDS: Sodium Chloride 0.9% 1,000 ML IV SCH (19:15)
--- NOTE | 2018-10-12 21:36 | HP ---
HISTORY OF PRESENT ILLNESS: The patient is a 78-year-old man with a past medical history of Parkinson disease who was recently discharged from [facility] after an admission for altered mental status secondary to progression of his underlying Parkinson disease who was transferred from [facility] after exhaustion of his insurance benefits. The patient has been at the aforementioned facility since his discharge from [facility] but has not been excelling in PT due to his Parkinson disease and deconditioned state. As per the patient's , his benefits had "ran out" and insurance was no longer paying for his rehab stay and thus he was sent back to [facility]. He remains at his baseline functional status and mental status. In the ED he was afebrile, hemodynamically stable and with unremarkable labs. A CT of the head demonstrated no acute pathology and he was subsequently admitted to facilitate placement into a long-term facility. PAST MEDICAL HISTORY: As per HPI, also CAD s/p PCI with stent placement and ischemic cardiomyopathy. PAST SURGICAL HISTORY: Appendectomy. ALLERGIES: Acetaminophen and Oxycodone. MEDICATIONS: Aspirin 81 mg p.o. daily, Plavix 75 mg p.o. daily and Stalevo 150 mg p.o. t.i.d. FAMILY HISTORY: Noncontributory. SOCIAL HISTORY: The patient denies any toxic habits. REVIEW OF SYSTEMS: Unobtainable given the patient's altered mental status. PHYSICAL EXAMINATION: VITAL SIGNS: Temperature 99, pulse 83, blood pressure 119/73, respiratory rate 18, and oxygen saturation 96% on room air. GENERAL: Frail, chronically ill-appearing man, lying in bed, in no apparent distress. HEENT: PERRL. EOMI. No scleral icterus. No conjunctival pallor. NECK: No JVD. LUNGS: Clear to auscultation. CARDIOVASCULAR: Regular rate and rhythm. Normal S1 and S2. Grade III/ murmur to RUSB and grade II/ murmur to LLSB. ABDOMEN: Normoactive bowel sounds, soft, nontender, and nondistended. EXTREMITIES: No edema. NEUROLOGIC: Somnolent but arousable, oriented only to person. Speech is garbled. Able to move all extremities. Not following commands. SKIN: Stage II sacral decubitus ulcer is noted with surrounding erythema. LABORATORY DATA: WBC 10.4, hemoglobin 12.5, hematocrit 37, and platelets 318. Sodium 140, potassium 4.1, chloride 108, bicarb 25, BUN 23, creatinine 0.7, and glucose 99. IMAGING STUDIES: 1. Chest x-ray demonstrated no active disease. 2. CT of the head without contrast demonstrated chronic nonspecific white matter changes and generalized volume loss but otherwise no acute pathology. ASSESSMENT: The patient is a 78-year-old man with a past medical history of Parkinson disease who was transferred from his subacute rehab facility after exhaustion of his insurance benefits to facilitate placement into a long-term facility. PLAN: 1. Parkinson disease. Resume Stalevo 150 mg p.o. t.i.d.. We will start Seroquel 25 mg p.o. q.h.s. for agitation. After a long discussion with the patient's she understands that the patient's Parkinson disease is progressing and is agreeable to placement into a long-term facility. 2. Stage II sacral decubitus ulcer. We will consult Wound Care nursing and frequently reposition the patient. 3. CAD s/p PCI with stent placement. Resume Aspirin 81 mg p.o. daily and Plavix 75 mg p.o. daily. 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 4. Ischemic cardiomyopathy. 5. Prophylaxis. GI prophylaxis not indicated as the patient is eating. Continue with Heparin for DVT prophylaxis. CODE STATUS: Full Code. Orlando Levy MD RAYA
--- NOTE | 2018-10-12 22:08 | CARD ---
APPROVED REPORT Date of service: 10/12/2018 EKG Measurement Heart [id number] <Conclusion> Sinus rhythm with premature supraventricular complexes Baseline artifact Otherwise normal ECG
[2018-10-13] MEDS: Sodium Chloride 0.9% 1,000 ML IV SCH (08:09)
--- NOTE | 2018-10-13 10:52 | PN ---
SUBJECTIVE: The patient was seen and examined at bedside on the general medical estrella. No acute events overnight. He remains afebrile and hemodynamically stable. OBJECTIVE: VITAL SIGNS: Temperature 98.9, pulse 82, blood pressure 107/67, respiratory rate 19, oxygen saturation 98% on room air. GENERAL: Frail, chronically ill-appearing man, lying in bed in no apparent distress. HEENT: PERRL, EOMI. No scleral icterus. No conjunctival pallor. NECK: No JVD. LUNGS: Clear to auscultation. CARDIOVASCULAR: Regular rate and rhythm. Normal S1 and S2. Grade III/ murmur to RUSB and grade II/ murmur to LLSB. ABDOMEN: Normoactive bowel sounds, soft, nontender, nondistended. EXTREMITIES: No edema. NEUROLOGIC: Somnolent but arousable. Oriented only to person. Speech is garbled. Able to move all extremities. Not following commands. SKIN: Stage II sacral decubitus ulcer is noted with surrounding erythema. LABORATORY DATA: No new labs. ASSESSMENT: The patient is a 78-year-old man with a past medical history of Parkinson disease who was transferred from subacute rehab facility after exhaustion of his insurance benefits to facilitate placement into a long-term facility. PLAN: 1. Parkinson disease. Continue Stalevo 150 mg p.o. t.i.d. and Seroquel 25 mg p.o. q.h.s. We will coordinate with the vocational case manager and the social workers placement into a long-term facility. 2. Stage II sacral decubitus ulcer. Wound care nursing evaluation is pending. Continue with frequent repositioning of the patient. 3. CAD s/p PCI with stent placement. Continue Aspirin 81 mg p.o. daily and Plavix 75 mg p.o. daily. 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 4. Ischemic cardiomyopathy. 5. Prophylaxis. GI prophylaxis not indicated as the patient is eating. Continue with Heparin for DVT prophylaxis. CODE STATUS: Full code. Orlando Levy MD RAYA
[2018-10-13] MEDS: Carbidopa/Levodopa/Entacapone 37.5mg-150mg-200mg PO SCH ×3 (11:00→18:42)
--- NOTE | 2018-10-14 07:45 | CP.PCM.PN ---
<Yaritza Em - Last Filed: 10/14/18 15:25> Subjective - Date & Time of Evaluation Date of Evaluation: 10/14/18 Time of Evaluation: 07:45 - Subjective Subjective: Yaritza Em, PGY2, Medicine Progress Note for Dr Yuan: Patient seen and examined at bedside. No acute events overnight. Patient denies pain, appears comfortable in bed, surrounded by family. Spoke with social media job titles, states that she is trying for [facility] placement for patient. ROS limited due to patient's mental status/underlying disease process. Objective - Vital Signs/Intake and Output Vital Signs (last 24 hours): Temp Pulse Resp BP Pulse Ox 99 F 72 18 119/77 97 10/14/18 06:00 10/14/18 06:00 10/14/18 06:00 10/14/18 06:00 10/14/18 06:00 Intake and Output: 10/14/18 10/14/18 06:59 18:59 Intake Total 600 Output Total 1 Balance 599 - Medications Medications: Current Medications Aspirin (Aspirin Chewable) 81 mg PO DAILY [facility] Last Admin: 10/13/18 11:00 Dose: 81 mg Carbidopa/Levodopa/Entacapone (Stalevo 150) 1 tab PO TID [facility] Last Admin: 10/13/18 18:42 Dose: 1 tab Clopidogrel Bisulfate (Plavix) 75 mg PO DAILY [facility] Last Admin: 10/13/18 11:00 Dose: 75 mg Heparin Sodium (Porcine) (Heparin) 5,000 units SC Q12 [facility]; Protocol Last Admin: 10/13/18 21:28 Dose: 5,000 units Quetiapine Fumarate (Seroquel) 25 mg PO HS [facility]; Protocol Last Admin: 10/13/18 21:28 Dose: 25 mg - Labs Labs: 10/12/18 17:20 10/12/18 17:20 - Constitutional Appears: Non-toxic, No Acute Distress, Cachectic, Chronically Ill - Head Exam Head Exam: ATRAUMATIC, NORMOCEPHALIC - Eye Exam Eye Exam: EOMI, PERRL. absent: Conjunctival injection, Nystagmus, Scleral icterus Pupil Exam: NORMAL ACCOMODATION, PERRL. absent: Miosis, Mydriatic, Unequal - ENT Exam ENT Exam: Mucous Membranes Moist - Neck Exam Neck Exam: Full ROM - Respiratory Exam Respiratory Exam: Clear to Ausculation Bilateral, NORMAL BREATHING PATTERN. absent: Accessory Muscle Use, Wheezes, Respiratory Distress, Stridor - Cardiovascular Exam Cardiovascular Exam: RRR, +S1, +S2. absent: Murmur - GI/Abdominal Exam GI & Abdominal Exam: Soft, Normal Bowel Sounds. absent: Guarding, Rigid, Tenderness, Mass, Organomegaly, Rebound - Extremities Exam Extremities Exam: Normal Inspection. absent: Calf Tenderness, Pedal Edema - Back Exam Back Exam: NORMAL INSPECTION - Neurological Exam Neurological Exam: Alert, Awake - Psychiatric Exam Psychiatric exam: Normal Affect - Skin Skin Exam: Dry, Normal Color Additional comments: + stage II sacral decub ulcer Assessment and Plan - Assessment and Plan (Free Text) Assessment: 1. Deconditioning, weakness 2. Parkinson's disease 3. Stage II sacral decub ulcer 4. CAD s/p PCI with stent placement 5. Ischemic cardiomyopathy Will resume aspirin and plavix for CAD. Continue with Stalevo for parkinson's. Will start xanax at bedtime for anxiety. Will give pepcid and heparin subq for GI and DVT prophylaxis, respectively. Will obtain physical therapy eval. want subacute rehab for patient, awaiting reply from rehab places. Case reviewed and discussed with Dr Yuan. <Jose Yuan S - Last Filed: 10/14/18 19:33> Objective - Vital Signs/Intake and Output Vital Signs (last 24 hours): Temp Pulse Resp BP Pulse Ox 98.6 F 82 18 109/65 98 10/14/18 16:39 10/14/18 16:39 10/14/18 16:39 10/14/18 16:39 10/14/18 16:39 - Medications Medications: Current Medications Aspirin (Aspirin Chewable) 81 mg PO DAILY [facility] Last Admin: 10/14/18 09:53 Dose: 81 mg Carbidopa/Levodopa/Entacapone (Stalevo 150) 1 tab PO TID [facility] Last Admin: 10/14/18 18:11 Dose: 1 tab Clopidogrel Bisulfate (Plavix) 75 mg PO DAILY [facility] Last Admin: 10/14/18 09:54 Dose: 75 mg Famotidine (Pepcid) 20 mg PO 1000,2200 [facility] Heparin Sodium (Porcine) (Heparin) 5,000 units SC Q12 [facility]; Protocol Last Admin: 10/14/18 09:53 Dose: 5,000 units Lorazepam (Ativan) 0.5 mg PO DAILY [facility]; Protocol - Labs Labs: 10/12/18 17:20 10/12/18 17:20 Assessment and Plan - Assessment and Plan (Free Text) Assessment: Pt seen and examined by me. I have reviewed the note of the medical billing service and I agree with it. I have discussed the assessment and plan with the resident. I have reviewed the medications and the last labs.
[2018-10-14] MEDS: Carbidopa/Levodopa/Entacapone 37.5mg-150mg-200mg PO SCH ×3 (09:53→18:11)
--- NOTE | 2018-10-15 00:09 | PN ---
DATE: 10/14/2018 The patient was seen and examined. I do agree with the note of the medical imaging technologist. I was involved in the plan of care. I have reviewed the initial H and P that was dictated. The patient's family has asked that I take over his care. I did speak to the previous attending. The patient has history of Parkinson's that has been slowly progressively declining. There is a stage II pressure ulcer that has been treated by local wound care. The patient has coronary artery disease history and is on aspirin and Plavix. He also has ischemic cardiomyopathy. The patient's family is interested in subacute rehab and then most likely bringing the patient home. This lead to the case with social sciences research scientist. We are waiting for the facilities that the patient's family has chosen to see if they would accept the patient. Overall, the patient's prognosis for rehab is limited given his advanced Parkinson's. Jose Yuan MD
--- NOTE | 2018-10-15 10:35 | CP.PCM.PN ---
<Yaritza Em - Last Filed: 10/15/18 10:35> Subjective - Date & Time of Evaluation Date of Evaluation: 10/15/18 Time of Evaluation: 10:35 - Subjective Subjective: Yaritza Em, PGY2, Medicine Progress Note for Dr uYan: Patient seen and examined at bedside, while patient was having his breakfast. No acute events overnight. Patient tolerated his PO breakfast well. Denies pain, nausea, vomiting, fevers, chills, urinary symptoms. ROS limited due to patient's mental status/underlying disease process. Objective - Vital Signs/Intake and Output Vital Signs (last 24 hours): Temp Pulse Resp BP Pulse Ox 99 F 64 20 105/68 96 10/15/18 06:00 10/15/18 06:00 10/15/18 06:00 10/15/18 06:00 10/15/18 06:00 Intake and Output: 10/15/18 10/15/18 06:59 18:59 Intake Total 480 Balance 480 - Medications Medications: Current Medications Aspirin (Aspirin Chewable) 81 mg PO DAILY [facility] Last Admin: 10/14/18 09:53 Dose: 81 mg Carbidopa/Levodopa/Entacapone (Stalevo 150) 1 tab PO TID [facility] Last Admin: 10/14/18 18:11 Dose: 1 tab Clopidogrel Bisulfate (Plavix) 75 mg PO DAILY [facility] Last Admin: 10/14/18 09:54 Dose: 75 mg Famotidine (Pepcid) 20 mg PO 1000,2200 [facility] Last Admin: 10/14/18 21:50 Dose: 20 mg Heparin Sodium (Porcine) (Heparin) 5,000 units SC Q12 [facility]; Protocol Last Admin: 10/14/18 21:50 Dose: 5,000 units Lorazepam (Ativan) 0.5 mg PO DAILY [facility]; Protocol - Labs Labs: 10/12/18 17:20 10/12/18 17:20 - Additional Findings Additional findings: - Constitutional Appears: Non-toxic, No Acute Distress, Cachectic, Chronically Ill - Head Exam Head Exam: ATRAUMATIC, NORMOCEPHALIC - Eye Exam Eye Exam: EOMI, PERRL. absent: Conjunctival injection, Nystagmus, Scleral icterus Pupil Exam: NORMAL ACCOMODATION, PERRL. absent: Miosis, Mydriatic, Unequal - ENT Exam ENT Exam: Mucous Membranes Moist - Neck Exam Neck Exam: Full ROM - Respiratory Exam Respiratory Exam: Clear to Ausculation Bilateral, NORMAL BREATHING PATTERN. absent: Accessory Muscle Use, Wheezes, Respiratory Distress, Stridor - Cardiovascular Exam Cardiovascular Exam: RRR, +S1, +S2. absent: Murmur - GI/Abdominal Exam GI & Abdominal Exam: Soft, Normal Bowel Sounds. absent: Guarding, Rigid, Tenderness, Mass, Organomegaly, Rebound - Extremities Exam Extremities Exam: Normal Inspection. absent: Calf Tenderness, Pedal Edema - Back Exam Back Exam: NORMAL INSPECTION - Neurological Exam Neurological Exam: Alert, Awake - Psychiatric Exam Psychiatric exam: Normal Affect - Skin Skin Exam: Dry, Normal Color Additional comments: + stage II sacral decub ulcer Assessment and Plan - Assessment and Plan (Free Text) Assessment: 1. Deconditioning, weakness 2. Parkinson's disease 3. Stage II sacral decub ulcer 4. CAD s/p PCI with stent placement 5. Ischemic cardiomyopathy Will continue aspirin and plavix for CAD. Continue with Stalevo for parkinson's. Continue with xanax at bedtime for anxiety. Continue with pepcid and heparin subq for GI and DVT prophylaxis, respectively. Awaiting physical therapy evaluation, and placement, as per high school social studies tutor and family. Case reviewed and discussed with Dr Yuan. <Jose Yuan S - Last Filed: 10/15/18 20:20> Objective - Vital Signs/Intake and Output Vital Signs (last 24 hours): Temp Pulse Resp BP Pulse Ox 97.6 F 77 20 97/68 L 98 10/15/18 14:00 10/15/18 14:00 10/15/18 14:00 10/15/18 14:00 10/15/18 14:00 Intake and Output: 10/15/18 10/16/18 18:59 06:59 Intake Total 240 Balance 240 - Medications Medications: Current Medications Aspirin (Aspirin Chewable) 81 mg PO DAILY [facility] Last Admin: 10/15/18 10:40 Dose: 81 mg Carbidopa/Levodopa/Entacapone (Stalevo 150) 1 tab PO TID [facility] Last Admin: 10/15/18 17:02 Dose: 1 tab Clopidogrel Bisulfate (Plavix) 75 mg PO DAILY [facility] Last Admin: 10/15/18 10:40 Dose: 75 mg Famotidine (Pepcid) 20 mg PO 1000,2200 [facility] Last Admin: 10/15/18 10:40 Dose: 20 mg Heparin Sodium (Porcine) (Heparin) 5,000 units SC Q12 [facility]; Protocol Last Admin: 10/15/18 10:40 Dose: 5,000 units Lorazepam (Ativan) 0.5 mg PO DAILY [facility]; Protocol Last Admin: 10/15/18 10:39 Dose: 0.5 mg - Labs Labs: 10/12/18 17:20 10/12/18 17:20 Assessment and Plan - Assessment and Plan (Free Text) Assessment: Pt seen and examined by me. I have reviewed the note of the claim review medical director and I agree with it. I have discussed the assessment and plan with the resident. I have reviewed the medications and the last labs.
[2018-10-15] MEDS: Carbidopa/Levodopa/Entacapone 37.5mg-150mg-200mg PO SCH ×3 (10:40→17:02)
--- NOTE | 2018-10-15 21:19 | PN ---
DATE: 10/15/2018 SUBJECTIVE: The patient was seen and examined, I do agree with the note of the medical research scientist. The patient is waiting to be discharged to subacute rehab facility. The patient has Parkinson's. He is clinically declining. He has stage II sacral pressure ulcer. He has coronary artery disease with stents. The patient has an ischemic cardiomyopathy. He was having breakfast with the nurse this morning. He was able to communicate. Jose Yuan MD
[2018-10-16] MEDS: Carbidopa/Levodopa/Entacapone 37.5mg-150mg-200mg PO SCH ×3 (09:27→17:33)
--- NOTE | 2018-10-16 09:46 | PN ---
DATE: 10/16/2018 SUBJECTIVE: The patient has no complaints of any chest pain. No shortness of breath. No headache. No dizziness. PHYSICAL EXAMINATION: VITAL SIGNS: Temperature is 98.7, pulse is 68, blood pressure is 114/63, respirations are 18. GENERAL: The patient is lying in bed, flat, comfortable. HEENT: No oral lesion. Anicteric sclerae. Moist mucosa. NECK: No JVD, adenopathy, or thyromegaly. CARDIOVASCULAR: S1 and S2, regular. No murmurs, rubs, or gallops. LUNGS: Clear to auscultation bilaterally. No wheeze, rales, or rhonchi. ABDOMEN: Bowel sounds are positive, soft, nontender and nondistended. EXTREMITIES: No cyanosis, clubbing or edema. LABORATORY DATA: White count of 10.4, hemoglobin 12.5, creatinine 0.7. 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 2. Parkinson's. 3. Stage II pressure ulcer. 4. Coronary artery disease. 5. Ischemic cardiomyopathy. PLAN: The patient is currently on heparin for DVT prophylaxis. I am going to continue his Plavix for his coronary artery disease. The patient is on carbidopa levodopa for his Parkinson's. The patient is on aspirin. The patient is on pureed diet. Jose Yuan MD
[2018-10-17] MEDS: Carbidopa/Levodopa/Entacapone 37.5mg-150mg-200mg PO SCH ×3 (09:57→17:00)
--- NOTE | 2018-10-17 13:55 | PN ---
DATE: 10/17/2018 SUBJECTIVE: The patient has no complaints of any chest pain. No shortness of breath, no headaches. PHYSICAL EXAMINATION: VITAL SIGNS: Temperature 98.7, pulse of 68, blood pressure 114/63, and respirations 18. GENERAL: The patient is lying in bed, flat, comfortable. HEENT: No oral lesion. Anicteric sclerae. Moist mucosa. NECK: No JVD, adenopathy, or thyromegaly. CARDIOVASCULAR: S1 and S2, regular. No murmurs, rubs, or gallops. LUNGS: Clear to auscultation bilaterally. No wheeze, rales, or rhonchi. ABDOMEN: Bowel sounds are positive, soft, nontender and nondistended. EXTREMITIES: no cyanosis, clubbing or edema. LABORATORY DATA: White count 10.4, hemoglobin 12.5, creatinine 0.7. 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 2. Parkinson's. 3. Stage 2 pressure ulcer. 4. Coronary artery disease. 5. Ischemic cardiomyopathy, the patient is on heparin for deep vein thrombosis prophylaxis. PLAN: He is receiving Ativan for agitation. The patient is on Plavix and aspirin. He is going to continue with carbidopa and levodopa as he is on a pureed diet. Jose Yuan MD
[2018-10-18] MEDS: Carbidopa/Levodopa/Entacapone 37.5mg-150mg-200mg PO SCH ×3 (09:45→17:26)
--- NOTE | 2018-10-19 00:11 | PN ---
DATE: 10/18/2018 SUBJECTIVE: The patient has no complaints of any chest pain or shortness of breath. PHYSICAL EXAMINATION: VITAL SIGNS: Temperature is 98.1, pulse of 89, blood pressure of 112/75, and respirations 19. GENERAL: The patient is lying in bed, flat, comfortable. HEENT: No oral lesion. Anicteric sclerae. Moist mucosa. NECK: No JVD, adenopathy, or thyromegaly. CARDIOVASCULAR: S1 and S2, regular. No murmurs, rubs, or gallops. LUNGS: Clear to auscultation bilaterally. No wheeze, rales, or rhonchi. ABDOMEN: Bowel sounds are positive, soft, nontender and nondistended. EXTREMITIES: No cyanosis, clubbing or edema. LABORATORY DATA: White count of 10.4 and hemoglobin 12.5. Creatinine 0.7. 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 2. Parkinson's. 3. Stage II pressure ulcer. 4. Coronary artery disease. 5. Ischemic cardiomyopathy. PLAN: The patient is on aspirin, this will be continue. He is on Ativan daily. He is receiving Plavix for his coronary artery disease. He is on carbidopa and levodopa, entacapone for his Parkinson's. He is eating a pureed diet. Discharge planning is in progress. We will await for discharge to other facility. Jose Yuan MD
[2018-10-19 07:01] LABS: ALB/GLOB RATIO 0.9 (1.1-1.8); ALBUMIN 3.8 g/dL (3.0-4.8); ALT/SGPT 16 U/L (7-56); AST/SGOT 40 U/L (17-59); BLOOD UREA NITROGEN 18 mg/dL (7-21); CALCIUM 9.5 mg/dL (8.4-10.5); GFR NON-AFRICAN AMERICAN > 60
[2018-10-19 07:04] LABS: MEAN CELL VOLUME 91.4 fl (80.0-105.0); MEAN CORPUSCULAR HEMOGLOBIN 28.8 pg (25.0-35.0); MEAN CORPUSCULAR HGB CONC 31.5 g/dl (31.0-37.0); MEAN PLATELET VOLUME 10.4 fl (7.0-11.0); RBC 3.82 10^6/uL (3.5-6.1); RED CELL DISTRIBUTION WIDTH 14.7 % (11.5-14.5); WHITE BLOOD COUNT 7.7 10^3/uL (4.5-11.0)
--- NOTE | 2018-10-19 08:29 | PN ---
DATE: 10/19/2018 SUBJECTIVE: The patient has no complaints of any chest pain. No shortness of breath. No headaches or dizziness. PHYSICAL EXAMINATION: VITAL SIGNS: Temperature is 98.1, pulse of 89, blood pressure 112/75 and respirations 19. GENERAL: The patient is lying in bed, flat, comfortable. HEENT: No oral lesion. Anicteric sclerae. Moist mucosa. NECK: No JVD, adenopathy, or thyromegaly. CARDIOVASCULAR: S1 and S2, regular. No murmurs, rubs, or gallops. LUNGS: Clear to auscultation bilaterally. No wheeze, rales, or rhonchi. ABDOMEN: Bowel sounds are positive, soft, nontender and nondistended. EXTREMITIES: No cyanosis, clubbing or edema. LABORATORY DATA: White count of 10.4. Last creatinine was 0.7. 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 2. Parkinson's. 3. Stage II pressure ulcer. 4. Coronary artery disease. 5. Ischemic cardiomyopathy. PLAN: The patient is on aspirin. He is going to be on heparin for DVT prophylaxis. The patient is waiting to go to subacute rehab. He is on Pepcid daily, on pureed diet. We will await discharge plan. Pt seen and examined by me. I have reviewed the note of the medical insurance biller and I agree with it. I have discussed the assessment and plan with the resident. I have reviewed the medications and the last labs. Jose Yuan MD [id number]
[2018-10-19] MEDS: Carbidopa/Levodopa/Entacapone 37.5mg-150mg-200mg PO SCH ×4 (10:56→18:18)
--- NOTE | 2018-10-19 15:17 | CON ---
DATE: 10/19/2018 NEUROLOGY CONSULTATION CHIEF COMPLAINT: Evaluate for Parkinson's disease. HISTORY OF PRESENT ILLNESS: This is a 78-year-old man with a history of Parkinson's disease, on Stalevo; coronary artery disease, status post PTCA with stents; history of SIRS syndrome and history toxic metabolic encephalopathy and dementia related to Parkinson's disease. Currently, the patient has severe dementia from Parkinson's disease. Speech is hypophonic, but no aphasia noted. He has cognitive rigidity at both wrist and resting tremors in both hands, as well as tremors of the chin. He definitely need some subacute rehab for muscle strengthening, coordination and gait exercises as well as therapy for . He is currently still on Stalevo for his Parkinson's disease, Plavix and aspirin for stroke prevention. PAST MEDICAL HISTORY: As above. SOCIAL HISTORY: No illicit drug use, smoking, or EtOH abuse. REVIEW OF SYSTEMS: A 14-point review of systems is negative except as per the HPI. ALLERGIES: ACETAMINOPHEN, HALOPERIDOL AND OXYCODONE. MEDICATIONS: Reviewed by nurses' reconciliation sheet. PHYSICAL EXAMINATION VITAL SIGNS: Temperature 97, pulse of 90, blood pressure 120/80, respiratory rate 22, oxygen saturation 96% via nasal cannula. HEENT: Head is atraumatic, normocephalic. PERRLA. Extraocular muscles intact. NECK: Supple. No JVD. No adenopathy noted. LUNGS: Clear to auscultation. No adventitious sounds. HEART: S1 and S2. Normal rate and rhythm. No murmurs, rubs or gallops. ABDOMEN: Soft,nontender, nondistended. Bowel sounds are present. EXTREMITIES: No clubbing. No cyanosis. Peripheral pulses are 2+ bilaterally. NEUROLOGIC: The patient is alert and oriented to person, not much to place. Recall after 5 minutes is 0/3. Poor attention span. Slow thought process. Flat affect. facies. Cranial nerves II through XII are intact. Speech is hypophonic, but no aphasia noted. Motor exam; increased tone throughout as well as cognitive rigidity of both wrist bilaterally. Resting tremor well seen in the right hand than the left, dubon tremors of the chin, otherwise moves all extremities equally severely deconditioned. Sensory exam decreased light touch, pinprick, up to the calves bilaterally. Decreased vibration of the toes. DTRs are 2+ throughout and 1 at both knees and ankles. Coordination and gait deferred for now. IMPRESSION AND PLAN: 1. Worsening confusion is from underlying severe cognitive impairment and from underlying severe Parkinson's disease and is very deconditioned. At this time, recommend to continue his Stalevo of 150 mg p.o. t.i.d.,which is consists of carbidopa and levodopa and entacapone. 2. Aspirin 81 mg and Plavix 75 mg for stroke prevention. 3. Monitor electrolytes and correct accordingly. 4. Will benefit for underlying subacute rehab for deconditioned state for muscle strengthening, coordination and gait exercises as well as Parkinson's exercises. Continue current and present medical management. Thank you for this consult. Jeffrey Rehman MD
[2018-10-20] MEDS: Carbidopa/Levodopa/Entacapone 37.5mg-150mg-200mg PO SCH ×3 (09:25→18:18)
--- NOTE | 2018-10-20 15:33 | CP.PCM.PN ---
<Daniel Ragland - Last Filed: 10/20/18 15:27> Subjective - Date & Time of Evaluation Date of Evaluation: 10/20/18 Time of Evaluation: 07:15 - Subjective Subjective: Progress Note for Dr. Yuan Patient seen and examined at bedside. Patient with no acute events overnight. Patient responding to some commands. Denies chest pain, shortness of breath, nausea, vomiting, diarrhea, fever, chills. Objective - Vital Signs/Intake and Output Vital Signs (last 24 hours): Temp Pulse Resp BP Pulse Ox 98.2 F 84 20 81/48 L 97 10/20/18 14:00 10/20/18 14:00 10/20/18 14:00 10/20/18 14:00 10/20/18 14:00 Intake and Output: 10/20/18 10/20/18 06:59 18:59 Intake Total 60 240 Output Total 2 Balance 58 240 - Medications Medications: Current Medications Aspirin (Aspirin Chewable) 81 mg PO DAILY [facility] Last Admin: 10/20/18 09:25 Dose: 81 mg Carbidopa/Levodopa/Entacapone (Stalevo 150) 1 tab PO TID [facility] Last Admin: 10/20/18 14:55 Dose: 1 tab Clopidogrel Bisulfate (Plavix) 75 mg PO DAILY [facility] Last Admin: 10/20/18 09:25 Dose: 75 mg Famotidine (Pepcid) 20 mg PO 1000,2200 [facility] Last Admin: 10/20/18 09:25 Dose: 20 mg Heparin Sodium (Porcine) (Heparin) 5,000 units SC Q12 [facility]; Protocol Last Admin: 10/20/18 09:25 Dose: 5,000 units Lorazepam (Ativan) 0.5 mg PO DAILY [facility]; Protocol Last Admin: 10/20/18 09:25 Dose: 0.5 mg - Labs Labs: 10/19/18 06:30 10/19/18 06:30 - Constitutional Appears: No Acute Distress, Chronically Ill - Head Exam Head Exam: ATRAUMATIC, NORMAL INSPECTION, NORMOCEPHALIC - ENT Exam ENT Exam: Mucous Membranes Moist - Respiratory Exam Respiratory Exam: Decreased Breath Sounds, NORMAL BREATHING PATTERN - Cardiovascular Exam Cardiovascular Exam: RRR, +S1, +S2 - GI/Abdominal Exam GI & Abdominal Exam: Soft, Normal Bowel Sounds. absent: Tenderness - Extremities Exam Extremities Exam: Normal Inspection. absent: Pedal Edema - Neurological Exam Neurological Exam: Alert, Awake - Psychiatric Exam Psychiatric exam: Flat Affect - Skin Skin Exam: Dry, Intact, Warm Assessment and Plan - Assessment and Plan (Free Text) Plan: 1. Parkinsonian Dementia 2. Parkinson's disease 3. Stage 2 pressure ulcer 4. CAD 5. Ischemic cardiomyopathy The patient was seen by Neurology who recommend APRIL and Parkinson's exercises due to severe deconditioning. We will continue his Stalevo for Parkinson's disease. Patient will continue ASA and Plavix for stroke prevention. The patient will remain on Heparin for DVT prophylaxis. Physical therapy recommending APRIL at this time. We will continue to work with social work to find appropriate placement for the patient. Ellyn, PGY-3 <Jose Yuan - Last Filed: 10/20/18 18:17> Objective - Vital Signs/Intake and Output Vital Signs (last 24 hours): Temp Pulse Resp BP Pulse Ox 98 F 84 20 81/48 L 97 10/20/18 15:44 10/20/18 15:44 10/20/18 15:44 10/20/18 14:00 10/20/18 15:44 Intake and Output: 10/20/18 10/20/18 06:59 18:59 Intake Total 60 240 Output Total 2 Balance 58 240 - Medications Medications: Current Medications Aspirin (Aspirin Chewable) 81 mg PO DAILY [facility] Last Admin: 10/20/18 09:25 Dose: 81 mg Carbidopa/Levodopa/Entacapone (Stalevo 150) 1 tab PO TID [facility] Last Admin: 10/20/18 14:55 Dose: 1 tab Clopidogrel Bisulfate (Plavix) 75 mg PO DAILY [facility] Last Admin: 10/20/18 09:25 Dose: 75 mg Famotidine (Pepcid) 20 mg PO 1000,2200 [facility] Last Admin: 10/20/18 09:25 Dose: 20 mg Heparin Sodium (Porcine) (Heparin) 5,000 units SC Q12 [facility]; Protocol Last Admin: 10/20/18 09:25 Dose: 5,000 units Lorazepam (Ativan) 0.5 mg PO DAILY [facility]; Protocol Last Admin: 10/20/18 09:25 Dose: 0.5 mg - Labs Labs: 10/19/18 06:30 10/19/18 06:30 Assessment and Plan - Assessment and Plan (Free Text) Plan: Pt seen and examined by me. I have reviewed the note of the medical office assistant and I agree with it. I have discussed the assessment and plan with the resident. I have reviewed the medications and the last labs.
--- NOTE | 2018-10-20 21:04 | PN ---
DATE: 10/20/2018 SUBJECTIVE: The patient was seen and examined. I do agree with the note of the medical observer. I was involved in the plan of care. The patient has Parkinson's dementia. He is going to subacute rehab. The patient has Parkinson's. His Parkinson is controlled. He has coronary artery disease. He will continue with aspirin. The patient is on Plavix. He is on heparin for DVT prophylaxis. Planning for discharge to subacute. Jose Yuan MD
[2018-10-21] MEDS: Carbidopa/Levodopa/Entacapone 37.5mg-150mg-200mg PO SCH ×3 (10:09→16:59)
--- NOTE | 2018-10-21 14:12 | CP.PCM.PN ---
<Daniel Ragland - Last Filed: 10/21/18 14:09> Subjective - Date & Time of Evaluation Date of Evaluation: 10/21/18 Time of Evaluation: 07:40 - Subjective Subjective: Patient seen and examined at bedside. No acute events overnight. Patient no agitation at this time. ROS not obtainable due to dementia. Objective - Vital Signs/Intake and Output Vital Signs (last 24 hours): Temp Pulse Resp BP Pulse Ox 97.6 F 73 17 124/83 96 10/21/18 06:00 10/21/18 06:00 10/21/18 06:00 10/21/18 06:00 10/21/18 06:00 Intake and Output: 10/21/18 10/21/18 06:59 18:59 Intake Total 360 Balance 360 - Medications Medications: Current Medications Aspirin (Aspirin Chewable) 81 mg PO DAILY [facility] Last Admin: 10/21/18 10:10 Dose: 81 mg Carbidopa/Levodopa/Entacapone (Stalevo 150) 1 tab PO TID [facility] Last Admin: 10/21/18 10:09 Dose: 1 tab Clopidogrel Bisulfate (Plavix) 75 mg PO DAILY [facility] Last Admin: 10/21/18 10:09 Dose: 75 mg Famotidine (Pepcid) 20 mg PO 1000,2200 [facility] Last Admin: 10/21/18 10:09 Dose: 20 mg Heparin Sodium (Porcine) (Heparin) 5,000 units SC Q12 [facility]; Protocol Last Admin: 10/21/18 10:10 Dose: 5,000 units Lorazepam (Ativan) 0.5 mg PO DAILY [facility]; Protocol Last Admin: 10/20/18 09:25 Dose: 0.5 mg - Labs Labs: 10/19/18 06:30 10/19/18 06:30 - Constitutional Appears: No Acute Distress, Chronically Ill - Head Exam Head Exam: ATRAUMATIC, NORMAL INSPECTION, NORMOCEPHALIC - ENT Exam ENT Exam: Mucous Membranes Moist - Respiratory Exam Respiratory Exam: Decreased Breath Sounds, NORMAL BREATHING PATTERN - Cardiovascular Exam Cardiovascular Exam: RRR, +S1, +S2 - GI/Abdominal Exam GI & Abdominal Exam: Soft, Normal Bowel Sounds. absent: Tenderness - Extremities Exam Extremities Exam: Normal Inspection. absent: Pedal Edema - Neurological Exam Neurological Exam: Alert, Awake. absent: Oriented x3 Additional comments: Oriented x 1 - Psychiatric Exam Psychiatric exam: Flat Affect - Skin Skin Exam: Intact, Normal Color, Warm Assessment and Plan - Assessment and Plan (Free Text) Plan: 1. Parkinsonian Dementia 2. Parkinson's disease 3. Stage 2 pressure ulcer 4. CAD 5. Ischemic cardiomyopathy Patient recommended to go to [facility] at this time, however patient has been denied. Patient's family will file an appeal at this time. We will continue his Stalevo for Parkinson's disease. Patient will continue ASA and Plavix for stroke prevention. The patient will remain on Heparin for DVT prophylaxis. We will continue to work with social work for placement. Ellyn, PGY-3 <Jose Yuan S - Last Filed: 10/21/18 21:26> Objective - Vital Signs/Intake and Output Vital Signs (last 24 hours): Temp Pulse Resp BP Pulse Ox 98.7 F 59 L 20 98/65 L 97 10/21/18 14:00 10/21/18 14:00 10/21/18 14:00 10/21/18 14:00 10/21/18 14:00 Intake and Output: 10/21/18 10/22/18 18:59 06:59 Intake Total 240 Balance 240 - Medications Medications: Current Medications Aspirin (Aspirin Chewable) 81 mg PO DAILY [facility] Last Admin: 10/21/18 10:10 Dose: 81 mg Carbidopa/Levodopa/Entacapone (Stalevo 150) 1 tab PO TID [facility] Last Admin: 10/21/18 16:59 Dose: 1 tab Clopidogrel Bisulfate (Plavix) 75 mg PO DAILY [facility] Last Admin: 10/21/18 10:09 Dose: 75 mg Famotidine (Pepcid) 20 mg PO 1000,2200 [facility] Last Admin: 10/21/18 10:09 Dose: 20 mg Heparin Sodium (Porcine) (Heparin) 5,000 units SC Q12 [facility]; Protocol Last Admin: 10/21/18 10:10 Dose: 5,000 units Lorazepam (Ativan) 0.5 mg PO HS [facility]; Protocol - Labs Labs: 10/19/18 06:30 10/19/18 06:30 Assessment and Plan - Assessment and Plan (Free Text) Plan: Pt seen and examined by me. I have reviewed the note of the electromedical equipment technician and I agree with it. I have discussed the assessment and plan with the resident. I have reviewed the medications and the last labs.
--- NOTE | 2018-10-22 02:07 | PN ---
DATE: 10/21/2018 The patient was seen and examined. I do agree with the note of the medical charge entry specialist. I was involved in the plan of care. The patient is currently comfortable. He is waiting for subacute rehab. The patient's insurance company was called regarding the importance of rehab and trying to get the patient to subacute rehab. Waiting for final decision by them. The patient is on carbidopa/levodopa. He is on heparin for DVT prophylaxis. He is going to continue with aspirin. Jose Yuan MD
--- NOTE | 2018-10-22 09:25 | CP.PCM.PN ---
<Minerva Gillespie - Last Filed: 10/22/18 19:34> Subjective - Date & Time of Evaluation Date of Evaluation: 10/22/18 Time of Evaluation: 06:50 - Subjective Subjective: IM progress note for Dr. Yuan's service Patient with no acute events overnight. Patient is demented and confused, thus unable to obtain ROS. Objective - Vital Signs/Intake and Output Vital Signs (last 24 hours): Temp Pulse Resp BP Pulse Ox 98.2 F 106 H 20 101/70 95 10/22/18 06:00 10/22/18 06:00 10/22/18 06:00 10/22/18 06:00 10/22/18 06:00 Intake and Output: 10/22/18 10/22/18 06:59 18:59 Intake Total 480 Balance 480 - Medications Medications: Current Medications Aspirin (Aspirin Chewable) 81 mg PO DAILY [facility] Last Admin: 10/21/18 10:10 Dose: 81 mg Carbidopa/Levodopa/Entacapone (Stalevo 150) 1 tab PO TID [facility] Last Admin: 10/21/18 16:59 Dose: 1 tab Clopidogrel Bisulfate (Plavix) 75 mg PO DAILY [facility] Last Admin: 10/21/18 10:09 Dose: 75 mg Famotidine (Pepcid) 20 mg PO 1000,2200 [facility] Last Admin: 10/21/18 21:56 Dose: 20 mg Heparin Sodium (Porcine) (Heparin) 5,000 units SC Q12 [facility]; Protocol Last Admin: 10/21/18 21:57 Dose: 5,000 units Lorazepam (Ativan) 0.5 mg PO HS [facility]; Protocol Last Admin: 10/21/18 21:57 Dose: 0.5 mg - Labs Labs: 10/19/18 06:30 10/19/18 06:30 - Constitutional Appears: No Acute Distress, Cachectic, Chronically Ill - Head Exam Head Exam: ATRAUMATIC, NORMAL INSPECTION, NORMOCEPHALIC - Eye Exam Eye Exam: EOMI, Normal appearance - ENT Exam ENT Exam: Mucous Membranes Moist - Neck Exam Neck Exam: Normal Inspection - Respiratory Exam Respiratory Exam: Clear to Ausculation Bilateral, NORMAL BREATHING PATTERN. absent: Decreased Breath Sounds, Rales, Rhonchi, Wheezes, Respiratory Distress, Stridor - Cardiovascular Exam Cardiovascular Exam: REGULAR RHYTHM, RRR, +S1, +S2 - GI/Abdominal Exam GI & Abdominal Exam: Soft, Normal Bowel Sounds. absent: Distended, Firm, Guarding, Rigid, Tenderness, Rebound - Extremities Exam Extremities Exam: Normal Inspection - Back Exam Back Exam: NORMAL INSPECTION - Neurological Exam Neurological Exam: Alert, Awake Additional comments: Oriented to person, not oriented to time or place. - Psychiatric Exam Psychiatric exam: Flat Affect - Skin Skin Exam: Dry, Warm Additional comments: + pressure ulcer Assessment and Plan - Assessment and Plan (Free Text) Assessment: 1. Parkinsonian Dementia 2. Parkinson's disease 3. Stage 2 pressure ulcer 4. CAD 5. Ischemic cardiomyopathy 6) Pending placement Plan: Pending placement. Insurance denied patient's APRIL, pending family appeal. Continue Stalevo for Parkinson's disease. Patient is on ASA and Plavix for stroke prevention. On Heparin for DVT prophylaxis. Will follow up with social work for updates. Patient seen, examined and case discussed with Dr. Yuan. <Jose Yuan - Last Filed: 10/23/18 18:15> Objective - Vital Signs/Intake and Output Vital Signs (last 24 hours): Temp Pulse Resp BP Pulse Ox 98.4 F 74 18 116/77 98 10/23/18 15:24 10/23/18 15:24 10/23/18 15:24 10/23/18 15:24 10/23/18 15:24 Intake and Output: 10/23/18 10/23/18 06:59 18:59 Intake Total 360 Balance 360 - Medications Medications: Current Medications Aspirin (Aspirin Chewable) 81 mg PO DAILY [facility] Last Admin: 10/23/18 09:06 Dose: 81 mg Bisacodyl (Dulcolax) 10 mg RC ONCE PRN PRN Reason: Constipation Last Admin: 10/22/18 19:16 Dose: 10 mg Carbidopa/Levodopa/Entacapone (Stalevo 150) 1 tab PO TID [facility] Last Admin: 10/23/18 17:10 Dose: 1 tab Clopidogrel Bisulfate (Plavix) 75 mg PO DAILY [facility] Last Admin: 10/23/18 09:05 Dose: 75 mg Famotidine (Pepcid) 20 mg PO 1000,2200 [facility] Last Admin: 10/23/18 09:05 Dose: 20 mg Heparin Sodium (Porcine) (Heparin) 5,000 units SC Q12 [facility]; Protocol Last Admin: 10/23/18 14:40 Dose: 5,000 units Lorazepam (Ativan) 0.5 mg PO HS [facility]; Protocol Last Admin: 10/22/18 21:23 Dose: 0.5 mg - Labs Labs: 10/19/18 06:30 10/19/18 06:30 Assessment and Plan - Assessment and Plan (Free Text) Plan: Pt was seen and examined. This is a late entry. The note of the medical bill processor was reviewed and I agree the note. The plan of care was discussed with the resident.
[2018-10-22] MEDS: Carbidopa/Levodopa/Entacapone 37.5mg-150mg-200mg PO SCH ×3 (10:10→19:16)
[2018-10-23] MEDS: Carbidopa/Levodopa/Entacapone 37.5mg-150mg-200mg PO SCH ×3 (09:05→17:10)
--- NOTE | 2018-10-23 10:54 | CP.PCM.PN ---
<Daniel Ragland - Last Filed: 10/23/18 10:51> Subjective - Date & Time of Evaluation Date of Evaluation: 10/23/18 Time of Evaluation: 07:00 - Subjective Subjective: Patient seen and examined. No acute events overnight. Patient resting comfortably, in no acute distress. Objective - Vital Signs/Intake and Output Vital Signs (last 24 hours): Temp Pulse Resp BP Pulse Ox 97 F L 66 18 108/86 96 10/23/18 06:00 10/23/18 06:00 10/23/18 06:00 10/23/18 06:00 10/23/18 06:00 Intake and Output: 10/23/18 10/23/18 06:59 18:59 Intake Total 360 Balance 360 - Medications Medications: Current Medications Aspirin (Aspirin Chewable) 81 mg PO DAILY [facility] Last Admin: 10/23/18 09:06 Dose: 81 mg Bisacodyl (Dulcolax) 10 mg RC ONCE PRN PRN Reason: Constipation Last Admin: 10/22/18 19:16 Dose: 10 mg Carbidopa/Levodopa/Entacapone (Stalevo 150) 1 tab PO TID [facility] Last Admin: 10/23/18 09:05 Dose: 1 tab Clopidogrel Bisulfate (Plavix) 75 mg PO DAILY [facility] Last Admin: 10/23/18 09:05 Dose: 75 mg Famotidine (Pepcid) 20 mg PO 1000,2200 [facility] Last Admin: 10/23/18 09:05 Dose: 20 mg Heparin Sodium (Porcine) (Heparin) 5,000 units SC Q12 [facility]; Protocol Last Admin: 10/22/18 21:23 Dose: 5,000 units Lorazepam (Ativan) 0.5 mg PO HS [facility]; Protocol Last Admin: 10/22/18 21:23 Dose: 0.5 mg - Labs Labs: 10/19/18 06:30 10/19/18 06:30 - Constitutional Appears: Non-toxic, Chronically Ill - Head Exam Head Exam: ATRAUMATIC, NORMAL INSPECTION, NORMOCEPHALIC - ENT Exam ENT Exam: Mucous Membranes Moist - Respiratory Exam Respiratory Exam: Clear to Ausculation Bilateral, NORMAL BREATHING PATTERN - Cardiovascular Exam Cardiovascular Exam: RRR, +S1, +S2 - GI/Abdominal Exam GI & Abdominal Exam: Soft, Normal Bowel Sounds. absent: Tenderness - Extremities Exam Extremities Exam: Normal Inspection - Neurological Exam Neurological Exam: Alert, Awake - Skin Skin Exam: Dry, Intact, Warm Assessment and Plan - Assessment and Plan (Free Text) Plan: 1. Parkinsonian Dementia 2. Parkinson's disease 3. Stage 2 pressure ulcer 4. CAD 5. Ischemic cardiomyopathy Patient currently pending placement at this time. Initial APRIL denied by insurance, family will file appeal. Patient will continue on Stalevo for Parkinson's disease. Patient is on ASA and Plavix for stroke prevention. Patient is on Heparin for DVT prophylaxis. Will follow up with social work for updates. Ellyn, PGY-3 <Jose Yuan S - Last Filed: 10/23/18 20:00> Objective - Vital Signs/Intake and Output Vital Signs (last 24 hours): Temp Pulse Resp BP Pulse Ox 98.4 F 74 18 116/77 98 10/23/18 15:24 10/23/18 15:24 10/23/18 15:24 10/23/18 15:24 10/23/18 15:24 Intake and Output: 10/23/18 10/24/18 18:59 06:59 Intake Total 1260 Balance 1260 - Medications Medications: Current Medications Aspirin (Aspirin Chewable) 81 mg PO DAILY [facility] Last Admin: 10/23/18 09:06 Dose: 81 mg Bisacodyl (Dulcolax) 10 mg RC ONCE PRN PRN Reason: Constipation Last Admin: 10/22/18 19:16 Dose: 10 mg Carbidopa/Levodopa/Entacapone (Stalevo 150) 1 tab PO TID [facility] Last Admin: 10/23/18 17:10 Dose: 1 tab Clopidogrel Bisulfate (Plavix) 75 mg PO DAILY [facility] Last Admin: 10/23/18 09:05 Dose: 75 mg Famotidine (Pepcid) 20 mg PO 1000,2200 [facility] Last Admin: 10/23/18 09:05 Dose: 20 mg Heparin Sodium (Porcine) (Heparin) 5,000 units SC Q12 [facility]; Protocol Last Admin: 10/23/18 14:40 Dose: 5,000 units Lorazepam (Ativan) 0.5 mg PO HS [facility]; Protocol Last Admin: 10/22/18 21:23 Dose: 0.5 mg - Labs Labs: 10/19/18 06:30 10/19/18 06:30 Assessment and Plan - Assessment and Plan (Free Text) Plan: Pt was seen and examined. I agree with the note of the medical malpractice paralegal. I have reviewed the medications and the labs. I have gone over the plan of care with the resident.
--- NOTE | 2018-10-23 21:59 | PN ---
DATE: 10/23/2018 HOSPITAL COURSE: The patient was seen and examined, I do agree with the note of the hospital medical biller. The patient has Parkinson's, dementia. He has stage II pressure ulcer. He is getting local wound care. He has coronary artery disease. The patient is trying to get into subacute rehab facility. He is unable to ambulate and may be helpful for him to get aggressive rehab in ordered to get stronger so he can ambulate better. Jose Yuan MD
[2018-10-24] MEDS: Carbidopa/Levodopa/Entacapone 37.5mg-150mg-200mg PO SCH ×3 (09:48→18:08)
--- NOTE | 2018-10-24 10:16 | PN ---
DATE: 10/24/2018 SUBJECTIVE: The patient opens eyes. He is not communicating well. PHYSICAL EXAMINATION: VITAL SIGNS: Temperature is 98.8, pulse is 78, blood pressure 114/75, respirations 20. GENERAL: The patient is lying in bed, flat, comfortable. HEENT: No oral lesion. Anicteric sclerae. Moist mucosa. NECK: No JVD, adenopathy, or thyromegaly. CARDIOVASCULAR: S1 and S2, regular. No murmurs, rubs, or gallops. LUNGS: Clear to auscultation bilaterally. No wheeze, rales, or rhonchi. ABDOMEN: Bowel sounds are positive, soft, nontender and nondistended. EXTREMITIES: No cyanosis, clubbing or edema. ASSESSMENT: 1. Parkinson's dementia. 2. Parkinsonism. 3. Stage 2 pressure ulcer. 4. Coronary artery disease. 5. Ischemic cardiomyopathy. PLAN: The patient is currently comfortable. He is on heparin for DVT prophylaxis. He is going to continue his lorazepam in the evening. The patient is on Plavix and aspirin for his cardiomyopathy, that is from ischemia. He is on his carbidopa and levodopa. The patient's discharge planning is ongoing. The patient is waiting to go to subacute rehab for physical therapy. Jose Yuan MD
[2018-10-25] MEDS: Carbidopa/Levodopa/Entacapone 37.5mg-150mg-200mg PO SCH ×3 (10:40→18:16)
--- NOTE | 2018-10-25 20:26 | PN ---
DATE: 10/25/2018 SUBJECTIVE: The patient has no complaints of any chest pain. No shortness of breath. PHYSICAL EXAMINATION: VITAL SIGNS: Temperature is 97.8, pulse of 88, blood pressure 128/85, and respirations 18. GENERAL: The patient is lying in bed, flat, comfortable. HEENT: No oral lesion. Anicteric sclerae. Moist mucosa. NECK: No JVD, adenopathy, or thyromegaly. CARDIOVASCULAR: S1 and S2, regular. No murmurs, rubs, or gallops. LUNGS: Clear to auscultation bilaterally. No wheeze, rales, or rhonchi. ABDOMEN: Bowel sounds are positive, soft, nontender and nondistended. EXTREMITIES: No cyanosis, clubbing or edema. LABORATORY DATA: White count of 7.7 and hemoglobin 11. Creatinine is 0.7. ASSESSMENT: 1. Parkinson's dementia. 2. Parkinson's. 3. Stage 2 pressure ulcer. 4. Coronary artery disease. 5. Ischemic cardiomyopathy. PLAN: The patient is currently on Ativan at night for agitation. He is going to continue with aspirin and Plavix for his ischemic cardiomyopathy. The patient is on carbidopa, levodopa and entacapone for his Parkinson's. Discharge planning is ongoing. He is waiting to find out whether he is accepted to a facility, we have made calls to the insurance company. Jose Yuan MD
--- NOTE | 2018-10-26 08:33 | CP.PCM.PN ---
<Daniel Ragland - Last Filed: 10/26/18 08:33> Subjective - Date & Time of Evaluation Date of Evaluation: 10/26/18 Time of Evaluation: 07:10 - Subjective Subjective: Patient seen and examined at bedside. Patient with no acute events overnight. Patient resting comfortably. ROS unobtainable secondary to mental status. Objective - Vital Signs/Intake and Output Vital Signs (last 24 hours): Temp Pulse Resp BP Pulse Ox 98 F 64 17 108/67 95 10/26/18 06:00 10/26/18 06:00 10/26/18 06:00 10/26/18 06:00 10/26/18 06:00 - Medications Medications: Current Medications Aspirin (Aspirin Chewable) 81 mg PO DAILY [facility] Last Admin: 10/25/18 10:40 Dose: 81 mg Bisacodyl (Dulcolax) 10 mg RC ONCE PRN PRN Reason: Constipation Last Admin: 10/22/18 19:16 Dose: 10 mg Carbidopa/Levodopa/Entacapone (Stalevo 150) 1 tab PO TID [facility] Last Admin: 10/25/18 18:16 Dose: 1 tab Clopidogrel Bisulfate (Plavix) 75 mg PO DAILY [facility] Last Admin: 10/25/18 10:40 Dose: 75 mg Famotidine (Pepcid) 20 mg PO 1000,2200 [facility] Last Admin: 10/25/18 21:48 Dose: 20 mg Heparin Sodium (Porcine) (Heparin) 5,000 units SC Q12 [facility]; Protocol Last Admin: 10/25/18 21:48 Dose: 5,000 units Lorazepam (Ativan) 0.5 mg PO HS [facility]; Protocol Last Admin: 10/25/18 21:54 Dose: 0.5 mg - Labs Labs: 10/19/18 06:30 10/19/18 06:30 - Constitutional Appears: Non-toxic, No Acute Distress - Head Exam Head Exam: ATRAUMATIC, NORMAL INSPECTION, NORMOCEPHALIC - ENT Exam ENT Exam: Mucous Membranes Moist - Respiratory Exam Respiratory Exam: Decreased Breath Sounds, NORMAL BREATHING PATTERN - Cardiovascular Exam Cardiovascular Exam: RRR, +S1, +S2 - GI/Abdominal Exam GI & Abdominal Exam: Soft, Normal Bowel Sounds. absent: Tenderness - Extremities Exam Extremities Exam: absent: Pedal Edema - Neurological Exam Neurological Exam: Alert, Awake - Psychiatric Exam Psychiatric exam: Flat Affect - Skin Skin Exam: Intact, Normal Color, Warm Assessment and Plan - Assessment and Plan (Free Text) Plan: 1. Parkinsonian Dementia 2. Parkinson's disease 3. Stage 2 pressure ulcer 4. CAD 5. Ischemic cardiomyopathy Patient pending placement at this time. Initial APRIL denied by insurance, family will file appeal. We will follow up with social work. Patient will continue on Stalevo for Parkinson's disease. Patient is on ASA and Plavix for stroke prevention. Patient is on Heparin for DVT prophylaxis. Ellyn, PGY-3 <Jose Yuan S - Last Filed: 10/26/18 11:52> Objective - Vital Signs/Intake and Output Vital Signs (last 24 hours): Temp Pulse Resp BP Pulse Ox 98 F 64 17 108/67 95 10/26/18 06:00 10/26/18 06:00 10/26/18 06:00 10/26/18 06:00 10/26/18 06:00 - Medications Medications: Current Medications Aspirin (Aspirin Chewable) 81 mg PO DAILY [facility] Last Admin: 10/26/18 09:12 Dose: 81 mg Bisacodyl (Dulcolax) 10 mg RC ONCE PRN PRN Reason: Constipation Last Admin: 10/22/18 19:16 Dose: 10 mg Carbidopa/Levodopa/Entacapone (Stalevo 150) 1 tab PO TID [facility] Last Admin: 10/26/18 09:12 Dose: 1 tab Clopidogrel Bisulfate (Plavix) 75 mg PO DAILY [facility] Last Admin: 10/26/18 09:12 Dose: 75 mg Famotidine (Pepcid) 20 mg PO 1000,2200 [facility] Last Admin: 10/26/18 09:12 Dose: 20 mg Heparin Sodium (Porcine) (Heparin) 5,000 units SC Q12 [facility]; Protocol Last Admin: 10/26/18 09:11 Dose: 5,000 units Lorazepam (Ativan) 0.5 mg PO HS [facility]; Protocol Last Admin: 10/25/18 21:54 Dose: 0.5 mg - Labs Labs: 10/19/18 06:30 10/19/18 06:30 Assessment and Plan - Assessment and Plan (Free Text) Plan: Pt is seen and examined by me. I have reviewed the note of the medical physicist and I agree with the note. I have discussed the assessment and the plan with the resident. I have reviewed the medications and last labs.
[2018-10-26] MEDS: Carbidopa/Levodopa/Entacapone 37.5mg-150mg-200mg PO SCH ×3 (09:12→18:34)
--- NOTE | 2018-10-26 14:59 | PN ---
DATE: 10/26/2018 SUBJECTIVE: The patient was seen and examined. I do agree with the note of the medical planner. I was involved in the plan of care. The patient is on Parkinson's medication with Stalevo. ASSESSMENT AND PLAN: He is going to continue with aspirin and Plavix. The patient is on heparin for DVT prophylaxis. I did speak to , the social services. We will continue with discharge planning. Jose Yuan MD
[2018-10-27] MEDS: Carbidopa/Levodopa/Entacapone 37.5mg-150mg-200mg PO SCH ×3 (09:45→17:51)
--- NOTE | 2018-10-27 11:41 | CP.PCM.PN ---
<Daniel Ragland - Last Filed: 10/27/18 11:26> Subjective - Date & Time of Evaluation Date of Evaluation: 10/27/18 Time of Evaluation: 07:00 - Subjective Subjective: Patient seen and examined. Patient with no acute events overnight. Patient resting comfortably. Unable to obtain ROS secondary to mental status. Objective - Vital Signs/Intake and Output Vital Signs (last 24 hours): Temp Pulse Resp BP Pulse Ox 98 F 79 20 121/82 98 10/27/18 06:00 10/27/18 06:00 10/27/18 06:00 10/27/18 06:00 10/27/18 06:00 Intake and Output: 10/27/18 10/27/18 06:59 18:59 Intake Total 240 Balance 240 - Medications Medications: Current Medications Aspirin (Aspirin Chewable) 81 mg PO DAILY [facility] Last Admin: 10/27/18 09:45 Dose: 81 mg Bisacodyl (Dulcolax) 10 mg RC ONCE PRN PRN Reason: Constipation Last Admin: 10/22/18 19:16 Dose: 10 mg Carbidopa/Levodopa/Entacapone (Stalevo 150) 1 tab PO TID [facility] Last Admin: 10/27/18 09:45 Dose: 1 tab Clopidogrel Bisulfate (Plavix) 75 mg PO DAILY [facility] Last Admin: 10/27/18 09:45 Dose: 75 mg Famotidine (Pepcid) 20 mg PO 1000,2200 [facility] Last Admin: 10/27/18 09:46 Dose: 20 mg Heparin Sodium (Porcine) (Heparin) 5,000 units SC Q12 [facility]; Protocol Last Admin: 10/27/18 09:46 Dose: 5,000 units Lorazepam (Ativan) 0.5 mg PO HS [facility]; Protocol Last Admin: 10/26/18 21:46 Dose: 0.5 mg - Labs Labs: 10/19/18 06:30 10/19/18 06:30 - Constitutional Appears: Non-toxic, No Acute Distress, Chronically Ill - Head Exam Head Exam: ATRAUMATIC, NORMAL INSPECTION, NORMOCEPHALIC - Eye Exam Eye Exam: EOMI - ENT Exam ENT Exam: Mucous Membranes Moist - Respiratory Exam Respiratory Exam: Decreased Breath Sounds, NORMAL BREATHING PATTERN - Cardiovascular Exam Cardiovascular Exam: RRR, +S1, +S2 - GI/Abdominal Exam GI & Abdominal Exam: Soft, Normal Bowel Sounds. absent: Tenderness - Extremities Exam Extremities Exam: Normal Inspection. absent: Pedal Edema - Neurological Exam Neurological Exam: Alert, Awake. absent: Oriented x3 - Psychiatric Exam Psychiatric exam: Normal Affect, Normal Mood - Skin Skin Exam: Intact, Normal Color, Warm Assessment and Plan - Assessment and Plan (Free Text) Plan: 1. Parkinsonian Dementia 2. Parkinson's disease 3. Stage 2 pressure ulcer 4. CAD 5. Ischemic cardiomyopathy Patient still pending placement at this time as initial APRIL application was denied. Patient's family to file appeal. Will follow up with social work. Patient will continue on Stalevo for Parkinson's disease. Patient is on ASA and Plavix for stroke prevention. Patient is on Heparin for DVT prophylaxis. Ellyn, PGY-3 <Jose Yuan S - Last Filed: 10/27/18 17:57> Objective - Vital Signs/Intake and Output Vital Signs (last 24 hours): Temp Pulse Resp BP Pulse Ox 98.4 F 85 20 120/57 L 97 10/27/18 14:00 10/27/18 14:00 10/27/18 14:00 10/27/18 14:00 10/27/18 14:00 Intake and Output: 10/27/18 10/27/18 06:59 18:59 Intake Total 240 0 Balance 240 0 - Medications Medications: Current Medications Aspirin (Aspirin Chewable) 81 mg PO DAILY [facility] Last Admin: 10/27/18 09:45 Dose: 81 mg Bisacodyl (Dulcolax) 10 mg RC ONCE PRN PRN Reason: Constipation Last Admin: 10/22/18 19:16 Dose: 10 mg Carbidopa/Levodopa/Entacapone (Stalevo 150) 1 tab PO TID [facility] Last Admin: 10/27/18 17:51 Dose: 1 tab Clopidogrel Bisulfate (Plavix) 75 mg PO DAILY [facility] Last Admin: 10/27/18 09:45 Dose: 75 mg Famotidine (Pepcid) 20 mg PO 1000,2200 [facility] Last Admin: 10/27/18 09:46 Dose: 20 mg Heparin Sodium (Porcine) (Heparin) 5,000 units SC Q12 [facility]; Protocol Last Admin: 10/27/18 09:46 Dose: 5,000 units Lorazepam (Ativan) 0.5 mg PO HS [facility]; Protocol Last Admin: 10/26/18 21:46 Dose: 0.5 mg - Labs Labs: 10/19/18 06:30 10/19/18 06:30 Assessment and Plan - Assessment and Plan (Free Text) Plan: Pt seen and examined by me. I have reviewed the note of the medical administrator and I agree with it. I have discussed the assessment and plan with the resident. I have reviewed the medications and the last labs.
--- NOTE | 2018-10-27 22:08 | PN ---
DATE: 10/27/2018 SUBJECTIVE: The patient has no complaints of any chest pain. No shortness of breath. No headache or dizziness. PHYSICAL EXAMINATION: VITAL SIGNS: Temperature is 98.4, pulse is 85, blood pressure is 120/57, and respirations are 20. GENERAL: The patient is lying in bed, flat, comfortable. HEENT: No oral lesion. Anicteric sclerae. Moist mucosa. NECK: No JVD, adenopathy, or thyromegaly. CARDIOVASCULAR: S1 and S2, regular. No murmurs, rubs, or gallops. LUNGS: Clear to auscultation bilaterally. No wheeze, rales, or rhonchi. ABDOMEN: Bowel sounds are positive, soft, nontender and nondistended. EXTREMITIES: No cyanosis, clubbing or edema. ASSESSMENT AND PLAN: The patient was seen and examined. I do agree with the note of the medical director occupational health. The plan of care was reviewed. The patient is waiting for discharge to subacute rehab facility. He has not been accepted yet. has been done. The patient has Parkinson's dementia, coronary artery disease, and ischemic cardiomyopathy. He is not having any pain. He is being by the staff for his nutrition. He is going to continue his carbidopa and levodopa. He is on heparin for deep venous thrombosis prophylaxis. I will renew his heparin. He is going to continue with his Plavix. He is also on aspirin, I will renew his aspirin. I will repeat his blood work tomorrow. Jose Yuan MD
[2018-10-28 06:33] LABS: HEMOGLOBIN 11.7 g/dL (14.0-18.0); MEAN CELL VOLUME 93.8 fl (80.0-105.0); MEAN PLATELET VOLUME 10.5 fl (7.0-11.0); RBC 3.9 10^6/uL (3.5-6.1); RED CELL DISTRIBUTION WIDTH 15.4 % (11.5-14.5); WHITE BLOOD COUNT 9.4 10^3/uL (4.5-11.0)
[2018-10-28 06:55] LABS: ALB/GLOB RATIO 0.9 (1.1-1.8); ALBUMIN 3.6 g/dL (3.0-4.8); ALT/SGPT < 6 U/L (7-56); AST/SGOT 25 U/L (17-59); BLOOD UREA NITROGEN 25 mg/dL (7-21); CALCIUM 9.8 mg/dL (8.4-10.5); GFR NON-AFRICAN AMERICAN > 60
--- NOTE | 2018-10-28 09:33 | CP.PCM.PN ---
<Daniel Ragland - Last Filed: 10/28/18 09:40> Subjective - Date & Time of Evaluation Date of Evaluation: 10/28/18 Time of Evaluation: 07:20 - Subjective Subjective: Patient seen and examined at bedside. Patient with no acute events overnight. ROS unobtainable secondary to mental status. Objective - Vital Signs/Intake and Output Vital Signs (last 24 hours): Temp Pulse Resp BP Pulse Ox 97 F L 49 L 16 95/56 L 98 10/28/18 06:00 10/28/18 06:00 10/28/18 06:00 10/28/18 06:00 10/28/18 06:00 Intake and Output: 10/28/18 10/28/18 06:59 18:59 Intake Total 180 Balance 180 - Medications Medications: Current Medications Aspirin (Aspirin Chewable) 81 mg PO DAILY [facility] Last Admin: 10/27/18 09:45 Dose: 81 mg Bisacodyl (Dulcolax) 10 mg RC ONCE PRN PRN Reason: Constipation Last Admin: 10/22/18 19:16 Dose: 10 mg Carbidopa/Levodopa/Entacapone (Stalevo 150) 1 tab PO TID [facility] Last Admin: 10/27/18 17:51 Dose: 1 tab Clopidogrel Bisulfate (Plavix) 75 mg PO DAILY [facility] Last Admin: 10/27/18 09:45 Dose: 75 mg Famotidine (Pepcid) 20 mg PO 1000,2200 [facility] Last Admin: 10/27/18 21:22 Dose: 20 mg Heparin Sodium (Porcine) (Heparin) 5,000 units SC Q12 [facility]; Protocol Last Admin: 10/27/18 21:23 Dose: 5,000 units Lorazepam (Ativan) 0.5 mg PO HS [facility]; Protocol Last Admin: 10/27/18 21:22 Dose: 0.5 mg - Labs Labs: 10/28/18 06:00 10/28/18 06:00 - Constitutional Appears: Non-toxic, No Acute Distress - Head Exam Head Exam: ATRAUMATIC, NORMAL INSPECTION, NORMOCEPHALIC - ENT Exam ENT Exam: Mucous Membranes Dry - Respiratory Exam Respiratory Exam: Decreased Breath Sounds, NORMAL BREATHING PATTERN - Cardiovascular Exam Cardiovascular Exam: RRR, +S1, +S2 - GI/Abdominal Exam GI & Abdominal Exam: Soft, Normal Bowel Sounds. absent: Tenderness - Extremities Exam Extremities Exam: Normal Inspection. absent: Pedal Edema, Tenderness - Neurological Exam Neurological Exam: Alert, Awake. absent: Oriented x3 - Psychiatric Exam Psychiatric exam: Flat Affect - Skin Skin Exam: Intact, Normal Color, Warm Assessment and Plan - Assessment and Plan (Free Text) Plan: 1. Parkinsonian Dementia 2. Hypernatremia 3. Hypotension 4. Parkinson's disease 5. Stage 2 pressure ulcer 6. CAD 7. Ischemic cardiomyopathy Patient with mild hypernatremia and hypotension this morning. Will give 1 liter of D5W/1/2 NS. Patient's family filed appeal with social work yesterday, awaiting final decision. Will follow up with social work. Continue local wound care for pressure ulcer Patient will continue on Stalevo for Parkinson's disease. Patient is on ASA and Plavix for stroke prevention. Patient is on Heparin for DVT prophylaxis. Ellyn PGY-3 <Jose Yuan S - Last Filed: 10/28/18 18:22> Objective - Vital Signs/Intake and Output Vital Signs (last 24 hours): Temp Pulse Resp BP Pulse Ox 98.2 F 79 20 103/66 98 10/28/18 14:00 10/28/18 14:00 10/28/18 14:00 10/28/18 14:00 10/28/18 06:00 Intake and Output: 10/28/18 10/28/18 06:59 18:59 Intake Total 180 Balance 180 - Medications Medications: Current Medications Aspirin (Aspirin Chewable) 81 mg PO DAILY [facility] Last Admin: 10/28/18 10:36 Dose: 81 mg Bisacodyl (Dulcolax) 10 mg RC ONCE PRN PRN Reason: Constipation Last Admin: 10/22/18 19:16 Dose: 10 mg Carbidopa/Levodopa/Entacapone (Stalevo 150) 1 tab PO TID [facility] Last Admin: 10/28/18 15:09 Dose: 1 tab Clopidogrel Bisulfate (Plavix) 75 mg PO DAILY [facility] Last Admin: 10/28/18 10:36 Dose: 75 mg Famotidine (Pepcid) 20 mg PO 1000,2200 [facility] Last Admin: 10/28/18 10:36 Dose: 20 mg Heparin Sodium (Porcine) (Heparin) 5,000 units SC Q12 [facility]; Protocol Last Admin: 10/28/18 10:36 Dose: 5,000 units Dextrose/Sodium Chloride (Dextrose 5%/0.45% Ns 1000 Ml) 1,000 mls @ 100 mls/hr IV .Q10H [facility] Stop: 10/28/18 19:44 Last Admin: 10/28/18 11:12 Dose: 100 mls/hr Lorazepam (Ativan) 0.5 mg PO HS [facility]; Protocol Last Admin: 10/27/18 21:22 Dose: 0.5 mg - Labs Labs: 10/28/18 06:00 10/28/18 06:00 Assessment and Plan - Assessment and Plan (Free Text) Plan: Pt seen and examined by me. I have reviewed the note of the medical claims processor and I agree with it. I have discussed the assessment and plan with the resident. I have reviewed the medications and the last labs.
[2018-10-28] MEDS ORDERED: Dextrose 5%/0.45% NS 1,000 ML IV SCH (09:45)
[2018-10-28] MEDS: Carbidopa/Levodopa/Entacapone 37.5mg-150mg-200mg PO SCH ×4 (10:36→20:56)
[2018-10-29] MEDS: Carbidopa/Levodopa/Entacapone 37.5mg-150mg-200mg PO SCH ×3 (09:25→17:02)
[2018-10-29 09:28] LABS: BLOOD UREA NITROGEN 20 mg/dL (7-21); CALCIUM 9.9 mg/dL (8.4-10.5); GFR NON-AFRICAN AMERICAN > 60
--- NOTE | 2018-10-29 13:49 | CP.PCM.PN ---
<Daniel Ragland - Last Filed: 10/29/18 13:45> Subjective - Date & Time of Evaluation Date of Evaluation: 10/29/18 Time of Evaluation: 07:10 - Subjective Subjective: Patient seen and examined at bedside. Patient with no acute events overnight. ROS unobtainable secondary to mental status. Objective - Vital Signs/Intake and Output Vital Signs (last 24 hours): Temp Pulse Resp BP Pulse Ox 97 F L 93 H 16 102/73 96 10/29/18 06:00 10/29/18 06:00 10/29/18 06:00 10/29/18 06:00 10/29/18 06:00 Intake and Output: 10/29/18 10/29/18 06:59 18:59 Intake Total 0 120 Balance 0 120 - Medications Medications: Current Medications Aspirin (Aspirin Chewable) 81 mg PO DAILY [facility] Last Admin: 10/29/18 09:25 Dose: 81 mg Bisacodyl (Dulcolax) 10 mg RC ONCE PRN PRN Reason: Constipation Last Admin: 10/22/18 19:16 Dose: 10 mg Carbidopa/Levodopa/Entacapone (Stalevo 150) 1 tab PO TID [facility] Last Admin: 10/29/18 09:25 Dose: 1 tab Clopidogrel Bisulfate (Plavix) 75 mg PO DAILY [facility] Last Admin: 10/29/18 09:25 Dose: 75 mg Famotidine (Pepcid) 20 mg PO 1000,2200 [facility] Last Admin: 10/29/18 09:25 Dose: 20 mg Heparin Sodium (Porcine) (Heparin) 5,000 units SC Q12 [facility]; Protocol Last Admin: 10/29/18 09:25 Dose: 5,000 units Lorazepam (Ativan) 0.5 mg PO HS [facility]; Protocol Last Admin: 10/28/18 22:29 Dose: 0.5 mg - Labs Labs: 10/28/18 06:00 10/29/18 06:59 - Constitutional Appears: Non-toxic, No Acute Distress - Head Exam Head Exam: ATRAUMATIC, NORMAL INSPECTION, NORMOCEPHALIC - ENT Exam ENT Exam: Mucous Membranes Moist - Respiratory Exam Respiratory Exam: Clear to Ausculation Bilateral, NORMAL BREATHING PATTERN - Cardiovascular Exam Cardiovascular Exam: RRR, +S1, +S2 - GI/Abdominal Exam GI & Abdominal Exam: Soft, Normal Bowel Sounds. absent: Tenderness - Extremities Exam Extremities Exam: Normal Inspection. absent: Pedal Edema - Neurological Exam Neurological Exam: Alert, Awake - Psychiatric Exam Psychiatric exam: Flat Affect - Skin Skin Exam: Intact, Normal Color, Warm Assessment and Plan - Assessment and Plan (Free Text) Plan: 1. Parkinsonian Dementia 2. Hypernatremia, resolved 3. Hypotension, resolved 4. Parkinson's disease 5. Stage 2 pressure ulcer 6. CAD 7. Ischemic cardiomyopathy Patient with resolved hypernatremia and hypotension after being given liter bolus yesterday. Patient is awaiting placement and family has filed appeal after initial denial. Will follow up with social work. Continue local wound care for pressure ulcer Patient will continue on Stalevo for Parkinson's disease. Patient is on ASA and Plavix for stroke prevention. Patient is on Heparin for DVT pro phylaxis. Ellyn, PGY-3 <Jose Yuan S - Last Filed: 10/29/18 13:55> Objective - Vital Signs/Intake and Output Vital Signs (last 24 hours): Temp Pulse Resp BP Pulse Ox 97 F L 93 H 16 102/73 96 10/29/18 06:00 10/29/18 06:00 10/29/18 06:00 10/29/18 06:00 10/29/18 06:00 Intake and Output: 10/29/18 10/29/18 06:59 18:59 Intake Total 0 120 Balance 0 120 - Medications Medications: Current Medications Aspirin (Aspirin Chewable) 81 mg PO DAILY [facility] Last Admin: 10/29/18 09:25 Dose: 81 mg Bisacodyl (Dulcolax) 10 mg RC ONCE PRN PRN Reason: Constipation Last Admin: 10/22/18 19:16 Dose: 10 mg Carbidopa/Levodopa/Entacapone (Stalevo 150) 1 tab PO TID [facility] Last Admin: 10/29/18 13:44 Dose: 1 tab Clopidogrel Bisulfate (Plavix) 75 mg PO DAILY [facility] Last Admin: 10/29/18 09:25 Dose: 75 mg Famotidine (Pepcid) 20 mg PO 1000,2200 [facility] Last Admin: 10/29/18 09:25 Dose: 20 mg Heparin Sodium (Porcine) (Heparin) 5,000 units SC Q12 [facility]; Protocol Last Admin: 10/29/18 09:25 Dose: 5,000 units Lorazepam (Ativan) 0.5 mg PO HS [facility]; Protocol Last Admin: 10/28/18 22:29 Dose: 0.5 mg - Labs Labs: 10/28/18 06:00 10/29/18 06:59 Assessment and Plan - Assessment and Plan (Free Text) Plan: Pt seen and examined by me. I have reviewed the note of the medical instructor and I agree with it. I have discussed the assessment and plan with the resident. I have reviewed the medications and the last labs.
--- NOTE | 2018-10-29 15:45 | PN ---
DATE: 10/29/2018 SUBJECTIVE: The patient was seen and examined. I do agree with the notes of the medical administrator. ASSESSMENT AND PLAN: The patient has Parkinson's dementia. He has advanced Parkinson's as well. He is waiting for subacute rehab. He was hyponatremic, so, he was given IV fluids with free water to help improve his sodium. The patient has ischemic cardiomyopathy and coronary artery disease. We will continue to follow him and await the final word from the insurance company regarding his subacute rehab. Jose Yuan MD
[2018-10-30 09:11] VITALS: BP 98/61; PULSE 89; RESP 17; TEMP 97.6; O2SAT 95
[2018-10-30] MEDS: Carbidopa/Levodopa/Entacapone 37.5mg-150mg-200mg PO SCH ×2 (11:11→13:55)
--- NOTE | 2018-10-30 14:17 | CP.PCM.DIS ---
<Daniel Ragland - Last Filed: 10/30/18 14:18> Provider - Provider Date of Admission: 10/12/18 18:35 Attending physician: Jose Yuan MD Primary care physician: Bubba Levy MD Consults: 10/12/18 18:35 Nursing Referral for Wound Care Routine Comment: Physician Instructions: Reason For Exam: sacral decub 10/17/18 23:27 Nursing Referral for Wound Care Routine Comment: Physician Instructions: Reason For Exam: stage I on the sacral area 10/19/18 10:23 Neurology Consult Routine Comment: Consulting Provider: Jeffrey Rehman Consulting Physician: Jeffrey Rehman Reason for Consult: Neuro exam 10/28/18 20:53 Nursing Referral for Wound Care Routine Comment: Physician Instructions: Reason For Exam: Stage 2 to sacrum Time Spent in preparation of Discharge (in minutes): 45 Diagnosis - Discharge Diagnosis (1) Parkinsons disease Status: Chronic (2) Dementia Status: Chronic (3) Ischemic cardiomyopathy Status: Chronic (4) CAD (coronary artery disease) Status: Chronic Hospital Course - Lab Results Lab Results: Micro Results 10/12/18 17:45 Blood Blood Culture - Final NO GROWTH AFTER 5 DAYS 10/12/18 17:45 Blood Gram Stain - Final TEST NOT PERFORMED 10/12/18 17:20 Blood Blood Culture - Final NO GROWTH AFTER 5 DAYS 10/12/18 17:20 Blood Gram Stain - Final TEST NOT PERFORMED 10/12/18 17:20 Urine Random Urine Culture - Final Pseudomonas Aeruginosa Most Recent Lab Values WBC 9.4 10^3/uL (4.5-11.0) D 10/28/18 06:00 RBC 3.90 10^6/uL (3.5-6.1) 10/28/18 06:00 Hgb 11.7 g/dL (14.0-18.0) L 10/28/18 06:00 Hct 36.6 % (42.0-52.0) L 10/28/18 06:00 MCV 93.8 fl (80.0-105.0) 10/28/18 06:00 MCH 30.0 pg (25.0-35.0) 10/28/18 06:00 MCHC 32.0 g/dl (31.0-37.0) 10/28/18 06:00 RDW 15.4 % (11.5-14.5) H 10/28/18 06:00 Plt Count 251 10^3/uL (120.0-450.0) 10/28/18 06:00 MPV 10.5 fl (7.0-11.0) 10/28/18 06:00 Neut % (Auto) 68.2 % (50.0-68.0) H 10/12/18 17:20 Lymph % (Auto) 17.9 % (22.0-35.0) L 10/12/18 17:20 Meade % (Auto) 13.3 % (1.0-6.0) H 10/12/18 17:20 Eos % (Auto) 0.5 % (1.5-5.0) L 10/12/18 17:20 Baso % (Auto) 0.1 % (0.0-3.0) 10/12/18 17:20 Lymph # (Auto) 1.9 (1.2-3.4) 10/12/18 17:20 Meade # (Auto) 1.4 (0.1-0.6) H 10/12/18 17:20 Eos # (Auto) 0.1 (0.0-0.7) 10/12/18 17:20 Baso # (Auto) 0.01 K/mm3 (0.0-2.0) 10/12/18 17:20 Absolute Neuts (auto) 7.08 (1.4-6.5) H 10/12/18 17:20 pO2 33 mm/Hg (30-55) 10/12/18 17:54 VBG pH 7.41 (7.32-7.43) 10/12/18 17:54 VBG pCO2 39.0 (40-60) L 10/12/18 17:54 VBG HCO3 24.7 mmol/l (21-28) 10/12/18 17:54 VBG Total CO2 25.9 mmol.L (22-28) 10/12/18 17:54 VBG O2 Sat (Calc) 66.5 % (40-65) H 10/12/18 17:54 VBG Base Excess 0.1 mmol/L (0.0-2.0) 10/12/18 17:54 VBG Potassium 4.0 mmol/L (3.6-5.2) 10/12/18 17:54 Sodium 141.0 mmol/L (132-148) 10/12/18 17:54 Chloride 109.0 mmol/L (98-107) H 10/12/18 17:54 Glucose 99 mg/dl (75-110) 10/12/18 17:54 Lactate 1.0 mmol/L (0.7-2.1) 10/12/18 17:54 FiO2 21.0 % 10/12/18 17:54 Sodium 148 mmol/L (132-148) 10/29/18 06:59 Potassium 3.6 mmol/L (3.6-5.0) 10/29/18 06:59 Chloride 115 mmol/L (98-107) H 10/29/18 06:59 Carbon Dioxide 25 mmol/L (21-33) 10/29/18 06:59 Anion Gap 11 (10-20) 10/29/18 06:59 BUN 20 mg/dL (7-21) 10/29/18 06:59 Creatinine 0.8 mg/dl (0.8-1.5) 10/29/18 06:59 Est GFR ( Amer) > 60 10/29/18 06:59 Est GFR (Non-Af Amer) > 60 10/29/18 06:59 POC Glucose (mg/dL) 86 mg/dL (65-110) 10/24/18 21:50 Random Glucose 119 mg/dL (70-110) H 10/29/18 06:59 Calcium 9.9 mg/dL (8.4-10.5) 10/29/18 06:59 Phosphorus 4.4 mg/dL (2.5-4.5) 10/28/18 06:00 Magnesium 2.1 mg/dL (1.7-2.2) 10/28/18 06:00 Total Bilirubin 0.6 mg/dL (0.2-1.3) 10/28/18 06:00 AST 25 U/L (17-59) 10/28/18 06:00 ALT < 6 U/L (7-56) L 10/28/18 06:00 Alkaline Phosphatase 127 U/L (38-126) H 10/28/18 06:00 Lactate Dehydrogenase 474 U/L (333-699) 10/12/18 17:20 Total Creatine Kinase 69 U/L (35-230) 10/12/18 17:20 Troponin I < 0.01 ng/mL 10/12/18 17:20 Total Protein 7.9 g/dL (5.8-8.3) 10/28/18 06:00 Albumin 3.6 g/dL (3.0-4.8) 10/28/18 06:00 Globulin 4.2 gm/dL 10/28/18 06:00 Albumin/Globulin Ratio 0.9 (1.1-1.8) L 10/28/18 06:00 Total T3 0.97 ng/mL (0.97-1.69) 10/12/18 17:20 TSH 3rd Generation 2.82 mIU/mL (0.46-4.68) 10/12/18 17:20 Venous Blood Potassium 4.0 mmol/L (3.6-5.2) 10/12/18 17:54 Urine Color Yellow (YELLOW) 10/12/18 17:20 Urine Appearance Clear (CLEAR) 10/12/18 17:20 Urine pH 6.0 (4.7-8.0) 10/12/18 17:20 Ur Specific Roberts >= 1.030 (1.005-1.035) 10/12/18 17:20 Urine Protein Negative mg/dL (<30 mg/dL) 10/12/18 17:20 Urine Glucose (UA) Negative mg/dL (NEGATIVE) 10/12/18 17:20 Urine Ketones Trace mg/dL (NEGATIVE) H 10/12/18 17:20 Urine Blood Negative (NEGATIVE) 10/12/18 17:20 Urine Nitrate Negative (NEGATIVE) 10/12/18 17:20 Urine Bilirubin Negative (NEGATIVE) 10/12/18 17:20 Urine Urobilinogen 0.2 E.U./dL (<1 E.U./dL) 10/12/18 17:20 Ur Leukocyte Esterase Trace Alli/uL (NEGATIVE) H 10/12/18 17:20 Urine RBC 0 - 2 /hpf (0-2) 10/12/18 17:20 Urine WBC 2 - 5 /hpf (0-6) 10/12/18 17:20 Ur Epithelial Cells 1 - 3 /hpf (0-5) 10/12/18 17:20 Urine Bacteria Small /hpf (NONE) 10/12/18 17:20 Urine Opiates Screen Negative (NEGATIVE) 10/12/18 17:20 Urine Methadone Screen Negative (NEGATIVE) 10/12/18 17:20 Ur Barbiturates Screen Negative (NEGATIVE) 10/12/18 17:20 Ur Phencyclidine Scrn Negative (NEGATIVE) 10/12/18 17:20 Ur Amphetamines Screen Negative (NEGATIVE) 10/12/18 17:20 U Benzodiazepines Scrn Negative (NEGATIVE) 10/12/18 17:20 U Oth Cocaine Metabols Negative (NEGATIVE) 10/12/18 17:20 U Cannabinoids Screen Negative (NEGATIVE) 10/12/18 17:20 Influenza Typ A,B (EIA) Negative for flu a/b (NEGATIVE) 10/12/18 17:20 - Hospital Course Hospital Course: 78 year male with past medical history of parkinson's disease, parkinson's dementia, ischemic cardiomyopathy, and CAD presented to the hospital from [facility] after originally being discharged there after AMS. Patient was sent back due to finishing of his insurance benefits. Patient was evaluated by Neurology and advised to continue current medications. Patient worked with physical therapy who recommended [facility]. Patient was seen without complications. Patient will be discharged to [facility] for further care. Patient will continue current medical regimen. Discharge Exam - Head Exam Head Exam: ATRAUMATIC, NORMAL INSPECTION, NORMOCEPHALIC - Respiratory Exam Respiratory Exam: NORMAL BREATHING PATTERN, UNREMARKABLE - Cardiovascular Exam Cardiovascular Exam: RRR, +S1, +S2 - GI/Abdominal Exam GI & Abdominal Exam: Normal Bowel Sounds, Unremarkable. absent: Tenderness - Extremities Exam Extremities exam: normal inspection - Neurological Exam Neurological exam: Alert (Oriented x 1) - Psychiatric Exam Psychiatric exam: Normal Affect, Normal Mood - Skin Skin Exam: Intact, Normal Color, Warm Discharge Plan - Follow Up Plan Condition: STABLE Disposition: HOME/ ROUTINE Instructions: Dehydration, Adult (DC), Pressure Sores (DC), Altered Mental Status (DC), Pureed Diet Additional Instructions: Follow up with your primary care doctor in 1 week. Take medications as directed. Continue rehab at the rehab center. Return to the emergency room for any worsening of symptoms. Referrals: Jose Yuan MD [Staff Provider] - Bubba Levy MD [Primary Care Provider] - <Jose Yuan - Last Filed: 10/30/18 14:46> Provider - Provider Date of Admission: 10/12/18 18:35 Attending physician: Jose Yuan MD Primary care physician: Bubba Levy MD Consults: 10/12/18 18:35 Nursing Referral for Wound Care Routine Comment: Physician Instructions: Reason For Exam: sacral decub 10/17/18 23:27 Nursing Referral for Wound Care Routine Comment: Physician Instructions: Reason For Exam: stage I on the sacral area 10/19/18 10:23 Neurology Consult Routine Comment: Consulting Provider: Jeffrey Rehman Consulting Physician: Jeffrey Rehman Reason for Consult: Neuro exam 10/28/18 20:53 Nursing Referral for Wound Care Routine Comment: Physician Instructions: Reason For Exam: Stage 2 to [facility] Course - Lab Results Lab Results: Micro Results 10/12/18 17:45 Blood Blood Culture - Final NO GROWTH AFTER 5 DAYS 10/12/18 17:45 Blood Gram Stain - Final TEST NOT PERFORMED 10/12/18 17:20 Blood Blood Culture - Final NO GROWTH AFTER 5 DAYS 10/12/18 17:20 Blood Gram Stain - Final TEST NOT PERFORMED 10/12/18 17:20 Urine Random Urine Culture - Final Pseudomonas Aeruginosa Most Recent Lab Values WBC 9.4 10^3/uL (4.5-11.0) D 10/28/18 06:00 RBC 3.90 10^6/uL (3.5-6.1) 10/28/18 06:00 Hgb 11.7 g/dL (14.0-18.0) L 10/28/18 06:00 Hct 36.6 % (42.0-52.0) L 10/28/18 06:00 MCV 93.8 fl (80.0-105.0) 10/28/18 06:00 MCH 30.0 pg (25.0-35.0) 10/28/18 06:00 MCHC 32.0 g/dl (31.0-37.0) 10/28/18 06:00 RDW 15.4 % (11.5-14.5) H 10/28/18 06:00 Plt Count 251 10^3/uL (120.0-450.0) 10/28/18 06:00 MPV 10.5 fl (7.0-11.0) 10/28/18 06:00 Neut % (Auto) 68.2 % (50.0-68.0) H 10/12/18 17:20 Lymph % (Auto) 17.9 % (22.0-35.0) L 10/12/18 17:20 Meade % (Auto) 13.3 % (1.0-6.0) H 10/12/18 17:20 Eos % (Auto) 0.5 % (1.5-5.0) L 10/12/18 17:20 Baso % (Auto) 0.1 % (0.0-3.0) 10/12/18 17:20 Lymph # (Auto) 1.9 (1.2-3.4) 10/12/18 17:20 Meade # (Auto) 1.4 (0.1-0.6) H 10/12/18 17:20 Eos # (Auto) 0.1 (0.0-0.7) 10/12/18 17:20 Baso # (Auto) 0.01 K/mm3 (0.0-2.0) 10/12/18 17:20 Absolute Neuts (auto) 7.08 (1.4-6.5) H 10/12/18 17:20 pO2 33 mm/Hg (30-55) 10/12/18 17:54 VBG pH 7.41 (7.32-7.43) 10/12/18 17:54 VBG pCO2 39.0 (40-60) L 10/12/18 17:54 VBG HCO3 24.7 mmol/l (21-28) 10/12/18 17:54 VBG Total CO2 25.9 mmol.L (22-28) 10/12/18 17:54 VBG O2 Sat (Calc) 66.5 % (40-65) H 10/12/18 17:54 VBG Base Excess 0.1 mmol/L (0.0-2.0) 10/12/18 17:54 VBG Potassium 4.0 mmol/L (3.6-5.2) 10/12/18 17:54 Sodium 141.0 mmol/L (132-148) 10/12/18 17:54 Chloride 109.0 mmol/L (98-107) H 10/12/18 17:54 Glucose 99 mg/dl (75-110) 10/12/18 17:54 Lactate 1.0 mmol/L (0.7-2.1) 10/12/18 17:54 FiO2 21.0 % 10/12/18 17:54 Sodium 148 mmol/L (132-148) 10/29/18 06:59 Potassium 3.6 mmol/L (3.6-5.0) 10/29/18 06:59 Chloride 115 mmol/L (98-107) H 10/29/18 06:59 Carbon Dioxide 25 mmol/L (21-33) 10/29/18 06:59 Anion Gap 11 (10-20) 10/29/18 06:59 BUN 20 mg/dL (7-21) 10/29/18 06:59 Creatinine 0.8 mg/dl (0.8-1.5) 10/29/18 06:59 Est GFR ( Amer) > 60 10/29/18 06:59 Est GFR (Non-Af Amer) > 60 10/29/18 06:59 POC Glucose (mg/dL) 86 mg/dL (65-110) 10/24/18 21:50 Random Glucose 119 mg/dL (70-110) H 10/29/18 06:59 Calcium 9.9 mg/dL (8.4-10.5) 10/29/18 06:59 Phosphorus 4.4 mg/dL (2.5-4.5) 10/28/18 06:00 Magnesium 2.1 mg/dL (1.7-2.2) 10/28/18 06:00 Total Bilirubin 0.6 mg/dL (0.2-1.3) 10/28/18 06:00 AST 25 U/L (17-59) 10/28/18 06:00 ALT < 6 U/L (7-56) L 10/28/18 06:00 Alkaline Phosphatase 127 U/L (38-126) H 10/28/18 06:00 Lactate Dehydrogenase 474 U/L (333-699) 10/12/18 17:20 Total Creatine Kinase 69 U/L (35-230) 10/12/18 17:20 Troponin I < 0.01 ng/mL 10/12/18 17:20 Total Protein 7.9 g/dL (5.8-8.3) 10/28/18 06:00 Albumin 3.6 g/dL (3.0-4.8) 10/28/18 06:00 Globulin 4.2 gm/dL 10/28/18 06:00 Albumin/Globulin Ratio 0.9 (1.1-1.8) L 10/28/18 06:00 Total T3 0.97 ng/mL (0.97-1.69) 10/12/18 17:20 TSH 3rd Generation 2.82 mIU/mL (0.46-4.68) 10/12/18 17:20 Venous Blood Potassium 4.0 mmol/L (3.6-5.2) 10/12/18 17:54 Urine Color Yellow (YELLOW) 10/12/18 17:20 Urine Appearance Clear (CLEAR) 10/12/18 17:20 Urine pH 6.0 (4.7-8.0) 10/12/18 17:20 Ur Specific Roberts >= 1.030 (1.005-1.035) 10/12/18 17:20 Urine Protein Negative mg/dL (<30 mg/dL) 10/12/18 17:20 Urine Glucose (UA) Negative mg/dL (NEGATIVE) 10/12/18 17:20 Urine Ketones Trace mg/dL (NEGATIVE) H 10/12/18 17:20 Urine Blood Negative (NEGATIVE) 10/12/18 17:20 Urine Nitrate Negative (NEGATIVE) 10/12/18 17:20 Urine Bilirubin Negative (NEGATIVE) 10/12/18 17:20 Urine Urobilinogen 0.2 E.U./dL (<1 E.U./dL) 10/12/18 17:20 Ur Leukocyte Esterase Trace Alli/uL (NEGATIVE) H 10/12/18 17:20 Urine RBC 0 - 2 /hpf (0-2) 10/12/18 17:20 Urine WBC 2 - 5 /hpf (0-6) 10/12/18 17:20 Ur Epithelial Cells 1 - 3 /hpf (0-5) 10/12/18 17:20 Urine Bacteria Small /hpf (NONE) 10/12/18 17:20 Urine Opiates Screen Negative (NEGATIVE) 10/12/18 17:20 Urine Methadone Screen Negative (NEGATIVE) 10/12/18 17:20 Ur Barbiturates Screen Negative (NEGATIVE) 10/12/18 17:20 Ur Phencyclidine Scrn Negative (NEGATIVE) 10/12/18 17:20 Ur Amphetamines Screen Negative (NEGATIVE) 10/12/18 17:20 U Benzodiazepines Scrn Negative (NEGATIVE) 10/12/18 17:20 U Oth Cocaine Metabols Negative (NEGATIVE) 10/12/18 17:20 U Cannabinoids Screen Negative (NEGATIVE) 10/12/18 17:20 Influenza Typ A,B (EIA) Negative for flu a/b (NEGATIVE) 10/12/18 17:20 - Hospital Course Hospital Course: Pt seen and examined by me. I have reviewed the note of the medical collections specialist and I agree with it. I have discussed the assessment and plan with the resident. I have reviewed the medications and the last labs.
--- NOTE | 2018-10-30 17:04 | PN ---
DATE: 10/30/2018 SUBJECTIVE: The patient was seen and examined. I do agree with the note of the nuclear medicine medical director. The patient has Parkinson's with dementia. The patient is going to be discharged to subacute rehab facility. He had hypernatremia and this was treated with IV fluids with free water. He continues to require assistance with feeding. The patient is going to continue his medications for the Parkinson's with carbidopa and levodopa. He is going to continue with aspirin. He is on heparin for DVT prophylaxis as well as taking Plavix. The denial for subacute rehab has been overturned. There is a new authorization for subacute rehab and the patient will be discharged. CONDITION: Stable. ACTIVITIES: Increase as tolerated. Jose Yuan MD
== END 2018-10-30 15:04 | DRG 57 ==
LOC: ED 16:40 → ERH 18:35 → 5RNO 21:54
PROVIDERS: ADMIT Internal Medicine; ATTEND Internal Medicine Nephrology
DX: G20 Parkinson's disease (principal); R44.3 Hallucinations, unspecified; E87.0 Hyperosmolality and hypernatremia; F02.80 Dementia in other diseases classified elsewhere, unspecified severity, without behavioral disturbance, psychotic disturbance, mood disturbance, and anxiety; G30.9 Alzheimer's disease, unspecified; E86.0 Dehydration; I95.9 Hypotension, unspecified; I25.10 Atherosclerotic heart disease of native coronary artery without angina pectoris; L89.152 Pressure ulcer of sacral region, stage 2; R41.82 Altered mental status, unspecified; I25.5 Ischemic cardiomyopathy; I10 Essential (primary) hypertension; I44.0 Atrioventricular block, first degree; F41.9 Anxiety disorder, unspecified; Z75.1 Person awaiting admission to adequate facility elsewhere; Z79.02 Long term (current) use of antithrombotics/antiplatelets; Z79.82 Long term (current) use of aspirin; Z95.5 Presence of coronary angioplasty implant and graft

== ENCOUNTER 2018-11-04 17:26 | Inpatient (IN) | payer MEDICARE ==
[2018-11-04] MEDS ORDERED: Sodium Chloride 0.9% 500 ML IV STA (17:40)
--- NOTE | 2018-11-04 18:25 | ED PDOC ---
Arrival/HPI - General Chief Complaint: Weakness/Neurological Deficit Time Seen by Provider: 11/04/18 17:30 Historian: Patient EM Caveat: Dementia, Other (nonverbal ) - History of Present Illness Narrative History of Present Illness (Text): 11/04/18 18:22 78 year old male, whose past medical history includes Parkinson's disease and dementia, CAD, and hypertension, presents to the emergency department sent by group home for failure to thrive. As per group home documentation patient has not been eating recently and is unable to swallow. Of note, blood work from 2 days ago showed patient was hypernatremic and his chest X-ray was normal. Patient is non verbal and is unable to provide any information. HPI and ROS are limited due to patient's nonverbal condition. Time/Duration: Prior to Arrival Symptom Onset: Gradual Symptom Course: Unchanged Activities at Onset: Light Context: Other (group home) Past Medical History - Provider Review Nursing Documentation Reviewed: Yes - Infectious Disease Hx of Infectious Diseases: None - Cardiac Hx Cardiac Disorders: Yes Hx Hypertension: Yes - Pulmonary Hx Respiratory Disorders: No - Neurological Hx Neurological Disorder: Yes Hx Alzheimer's Disease: Yes Hx Dementia: Yes Hx Parkinson's Disease: Yes - HEENT Hx HEENT Disorder: No - Renal Hx Renal Disorder: Yes Hx Pyelonephritis: Yes (right sided) - Endocrine/Metabolic Other/Comment: oscar's disease - Hematological/Oncological Hx Blood Disorders: No - Integumentary Hx Dermatological Disorder: Yes Other/Comment: DECUBITI - Musculoskeletal/Rheumatological Hx Musculoskeletal Disorders: Yes Hx Unsteady Gait: Yes - Gastrointestinal Hx Gastrointestinal Disorders: Yes Other/Comment: constipation - Genitourinary/Gynecological Hx Genitourinary Disorders: Yes Hx Incontinence: Yes - Psychiatric Hx Psychophysiologic Disorder: Yes Hx Anxiety: Yes Hx Psychosis: Yes Hx Substance Use: No - Surgical History Hx Coronary Stent: Yes - Anesthesia Hx Anesthesia: Yes Hx Anesthesia Reactions: No Hx Malignant Hyperthermia: No - Suicidal Assessment Feels Threatened In Home Enviroment: No Family/Social History - Physician Review Nursing Documentation Reviewed: Yes Family/Social History: No Known Family HX Smoking Status: Unknown If Ever Smoked Hx Alcohol Use: No Amount per day: 4 Hx Substance Use: No Hx Substance Use Treatment: No Allergies/Home Meds Allergies/Adverse Reactions: Allergies acetaminophen [From Percocet] Adverse Reaction (Verified 11/04/18 17:40) FATIGUE also more confused haloperidol [From Haldol] Adverse Reaction (Verified 11/04/18 17:40) FATIGUE oxycodone [From Percocet] Adverse Reaction (Verified 11/04/18 17:40) FATIGUE also more confused Home Medications: Home Meds Medication Instructions Recorded Confirmed Ascorbic Acid [Vitamin C 500 mg 1 tab PO DAILY 10/12/18 11/04/18 Tab] Ergocalciferol [Drisdol 50,000 1 cap PO FRI 10/12/18 11/04/18 Intl Units Cap] Ibuprofen [Motrin Tab] 1 tab PO Q6H PRN 10/12/18 11/04/18 Iron Polysaccharide [Ferrex-150] 1 tab PO DAILY 10/12/18 11/04/18 LORazepam Half Tablet [Ativan] 0.5 mg PO Q6H PRN 10/12/18 11/04/18 Menthol [Icy Hot] 1 patch TOP DAILY 10/12/18 11/04/18 Multivitamin [Multivitamins] 1 cap PO DAILY 10/12/18 11/04/18 OLANZapine [Zyprexa] 5 mg PO DAILY 10/12/18 11/04/18 Zinc [Zinc Sulfate 220 mg Cap] 1 tab PO DAILY 10/12/18 11/04/18 Magnesium Hydroxide [Milk Of 30 ml PO DAILY PRN 11/04/18 11/04/18 Magnesia] Review of Systems - Review of Systems Systems not reviewed;Unavailable: Other (nonverbal) Gastrointestinal: Appetite Changes (decreased appetite) Physical Exam Vital Signs Reviewed: Yes Vital Signs Temp Pulse Resp BP Pulse Ox 11/04/18 17:40 100.0 F H 94 H 17 125/68 100 Temperature: Afebrile Blood Pressure: Normal Pulse: Regular Respiratory Rate: Normal Appearance: Positive for: Non-Toxic, Comfortable Pain Distress: None Mental Status: Positive for: Lethargic. No: Alert and Oriented X 3 - Systems Exam Head: Present: Atraumatic, Normocephalic Pupils: Present: PERRL Extroacular Muscles: Present: EOMI Conjunctiva: Present: Normal Mouth: Present: Dry. No: Moist Mucous Membranes Pharnyx: Present: Other (dry) Neck: Present: Normal Range of Motion Respiratory/Chest: Present: Good Air Exchange, Other (protecting airway, course breath sounds bilaterally ). No: Respiratory Distress, Accessory Muscle Use Cardiovascular: Present: Regular Rate and Rhythm, Normal S1, S2. No: Murmurs Abdomen: No: Tenderness, Distention, Peritoneal Signs Back: Present: Normal Inspection Lower Extremity: Present: Other (spontaneous movement x 4) Neurological: Present: Other (non-verbal) Skin: Present: Warm, Dry, Normal Color, Pale. No: Rashes Psychiatric: Present: Lethargic Medical Decision Making ED Course and Treatment: 11/04/18 18:23 Impression: 78 year old male who presents tot he emergency department for failure to thrive. Plan: -- Head CT -- Labs -- Chest X-ray -- IV fluids -- blood culture -- urine culture -- Urinalysis -- Reassess and disposition Prior Visits: Notes and results from previous visits were reviewed. Progress Notes: 11/04/18 20:21 Cxray negative as read by me. CT head 1. There is generalized parenchymal atrophy noted as demonstrated by symmetrical dilatation of ventricles and sulci. 2. Chronic periventricular and subcortical microvascular disease is seen. 3. No acute intracranial pathology. Labs consistent with hypernatriemia and hyperchloremia. UA positive and antibiotics ordered. IVF infusing. Accepted by Dr. Duenas 11/04/18 21:03 On reevaluation patient is more alert and at bedside - Lab Interpretations I have reviewed the lab results: Yes - RAD Interpretation Radiology Orders: 11/04/18 17:39 HEAD W/O CONTRAST [CT] Stat CHEST PORTABLE [RAD] Stat Storyboard Artist: Radiologist - Medication Orders Current Medication Orders: Discontinued Medications Sodium Chloride (Sodium Chloride 0.9%) 500 mls @ 999 mls/hr IV .Q31M STA Stop: 11/04/18 18:10 - Scribe Statement The provider has reviewed the documentation as recorded by the Scribe Martine Mcdonald All medical record entries made by the Scribe were at my direction and personally dictated by me. I have reviewed the chart and agree that the record accurately reflects my personal performance of the history, physical exam, medical decision making, and the department course for this patient. I have also personally directed, reviewed, and agree with the discharge instructions and disposition. Disposition/Present on Arrival - Present on Arrival Any Indicators Present on Arrival: No History of DVT/PE: No History of Uncontrolled Diabetes: No Urinary Catheter: No History of Decub. Ulcer: Yes History Surgical Site Infection Following: None - Disposition Have Diagnosis and Disposition been Completed?: Yes Diagnosis: Hypernatremia, UTI (urinary tract infection), Hyperchloremia, Dehydration, Lethargy Disposition: HOSPITALIZED Disposition Time: 20:44 Patient Plan: Admission Patient Problems: Current Active Problems Problem Status Onset Dehydration Acute Hypernatremia Acute UTI (urinary tract infection) Acute Hyperchloremia Acute Lethargy Acute Condition: FAIR
[2018-11-04 18:54] LABS: BASO # 0.01 K/mm3 (0.0-2.0); BASO % 0.1 % (0.0-3.0); EOS % 0.3 % (1.5-5.0); HEMOGLOBIN 10.9 g/dL (14.0-18.0); LYMPH # 1.4 (1.2-3.4); MEAN CORPUSCULAR HGB CONC 31.6 g/dl (31.0-37.0); MEAN PLATELET VOLUME 10.9 fl (7.0-11.0); MONO # 1.1 (0.1-0.6); MONO % 10.2 % (1.0-6.0); RBC 3.63 10^6/uL (3.5-6.1); RED CELL DISTRIBUTION WIDTH 16.3 % (11.5-14.5); WHITE BLOOD COUNT 10.7 10^3/uL (4.5-11.0)
[2018-11-04 19:06] LABS: ALB/GLOB RATIO 0.8 (1.1-1.8); ALBUMIN 3.2 g/dL (3.0-4.8); ALT/SGPT 10 U/L (7-56); AST/SGOT 34 U/L (17-59); BLOOD UREA NITROGEN 34 mg/dL (7-21); CALCIUM 9.2 mg/dL (8.4-10.5); GFR NON-AFRICAN AMERICAN > 60; LIPASE 45 U/L (23-300)
[2018-11-04 20:02] LABS: PH,URINE 6.5 (4.7-8.0); URINE BILIRUBIN MODERATE (NEGATIVE); URINE BLOOD LARGE (NEGATIVE); URINE GLUCOSE (UA) NEGATIVE (NEGATIVE); URINE LEUKOCYTE ESTERASE TRACE Leu/uL (NEGATIVE); URINE PROTEIN 100 mg/dL (<30 mg/dL)
[2018-11-04 20:03] LABS: URINE APPEARANCE CLOUDY (CLEAR)
[2018-11-04] MEDS ORDERED: cefTRIAXone 1 gm 1 GM/100 ML BAG IVPB STA (20:15)
[2018-11-04 20:21] LABS: URINE COLOR DARK BROWN (YELLOW); URINE RBC TNTC /hpf (0-2); URINE WBC TNTC /hpf (0-6)
[2018-11-04 20:22] LABS: URINE BACTERIA MANY /hpf
[2018-11-04] MEDS ORDERED: Sodium Chloride 0.9% 1,000 ML IV SCH (20:30)
--- NOTE | 2018-11-05 02:36 | CP.PCM.PN ---
Subjective - Date & Time of Evaluation Date of Evaluation: 11/05/18 Time of Evaluation: 02:33 - Subjective Subjective: Patient was seen at bedside. He was restless. I asked him if he had any symptoms. He would not answer my any questions. Medical record was reviewed. This 78 year old white male is admitted with history of failure to thrive, not eating,inability to swallow, is non verbal. Has PMH of HTN,dementia,CAD, coronary stent placement, ischemic cardiomyopathy. Objective - Vital Signs/Intake and Output Vital Signs (last 24 hours): Temp Pulse Resp BP Pulse Ox 98.9 F 99 H 18 125/61 95 11/04/18 23:45 11/04/18 23:45 11/04/18 23:45 11/04/18 23:45 11/04/18 23:45 - Medications Medications: Current Medications Sodium Chloride (Sodium Chloride 0.9%) 1,000 mls @ 100 mls/hr IV .Q10H BRISEYDA Last Admin: 11/04/18 21:34 Dose: 100 mls/hr - Labs Labs: 11/04/18 18:36 11/04/18 18:36 - Constitutional Appears: Well, No Acute Distress - Head Exam Head Exam: ATRAUMATIC, NORMAL INSPECTION, NORMOCEPHALIC - Eye Exam Eye Exam: Normal appearance - ENT Exam ENT Exam: Normal External Ear Exam - Neck Exam Neck Exam: Normal Inspection - Respiratory Exam Respiratory Exam: NORMAL BREATHING PATTERN - Cardiovascular Exam Cardiovascular Exam: absent: JVD - GI/Abdominal Exam GI & Abdominal Exam: absent: Distended - Rectal Exam Rectal Exam: Deferred - Exam Additional comments: Deferred. - Extremities Exam Extremities Exam: Normal Inspection - Back Exam Back Exam: NORMAL INSPECTION - Neurological Exam Neurological Exam: Alert, Awake Additional comments: Non verbal. - Psychiatric Exam Psychiatric exam: Agitated - Skin Skin Exam: Normal Color Assessment and Plan - Assessment and Plan (Free Text) Assessment: Restlessness. CAD S/P coronary stent placement Hx Ischemic cardiomyopathy. Hypertension. Parkinson's disease. History appendectomy. Plan: Ativan 0.5 mg IV x 1. And as per PMD in the morning. Will get EKG and troponin to r/o any cardiac pain. 03:22--->EKG---> NSR,PVC,PAC.
[2018-11-05] MEDS ORDERED: Potassium Chloride 20 mEq ER Tab PO ONE (03:23)
[2018-11-05 03:36] VITALS: BMI 23.7
--- NOTE | 2018-11-05 07:21 | CT ---
Date of service: 11/04/2018 PROCEDURE: CT HEAD WITHOUT CONTRAST. HISTORY: AMS COMPARISON: 10/12/2018 TECHNIQUE: Axial computed tomography images were obtained through the head/brain without intravenous contrast. Radiation dose: Total exam DLP = 889.84 mGy-cm. This CT exam was performed using one or more of the following dose reduction techniques: Automated exposure control, adjustment of the mA and/or kV according to patient size, and/or use of iterative reconstruction technique. FINDINGS: HEMORRHAGE: No intracranial hemorrhage. BRAIN: No mass effect or edema. No atrophy or chronic microvascular ischemic changes. VENTRICLES: Unremarkable. No hydrocephalus. CALVARIUM: Unremarkable. PARANASAL SINUSES: Unremarkable as visualized. No significant inflammatory changes. MASTOID AIR CELLS: Unremarkable as visualized. No inflammatory changes. OTHER FINDINGS: The report concurs with the preliminary [facility] report IMPRESSION: No acute intracranial finding
--- NOTE | 2018-11-05 07:42 | RAD ---
Date of service: 11/04/2018 HISTORY: altered mental COMPARISON: 10/12/2018 TECHNIQUE: 1 view obtained. FINDINGS: LUNGS: No active pulmonary disease. PLEURA: No significant pleural effusion identified, no pneumothorax apparent. CARDIOVASCULAR: Aortic calcification Normal cardiac size. No pulmonary vascular congestion. OSSEOUS STRUCTURES: No significant abnormalities. VISUALIZED UPPER ABDOMEN: Normal. OTHER FINDINGS: None. IMPRESSION: No active disease.
[2018-11-05 08:33] LABS: BLOOD UREA NITROGEN 28 mg/dL (7-21); CALCIUM 9.1 mg/dL (8.4-10.5); GFR NON-AFRICAN AMERICAN > 60
[2018-11-05] MEDS: Carbidopa/Levodopa/Entacapone 37.5mg-150mg-200mg PO SCH ×3 (11:02→17:55)
[2018-11-05] MEDS: Saliva Substitute 44.3 ML PO SCH ×4 (11:40→23:32)
--- NOTE | 2018-11-05 11:51 | CP.PCM.CON ---
History of Present Illness - History of Present Illness History of Present Illness: Palliative consult requested by Dr Ana Yuan Reason: Goals of care 78 year old male with history includes Parkinson's disease, CAD and hypertension who presents to the ED with AMS and poor oral intake. Chest x ray: No active disease CT head: Parenchymal atrophy, microvascular,no acute intracranial pathology. Labs: HGB 10.9, NA152, K 3.4, BUN 34, UA positive for blood,nitrate,bilrubin and bacteria PMH: Parkinson's disease, CAD,ischemic cardiomyopathy and hypertension PSH: appendectomy, PCI and stents. Social History: Former smoker, no alcohol or drug use. Lives with spouse but recently at [facility]. Family History: Non contributory Advance Directive: The patient most recent Advance Directive is dated 11/19/17. It names his Melly as health care healthcare representative. Review of Systems: Unable to obtain, patient is altered, non verbal. Past Patient History - Infectious Disease Hx of Infectious Diseases: None - Past Social History Smoking Status: Former Smoker - CARDIAC Hx Cardiac Disorders: Yes Hx Hypertension: Yes - PULMONARY Hx Respiratory Disorders: No - NEUROLOGICAL Hx Neurological Disorder: Yes Hx Alzheimer's Disease: Yes Hx Dementia: Yes Hx Parkinson's Disease: Yes - HEENT Hx HEENT Problems: No - RENAL Hx Chronic Kidney Disease: Yes Hx Pyelonephritis: Yes (right sided) - ENDOCRINE/METABOLIC Other/Comment: oscar's disease - HEMATOLOGICAL/ONCOLOGICAL Hx Blood Disorders: No - INTEGUMENTARY Hx Dermatological Problems: Yes Other/Comment: DECUBITI - MUSCULOSKELETAL/RHEUMATOLOGICAL Hx Falls: No - GASTROINTESTINAL Hx Gastrointestinal Disorders: Yes Other/Comment: constipation - GENITOURINARY/GYNECOLOGICAL Hx Genitourinary Disorders: Yes Hx Incontinence: Yes - PSYCHIATRIC Hx Substance Use: No - SURGICAL HISTORY Hx Coronary Stent: Yes - ANESTHESIA Hx Anesthesia: Yes Hx Anesthesia Reactions: No Hx Malignant Hyperthermia: No Meds Allergies/Adverse Reactions: Allergies Allergy/AdvReac Type Severity Reaction Status Date / Time acetaminophen [From Percocet] AdvReac FATIGUE Verified 11/04/18 17:40 haloperidol [From Haldol] AdvReac FATIGUE Verified 11/04/18 17:40 oxycodone [From Percocet] AdvReac FATIGUE Verified 11/04/18 17:40 - Medications Medications: Current Medications Aspirin (Aspirin Chewable) 81 mg PO DAILY [facility] Last Admin: 11/05/18 11:01 Dose: Not Given Carbidopa/Levodopa/Entacapone (Stalevo 150) 1 tab PO TID [facility] Last Admin: 11/05/18 11:02 Dose: Not Given Clopidogrel Bisulfate (Plavix) 75 mg PO DAILY [facility] Last Admin: 11/05/18 11:02 Dose: Not Given Famotidine (Pepcid) 20 mg PO 1000,2200 [facility] Last Admin: 11/05/18 11:01 Dose: Not Given Heparin Sodium (Porcine) (Heparin) 5,000 units SC Q12 [facility]; Protocol Last Admin: 11/05/18 11:04 Dose: 5,000 units Potassium Chloride/Dextrose (Potassium Chl 40 Meq In D5w) 1,000 mls @ 100 mls/hr IV .Q10H [facility] Lorazepam (Ativan) 0.25 mg IVP Q8H PRN; Protocol PRN Reason: Anxiety Saliva Substitute (Saliva Substitute) 10 ml PO Q4H [facility] Physical Exam - Constitutional Appears: Cachectic, Chronically Ill - Eye Exam Eye Exam: Normal appearance, PERRL - ENT Exam ENT Exam: Mucous Membranes Dry - Neck Exam Neck exam: Positive for: Normal Inspection - Respiratory Exam Respiratory Exam: Decreased Breath Sounds, NORMAL BREATHING PATTERN - Cardiovascular Exam Cardiovascular Exam: REGULAR RHYTHM, +S1, +S2 - GI/Abdominal Exam GI & Abdominal Exam: Hypoactive Bowel Sounds, Soft - Extremities Exam Extremities exam: Positive for: normal inspection, pedal pulses present - Back Exam Additional comments: sacral decubiti - Neurological Exam Neurological exam: Altered - Skin Skin Exam: Dry, Pallor, Warm - Additional Findings Additional findings: Palliative performance scale rating 30% Results - Vital Signs Recent Vital Signs: Last Vital Signs Temp 99.8 F H 11/05/18 06:00 Pulse 68 11/05/18 06:00 Resp 22 11/05/18 06:00 BP 99/65 L 11/05/18 06:00 Pulse Ox 97 11/05/18 06:00 - Labs Result Diagrams: 11/04/18 18:36 11/05/18 07:41 Labs: Laboratory Results - last 24 hr 11/04/18 11/04/18 11/04/18 18:36 18:36 19:28 WBC 10.7 RBC 3.63 Hgb 10.9 L Hct 34.5 L MCV 95.0 MCH 30.0 MCHC 31.6 RDW 16.3 H Plt Count 271 MPV 10.9 Neut % (Auto) 76.4 H Lymph % (Auto) 13.0 L [place] % (Auto) 10.2 H Eos % (Auto) 0.3 L Baso % (Auto) 0.1 Lymph # (Auto) 1.4 [place] # (Auto) 1.1 H Eos # (Auto) 0.0 Baso # (Auto) 0.01 Absolute Neuts (auto) 8.20 H Sodium 152 H Potassium 3.4 L Chloride 119 H Carbon Dioxide 25 Anion Gap 10 BUN 34 H Creatinine 0.9 Est GFR ( Amer) > 60 Est GFR (Non-Af Amer) > 60 Random Glucose 99 Calcium 9.2 Phosphorus 4.3 Magnesium 2.3 H Total Bilirubin 0.7 AST 34 ALT 10 Alkaline Phosphatase 111 Troponin I Total Protein 7.4 Albumin 3.2 Globulin 4.2 Albumin/Globulin Ratio 0.8 L Lipase 45 Urine Color Dark brown Urine Appearance Cloudy Urine pH 6.5 Ur Specific [place] 1.025 Urine Protein 100 H Urine Glucose (UA) Negative Urine Ketones Trace H Urine Blood Large H Urine Nitrate Positive H Urine Bilirubin Moderate H Urine Urobilinogen 1.0 H Ur Leukocyte Esterase Trace H Urine RBC Tntc H Urine WBC Tntc H Ur Epithelial Cells 10 - 12 H Urine Bacteria Many 11/05/18 11/05/18 02:50 07:41 WBC RBC Hgb Hct MCV MCH MCHC RDW Plt Count MPV Neut % (Auto) Lymph % (Auto) [place] % (Auto) Eos % (Auto) Baso % (Auto) Lymph # (Auto) [place] # (Auto) Eos # (Auto) Baso # (Auto) Absolute Neuts (auto) Sodium 155 H Potassium 3.4 L Chloride 127 H Carbon Dioxide 20 L Anion Gap 11 BUN 28 H Creatinine 0.9 Est GFR ( Amer) > 60 Est GFR (Non-Af Amer) > 60 Random Glucose 87 Calcium 9.1 Phosphorus Magnesium Total Bilirubin AST ALT Alkaline Phosphatase Troponin I 0.04 D Total Protein Albumin Globulin Albumin/Globulin Ratio Lipase Urine Color Urine Appearance Urine pH Ur Specific [place] Urine Protein Urine Glucose (UA) Urine Ketones Urine Blood Urine Nitrate Urine Bilirubin Urine Urobilinogen Ur Leukocyte Esterase Urine RBC Urine WBC Ur Epithelial Cells Urine Bacteria Assessment & Plan - Assessment and Plan (Free Text) Assessment: 78 year old male with history includes Parkinson's disease, CAD and hypertension who is admitted with AMS, UTI,poor oral intake, sacral decubti I spoke with patient Melly via phone. I explained that I would like to discuss goals of care with her. states that she wants patients son Ra involved in this conversation. Meeting planned for tomorrow morning. will be at the hospital in the morning, son Ra will be contacted via speaker phone. Plan: Goals of care Blood /run cultures pending. One dose of Rocephin given in ED. Continue Stalevo IVF with K replacement DVT prophylaxis,PPI Ativan for agitation Saliva substitute Wound care
[2018-11-05] MEDS: Potassium Chl 40mEq & D5W 1,000 ML IV SCH (13:17)
--- NOTE | 2018-11-05 14:07 | CP.PCM.HP ---
<Daniel Ragland - Last Filed: 11/05/18 14:04> History of Present Illness - History of Present Illness History of Present Illness: 78 year old female with past medical history of Parkinson's disease, parkinson's dementia, Hypernatremia, Stage 2 pressure ulcer, CAD, and ischemic cardiomyopathy presents to the hospital for failure to thrive. Patient was recently admitted to the hospital for AMS and sent to a rehab where the patient was not participating fully. Patient was not eating well during this time. Blood work was performed and the patient was found to have an hypernatremia and sent to the hospital. ROS unobtainable secondary to mental status. Medical Hx: As above Surgical Hx: Appendectomy Social Hx: Unable to obtain Family Hx: Unable to obtain Allergies: Acetaminophen, Haldol, Oxycodone Medications: Reviewed, as per MAR Present on Admission - Present on Admission Any Indicators Present on Admission: No Review of Systems - Review of Systems Systems not reviewed;Unavailable: Altered Mental Status Past Patient History - Infectious Disease Hx of Infectious Diseases: None - Past Social History Smoking Status: Former Smoker - CARDIAC Hx Cardiac Disorders: Yes Hx Hypertension: Yes - PULMONARY Hx Respiratory Disorders: No - NEUROLOGICAL Hx Neurological Disorder: Yes Hx Alzheimer's Disease: Yes Hx Dementia: Yes Hx Parkinson's Disease: Yes - HEENT Hx HEENT Problems: No - RENAL Hx Chronic Kidney Disease: Yes Hx Pyelonephritis: Yes (right sided) - ENDOCRINE/METABOLIC Other/Comment: oscar's disease - HEMATOLOGICAL/ONCOLOGICAL Hx Blood Disorders: No - INTEGUMENTARY Hx Dermatological Problems: Yes Other/Comment: DECUBITI - MUSCULOSKELETAL/RHEUMATOLOGICAL Hx Falls: No - GASTROINTESTINAL Hx Gastrointestinal Disorders: Yes Other/Comment: constipation - GENITOURINARY/GYNECOLOGICAL Hx Genitourinary Disorders: Yes Hx Incontinence: Yes - PSYCHIATRIC Hx Substance Use: No - SURGICAL HISTORY Hx Coronary Stent: Yes - ANESTHESIA Hx Anesthesia: Yes Hx Anesthesia Reactions: No Hx Malignant Hyperthermia: No Meds Allergies/Adverse Reactions: Allergies Allergy/AdvReac Type Severity Reaction Status Date / Time acetaminophen [From Percocet] AdvReac FATIGUE Verified 11/04/18 17:40 haloperidol [From Haldol] AdvReac FATIGUE Verified 11/04/18 17:40 oxycodone [From Percocet] AdvReac FATIGUE Verified 11/04/18 17:40 Physical Exam - Constitutional Appears: Non-toxic, No Acute Distress, Chronically Ill - Head Exam Head Exam: ATRAUMATIC, NORMAL INSPECTION, NORMOCEPHALIC - ENT Exam ENT Exam: Mucous Membranes Moist, Normal Exam - Respiratory Exam Respiratory Exam: Clear to Auscultation Bilateral, NORMAL BREATHING PATTERN. absent: Accessory Muscle Use, Rales, Rhonchi, Wheezes, Respiratory Distress - Cardiovascular Exam Cardiovascular Exam: RRR, +S1, +S2, Systolic Murmur - GI/Abdominal Exam GI & Abdominal Exam: Normal Bowel Sounds, Soft. absent: Distended, Guarding, Rebound, Tenderness - Extremities Exam Extremities exam: Positive for: normal inspection. Negative for: calf tendern ess, pedal edema, tenderness - Neurological Exam Neurological exam: Alert, CN II-XII Intact Additional comments: Oriented to person - Psychiatric Exam Psychiatric exam: Flat Affect - Skin Skin Exam: Dry, Intact, Warm Results - Vital Signs Recent Vital Signs: Last Vital Signs Temp 99.8 F H 11/05/18 06:00 Pulse 68 11/05/18 06:00 Resp 22 11/05/18 06:00 BP 99/65 L 11/05/18 06:00 Pulse Ox 97 11/05/18 06:00 - Labs Result Diagrams: 11/04/18 18:36 11/05/18 07:41 Labs: Laboratory Results - last 24 hr 11/04/18 11/04/18 11/04/18 18:36 18:36 19:28 WBC 10.7 RBC 3.63 Hgb 10.9 L Hct 34.5 L MCV 95.0 MCH 30.0 MCHC 31.6 RDW 16.3 H Plt Count 271 MPV 10.9 Neut % (Auto) 76.4 H Lymph % (Auto) 13.0 L [place] % (Auto) 10.2 H Eos % (Auto) 0.3 L Baso % (Auto) 0.1 Lymph # (Auto) 1.4 [place] # (Auto) 1.1 H Eos # (Auto) 0.0 Baso # (Auto) 0.01 Absolute Neuts (auto) 8.20 H Sodium 152 H Potassium 3.4 L Chloride 119 H Carbon Dioxide 25 Anion Gap 10 BUN 34 H Creatinine 0.9 Est GFR ( Amer) > 60 Est GFR (Non-Af Amer) > 60 Random Glucose 99 Calcium 9.2 Phosphorus 4.3 Magnesium 2.3 H Total Bilirubin 0.7 AST 34 ALT 10 Alkaline Phosphatase 111 Troponin I Total Protein 7.4 Albumin 3.2 Globulin 4.2 Albumin/Globulin Ratio 0.8 L Lipase 45 Urine Color Dark brown Urine Appearance Cloudy Urine pH 6.5 Ur Specific [place] 1.025 Urine Protein 100 H Urine Glucose (UA) Negative Urine Ketones Trace H Urine Blood Large H Urine Nitrate Positive H Urine Bilirubin Moderate H Urine Urobilinogen 1.0 H Ur Leukocyte Esterase Trace H Urine RBC Tntc H Urine WBC Tntc H Ur Epithelial Cells 10 - 12 H Urine Bacteria Many 11/05/18 11/05/18 02:50 07:41 WBC RBC Hgb Hct MCV MCH MCHC RDW Plt Count MPV Neut % (Auto) Lymph % (Auto) [place] % (Auto) Eos % (Auto) Baso % (Auto) Lymph # (Auto) [place] # (Auto) Eos # (Auto) Baso # (Auto) Absolute Neuts (auto) Sodium 155 H Potassium 3.4 L Chloride 127 H Carbon Dioxide 20 L Anion Gap 11 BUN 28 H Creatinine 0.9 Est GFR ( Amer) > 60 Est GFR (Non-Af Amer) > 60 Random Glucose 87 Calcium 9.1 Phosphorus Magnesium Total Bilirubin AST ALT Alkaline Phosphatase Troponin I 0.04 D Total Protein Albumin Globulin Albumin/Globulin Ratio Lipase Urine Color Urine Appearance Urine pH Ur Specific [place] Urine Protein Urine Glucose (UA) Urine Ketones Urine Blood Urine Nitrate Urine Bilirubin Urine Urobilinogen Ur Leukocyte Esterase Urine RBC Urine WBC Ur Epithelial Cells Urine Bacteria Assessment & Plan - Assessment and Plan (Free Text) Plan: Hypernatremia Parkinsonian Dementia Parkinson's disease Stage 2 pressure ulcer CAD Ischemic cardiomyopathy Patient admitted with hypernatremia. Prior medical records reviewed. Lab work and imaging reviewed. EKG reviewed. UA reviewed, no UTI at this time. Will follow urine culture. CT of the head did not demonstrate any acute findings. Patient will be placed on D5W with KCl for hypernatremia. Patient will be placed on Ativan prn for agitation. Patient will be evaluated by Palliative care for goals of care secondary to worsening functional status. Continue local wound car e for pressure ulcer Patient will continue on Stalevo for Parkinson's disease. Patient is on ASA and Plavix for stroke prevention. Patient is on Heparin for DVT prophylaxis. Ellyn, PGY-3 <Jose Yuan - Last Filed: 11/06/18 21:12> Results - Vital Signs Recent Vital Signs: Last Vital Signs Temp 99.4 F 11/06/18 14:00 Pulse 61 11/06/18 14:00 Resp 20 11/06/18 14:00 BP 90/44 L 11/06/18 14:00 Pulse Ox 96 11/06/18 14:00 - Labs Result Diagrams: 11/04/18 18:36 11/06/18 07:20 Labs: Laboratory Results - last 24 hr 11/06/18 07:20 Sodium 154 H Potassium 4.2 Chloride 126 H Carbon Dioxide 23 Anion Gap 10 BUN 24 H Creatinine 0.9 Est GFR ( Amer) > 60 Est GFR (Non-Af Amer) > 60 Random Glucose 112 H Calcium 9.2 Assessment & Plan - Assessment and Plan (Free Text) Plan: Pt seen and examined by me. This is a late entry.I have reviewed the note of the medical records custodian and I agree with it. I have discussed the assessment and plan with the resident. I have reviewed the medications and the last labs.
--- NOTE | 2018-11-05 16:25 | CARD ---
APPROVED REPORT Date of service: 11/05/2018 EKG Measurement Heart [id number] <Conclusion> Sinus rhythm with occasional premature ventricular complexes and premature atrial complexes Nonspecific ST abnormality
[2018-11-06] MEDS: Potassium Chl 40mEq & D5W 1,000 ML IV SCH ×3 (00:06→22:47)
[2018-11-06] MEDS: Saliva Substitute 44.3 ML PO SCH ×6 (03:31→23:44)
[2018-11-06 08:05] LABS: BLOOD UREA NITROGEN 24 mg/dL (7-21); CALCIUM 9.2 mg/dL (8.4-10.5); GFR NON-AFRICAN AMERICAN > 60
--- NOTE | 2018-11-06 10:11 | CP.PCM.PN ---
Subjective - Date & Time of Evaluation Date of Evaluation: 11/06/18 Time of Evaluation: 09:00 - Subjective Subjective: Restless,no acute findings. Objective - Vital Signs/Intake and Output Vital Signs (last 24 hours): Temp Pulse Resp BP Pulse Ox 98.1 F 79 20 103/66 96 11/06/18 06:00 11/06/18 06:00 11/06/18 06:00 11/06/18 06:00 11/06/18 06:00 Intake and Output: 11/06/18 11/06/18 06:59 18:59 Intake Total 1000 Balance 1000 - Medications Medications: Current Medications Aspirin (Aspirin Chewable) 81 mg PO DAILY [facility] Last Admin: 11/05/18 11:01 Dose: Not Given Carbidopa/Levodopa/Entacapone (Stalevo 150) 1 tab PO TID [facility] Last Admin: 11/05/18 17:55 Dose: Not Given Clopidogrel Bisulfate (Plavix) 75 mg PO DAILY [facility] Last Admin: 11/05/18 11:02 Dose: Not Given Famotidine (Pepcid) 20 mg PO 1000,2200 [facility] Last Admin: 11/05/18 22:13 Dose: Not Given Heparin Sodium (Porcine) (Heparin) 5,000 units SC Q12 [facility]; Protocol Last Admin: 11/05/18 22:12 Dose: 5,000 units Potassium Chloride/Dextrose (Potassium Chl 40 Meq In D5w) 1,000 mls @ 100 mls/hr IV .Q10H [facility] Last Admin: 11/06/18 00:06 Dose: 100 mls/hr Lorazepam (Ativan) 0.25 mg IVP Q8H PRN; Protocol PRN Reason: Anxiety Saliva Substitute (Saliva Substitute) 10 ml PO Q4H [facility] Last Admin: 11/06/18 06:32 Dose: 10 ml - Labs Labs: 11/04/18 18:36 11/06/18 07:20 - Constitutional Appears: Cachectic, Chronically Ill - Eye Exam Eye Exam: Normal appearance, PERRL - ENT Exam ENT Exam: Mucous Membranes Dry - Respiratory Exam Respiratory Exam: Decreased Breath Sounds, NORMAL BREATHING PATTERN - Cardiovascular Exam Cardiovascular Exam: REGULAR RHYTHM, +S1, +S2 - GI/Abdominal Exam GI & Abdominal Exam: Soft, Hypoactive Bowel Sounds - Exam Additional comments: incontinent - Extremities Exam Extremities Exam: Full ROM, Normal Capillary Refill - Back Exam Additional comments: sacral decubiti - Skin Skin Exam: Dry, Pallor Assessment and Plan - Assessment and Plan (Free Text) Assessment: 78 year old male with history includes Parkinson's disease, CAD and hypertension who is admitted with AMS, UTI,poor oral intake, sacral decubti . I met with patient's , son Ra who was on speaker phone. Palliative services explained. I discussed the terms of patient's Advance Directive with both son and . I explained that patient's directive states he dose not want life prolonging interventions, CPR/intubation, dialysis,artificial feeding if his condition is progressive/ irreversible. I reiterated that the the patient has late stage Parkinson's disease, he is bed bound, unable to perform ADL's and unable to swallow food safely. Son does snot feel that his father's disease has progressed to the point of withdrawing care. Son not willing to institute DNR/DNI. Son wants patient to be transferred to [facility] for further evaluation. Sheryl TEE CM to speak with family regarding transfer to [facility]. Time spent with family in goals of care and advance care planning 40 minutes. Plan: Goals of care and advance care planning Rrine C/S gram - rods Continue Stalevo DVT prophylaxis,PPI Ativan for agitation Saliva substitute Wound care
[2018-11-06] MEDS: Carbidopa/Levodopa/Entacapone 37.5mg-150mg-200mg PO SCH ×3 (10:16→19:39)
[2018-11-06] MEDS: cefTRIAXone 1 gm 1 GM/100 ML BAG IVPB SCH (11:49)
--- NOTE | 2018-11-06 12:41 | CP.PCM.PN ---
<Daniel Ragland - Last Filed: 11/06/18 12:38> Subjective - Date & Time of Evaluation Date of Evaluation: 11/06/18 Time of Evaluation: 07:30 - Subjective Subjective: Patient seen and examined at bedside. Patient with no acute events overnight. ROS unobtainable to secondary to mental status. Objective - Vital Signs/Intake and Output Vital Signs (last 24 hours): Temp Pulse Resp BP Pulse Ox 98.1 F 79 20 103/66 96 11/06/18 06:00 11/06/18 06:00 11/06/18 06:00 11/06/18 06:00 11/06/18 06:00 Intake and Output: 11/06/18 11/06/18 06:59 18:59 Intake Total 1000 Balance 1000 - Medications Medications: Current Medications Aspirin (Aspirin Chewable) 81 mg PO DAILY [facility] Last Admin: 11/06/18 10:16 Dose: Not Given Carbidopa/Levodopa/Entacapone (Stalevo 150) 1 tab PO TID [facility] Last Admin: 11/06/18 10:16 Dose: Not Given Clopidogrel Bisulfate (Plavix) 75 mg PO DAILY [facility] Last Admin: 11/06/18 10:16 Dose: Not Given Famotidine (Pepcid) 20 mg PO 1000,2200 [facility] Last Admin: 11/06/18 10:16 Dose: Not Given Heparin Sodium (Porcine) (Heparin) 5,000 units SC Q12 [facility]; Protocol Last Admin: 11/06/18 10:23 Dose: 5,000 units Ceftriaxone Sodium (Rocephin 1 Gram Ivpb) 1 gm in 100 mls @ 100 mls/hr IVPB DAILY [facility]; Protocol Last Admin: 11/06/18 11:49 Dose: 100 mls/hr Potassium Chloride/Dextrose (Potassium Chl 40 Meq In D5w) 1,000 mls @ 125 mls/hr IV .Q8H [facility] Lorazepam (Ativan) 0.25 mg IVP Q8H PRN; Protocol PRN Reason: Anxiety Saliva Substitute (Saliva Substitute) 10 ml PO Q4H [facility] Last Admin: 11/06/18 11:53 Dose: 10 ml - Labs Labs: 11/04/18 18:36 11/06/18 07:20 - Constitutional Appears: Non-toxic, No Acute Distress - Head Exam Head Exam: ATRAUMATIC, NORMAL INSPECTION, NORMOCEPHALIC - ENT Exam ENT Exam: Mucous Membranes Moist - Respiratory Exam Respiratory Exam: Clear to Ausculation Bilateral, NORMAL BREATHING PATTERN. absent: Rales, Rhonchi, Wheezes - Cardiovascular Exam Cardiovascular Exam: RRR, +S1, +S2. absent: Irregular Rhythm - GI/Abdominal Exam GI & Abdominal Exam: Soft, Normal Bowel Sounds. absent: Distended, Guarding, Tenderness, Rebound - Extremities Exam Extremities Exam: Normal Inspection. absent: Calf Tenderness, Pedal Edema, Tenderness - Neurological Exam Neurological Exam: Alert, Awake - Skin Skin Exam: Dry, Intact, Normal Color, Warm Assessment and Plan - Assessment and Plan (Free Text) Plan: Hypernatremia Parkinsonian Dementia Parkinson's disease Stage 2 pressure ulcer CAD Ischemic cardiomyopathy Patient with hypernatremia and will continue on D5W with KCl, but will increase the rate.Patient will be placed on Ativan prn for agitation. Patient seen by palliative care and will continue current management. Family would also like a neuro consult and GI consult for G-tube at this time. Patient is NPO as per speech pathology recommendations. Continue local wound care for pressure ulcer Patient will continue on Stalevo for Parkinson's disease. Patient is on ASA and Plavix for stroke prevention. Patient is on Heparin for DVT prophylaxis. Ellyn, PGY-3 <Jose Yuan S - Last Filed: 11/06/18 20:01> Objective - Vital Signs/Intake and Output Vital Signs (last 24 hours): Temp Pulse Resp BP Pulse Ox 99.4 F 61 20 90/44 L 96 11/06/18 14:00 11/06/18 14:00 11/06/18 14:00 11/06/18 14:00 11/06/18 14:00 - Medications Medications: Current Medications Aspirin (Aspirin Chewable) 81 mg PO DAILY [facility] Last Admin: 11/06/18 10:16 Dose: Not Given Carbidopa/Levodopa/Entacapone (Stalevo 150) 1 tab PO TID [facility] Last Admin: 11/06/18 19:39 Dose: Not Given Clopidogrel Bisulfate (Plavix) 75 mg PO DAILY [facility] Last Admin: 11/06/18 10:16 Dose: Not Given Famotidine (Pepcid) 20 mg PO 1000,2200 [facility] Last Admin: 11/06/18 10:16 Dose: Not Given Heparin Sodium (Porcine) (Heparin) 5,000 units SC Q12 [facility]; Protocol Last Admin: 11/06/18 10:23 Dose: 5,000 units Ceftriaxone Sodium (Rocephin 1 Gram Ivpb) 1 gm in 100 mls @ 100 mls/hr IVPB DAILY [facility]; Protocol Last Admin: 11/06/18 11:49 Dose: 100 mls/hr Potassium Chloride/Dextrose (Potassium Chl 40 Meq In D5w) 1,000 mls @ 125 mls/hr IV .Q8H [facility] Last Admin: 11/06/18 13:34 Dose: 125 mls/hr Lorazepam (Ativan) 0.25 mg IVP Q8H PRN; Protocol PRN Reason: Anxiety Last Admin: 11/06/18 15:40 Dose: 0.25 mg Saliva Substitute (Saliva Substitute) 10 ml PO Q4H [facility] Last Admin: 11/06/18 19:40 Dose: 10 ml - Labs Labs: 11/04/18 18:36 11/06/18 07:20 Assessment and Plan - Assessment and Plan (Free Text) Plan: Pt seen and examined by me. I have reviewed the note of the medical examiner and I agree with it. I have discussed the assessment and plan with the resident. I have reviewed the medications and the last labs.
--- NOTE | 2018-11-06 18:40 | CON ---
DATE: 11/06/2018 NEUROLOGY CONSULTATION CHIEF COMPLAINT: Evaluation of mental status. HISTORY OF PRESENT ILLNESS: This is a 78-year-old man with advanced Parkinson's disease with Parkinson's induced dementia. He got Stalevo 150 mg 1 tablet p.o. three times a day. Currently, he has gram negative urinary tract infection, on antibiotics, as well as hypernatremia and is very lethargic and hypophonic. Occasionally, he has some delirium intermittently. He has a stage 2 pressure ulcer as well. PAST MEDICAL HISTORY: History of Parkinson's disease, coronary artery disease status post PTCA with cardiac stent, history of SIRS, toxic metabolic encephalopathy with dementia related to Parkinson's. REVIEW OF SYSTEMS: A 14-point review of systems is negative except as in the HPI. ALLERGIES: HE IS ALLERGIC TO ACETAMINOPHEN, HALOPERIDOL AND OXYCODONE. MEDICATIONS: Reviewed by nurses' reconciliation sheet FAMILY HISTORY: Noncontributory. PHYSICAL EXAMINATION VITAL SIGNS: Temperature 99.4, pulse rate of 61, blood pressure 90/41, respiratory rate 20, and oxygen saturation 96% on room air. GENERAL: The patient is lethargic. In no acute distress. HEENT: Head is atraumatic, normocephalic. PERRLA. Extraocular muscles intact. NECK: Supple. No JVD. No adenopathy noted. LUNGS: Clear to auscultation. No adventitious sounds. HEART: S1 and S2. Normal rate and rhythm. No murmurs, rubs or gallops. ABDOMEN: Soft,nontender, and nondistended. Bowel sounds present. EXTREMITIES: No clubbing. No cyanosis. Peripheral pulses are 2+ bilaterally. NEUROLOGIC: The patient is alert and oriented to person, but not much to month or year. Recall after 5 minutes is 0/3. Poor attention span. Slow thought process. Flat affect. Mask like facies. Speech is hypophonic. No aphasia noted. Cranial nerves II through XII intact. Motor exam; increased tone throughout, as well as cogwheel rigidity at the both wrists. Resting tremor is well seen in the right hand and more than the left. He has tremors of the chin, otherwise moves all extremities equally and is severely deconditioned and cachectic looking. Sensory exam; decreased light touch to pinprick up to the calves bilaterally. Decreased vibration of the toes. DTRs are 2+ and 1 at both knees and ankles. Coordination and gait deferred for now. IMPRESSION: Worsening confusion from underlying urinary tract infection growing gram negative rods superimposed on underlying hypernatremia with metabolic encephalopathy. This seems more like an underlying toxic metabolic encephalopathy superimposed on underlying worsening Parkinson's disease as well as Parkinson's induced dementia. RECOMMENDATIONS: At this time; 1. Continue with antibiotic therapy for underlying urinary tract infection. 2. Slowly correct his underlying sodium in terms of hypernatremia. Monitor electrolytes and correct accordingly. 3. Delirium precautions. 4. Aspirin 81 mg and Plavix 75 mg for stroke prevention. 5. Continue with current dose of Stalevo 150 mg p.o. three times a day, which consists of carbidopa, levodopa and entacapone. 6. Delirium precautions and continue with current present medical management. Jeffrey Rehman MD
--- NOTE | 2018-11-06 22:53 | PN ---
DATE: 11/06/2018 SUBJECTIVE: The patient was seen and examined. I do agree with the note of the medical assisting program director. I was involved in the plan of care. The patient has advanced Parkinson's dementia. He has not done well at the subacute rehab. The patient was hypernatremic and is on D5W with potassium. The patient had a Neurology consult. No new recommendations were given. I did review the note of Dr. Rehman. The patient is going to continue the Stalevo for his Parkinson's. He is going to be on aspirin and Plavix for his stroke prevention. The patient has stage 2 pressure ulcer that is going to be treated with local wound care. The patient has coronary artery disease with an ischemic cardiomyopathy. Aspirin will be continued for this as well. He may need PEG feedings. I will get Dr. Araujo to evaluate. The patient is currently full code. We will increase the patient's IV fluids and free water for the hypernatremia. Jose Yuan MD
[2018-11-07] MEDS: Saliva Substitute 44.3 ML PO SCH ×5 (06:51→22:55)
[2018-11-07] MEDS: Potassium Chl 40mEq & D5W 1,000 ML IV SCH ×3 (07:00→22:57)
[2018-11-07 09:43] LABS: ALT/SGPT 37 U/L (7-56); AST/SGOT 72 U/L (17-59)
[2018-11-07 09:46] LABS: ALB/GLOB RATIO 0.8 (1.1-1.8); BLOOD UREA NITROGEN 16 mg/dL (7-21); CALCIUM 9.1 mg/dL (8.4-10.5); GFR NON-AFRICAN AMERICAN > 60
[2018-11-07 10:33] LABS: ALBUMIN 2.6 g/dL (3.0-4.8)
[2018-11-07] MEDS: cefTRIAXone 1 gm 1 GM/100 ML BAG IVPB SCH (10:41)
[2018-11-07] MEDS: Carbidopa/Levodopa/Entacapone 37.5mg-150mg-200mg PO SCH ×2 (10:41→17:14)
--- NOTE | 2018-11-07 11:24 | PN ---
DATE: 11/07/2018 SUBJECTIVE: The patient does not communicate. PHYSICAL EXAMINATION: VITAL SIGNS: Temperature is 99.4, pulse of 61, blood pressure 90/44, respirations 20. GENERAL: The patient is lying in bed, flat, comfortable. HEENT: No oral lesion. Anicteric sclerae. Moist mucosa. NECK: No JVD, adenopathy, or thyromegaly. CARDIOVASCULAR: S1 and S2, regular. No murmurs, rubs, or gallops. LUNGS: Clear to auscultation bilaterally. No wheeze, rales, or rhonchi. ABDOMEN: Bowel sounds are positive, soft, nontender and nondistended. EXTREMITIES: No cyanosis, clubbing or edema. LABORATORY DATA: White count of 10.7, hemoglobin 10.9, sodium is 154. These are labs from yesterday, from 11/06/2018. MEDICATIONS: The patient is on aspirin daily. He is going to continue with heparin for DVT prophylaxis. He is on Rocephin for antibiotics. The patient is on IV fluids the D5W at 125/hour. The labs have been ordered and are pending. The patient has UTI secondary to gram-negative rods. Please try and assess the UTI secondary to gram-negative rods. ASSESSMENT AND PLAN: The patient is going to need Gastroenterology evaluation by Dr. Araujo for possible PEG placement. Jose Yuan MD
--- NOTE | 2018-11-07 16:12 | RAD ---
Date of service: 11/07/2018 HISTORY: eval ng tube COMPARISON: No prior. TECHNIQUE: 1 view obtained. FINDINGS: LUNGS: The nasogastric tube is seen traversing the right mainstem bronchus and terminating in the right lower lobe. I spoke to the patient's nurse at 4 p.m. 11/07/2018. The abnormal position of the tube was recognized by the resident physician and the tube was removed. PLEURA: No significant pleural effusion identified, no pneumothorax apparent. CARDIOVASCULAR: Aortic calcification Normal cardiac size. No pulmonary vascular congestion. OSSEOUS STRUCTURES: No significant abnormalities. VISUALIZED UPPER ABDOMEN: Normal. OTHER FINDINGS: None. IMPRESSION: The nasogastric tube is seen traversing the right mainstem bronchus and terminating in the right lower lobe. I spoke to the patient's nurse at 4 p.m. 11/07/2018. The abnormal position of the tube was recognized by the resident physician and the tube was removed.
[2018-11-07] MEDS: Albuterol 0.083% Inhal Sol (2.5 mg/3 mL) UD INH PRN (17:46)
--- NOTE | 2018-11-07 22:12 | CP.PCM.PCO ---
<Vinicius Byrd - Last Filed: 11/07/18 22:10> Addendum Addendum: 11/07/18 22:10 New onset fevers, Pt given Ibuprofen 400 q6 RPN Reviewed UC, switched from Ceftriaxone to Cefepime due to sensitivities. CK PGY1 <Nitish Huggins - Last Filed: 11/08/18 08:10> Attending/Attestation - Attestation I have personally seen and examined this patient.: Yes I have fully participated in the care of the patient.: Yes I have reviewed all pertinent clinical information: Yes Notes (Text): 11/08/18 08:09 I am seeing this orders now and co-signing. Patient was evaluated by me after I was asked about 6:40 AM.
[2018-11-07] MEDS: Cefepime 1gm in NS 100ml 1 GM/100 ML BAG IVPB SCH (22:53)
[2018-11-08] MEDS: Saliva Substitute 44.3 ML PO SCH ×6 (05:33→23:00)
[2018-11-08] MEDS ORDERED: Sodium Chloride 0.9% 500 ML IV STA ×2 (06:02→07:25)
--- NOTE | 2018-11-08 07:08 | CP.PCM.PN ---
Subjective - Date & Time of Evaluation Date of Evaluation: 11/08/18 Time of Evaluation: 07:08 - Subjective Subjective: Received message at 6:40 AM to call floor . Nurse mallu asked to evaluate patient for ICU transfer as per . His blood pressure was 82/56 when 500 CC NS bolus was ordered by . Post bolus, BP was 87/57 ,that is when ordered for evaluation for ICU transfer. I examined patient. BP 94/60 after two 500 CC boluses each. HR 92/min, RR 21/min, Temp 99.5* . Patient is awake, aphasic. Medical record was reviewed. This 78 year old white male was admitted because he was not eating and he was hypernatremic. Has PMH of hypertension, CAD,Ischemic cardiomyopathy, dementia, Parkinson's. Objective - Vital Signs/Intake and Output Vital Signs (last 24 hours): Temp Pulse Resp BP Pulse Ox 98.5 F 90 20 94/60 L 97 11/08/18 01:08 11/08/18 06:35 11/08/18 05:52 11/08/18 07:01 11/07/18 22:00 Intake and Output: 11/08/18 11/08/18 06:59 18:59 Intake Total 0 2200 Balance 0 2200 - Medications Medications: Current Medications Acetaminophen (Tylenol 650 Mg Supp) 650 mg RC Q6H PRN PRN Reason: Fever >100.4 F Last Admin: 11/07/18 22:58 Dose: 650 mg Albuterol Sulfate (Albuterol 0.083% Inhal Remedios (2.5 Mg/3 Ml) Ud) 2.5 mg INH [id number] PRN PRN Reason: Shortness of Breath Last Admin: 11/07/18 17:46 Dose: 2.5 mg Aspirin (Aspirin Chewable) 81 mg PO DAILY [facility] Last Admin: 11/07/18 10:40 Dose: Not Given Carbidopa/Levodopa/Entacapone (Stalevo 150) 1 tab PO TID [facility] Last Admin: 11/07/18 17:14 Dose: Not Given Clopidogrel Bisulfate (Plavix) 75 mg PO DAILY [facility] Last Admin: 11/07/18 10:41 Dose: Not Given Famotidine (Pepcid) 20 mg PO 1000,2200 [facility] Last Admin: 11/07/18 22:57 Dose: Not Given Heparin Sodium (Porcine) (Heparin) 5,000 units SC Q12 BRISEYDA; Protocol Last Admin: 11/07/18 22:57 Dose: 5,000 units Potassium Chloride/Dextrose (Potassium Chl 40 Meq In D5w) 1,000 mls @ 100 mls/hr IV .Q10H [facility] Last Admin: 11/07/18 22:57 Dose: 100 mls/hr Cefepime HCl (Maxipime 1gm) 1 gm in 100 mls @ 100 mls/hr IVPB Q12 BRISEYDA; Protocol Stop: 11/14/18 22:01 Last Admin: 11/07/18 22:53 Dose: 100 mls/hr Ibuprofen (Motrin Tab) 400 mg PO Q6H PRN PRN Reason: Fever >100.4 F Lorazepam (Ativan) 0.25 mg IVP Q8H PRN; Protocol PRN Reason: Anxiety Last Admin: 11/06/18 15:40 Dose: 0.25 mg Saliva Substitute (Saliva Substitute) 10 ml PO Q4H [facility] Last Admin: 11/08/18 05:33 Dose: 10 ml - Labs Labs: 11/04/18 18:36 11/07/18 09:00 - Constitutional Appears: No Acute Distress - Head Exam Head Exam: ATRAUMATIC, NORMAL INSPECTION, NORMOCEPHALIC - Eye Exam Eye Exam: Normal appearance - ENT Exam ENT Exam: Normal External Ear Exam - Neck Exam Neck Exam: Normal Inspection - Respiratory Exam Respiratory Exam: Rhonchi (+ bilaterally.), Wheezes (+ bilaterally) - Cardiovascular Exam Cardiovascular Exam: REGULAR RHYTHM, +S1 (Normal), +S2 (Normal). absent: JVD - GI/Abdominal Exam GI & Abdominal Exam: Normal Bowel Sounds. absent: Distended, Tenderness - Rectal Exam Rectal Exam: Deferred - Exam Additional comments: Deferred. - Extremities Exam Extremities Exam: Normal Inspection - Back Exam Back Exam: NORMAL INSPECTION - Neurological Exam Neurological Exam: Alert, Awake Additional comments: Aphasic. - Psychiatric Exam Psychiatric exam: Normal Affect - Skin Skin Exam: Normal Color Assessment and Plan - Assessment and Plan (Free Text) Assessment: Hypotension-Septic. -Hypovolemic. -R/O cardiac. UTI. Anemia. Parkinson's dementia. HTN CAD Ischemic cardiomyopathy. Hypernatremia. Plan: CBC with Diff. CMP Troponin EKG CXR ABG Lactic acid level Cardiology consultation IV hydration. Another bolus of 500 CC normal saline, if BP is not corrected , will start on Levophed and transfer to ICU. Continue IV antibiotic.-Cefepime. CCT:30 Minutes.
[2018-11-08 07:56] LABS: BASO # 0.01 K/mm3 (0.0-2.0); BASO % 0.1 % (0.0-3.0); EOS % 0.2 % (1.5-5.0); LYMPH # 2.2 (1.2-3.4); LYMPH % 19.7 % (22.0-35.0); MEAN CELL VOLUME 93.3 fl (80.0-105.0); MEAN CORPUSCULAR HEMOGLOBIN 29.5 pg (25.0-35.0); MEAN CORPUSCULAR HGB CONC 31.7 g/dl (31.0-37.0); MEAN PLATELET VOLUME 10.3 fl (7.0-11.0); MONO # 1.2 (0.1-0.6); MONO % 10.3 % (1.0-6.0); RBC 2.98 10^6/uL (3.5-6.1); RED CELL DISTRIBUTION WIDTH 16.4 % (11.5-14.5); WHITE BLOOD COUNT 11.2 10^3/uL (4.5-11.0)
[2018-11-08 07:58] LABS: HEMOGLOBIN 8.8 g/dL (14.0-18.0)
[2018-11-08 08:07] LABS: ARTERIAL BLOOD GAS HCO3 15.2 mmol/L (21-28); ARTERIAL BLOOD GAS O2 SAT 98.1 % (95-98); ARTERIAL BLOOD GAS PCO2 19 mm/Hg (35-45); ARTERIAL BLOOD GAS PH 7.51 (7.35-7.45); ARTERIAL BLOOD GAS TCO2 15.8 mmol.L (22-28)
[2018-11-08 08:30] LABS: ALB/GLOB RATIO 0.8 (1.1-1.8); ALBUMIN 2.6 g/dL (3.0-4.8); ALT/SGPT 37 U/L (7-56); AST/SGOT 57 U/L (17-59); BLOOD UREA NITROGEN 11 mg/dL (7-21); CALCIUM 8.4 mg/dL (8.4-10.5); GFR NON-AFRICAN AMERICAN > 60
[2018-11-08 08:36] LABS: TROPONIN I 0.03 ng/mL
[2018-11-08] MEDS: Carbidopa/Levodopa/Entacapone 37.5mg-150mg-200mg PO SCH ×2 (10:31→17:28)
[2018-11-08] MEDS: Potassium Chl 40mEq & D5W 1,000 ML IV SCH ×2 (10:31→17:47)
[2018-11-08] MEDS: Cefepime 1gm in NS 100ml 1 GM/100 ML BAG IVPB SCH ×2 (10:32→21:52)
--- NOTE | 2018-11-08 10:55 | RAD ---
Date of service: 11/07/2018 HISTORY: temp 102 COMPARISON: Earlier same day TECHNIQUE: 1 view obtained. FINDINGS: LUNGS: No active pulmonary disease. PLEURA: No significant pleural effusion identified, no pneumothorax apparent. CARDIOVASCULAR: No aortic atherosclerotic calcification present. Normal cardiac size. No pulmonary vascular congestion. OSSEOUS STRUCTURES: No significant abnormalities. VISUALIZED UPPER ABDOMEN: Normal. OTHER FINDINGS: None. IMPRESSION: No active disease.
--- NOTE | 2018-11-08 10:59 | RAD ---
Date of service: 11/08/2018 HISTORY: hypotension COMPARISON: 11/07/2018 TECHNIQUE: 1 view obtained. FINDINGS: LUNGS: There is a new minimal patchy infiltrate at the left lung base PLEURA: No significant pleural effusion identified, no pneumothorax apparent. CARDIOVASCULAR: No aortic atherosclerotic calcification present. Normal cardiac size. No pulmonary vascular congestion. OSSEOUS STRUCTURES: No significant abnormalities. VISUALIZED UPPER ABDOMEN: Normal. OTHER FINDINGS: None. IMPRESSION: There is a new minimal patchy infiltrate at the left lung base
--- NOTE | 2018-11-08 10:59 | PN ---
DATE: 11/08/2018 SUBJECTIVE: The patient does not communicate. PHYSICAL EXAMINATION: VITAL SIGNS: Temperature is 99.6, pulse of 90, blood pressure 94/60, respirations 21. GENERAL: The patient is lying in bed, flat, comfortable. HEENT: No oral lesion. Anicteric sclerae. Moist mucosa. NECK: No JVD, adenopathy, or thyromegaly. CARDIOVASCULAR: S1 and S2, regular. No murmurs, rubs, or gallops. LUNGS: Good bilateral air entry, bilateral rhonchi. No wheezing. ABDOMEN: Bowel sounds are positive, soft, nontender and nondistended. EXTREMITIES: No cyanosis, clubbing or edema. LABORATORY DATA: White count of 11.2, hemoglobin 8.8. Creatinine is 0.7. Chest x-rays shows, no infiltrates. ASSESSMENT: 1. Fever, rule out aspiration pneumonia versus hospital acquired infection. 2. Parkinson's dementia. 3. Urinary tract infection secondary to pseudomonas. 4. Hypernatremia. 5. Dysphagia. 6. Stage II pressure ulcer. 7. Coronary artery disease. 8. Ischemic cardiomyopathy. PLAN: The patient is currently on albuterol this could be continued. He is on IV fluids. He is waiting for evaluation by Dr. Fraser for PEG placement. The patient has failed his swallowing evaluation . He is not able to take his oral medications. He is currently n.p.o. The patient remains full code. The patient's overall prognosis is poor. Family is under the belief that the Parkinson's medication will improve the patient, I do not think that the patient will improve, he is end-stage with his dementia. The patient's sodium has improved, concern that the patient have had aspiration while putting in the NG tube. The NG tube insertion has been unsuccessful. We will continue with the IV fluids. I will repeat the patient's blood work tomorrow. Blood cultures have been ordered. Jose Yuan MD
--- NOTE | 2018-11-08 17:33 | CARD ---
APPROVED REPORT Date of service: 11/08/2018 EKG Measurement Heart [id number] <Conclusion> Sinus rhythm with premature atrial complexes Otherwise normal ECG
--- NOTE | 2018-11-08 21:17 | CON ---
DATE: 11/08/2018 HISTORY OF PRESENT ILLNESS: This is a 78-year-old gentleman with history of Parkinson' disease, Parkinson dementia, hypernatremia, coronary artery disease, ischemic cardiomyopathy, who presented to hospital for failure to thrive. Patient was declining in his performance status gradually over a long period of time. He was not eating very well. Patient was also found to be dehydrated and resuscitative fluid started. Of note, he presented to [facility] three days ago. No fever, no chills, no sweats, no nausea, no vomiting, no diarrhea, no constipation. PAST MEDICAL HISTORY: Parkinson's disease, Parkinson's dementia, coronary artery disease, ischemic cardiomyopathy. PAST SURGICAL HISTORY: Appendectomy. FAMILY HISTORY: Noncontributory. SOCIAL HISTORY: Unobtainable as patient is not communicative. ALLERGIES: ACETAMINOPHEN, HALDOL, OXYCODONE. MEDICATION: In the hospital; Tylenol, aspirin, carbidopa, levodopa and entacapone, cefepime, Plavix, Pepcid, Heparin subcutaneous, ibuprofen, Ativan, potassium chloride, saliva substitute. HOME MEDICATIONS: Magnesium, Ativan, Zyprexa, Plavix, carbidopa, levodopa and entacapone, zinc, multivitamins, lorazepam, iron polysaccharide, Pepcid, Dulcolax, aspirin, vitamin C. REVIEW OF SYSTEMS: Reveals 12-point review of systems except as mentioned in the history of present illness is negative. PHYSICAL EXAMINATION VITAL SIGNS: Blood pressure 125/53, (after 2 liters normal saline bolus), temperature 99.6, oxygen saturation 94% on room air, respiratory rate 21. HEENT: Head and neck atraumatic. LUNGS: Clear to auscultation bilaterally. HEART: Regular rate and rhythm. S1 and S2 normal. ABDOMEN: Soft, nontender and nondistended. MUSCULOSKELETAL: Common cogwheel rigidity in upper and lower extremities. SKIN: Moist. PSYCHIATRIC: Patient is noncommunicative, which is his baseline. LABORATORY DATA: WBC 11.2, hemoglobin 8.8, platelet count 203. Sodium 143, potassium 4.1, chloride 118, carbon dioxide 19, BUN 11, creatinine is 0.7. AST is 57, ALT is 37, total bilirubin 1.1. 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 Troponin 0.03, down from 0.04. Chest x-rays shows no active pulmonary disease. ASSESSMENT AND PLAN: This is a 78-year-old gentleman with history of Parkinson's disease, Parkinson's dementia, and urinary tract infection with transitory drop in the blood pressure, which responded to 2 liters of normal saline boluses. Etiology of patient's hypotension may be multifactorial including dehydration, autonomic dysfunction related to Parkinson's disease, infection. Patient does not have end-organ dysfunction related to his hypotension, which is now resolved. I would continue with antibiotics, maintenance IV fluids. Of note, patient does not appear to be having chest pain. His first troponin is negative. Patient does not have lactic acidosis nor acute kidney injury. He is mentating at his baseline, which is Parkinson's disease related dementia. He is able to protect his airways. He is not retaining CO2. His chest x-ray did not show any acute pulmonary disease. At the present time, patient can be either monitored on the regular floor or be considered for telemetry monitoring. No need for medical Intensive Care Unit monitoring at present time. Please reconsult Intensive Care Unit if clinical situation deteriorates, including, but not limited to persistent hypotension, inability to protect airways or if any other questions arise. ccm time 40 min Liu Spain MD MTDLynne
--- NOTE | 2018-11-08 22:12 | CON ---
DATE: 11/08/2018 LOCATION: Patient is seen in room 577, bed 2. CHIEF COMPLAINT: Temperature of 102 last night, x1 day duration. HISTORY OF PRESENT ILLNESS: This is a 78 years old male with past medical history significant for coronary artery disease, hypertension, hyperlipidemia, Cochise's disease, cardiac cath, appendectomy, history of right-sided pyelonephritis, urinary tract infection, spinal stenosis, Parkinson's and dementia, depression and anxiety who was admitted with a diagnosis of Parkinson's dementia and urinary tract infection. Infectious Disease consultation requested. Patient had a fever, low grade fevers initially, and now is up to temperature of a 102 and patient is a poor historian, unable to communicate. REVIEW OF SYSTEMS: Obtained from nursing staff and chart that is available. A 12-point review of systems performed. PAST MEDICAL HISTORY: Significant for Parkinson's and dementia, coronary artery disease, hypertension, urinary tract infection, right pyelonephritis, Cochise's disease, high cholesterol, hypertension and depression and anxiety. PAST SURGICAL HISTORY: Significant for appendectomy and cardiac catheterization. ALLERGY: PATIENT IS ALLERGIC TO OXYCODONE, ACETAMINOPHEN, AND HALDOL. MEDICATIONS AT HOME: Include the patient to be on aspirin, Motrin, lorazepam and multivitamins. PHYSICAL EXAMINATION VITAL SIGNS: Patient is in bed with a temperature of 99, T-Max is 102.4, heart rate of 116, respiratory rate of 21, blood pressure is 88/58. HEENT: Unremarkable. NECK: Supple. LUNGS: Decreased breath sounds. HEART: Normal S1, S2. ABDOMEN: Soft, nontender. LABORATORY DATA: Reveals white count of 11,200, hemoglobin of 8, platelets of 203. Chemistries reveals a BUN of 28, creatinine of 0.9 and urinalysis reveals a too numerous to count wbcs, many bacteria, positive nitrates, positive proteinuria. Microbiology reveals a pseudomonas in the urine and is relatively sensitive. Blood cultures are negative and chest x-ray is new minimal patchy infiltrate in the left lung base. ASSESSMENT AND PLAN: A 78-year-old who is now with severe sepsis with pseudomonas in the urine as the source and a left lower lobe healthcare associated pneumonia. We will treat the patient with Maxipime and doxycycline. Check on the repeat blood cultures that have been ordered and methicillin-resistant Staphylococcus aureus screen, sputum culture and procalcitonin and we will make further recommendations upon the availability of the initial results. Overall prognosis is quite poor for this patient who appears to be cachectic and in an end stage. Pradeep Augustine MD
--- NOTE | 2018-11-09 02:05 | CON ---
DATE: 11/08/2017 HISTORY OF PRESENT ILLNESS: This patient was seen and evaluated earlier today. The patient's family was at bedside. This is a 78-year-old patient with past medical history of Parkinson disease, dementia, hypernatremia, decubitus ulcers, coronary artery disease, cardiomyopathy, and failure to thrive, the patient was recently admitted to the hospital with altered mental status and the patient was sent to the rehab. The patient had a poor p.o. intake and he was found to be hyponatremic. The patient was admitted to this hospital. The patient did fail the swallowing evaluation. GI consult was requested to evaluate further. PAST MEDICAL HISTORY: Other past medical history significant as above. PAST SURGICAL HISTORY: Significant for appendicectomy. FAMILY HISTORY: Limited. SOCIAL HISTORY: Limited. ALLERGIES: SHE IS ALLERGIC TO TYLENOL, HALDOL, AND OXYCODONE. REVIEW OF SYSTEMS: Positive. The patient is non-communicative, limited interview. PHYSICAL EXAMINATION: GENERAL: The patient is lying on the bed, not in acute distress. VITAL SIGNS: Temperature is 99.7, pulse 83, and blood pressure 127/70. HEENT: Atraumatic and anicteric. NECK: Supple. HEART: S1 and S2 heard. LUNGS: Bilateral air entry present. Few scattered rhonchi present. ABDOMEN: Soft. EXTREMITIES: No cyanosis. No clubbing. LABORATORY DATA: Hemoglobin is 8.8, hematocrit 27.8, WBC 7.2, and platelets 203. BUN 11 and creatinine 0.7. IMPRESSION: This 78-year-old patient was admitted with hypernatremia, failure to thrive, p.o. intake, low fever, rule out aspiration pneumonia, would benefit from the percutaneous endoscopic gastrostomy tube placement. The patient's history of Parkinson's is also additionally contributing to the problem. History of urinary tract infection. Other comorbidities include cardiomyopathy, coronary artery disease, and decubitus ulcer. RECOMMENDATIONS: The patient is on aspirin and Plavix. We will wait to for five to seven days before the endoscopic procedure. The patient is going to continue the aspirin only the Plavix need to be on hold. At the present time, he has not taken it for the last four days. We discussed with Dr. Yuan regarding the timing of the PEG tube placement. I did speak with the patient's who has agreed with this procedure for the feeding tube placement. We will check the coagulation profile. Janneth Fraser MD
[2018-11-09] MEDS: Saliva Substitute 44.3 ML PO SCH ×7 (03:00→23:14)
[2018-11-09] MEDS: Potassium Chl 40mEq & D5W 1,000 ML IV SCH (05:09)
[2018-11-09 07:47] LABS: HEMOGLOBIN 8.6 g/dL (14.0-18.0); MEAN CELL VOLUME 91.2 fl (80.0-105.0); MEAN CORPUSCULAR HEMOGLOBIN 29.2 pg (25.0-35.0); MEAN PLATELET VOLUME 10.4 fl (7.0-11.0); RBC 2.95 10^6/uL (3.5-6.1); RED CELL DISTRIBUTION WIDTH 16.1 % (11.5-14.5); WHITE BLOOD COUNT 10.3 10^3/uL (4.5-11.0)
[2018-11-09 07:58] LABS: ALB/GLOB RATIO 0.7 (1.1-1.8); ALBUMIN 2.5 g/dL (3.0-4.8); ALT/SGPT 39 U/L (7-56); AST/SGOT 49 U/L (17-59); BLOOD UREA NITROGEN 9 mg/dL (7-21); CALCIUM 8.6 mg/dL (8.4-10.5); GFR NON-AFRICAN AMERICAN > 60
[2018-11-09] MEDS: Carbidopa/Levodopa/Entacapone 37.5mg-150mg-200mg PO SCH ×3 (11:32→17:26)
[2018-11-09 11:34] LABS: INR 3.11; PROTHROMBIN TIME 35.1 SECONDS (9.4-12.5)
[2018-11-09] MEDS: Cefepime 1gm in NS 100ml 1 GM/100 ML BAG IVPB SCH (11:35)
--- NOTE | 2018-11-09 12:07 | CP.PCM.PN ---
<Daniel Ragland - Last Filed: 11/09/18 14:27> Subjective - Date & Time of Evaluation Date of Evaluation: 11/09/18 Time of Evaluation: 07:30 - Subjective Subjective: Patient seen and examined at bedside. Patient with no acute events overnight. Patient with fever of 102 F this morning. ROS unobtainable secondary to mental status. Objective - Vital Signs/Intake and Output Vital Signs (last 24 hours): Temp Pulse Resp BP Pulse Ox 100.1 F H 94 H 22 127/62 92 L 11/09/18 06:22 11/09/18 06:00 11/09/18 06:00 11/09/18 06:00 11/09/18 06:00 Intake and Output: 11/09/18 11/09/18 06:59 18:59 Intake Total 0 Balance 0 - Medications Medications: Current Medications Acetaminophen (Tylenol 650 Mg Supp) 650 mg RC Q6H PRN PRN Reason: Fever >100.4 F Last Admin: 11/09/18 05:22 Dose: 650 mg Albuterol Sulfate (Albuterol 0.083% Inhal Remedios (2.5 Mg/3 Ml) Ud) 2.5 mg INH [id number] PRN PRN Reason: Shortness of Breath Last Admin: 11/07/18 17:46 Dose: 2.5 mg Aspirin (Aspirin Chewable) 81 mg PO DAILY [facility] Last Admin: 11/09/18 11:31 Dose: Not Given Carbidopa/Levodopa/Entacapone (Stalevo 150) 1 tab PO TID [facility] Last Admin: 11/09/18 11:32 Dose: Not Given Clopidogrel Bisulfate (Plavix) 75 mg PO DAILY [facility] Last Admin: 11/08/18 10:30 Dose: Not Given Famotidine (Pepcid) 20 mg PO 1000,2200 [facility] Last Admin: 11/09/18 11:32 Dose: Not Given Heparin Sodium (Porcine) (Heparin) 5,000 units SC Q12 [facility]; Protocol Last Admin: 11/09/18 11:33 Dose: Not Given Potassium Chloride/Dextrose (Potassium Chl 40 Meq In D5w) 1,000 mls @ 100 mls/hr IV .Q10H [facility] Last Admin: 11/09/18 05:09 Dose: 100 mls/hr Cefepime HCl (Maxipime 1gm) 1 gm in 100 mls @ 100 mls/hr IVPB Q12 [facility]; Protocol Stop: 11/14/18 22:01 Last Admin: 11/09/18 11:35 Dose: 100 mls/hr Doxycycline Hyclate 100 mg/ (Sodium Chloride) 100 mls @ 100 mls/hr IVPB Q12 [facility]; Protocol Stop: 11/15/18 22:01 Last Admin: 11/09/18 11:31 Dose: 100 mls/hr Ibuprofen (Motrin Tab) 400 mg PO Q6H PRN PRN Reason: Fever >100.4 F Lorazepam (Ativan) 0.25 mg IVP Q8H PRN; Protocol PRN Reason: Anxiety Last Admin: 11/06/18 15:40 Dose: 0.25 mg Saliva Substitute (Saliva Substitute) 10 ml PO Q4H [facility] Last Admin: 11/09/18 11:32 Dose: Not Given - Labs Labs: 11/09/18 07:00 11/09/18 07:00 PT 35.1 SECONDS (9.4-12.5) H 11/09/18 11:00 INR 3.11 11/09/18 11:00 - Constitutional Appears: Non-toxic, No Acute Distress, Chronically Ill - Head Exam Head Exam: ATRAUMATIC, NORMAL INSPECTION, NORMOCEPHALIC - ENT Exam ENT Exam: Mucous Membranes Moist - Respiratory Exam Respiratory Exam: Clear to Ausculation Bilateral, NORMAL BREATHING PATTERN. absent: Accessory Muscle Use, Rales, Rhonchi, Wheezes - Cardiovascular Exam Cardiovascular Exam: RRR, +S1, +S2. absent: Murmur - GI/Abdominal Exam GI & Abdominal Exam: Soft, Normal Bowel Sounds. absent: Tenderness, Rebound - Extremities Exam Extremities Exam: absent: Pedal Edema, Tenderness - Neurological Exam Neurological Exam: Alert, Awake. absent: CN II-XII Intact, Oriented x3 - Psychiatric Exam Psychiatric exam: Flat Affect - Skin Skin Exam: Dry, Intact, Normal Color, Warm Assessment and Plan - Assessment and Plan (Free Text) Plan: Left lower pneumonia Pseudomonas UTI Parkinsonian Dementia Hypernatremia, resolved Parkinson's disease Stage 2 pressure ulcer CAD Ischemic cardiomyopathy Patient with left lower lobe pneumonia on Doxycycline. Patient on Cefepime for pseudomonas UTI. Patient scheduled for PEG tube on 11/11/18. Patient will also CT abdomen/pelvis to evaluate for intraabdominal linfection. Patient will continue on IVF for nutrition. Patient on Ativan prn for agitation. Continue local wound care for pressure ulcer Patient will continue on Stalevo for Parkinson's di sease. Patient is on ASA and Plavix for stroke prevention. Patient is on Heparin for DVT prophylaxis. Ellyn, PGY-3 <Jose Yuan S - Last Filed: 11/09/18 17:54> Objective - Vital Signs/Intake and Output Vital Signs (last 24 hours): Temp Pulse Resp BP Pulse Ox 100.1 F H 94 H 22 127/62 92 L 11/09/18 06:22 11/09/18 06:00 11/09/18 06:00 11/09/18 06:00 11/09/18 06:00 Intake and Output: 11/09/18 11/09/18 06:59 18:59 Intake Total 0 Balance 0 - Medications Medications: Current Medications Acetaminophen (Tylenol 650 Mg Supp) 650 mg RC Q6H PRN PRN Reason: Fever >100.4 F Last Admin: 11/09/18 05:22 Dose: 650 mg Albuterol Sulfate (Albuterol 0.083% Inhal Remedios (2.5 Mg/3 Ml) Ud) 2.5 mg INH Q 6HRESP PRN PRN Reason: Shortness of Breath Last Admin: 11/07/18 17:46 Dose: 2.5 mg Aspirin (Aspirin Chewable) 81 mg PO DAILY [facility] Last Admin: 11/09/18 11:31 Dose: Not Given Carbidopa/Levodopa/Entacapone (Stalevo 150) 1 tab PO TID [facility] Last Admin: 11/09/18 17:26 Dose: Not Given Clopidogrel Bisulfate (Plavix) 75 mg PO DAILY [facility] Last Admin: 11/08/18 10:30 Dose: Not Given Famotidine (Pepcid) 20 mg PO 1000,2200 [facility] Last Admin: 11/09/18 11:32 Dose: Not Given Heparin Sodium (Porcine) (Heparin) 5,000 units SC Q12 [facility]; Protocol Last Admin: 11/09/18 11:33 Dose: Not Given Potassium Chloride/Dextrose (Potassium Chl 40 Meq In D5w) 1,000 mls @ 100 mls/hr IV .Q10H [facility] Last Admin: 11/09/18 05:09 Dose: 100 mls/hr Cefepime HCl (Maxipime 1gm) 1 gm in 100 mls @ 100 mls/hr IVPB Q12 [facility]; Protocol Stop: 11/14/18 22:01 Last Admin: 11/09/18 11:35 Dose: 100 mls/hr Doxycycline Hyclate 100 mg/ (Sodium Chloride) 100 mls @ 100 mls/hr IVPB Q12 [facility]; Protocol Stop: 11/15/18 22:01 Last Admin: 11/09/18 11:31 Dose: 100 mls/hr Ibuprofen (Motrin Tab) 400 mg PO Q6H PRN PRN Reason: Fever >100.4 F Lorazepam (Ativan) 0.25 mg IVP Q8H PRN; Protocol PRN Reason: Anxiety Last Admin: 11/06/18 15:40 Dose: 0.25 mg Saliva Substitute (Saliva Substitute) 10 ml PO Q4H [facility] Last Admin: 11/09/18 17:25 Dose: Not Given - Labs Labs: 11/09/18 07:00 11/09/18 07:00 PT 35.1 SECONDS (9.4-12.5) H 11/09/18 11:00 INR 3.11 11/09/18 11:00 Assessment and Plan - Assessment and Plan (Free Text) Plan: Pt seen and examined by me. I have reviewed the note of the medical assistant and I agree with it. I have discussed the assessment and plan with the resident. I have reviewed the medications and the last labs.
--- NOTE | 2018-11-09 12:59 | CP.PCM.PN ---
<Yaritza Em - Last Filed: 11/09/18 12:43> Subjective - Date & Time of Evaluation Date of Evaluation: 11/09/18 Time of Evaluation: 12:43 - Subjective Subjective: Yaritza Em, PGY2, GI Progress Note for Dr Fraser: Patient seen and examined at bedside. Patient had low BP overnight 82/56 with temp 101.2F, required 2 boluses of 500 cc. This AM, patient sleepy, lethargic, denies pain. ROS limited due to patient's condition/dementia. Objective - Vital Signs/Intake and Output Vital Signs (last 24 hours): Temp Pulse Resp BP Pulse Ox 100.1 F H 94 H 22 127/62 92 L 11/09/18 06:22 11/09/18 06:00 11/09/18 06:00 11/09/18 06:00 11/09/18 06:00 Intake and Output: 11/09/18 11/09/18 06:59 18:59 Intake Total 0 Balance 0 - Medications Medications: Current Medications Acetaminophen (Tylenol 650 Mg Supp) 650 mg RC Q6H PRN PRN Reason: Fever >100.4 F Last Admin: 11/09/18 05:22 Dose: 650 mg Albuterol Sulfate (Albuterol 0.083% Inhal Remedios (2.5 Mg/3 Ml) Ud) 2.5 mg INH [id number] PRN PRN Reason: Shortness of Breath Last Admin: 11/07/18 17:46 Dose: 2.5 mg Aspirin (Aspirin Chewable) 81 mg PO DAILY [facility] Last Admin: 11/09/18 11:31 Dose: Not Given Carbidopa/Levodopa/Entacapone (Stalevo 150) 1 tab PO TID [facility] Last Admin: 11/09/18 11:32 Dose: Not Given Clopidogrel Bisulfate (Plavix) 75 mg PO DAILY [facility] Last Admin: 11/08/18 10:30 Dose: Not Given Famotidine (Pepcid) 20 mg PO 1000,2200 [facility] Last Admin: 11/09/18 11:32 Dose: Not Given Heparin Sodium (Porcine) (Heparin) 5,000 units SC Q12 [facility]; Protocol Last Admin: 11/09/18 11:33 Dose: Not Given Potassium Chloride/Dextrose (Potassium Chl 40 Meq In D5w) 1,000 mls @ 100 mls/hr IV .Q10H [facility] Last Admin: 11/09/18 05:09 Dose: 100 mls/hr Cefepime HCl (Maxipime 1gm) 1 gm in 100 mls @ 100 mls/hr IVPB Q12 [facility]; Protocol Stop: 11/14/18 22:01 Last Admin: 11/09/18 11:35 Dose: 100 mls/hr Doxycycline Hyclate 100 mg/ (Sodium Chloride) 100 mls @ 100 mls/hr IVPB Q12 [facility]; Protocol Stop: 11/15/18 22:01 Last Admin: 11/09/18 11:31 Dose: 100 mls/hr Ibuprofen (Motrin Tab) 400 mg PO Q6H PRN PRN Reason: Fever >100.4 F Lorazepam (Ativan) 0.25 mg IVP Q8H PRN; Protocol PRN Reason: Anxiety Last Admin: 11/06/18 15:40 Dose: 0.25 mg Saliva Substitute (Saliva Substitute) 10 ml PO Q4H [facility] Last Admin: 11/09/18 11:32 Dose: Not Given - Labs Labs: 11/09/18 07:00 11/09/18 07:00 PT 35.1 SECONDS (9.4-12.5) H 11/09/18 11:00 INR 3.11 11/09/18 11:00 - Constitutional Appears: Cachectic, Chronically Ill - Head Exam Head Exam: ATRAUMATIC, NORMOCEPHALIC - Eye Exam Eye Exam: EOMI, PERRL. absent: Conjunctival injection, Nystagmus, Scleral icterus Pupil Exam: NORMAL ACCOMODATION, PERRL. absent: Miosis, Mydriatic - ENT Exam ENT Exam: Mucous Membranes Dry - Neck Exam Neck Exam: Full ROM - Respiratory Exam Respiratory Exam: NORMAL BREATHING PATTERN - Cardiovascular Exam Cardiovascular Exam: RRR, +S1, +S2. absent: Murmur - GI/Abdominal Exam GI & Abdominal Exam: Soft, Normal Bowel Sounds. absent: Guarding, Rigid, Rebound - Extremities Exam Extremities Exam: Normal Inspection - Back Exam Back Exam: NORMAL INSPECTION - Neurological Exam Additional comments: sleepy - Skin Skin Exam: Normal Color, Warm Assessment and Plan - Assessment and Plan (Free Text) Assessment: # Failure to thrive, poor PO intake # Hypernetremia, resolved # Parkinson's disease # CAD with stents # Decub ulcer - Recommend percutaneous endoscopic gastrostomy tube placement. Scheduled for Friday with Dr Fraser. Spoke with , Melly Morrison, obtained consent, in chart. - Continue to hold Plavix, Day 5 - continue with wound care, D5W. - NPO for now. Case seen and discussed with Dr Fraser. <Janneth Fraser V - Last Filed: 11/09/18 23:06> Objective - Vital Signs/Intake and Output Vital Signs (last 24 hours): Temp Pulse Resp BP Pulse Ox 100.1 F H 94 H 22 127/62 92 L 11/09/18 06:22 11/09/18 06:00 11/09/18 06:00 11/09/18 06:00 11/09/18 06:00 Intake and Output: 11/09/18 11/10/18 18:59 06:59 Intake Total 0 Balance 0 - Medications Medications: Current Medications Acetaminophen (Tylenol 650 Mg Supp) 650 mg RC Q6H PRN PRN Reason: Fever >100.4 F Last Admin: 11/09/18 05:22 Dose: 650 mg Albuterol Sulfate (Albuterol 0.083% Inhal Remedios (2.5 Mg/3 Ml) Ud) 2.5 mg INH [id number] PRN PRN Reason: Shortness of Breath Last Admin: 11/07/18 17:46 Dose: 2.5 mg Aspirin (Aspirin Chewable) 81 mg PO DAILY [facility] Last Admin: 11/09/18 11:31 Dose: Not Given Carbidopa/Levodopa/Entacapone (Stalevo 150) 1 tab PO TID [facility] Last Admin: 11/09/18 17:26 Dose: Not Given Clopidogrel Bisulfate (Plavix) 75 mg PO DAILY [facility] Last Admin: 11/08/18 10:30 Dose: Not Given Famotidine (Pepcid) 20 mg PO 1000,2200 [facility] Last Admin: 11/09/18 11:32 Dose: Not Given Heparin Sodium (Porcine) (Heparin) 5,000 units SC Q12 [facility]; Protocol Last Admin: 11/09/18 21:21 Dose: 5,000 units Potassium Chloride/Dextrose (Potassium Chl 40 Meq In D5w) 1,000 mls @ 100 mls/hr IV .Q10H [facility] Last Admin: 11/09/18 05:09 Dose: 100 mls/hr Doxycycline Hyclate 100 mg/ (Sodium Chloride) 100 mls @ 100 mls/hr IVPB Q12 [facility]; Protocol Stop: 11/15/18 22:01 Last Admin: 11/09/18 21:22 Dose: 100 mls/hr Meropenem (Merrem Iv 1 Gm Premix) 1 gm in 50 mls @ 100 mls/hr IVPB Q8 [facility]; Protocol Stop: 11/18/18 22:01 Ibuprofen (Motrin Tab) 400 mg PO Q6H PRN PRN Reason: Fever >100.4 F Lorazepam (Ativan) 0.25 mg IVP Q8H PRN; Protocol PRN Reason: Anxiety Last Admin: 11/06/18 15:40 Dose: 0.25 mg Saliva Substitute (Saliva Substitute) 10 ml PO Q4H [facility] Last Admin: 11/09/18 21:21 Dose: 10 ml - Labs Labs: 11/09/18 07:00 11/09/18 07:00 PT 35.1 SECONDS (9.4-12.5) H 11/09/18 11:00 INR 3.11 11/09/18 11:00 Attending/Attestation - Attestation I have personally seen and examined this patient.: Yes I have fully participated in the care of the patient.: Yes I have reviewed all pertinent clinical information, including history, physical exam and plan: Yes Notes (Text): This patient was seen and evaluated along with the resident team earlier. Patient was on aspirin and Plavix which has been on hold for the last 5 days including today. Discussed with the family yesterday. Patient failed a swallowing evaluation history of Parkinson's would benefit from PEG tube placement Thank you Dr. Yuan for allowing us to participate in the care of the patient 11/09/18 23:03
[2018-11-09] MEDS ORDERED: Phytonadione 5 MG in Sodium Chloride 0.9% 50 ML IV ONE (19:02)
--- NOTE | 2018-11-09 22:24 | PN ---
DATE: 11/09/2018 SUBJECTIVE: The patient is seen and examined. I do agree with the note of the district medical examiner. I was involved in the plan of care. The patient has dysphagia. He is not able to swallow. He is going to have a PEG placed in two days. I did speak to Dr. Fraser regarding the case. The patient has Parkinson's dementia. It is fairly advanced. He has stage II pressure ulcers. He is being treated with local wound care. He is on aspirin, Plavix for stroke prevention. The patient was seen by Neurology. The patient has coronary artery disease. He is also on aspirin and Plavix this. He is on IV fluids because of hypernatremia. His hypernatremia has improved. I did speak to the patient's yesterday to give her an update. A CT of the abdomen and pelvis has been ordered to evaluate for any infections. Jose Yuan MD
[2018-11-09] MEDS: Meropenem IV 1 gm in NS 1 GM/50 ML BAG IVPB SCH (23:08)
[2018-11-10] MEDS: Saliva Substitute 44.3 ML PO SCH ×6 (03:00→23:43)
[2018-11-10 07:54] LABS: BASO # 0.01 K/mm3 (0.0-2.0); BASO % 0.1 % (0.0-3.0); EOS % 0.2 % (1.5-5.0); HEMOGLOBIN 8.8 g/dL (14.0-18.0); LYMPH # 1.8 (1.2-3.4); LYMPH % 14.8 % (22.0-35.0); MEAN CELL VOLUME 91.7 fl (80.0-105.0); MEAN CORPUSCULAR HEMOGLOBIN 29.1 pg (25.0-35.0); MEAN CORPUSCULAR HGB CONC 31.8 g/dl (31.0-37.0); MEAN PLATELET VOLUME 10.4 fl (7.0-11.0); MONO # 1.9 (0.1-0.6); MONO % 15.2 % (1.0-6.0); RBC 3.02 10^6/uL (3.5-6.1); RED CELL DISTRIBUTION WIDTH 16.3 % (11.5-14.5); WHITE BLOOD COUNT 12.3 10^3/uL (4.5-11.0)
[2018-11-10 08:00] LABS: INR 1.75; PROTHROMBIN TIME 19.8 SECONDS (9.4-12.5)
[2018-11-10 08:14] LABS: ALB/GLOB RATIO 0.7 (1.1-1.8); ALBUMIN 2.4 g/dL (3.0-4.8); ALT/SGPT 37 U/L (7-56); AST/SGOT 49 U/L (17-59); BLOOD UREA NITROGEN 9 mg/dL (7-21); CALCIUM 9.1 mg/dL (8.4-10.5); GFR NON-AFRICAN AMERICAN > 60
--- NOTE | 2018-11-10 08:18 | PN ---
DATE: 11/09/2018 SUBJECTIVE: The patient is in bed in no acute distress, nontoxic, was seen early this morning. He is having fevers. PHYSICAL EXAMINATION: VITAL SIGNS: Temperature is 101.2, blood pressure is 140/70, respiratory rate of 22, heart rate of 94. HEENT: Unremarkable. NECK: Supple. LUNGS: Decreased breath sounds. HEART: Normal S1 and S2. ABDOMEN: Soft. LABORATORY EXAMINATION: Reveals a white count of 10,000 and hemoglobin of 8. Chemistries are noted. Urinalysis is reviewed. Microbiology is noted. MEDICATIONS: Review of orders reveals the patient to be on cefepime. Dr. Yuan's note is reviewed. ASSESSMENT AND PLAN: A 78-year-old male who was seen earlier today in 577, bed 2. Overall, prognosis is quite poor for this patient who has coronary artery disease, hypertension, hyperlipidemia, Randolph's disease, cardiac catheterization, appendectomy, right-sided pyelonephritis, urinary tract infection, spinal stenosis, Parkinson's and dementia, who was admitted with severe sepsis with Pseudomonas in the urine and now with left lobe healthcare-associated pneumonia, now with fevers and normal sputum. Methicillin-resistant Staphylococcus aureus is not detected. Currently on doxycycline and cefepime. We will change the cefepime to meropenem. Overall, prognosis is quite poor for this patient. Pradeep Augustine MD
--- NOTE | 2018-11-10 08:58 | CP.PCM.PN ---
<Yaritza Em - Last Filed: 11/10/18 11:26> Subjective - Date & Time of Evaluation Date of Evaluation: 11/10/18 Time of Evaluation: 08:31 - Subjective Subjective: Yaritza Em, PGY2, GI Progress Note for Dr Fraser: Patient seen and examined at bedside. No acute events overnight. Patient nonverbal, mildly agitated, denies pain. ROS limited due to patient's condition/dementia. Objective - Vital Signs/Intake and Output Vital Signs (last 24 hours): Temp Pulse Resp BP Pulse Ox 97.7 F 94 H 17 99/65 L 97 11/10/18 06:00 11/10/18 06:00 11/10/18 06:00 11/10/18 06:00 11/10/18 06:00 Intake and Output: 11/10/18 11/10/18 06:59 18:59 Intake Total 0 Balance 0 - Medications Medications: Current Medications Acetaminophen (Tylenol 650 Mg Supp) 650 mg RC Q6H PRN PRN Reason: Fever >100.4 F Last Admin: 11/09/18 05:22 Dose: 650 mg Albuterol Sulfate (Albuterol 0.083% Inhal Remedios (2.5 Mg/3 Ml) Ud) 2.5 mg INH [id number] PRN PRN Reason: Shortness of Breath Last Admin: 11/07/18 17:46 Dose: 2.5 mg Aspirin (Aspirin Chewable) 81 mg PO DAILY [facility] Last Admin: 11/09/18 11:31 Dose: Not Given Carbidopa/Levodopa/Entacapone (Stalevo 150) 1 tab PO TID [facility] Last Admin: 11/09/18 17:26 Dose: Not Given Clopidogrel Bisulfate (Plavix) 75 mg PO DAILY [facility] Last Admin: 11/08/18 10:30 Dose: Not Given Famotidine (Pepcid) 20 mg PO 1000,2200 [facility] Last Admin: 11/09/18 11:32 Dose: Not Given Heparin Sodium (Porcine) (Heparin) 5,000 units SC Q12 [facility]; Protocol Last Admin: 11/09/18 21:21 Dose: 5,000 units Potassium Chloride/Dextrose (Potassium Chl 40 Meq In D5w) 1,000 mls @ 100 mls/hr IV .Q10H [facility] Last Admin: 11/09/18 05:09 Dose: 100 mls/hr Doxycycline Hyclate 100 mg/ (Sodium Chloride) 100 mls @ 100 mls/hr IVPB Q12 [facility]; Protocol Stop: 11/15/18 22:01 Last Admin: 11/09/18 21:22 Dose: 100 mls/hr Meropenem (Merrem Iv 1 Gm Premix) 1 gm in 50 mls @ 100 mls/hr IVPB Q8 [facility]; Protocol Stop: 11/18/18 22:01 Last Admin: 11/09/18 23:08 Dose: 100 mls/hr Ibuprofen (Motrin Tab) 400 mg PO Q6H PRN PRN Reason: Fever >100.4 F Lorazepam (Ativan) 0.25 mg IVP Q8H PRN; Protocol PRN Reason: Anxiety Last Admin: 11/09/18 23:07 Dose: 0.25 mg Saliva Substitute (Saliva Substitute) 10 ml PO Q4H [facility] Last Admin: 11/09/18 23:14 Dose: 10 ml - Labs Labs: 11/10/18 07:45 11/10/18 07:45 PT 19.8 SECONDS (9.4-12.5) H 11/10/18 07:45 INR 1.75 11/10/18 07:45 - Additional Findings Additional findings: - Constitutional Appears: Cachectic, Chronically Ill - Head Exam Head Exam: ATRAUMATIC, NORMOCEPHALIC - Eye Exam Eye Exam: EOMI, PERRL. absent: Conjunctival injection, Nystagmus, Scleral icterus Pupil Exam: NORMAL ACCOMODATION, PERRL. absent: Miosis, Mydriatic - ENT Exam ENT Exam: Mucous Membranes Dry - Neck Exam Neck Exam: Full ROM - Respiratory Exam Respiratory Exam: NORMAL BREATHING PATTERN - Cardiovascular Exam Cardiovascular Exam: RRR, +S1, +S2. absent: Murmur - GI/Abdominal Exam GI & Abdominal Exam: Soft, Normal Bowel Sounds. absent: Guarding, Rigid, Rebound - Extremities Exam Extremities Exam: Normal Inspection - Back Exam Back Exam: NORMAL INSPECTION - Neurological Exam Additional comments: mild agitation - Skin Skin Exam: Normal Color, Warm Assessment and Plan - Assessment and Plan (Free Text) Assessment: # Failure to thrive, poor PO intake # Elevated INR, 3.11, 2/2 likely vitamin K deficiency (from malnutrition) # Hypernetremia, resolved # Parkinson's disease # CAD with stents # Decub ulcer - Recommend percutaneous endoscopic gastrostomy tube placement. Scheduled PEG for tomorrow with Dr Fraser. Spoke with , Melly Morrison, obtained PEG consent, in chart. - Continue to hold Plavix, Day 6 - s/p Vitamin K 5 mg IV yesterday, INR 1.75 today. Will give Vitamin K 2.5 mg subq today. will follow up INR tomorrow. - continue with wound care, D5W. - NPO for now. Case seen and discussed with Dr Fraser. <Janneth Fraser V - Last Filed: 11/10/18 23:55> Objective - Vital Signs/Intake and Output Vital Signs (last 24 hours): Temp Pulse Resp BP Pulse Ox 98.9 F 88 20 90/61 L 98 11/10/18 22:13 11/10/18 22:13 11/10/18 22:13 11/10/18 22:13 11/10/18 22:13 Intake and Output: 11/10/18 11/11/18 18:59 06:59 Intake Total 0 Balance 0 - Medications Medications: Current Medications Acetaminophen (Tylenol 650 Mg Supp) 650 mg RC Q6H PRN PRN Reason: Fever >100.4 F Last Admin: 11/10/18 17:48 Dose: 650 mg Albuterol Sulfate (Albuterol 0.083% Inhal Remedios (2.5 Mg/3 Ml) Ud) 2.5 mg INH [id number] PRN PRN Reason: Shortness of Breath Last Admin: 11/07/18 17:46 Dose: 2.5 mg Aspirin (Aspirin Chewable) 81 mg PO DAILY [facility] Last Admin: 11/10/18 12:48 Dose: Not Given Carbidopa/Levodopa/Entacapone (Stalevo 150) 1 tab PO TID [facility] Last Admin: 11/10/18 17:42 Dose: Not Given Clopidogrel Bisulfate (Plavix) 75 mg PO DAILY [facility] Last Admin: 11/08/18 10:30 Dose: Not Given Famotidine (Pepcid) 20 mg PO 1000,2200 [facility] Last Admin: 11/10/18 22:07 Dose: Not Given Heparin Sodium (Porcine) (Heparin) 5,000 units SC Q12 [facility]; Protocol Last Admin: 11/10/18 22:04 Dose: 5,000 units Potassium Chloride/Dextrose (Potassium Chl 40 Meq In D5w) 1,000 mls @ 100 mls/hr IV .Q10H [facility] Last Admin: 11/10/18 22:12 Dose: 100 mls/hr Doxycycline Hyclate 100 mg/ (Sodium Chloride) 100 mls @ 100 mls/hr IVPB Q12 [facility]; Protocol Stop: 11/15/18 22:01 Last Admin: 11/10/18 22:13 Dose: 100 mls/hr Meropenem (Merrem Iv 1 Gm Premix) 1 gm in 50 mls @ 100 mls/hr IVPB Q8 [facility]; Protocol Stop: 11/18/18 22:01 Last Admin: 11/10/18 22:06 Dose: 100 mls/hr Ibuprofen (Motrin Tab) 400 mg PO Q6H PRN PRN Reason: Fever >100.4 F Lorazepam (Ativan) 0.25 mg IVP Q8H PRN; Protocol PRN Reason: Anxiety Last Admin: 11/10/18 17:41 Dose: 0.25 mg Saliva Substitute (Saliva Substitute) 10 ml PO Q4H [facility] Last Admin: 11/10/18 22:02 Dose: 10 ml - Labs Labs: 11/10/18 07:45 11/10/18 07:45 PT 19.8 SECONDS (9.4-12.5) H 11/10/18 07:45 INR 1.75 11/10/18 07:45 Attending/Attestation - Attestation I have personally seen and examined this patient.: Yes I have fully participated in the care of the patient.: Yes I have reviewed all pertinent clinical information, including history, physical exam and plan: Yes Notes (Text): This patient was seen and evaluated here earlier along with the director medical science. This is an addendum to the GI progress report dictated by the resident. Coagulopathy is being corrected with vitamin K. Scheduled for a PEG tube placement tomorrow. Informed consent was obtained. 11/10/18 23:54
[2018-11-10] MEDS: Potassium Chl 40mEq & D5W 1,000 ML IV SCH ×2 (09:57→22:12)
[2018-11-10] MEDS: Carbidopa/Levodopa/Entacapone 37.5mg-150mg-200mg PO SCH ×3 (10:00→17:42)
[2018-11-10] MEDS ORDERED: Iohexol 350 MG/100 ML VIAL ONE (10:00)
[2018-11-10] MEDS ORDERED: Phytonadione 10 mg/ml Inj (Adult) SC STA (11:24)
--- NOTE | 2018-11-10 11:49 | CT ---
Date of service: 11/10/2018 PROCEDURE: CT Abdomen and Pelvis with contrast HISTORY: sepsis,eval intra-abdominal infection,prior to PEG COMPARISON: 08/29/2014 TECHNIQUE: Contrast dose: 100 mL Omnipaque 350 Radiation dose: Total exam DLP = 793.39 mGy-cm. This CT exam was performed using one or more of the following dose reduction techniques: Automated exposure control, adjustment of the mA and/or kV according to patient size, and/or use of iterative reconstruction technique. FINDINGS: LOWER THORAX: Left lower lobe infiltrate versus atelectasis. Minimal dependent atelectasis right lower lobe. Mild cardiomegaly. LIVER: Unremarkable. No gross lesion or ductal dilatation. GALLBLADDER AND BILE DUCTS: Unremarkable. PANCREAS: Unremarkable. No gross lesion or ductal dilatation. SPLEEN: Unremarkable. ADRENALS: Unremarkable. No mass. KIDNEYS AND URETERS: Unremarkable. No hydronephrosis. No solid mass. VASCULATURE: Unremarkable. No aortic aneurysm. There is atherosclerotic calcification of the abdominal aorta. BOWEL: No bowel obstruction. No abnormal bowel loops. No significant retained stool. APPENDIX: Not identified. No secondary findings. PERITONEUM: Unremarkable. No free fluid. No free air. LYMPH NODES: Unremarkable. No enlarged lymph nodes. BLADDER: Unremarkable. REPRODUCTIVE: Normal prostate BONES: Lumbar levoscoliosis OTHER FINDINGS: None. IMPRESSION: Left lower lobe infiltrate versus atelectasis. No other acute abnormality.
[2018-11-10] MEDS: Meropenem IV 1 gm in NS 1 GM/50 ML BAG IVPB SCH ×2 (13:02→22:06)
--- NOTE | 2018-11-10 14:02 | CP.PCM.PN ---
Subjective - Date & Time of Evaluation Date of Evaluation: 11/10/18 Time of Evaluation: 07:35 - Subjective Subjective: Patient seen and examined at bedside. Patient with no acute events overnight. Patient with fever this morning. ROS unobtainable secondary to mental status. Objective - Vital Signs/Intake and Output Vital Signs (last 24 hours): Temp Pulse Resp BP Pulse Ox 97.7 F 94 H 17 99/65 L 97 11/10/18 06:00 11/10/18 06:00 11/10/18 06:00 11/10/18 06:00 11/10/18 06:00 Intake and Output: 11/10/18 11/10/18 06:59 18:59 Intake Total 0 Balance 0 - Medications Medications: Current Medications Acetaminophen (Tylenol 650 Mg Supp) 650 mg RC Q6H PRN PRN Reason: Fever >100.4 F Last Admin: 11/09/18 05:22 Dose: 650 mg Albuterol Sulfate (Albuterol 0.083% Inhal Remedios (2.5 Mg/3 Ml) Ud) 2.5 mg INH [id number] PRN PRN Reason: Shortness of Breath Last Admin: 11/07/18 17:46 Dose: 2.5 mg Aspirin (Aspirin Chewable) 81 mg PO DAILY [facility] Last Admin: 11/10/18 12:48 Dose: Not Given Carbidopa/Levodopa/Entacapone (Stalevo 150) 1 tab PO TID [facility] Last Admin: 11/10/18 10:00 Dose: Not Given Clopidogrel Bisulfate (Plavix) 75 mg PO DAILY [facility] Last Admin: 11/08/18 10:30 Dose: Not Given Famotidine (Pepcid) 20 mg PO 1000,2200 [facility] Last Admin: 11/10/18 12:49 Dose: Not Given Heparin Sodium (Porcine) (Heparin) 5,000 units SC Q12 [facility]; Protocol Last Admin: 11/10/18 12:48 Dose: Not Given Potassium Chloride/Dextrose (Potassium Chl 40 Meq In D5w) 1,000 mls @ 100 mls/hr IV .Q10H [facility] Last Admin: 11/10/18 09:57 Dose: 100 mls/hr Doxycycline Hyclate 100 mg/ (Sodium Chloride) 100 mls @ 100 mls/hr IVPB Q12 [facility]; Protocol Stop: 11/15/18 22:01 Last Admin: 11/10/18 09:54 Dose: 100 mls/hr Meropenem (Merrem Iv 1 Gm Premix) 1 gm in 50 mls @ 100 mls/hr IVPB Q8 [facility]; Protocol Stop: 11/18/18 22:01 Last Admin: 11/10/18 13:02 Dose: 100 mls/hr Ibuprofen (Motrin Tab) 400 mg PO Q6H PRN PRN Reason: Fever >100.4 F Lorazepam (Ativan) 0.25 mg IVP Q8H PRN; Protocol PRN Reason: Anxiety Last Admin: 11/09/18 23:07 Dose: 0.25 mg Saliva Substitute (Saliva Substitute) 10 ml PO Q4H [facility] Last Admin: 11/10/18 09:56 Dose: 10 ml - Labs Labs: 11/10/18 07:45 11/10/18 07:45 PT 19.8 SECONDS (9.4-12.5) H 11/10/18 07:45 INR 1.75 11/10/18 07:45 - Constitutional Appears: Non-toxic, No Acute Distress - Head Exam Head Exam: ATRAUMATIC, NORMAL INSPECTION, NORMOCEPHALIC - ENT Exam ENT Exam: Mucous Membranes Moist - Respiratory Exam Respiratory Exam: Decreased Breath Sounds, NORMAL BREATHING PATTERN. absent: Accessory Muscle Use, Rales, Rhonchi, Wheezes - Cardiovascular Exam Cardiovascular Exam: RRR, +S1, +S2, Murmur. absent: Irregular Rhythm - GI/Abdominal Exam GI & Abdominal Exam: Soft, Normal Bowel Sounds. absent: Distended, Guarding, Tenderness, Rebound - Extremities Exam Extremities Exam: Normal Inspection. absent: Pedal Edema, Tenderness - Neurological Exam Neurological Exam: Alert, Awake. absent: Oriented x3 - Psychiatric Exam Psychiatric exam: Agitated, Flat Affect - Skin Skin Exam: Dry, Intact, Normal Color, Warm Assessment and Plan - Assessment and Plan (Free Text) Plan: Left lower pneumonia Pseudomonas UTI Parkinsonian Dementia Hypernatremia, resolved Parkinson's disease Stage 2 pressure ulcer CAD Ischemic cardiomyopathy Patient with left lower lobe pneumonia on Doxycycline. Patient was previously on Cefepime for pseudomonas UTI, but now changed to Merrem. Patient scheduled for PEG tube on 11/11/18. Patient with CT abdomen/pelvis which demonstrated no acute intraabodminal pathology. Patient will continue on IVF for nutrition. Patient on Ativan prn for agitation. Continue local wound care for pressure ulcer Patient will continue on Stalevo for Parkinson's disease. We will hold Plavix as per GI recommendations for PEG tube placement. Patient also given dose of Vitamin K as per GI. Patient is on ASA for stroke prevention. Patient is on Heparin for DVT prophylaxis. Ellyn, PGY-3
--- NOTE | 2018-11-10 23:25 | PN ---
DATE: 11/10/2018 SUBJECTIVE: The patient is in bed, in no acute distress, nontoxic. PHYSICAL EXAMINATION VITAL SIGNS: Temperature is 98, blood pressure is 99/60, respiratory rate 20 and heart rate of 94. HEENT: Unremarkable. NECK: Supple. LUNGS: Decreased breath sounds. HEART: Normal S1, S2. ABDOMEN: Soft. LABORATORY DATA: Reveals white count of 12,300. Chemistry reveals BUN of 9, creatinine 0.6, procalcitonin 0.19. Urinalysis is noted. Microbiology reveals a pseudomonas in the urine and sensitivity is noted. MEDICATIONS: Review of orders reveals the patient to be on doxycycline and meropenem. ASSESSMENT AND PLAN: A 78-year-old male who was seen earlier today in 577, bed 2 with coronary artery disease, hypertension, hyperlipidemia, Kishore's disease, cardiac catheterization, appendectomy, right-sided pyelonephritis, urinary tract infection and spinal stenosis. On this admission, the patient admitted with; 1. Severe sepsis with pseudomonas in the urine and a left lower lobe healthcare-associated pneumonia now with low-grade fevers, currently on doxycycline and meropenem day #2 with complete 4 to 7 days of antibiotics in this patient who is chronically ill, debilitated, and overall in poor condition. Will follow the fever curve. Pradeep Augustine MD
[2018-11-11] MEDS: Albuterol 0.083% Inhal Sol (2.5 mg/3 mL) UD INH PRN ×2 (01:33→15:17)
[2018-11-11] MEDS: Saliva Substitute 44.3 ML PO SCH ×3 (03:20→11:25)
[2018-11-11] MEDS: Meropenem IV 1 gm in NS 1 GM/50 ML BAG IVPB SCH ×3 (05:38→22:13)
[2018-11-11 07:28] LABS: ALB/GLOB RATIO 0.6 (1.1-1.8); ALBUMIN 2.5 g/dL (3.0-4.8); ALT/SGPT 29 U/L (7-56); AST/SGOT 48 U/L (17-59); BLOOD UREA NITROGEN 10 mg/dL (7-21); CALCIUM 9.3 mg/dL (8.4-10.5); GFR NON-AFRICAN AMERICAN > 60; INR 1.55; PROTHROMBIN TIME 17.5 SECONDS (9.4-12.5)
[2018-11-11 07:50] LABS: BASO # 0.01 K/mm3 (0.0-2.0); BASO % 0.1 % (0.0-3.0); EOS % 0.2 % (1.5-5.0); HEMOGLOBIN 8.5 g/dL (14.0-18.0); LYMPH # 1.7 (1.2-3.4); LYMPH % 13.3 % (22.0-35.0); MEAN CELL VOLUME 92.5 fl (80.0-105.0); MEAN CORPUSCULAR HEMOGLOBIN 29.1 pg (25.0-35.0); MEAN CORPUSCULAR HGB CONC 31.5 g/dl (31.0-37.0); MEAN PLATELET VOLUME 10.3 fl (7.0-11.0); MONO # 1.9 (0.1-0.6); MONO % 14.7 % (1.0-6.0); RBC 2.92 10^6/uL (3.5-6.1); RED CELL DISTRIBUTION WIDTH 16.5 % (11.5-14.5)
--- NOTE | 2018-11-11 08:35 | PN ---
DATE: 11/10/2018 SUBJECTIVE: The patient is a 78-year-old with poor oral intake, was found to be very lethargic and unresponsive. He had a CT scan of the abdomen and pelvis done that shows left lower lobe infiltrate versus atelectasis. H and P and progress note reviewed and agreed with the plan. The patient is scheduled to have a PEG placed tomorrow. Overall, prognosis seems to be poor. However, according to family's decision, we will proceed for PEG placement in the a.m. Assessment and plan as per resident. The patient will be maintained on nebulizer treatment. He is on aspirin. He is on IV fluids, doxycycline. He is on DVT prophylaxis. He is getting meropenem. His Plavix is on hold for the plan for PEG in the a.m. Gissel Sanders MD
[2018-11-11] MEDS: Carbidopa/Levodopa/Entacapone 37.5mg-150mg-200mg PO SCH ×3 (11:14→20:07)
--- NOTE | 2018-11-11 13:21 | CP.PCM.PN ---
<Daniel Ragland - Last Filed: 11/11/18 13:17> Subjective - Date & Time of Evaluation Date of Evaluation: 11/11/18 Time of Evaluation: 07:30 - Subjective Subjective: Patient seen and examined at bedside. Patient with no acute events overnight. ROS unobtainable secondary to mental status. Objective - Vital Signs/Intake and Output Vital Signs (last 24 hours): Temp Pulse Resp BP Pulse Ox 99.5 F 92 H 22 101/66 100 11/11/18 06:00 11/11/18 06:00 11/11/18 06:00 11/11/18 06:00 11/11/18 06:00 Intake and Output: 11/11/18 11/11/18 06:59 18:59 Intake Total 1200 Balance 1200 - Medications Medications: Current Medications Acetaminophen (Tylenol 650 Mg Supp) 650 mg RC Q6H PRN PRN Reason: Fever >100.4 F Last Admin: 11/11/18 02:58 Dose: 650 mg Albuterol Sulfate (Albuterol 0.083% Inhal Remedios (2.5 Mg/3 Ml) Ud) 2.5 mg INH [id number] PRN PRN Reason: Shortness of Breath Last Admin: 11/11/18 01:33 Dose: 2.5 mg Aspirin (Aspirin Chewable) 81 mg PO DAILY [facility] Last Admin: 11/11/18 11:13 Dose: Not Given Carbidopa/Levodopa/Entacapone (Stalevo 150) 1 tab PO TID [facility] Last Admin: 11/11/18 11:14 Dose: Not Given Clopidogrel Bisulfate (Plavix) 75 mg PO DAILY [facility] Last Admin: 11/08/18 10:30 Dose: Not Given Famotidine (Pepcid) 20 mg PO 1000,2200 [facility] Last Admin: 11/11/18 11:13 Dose: Not Given Heparin Sodium (Porcine) (Heparin) 5,000 units SC Q12 [facility]; Protocol Last Admin: 11/10/18 22:04 Dose: 5,000 units Potassium Chloride/Dextrose (Potassium Chl 40 Meq In D5w) 1,000 mls @ 100 mls/hr IV .Q10H [facility] Last Admin: 11/10/18 22:12 Dose: 100 mls/hr Doxycycline Hyclate 100 mg/ (Sodium Chloride) 100 mls @ 100 mls/hr IVPB Q12 [facility]; Protocol Stop: 11/15/18 22:01 Last Admin: 11/11/18 11:23 Dose: 100 mls/hr Meropenem (Merrem Iv 1 Gm Premix) 1 gm in 50 mls @ 100 mls/hr IVPB Q8 [facility]; Protocol Stop: 11/18/18 22:01 Last Admin: 11/11/18 05:38 Dose: 100 mls/hr Ibuprofen (Motrin Tab) 400 mg PO Q6H PRN PRN Reason: Fever >100.4 F Lorazepam (Ativan) 0.25 mg IVP Q8H PRN; Protocol PRN Reason: Anxiety Last Admin: 11/10/18 17:41 Dose: 0.25 mg Saliva Substitute (Saliva Substitute) 10 ml PO Q4H [facility] Last Admin: 11/11/18 11:25 Dose: 10 ml - Labs Labs: 11/11/18 06:35 11/11/18 06:35 PT 17.5 SECONDS (9.4-12.5) H 11/11/18 06:35 INR 1.55 11/11/18 06:35 - Constitutional Appears: Non-toxic, No Acute Distress, Cachectic, Chronically Ill - Head Exam Head Exam: ATRAUMATIC, NORMAL INSPECTION, NORMOCEPHALIC - ENT Exam ENT Exam: Mucous Membranes Moist, Normal Exam - Respiratory Exam Respiratory Exam: Decreased Breath Sounds, NORMAL BREATHING PATTERN. absent: Rales, Rhonchi, Wheezes - Cardiovascular Exam Cardiovascular Exam: RRR, +S1, +S2, Murmur - GI/Abdominal Exam GI & Abdominal Exam: Soft, Normal Bowel Sounds. absent: Guarding, Tenderness, Rebound - Extremities Exam Extremities Exam: Normal Inspection. absent: Pedal Edema - Neurological Exam Neurological Exam: Alert, Awake. absent: Oriented x3 - Skin Skin Exam: Dry, Intact, Normal Color, Warm Assessment and Plan - Assessment and Plan (Free Text) Plan: Left lower pneumonia Pseudomonas UTI Parkinsonian Dementia Parkinson's disease Stage 2 pressure ulcer CAD Ischemic cardiomyopathy Patient with left lower lobe pneumonia on Doxycycline. Patient on Merrem for pseudomonas UTI. Patient will have PEG tube placed today We will stop IVF as mirta dnoaldson is getting PEG tube today. Patient on Ativan prn for agitation. Continue local wound care for pressure ulcer. Patient will continue on Stalevo for Parkinson's disease. We will hold Plavix as per GI recommendations for PEG tube placement and discuss for restarting. Patient is on ASA for stroke prevention. Patient is on Heparin for DVT prophylaxis. Ellyn, PGY-3 <Jose Yuan S - Last Filed: 11/11/18 15:13> Objective - Vital Signs/Intake and Output Vital Signs (last 24 hours): Temp Pulse Resp BP Pulse Ox 99.5 F 92 H 22 101/66 100 11/11/18 06:00 11/11/18 06:00 11/11/18 06:00 11/11/18 06:00 11/11/18 06:00 Intake and Output: 11/11/18 11/11/18 06:59 18:59 Intake Total 1200 Balance 1200 - Medications Medications: Current Medications Acetaminophen (Tylenol 650 Mg Supp) 650 mg RC Q6H PRN PRN Reason: Fever >100.4 F Last Admin: 11/11/18 02:58 Dose: 650 mg Albuterol Sulfate (Albuterol 0.083% Inhal Remedios (2.5 Mg/3 Ml) Ud) 2.5 mg INH [id number] PRN PRN Reason: Shortness of Breath Last Admin: 11/11/18 01:33 Dose: 2.5 mg Aspirin (Aspirin Chewable) 81 mg PO DAILY [facility] Last Admin: 11/11/18 11:13 Dose: Not Given Carbidopa/Levodopa/Entacapone (Stalevo 150) 1 tab PO TID [facility] Last Admin: 11/11/18 11:14 Dose: Not Given Clopidogrel Bisulfate (Plavix) 75 mg PO DAILY [facility] Last Admin: 11/08/18 10:30 Dose: Not Given Famotidine (Pepcid) 20 mg PO 1000,2200 [facility] Last Admin: 11/11/18 11:13 Dose: Not Given Heparin Sodium (Porcine) (Heparin) 5,000 units SC Q12 [facility]; Protocol Last Admin: 11/10/18 22:04 Dose: 5,000 units Potassium Chloride/Dextrose (Potassium Chl 40 Meq In D5w) 1,000 mls @ 100 mls/hr IV .Q10H [facility] Last Admin: 11/10/18 22:12 Dose: 100 mls/hr Doxycycline Hyclate 100 mg/ (Sodium Chloride) 100 mls @ 100 mls/hr IVPB Q12 [facility]; Protocol Stop: 11/15/18 22:01 Last Admin: 11/11/18 11:23 Dose: 100 mls/hr Meropenem (Merrem Iv 1 Gm Premix) 1 gm in 50 mls @ 100 mls/hr IVPB Q8 [facility]; Protocol Stop: 11/18/18 22:01 Last Admin: 11/11/18 05:38 Dose: 100 mls/hr Ibuprofen (Motrin Tab) 400 mg PO Q6H PRN PRN Reason: Fever >100.4 F Lorazepam (Ativan) 0.25 mg IVP Q8H PRN; Protocol PRN Reason: Anxiety Last Admin: 11/10/18 17:41 Dose: 0.25 mg Saliva Substitute (Saliva Substitute) 10 ml PO Q4H [facility] Last Admin: 11/11/18 11:25 Dose: 10 ml - Labs Labs: 11/11/18 06:35 11/11/18 06:35 PT 17.5 SECONDS (9.4-12.5) H 11/11/18 06:35 INR 1.55 11/11/18 06:35 Assessment and Plan - Assessment and Plan (Free Text) Plan: Pt seen and examined by me. I have reviewed the note of the bio medical technician and I agree with it. I have discussed the assessment and plan with the resident. I have reviewed the medications and the last labs. Pt with hypernatremia that has improved. He has Parkinson's Dementia. He is going to get a PEG placed for dysphagia. D/C planning with social services aide is ongoing. He is on ASA for CAD. HCAP being treated with doxycycline.
[2018-11-11] MEDS ORDERED: Etomidate 20 mg/10ml Inj IV ONE (18:38)
[2018-11-11] MEDS ORDERED: Sodium Chloride 0.9% 1,000 ML IV SCH (19:30)
[2018-11-12] MEDS: Saliva Substitute 44.3 ML PO SCH ×7 (00:02→22:21)
--- NOTE | 2018-11-12 00:19 | PN ---
DATE: 11/11/2018 SUBJECTIVE: The patient is seen in bed, in no acute distress, and nontoxic. He was seen earlier this morning in room 577, bed 2. He is chronically ill, debilitated, and weak. PHYSICAL EXAMINATION: VITAL SIGNS: Temperature is 99, blood pressure is 98/60, respiratory rate of 18, and heart rate of 104. HEENT: Unremarkable. NECK: Supple. LUNGS: Decreased breath sounds. HEART: Normal S1 and S2. ABDOMEN: Soft and nontender. LABORATORY DATA: Reveals white count of 13,000 and hemoglobin of 8. BUN of 10 and creatinine of 0.6. Microbiology reveals Pseudomonas in the urine, sensitive to Cipro. Blood cultures are negative. The patient is on doxycycline and meropenem. The patient to have gastrostomy tube placement. Dr. Yuan's note is reviewed. ASSESSMENT AND PLAN: This is a 78-year-old male who was seen earlier today in 577, bed 2 with history of coronary artery disease, hypertension, hyperlipidemia, Kishore's disease, cardiac catheterization, appendectomy, history of right-sided pyelonephritis, urinary tract infection, and spinal stenosis. He is admitted on this admission with severe sepsis with Pseudomonas in the urine with left lower lobe healthcare-associated pneumonia and currently on doxycycline and meropenem day #3. With increasing leukocytosis, he will complete 4 to 7 days of antibiotics in addition to doxycycline and meropenem, may be able to change the doxycycline to p.o. We will follow with WBC and tomorrow's CBC. Pradeep Augustine MD
[2018-11-12] MEDS: Meropenem IV 1 gm in NS 1 GM/50 ML BAG IVPB SCH ×3 (05:18→22:00)
--- NOTE | 2018-11-12 07:53 | CP.PCM.PN ---
<BubbaLiz - Last Filed: 11/12/18 07:49> Subjective - Date & Time of Evaluation Date of Evaluation: 11/12/18 Time of Evaluation: 07:49 - Subjective Subjective: Gastroenterology Fellow/PGY6 Progress Note Patient resting comfortably. Improved breathing pattern after deep suction during PEG placement procedure by anesthesia. Nursing denies acute events overnight. A 12-point review of systems negative except for as above. Objective - Vital Signs/Intake and Output Vital Signs (last 24 hours): Temp Pulse Resp BP Pulse Ox 100.9 F H 89 20 123/69 98 11/12/18 05:17 11/11/18 23:00 11/11/18 23:00 11/11/18 23:00 11/11/18 23:00 Intake and Output: 11/12/18 11/12/18 06:59 18:59 Intake Total 75 Balance 75 - Medications Medications: Current Medications Acetaminophen (Tylenol 650 Mg Supp) 650 mg RC Q6H PRN PRN Reason: Fever >100.4 F Last Admin: 11/12/18 05:17 Dose: 650 mg Albuterol Sulfate (Albuterol 0.083% Inhal Remedios (2.5 Mg/3 Ml) Ud) 2.5 mg INH [id number] PRN PRN Reason: Shortness of Breath Last Admin: 11/11/18 15:17 Dose: 2.5 mg Aspirin (Aspirin Chewable) 81 mg PO DAILY [facility] Last Admin: 11/11/18 11:13 Dose: Not Given Carbidopa/Levodopa/Entacapone (Stalevo 150) 1 tab PO TID [facility] Last Admin: 11/11/18 20:07 Dose: Not Given Clopidogrel Bisulfate (Plavix) 75 mg PO DAILY [facility] Last Admin: 11/08/18 10:30 Dose: Not Given Famotidine (Pepcid) 20 mg PO 1000,2200 [facility] Last Admin: 11/11/18 21:43 Dose: Not Given Heparin Sodium (Porcine) (Heparin) 5,000 units SC Q12 [facility]; Protocol Last Admin: 11/10/18 22:04 Dose: 5,000 units Potassium Chloride/Dextrose (Potassium Chl 40 Meq In D5w) 1,000 mls @ 100 mls/hr IV .Q10H [facility] Last Admin: 11/10/18 22:12 Dose: 100 mls/hr Doxycycline Hyclate 100 mg/ (Sodium Chloride) 100 mls @ 100 mls/hr IVPB Q12 [facility]; Protocol Stop: 11/15/18 22:01 Last Admin: 11/11/18 22:14 Dose: 100 mls/hr Meropenem (Merrem Iv 1 Gm Premix) 1 gm in 50 mls @ 100 mls/hr IVPB Q8 [facility]; Protocol Stop: 11/18/18 22:01 Last Admin: 11/12/18 05:18 Dose: 100 mls/hr Ibuprofen (Motrin Tab) 400 mg PO Q6H PRN PRN Reason: Fever >100.4 F Lorazepam (Ativan) 0.25 mg IVP Q8H PRN; Protocol PRN Reason: Anxiety Last Admin: 11/10/18 17:41 Dose: 0.25 mg Saliva Substitute (Saliva Substitute) 10 ml PO Q4H [facility] Last Admin: 11/12/18 03:26 Dose: 10 ml - Labs Labs: 11/11/18 06:35 11/11/18 06:35 PT 17.5 SECONDS (9.4-12.5) H 11/11/18 06:35 INR 1.55 11/11/18 06:35 - Constitutional Appears: Non-toxic, No Acute Distress - Head Exam Head Exam: ATRAUMATIC, NORMOCEPHALIC - Eye Exam Eye Exam: EOMI, PERRL. absent: Scleral icterus Pupil Exam: PERRL. absent: Miosis, Mydriatic - ENT Exam ENT Exam: Mucous Membranes Moist, Normal Oropharynx - Neck Exam Neck Exam: Full ROM, Normal Inspection - Respiratory Exam Respiratory Exam: Clear to Ausculation Bilateral. absent: Rales, Rhonchi, Wheezes - Cardiovascular Exam Cardiovascular Exam: RRR, +S1, +S2. absent: Gallop, Rubs - GI/Abdominal Exam GI & Abdominal Exam: Soft, Normal Bowel Sounds. absent: Distended, Firm, Guarding, Rigid, Tenderness, Organomegaly Additional comments: PEG placed LUQ C/D/I - Extremities Exam Additional comments: chronic flexion contractures - Neurological Exam Neurological Exam: Awake - Psychiatric Exam Additional comments: unable to assess in setting of dementia - Skin Skin Exam: Dry, Intact, Normal Color, Warm Assessment and Plan - Assessment and Plan (Free Text) Assessment: 78 year old male with PMH of Parkinson's Dementia, CADs/p stents, and ischemic cardiomyopathy presenting with altered mental status. Active treatment of HCAP and failure to thrive POD1(43) PEG placement. No prior EGD or colonoscopy. Plan: -POD1 (43) PEG placement -start tube feeds today -dietitian consult ordered for final tube feed recommendation -ID managing-on meropenem and doxycycline -okay to restart Plavix from GI standpoint -continue to monitor bowel habits- having daily movements endorsed by nursing staff -avoid NSAIDs/narcotics -thank you for opportunity to participate in the care of this patient -please contact with questions or concerns <Janneth Fraser V - Last Filed: 11/13/18 00:45> Objective - Vital Signs/Intake and Output Vital Signs (last 24 hours): Temp Pulse Resp BP Pulse Ox 98.6 F 64 20 91/58 L 93 L 11/12/18 14:00 11/12/18 14:00 11/12/18 14:00 11/12/18 14:00 11/12/18 14:00 Intake and Output: 11/12/18 11/13/18 18:59 06:59 Intake Total 0 Balance 0 - Medications Medications: Current Medications Acetaminophen (Tylenol 650 Mg Supp) 650 mg RC Q6H PRN PRN Reason: Fever >100.4 F Last Admin: 11/12/18 05:17 Dose: 650 mg Albuterol Sulfate (Albuterol 0.083% Inhal Remedios (2.5 Mg/3 Ml) Ud) 2.5 mg INH [id number] PRN PRN Reason: Shortness of Breath Last Admin: 11/11/18 15:17 Dose: 2.5 mg Aspirin (Aspirin Chewable) 81 mg PO DAILY [facility] Last Admin: 11/12/18 09:45 Dose: Not Given Carbidopa/Levodopa/Entacapone (Stalevo 150) 1 tab PO TID [facility] Last Admin: 11/12/18 21:54 Dose: Not Given Clopidogrel Bisulfate (Plavix) 75 mg PO DAILY [facility] Last Admin: 11/08/18 10:30 Dose: Not Given Famotidine (Pepcid) 20 mg PO 1000,2200 [facility] Last Admin: 11/12/18 21:59 Dose: 20 mg Heparin Sodium (Porcine) (Heparin) 5,000 units SC Q12 [facility]; Protocol Last Admin: 11/12/18 21:59 Dose: 5,000 units Potassium Chloride/Dextrose (Potassium Chl 40 Meq In D5w) 1,000 mls @ 100 mls/hr IV .Q10H [facility] Last Admin: 11/10/18 22:12 Dose: 100 mls/hr Meropenem (Merrem Iv 1 Gm Premix) 1 gm in 50 mls @ 100 mls/hr IVPB Q8 [facility]; Protocol Stop: 11/18/18 22:01 Last Admin: 11/12/18 22:00 Dose: 100 mls/hr Vancomycin HCl (Vancomycin 1gm) 1 gm in 250 mls @ 167 mls/hr IVPB Q12H [facility]; Protocol Stop: 11/19/18 11:16 Last Admin: 11/12/18 22:52 Dose: 167 mls/hr Ibuprofen (Motrin Tab) 400 mg PO Q6H PRN PRN Reason: Fever >100.4 F Lorazepam (Ativan) 0.25 mg IVP Q8H PRN; Protocol PRN Reason: Anxiety Last Admin: 11/10/18 17:41 Dose: 0.25 mg Saliva Substitute (Saliva Substitute) 10 ml PO Q4H [facility] Last Admin: 11/12/18 22:21 Dose: 10 ml - Labs Labs: 11/12/18 08:00 11/12/18 08:00 PT 17.5 SECONDS (9.4-12.5) H 11/11/18 06:35 INR 1.55 11/11/18 06:35 Attending/Attestation - Attestation Notes (Text): This patient was seen and evaluated here earlier along with GI fellow. This is an addendum to the GI progress report dictated by the fellow. Start the G-tube feeding check for residue etc. Unremarkable 11/13/18 00:43
[2018-11-12 08:05] LABS: MEAN CORPUSCULAR HGB CONC 31.5 g/dl (31.0-37.0); MEAN PLATELET VOLUME 10.1 fl (7.0-11.0); RBC 2.76 10^6/uL (3.5-6.1); RED CELL DISTRIBUTION WIDTH 16.7 % (11.5-14.5); WHITE BLOOD COUNT 12.5 10^3/uL (4.5-11.0)
[2018-11-12 08:25] LABS: ALB/GLOB RATIO 0.7 (1.1-1.8); ALBUMIN 2.6 g/dL (3.0-4.8); ALT/SGPT 35 U/L (7-56); AST/SGOT 44 U/L (17-59); BLOOD UREA NITROGEN 12 mg/dL (7-21); CALCIUM 8.9 mg/dL (8.4-10.5); GFR NON-AFRICAN AMERICAN > 60
[2018-11-12] MEDS: Carbidopa/Levodopa/Entacapone 37.5mg-150mg-200mg PO SCH ×2 (09:47→21:54)
--- NOTE | 2018-11-12 11:45 | CP.PCM.PN ---
<Daniel Ragland - Last Filed: 11/12/18 11:40> Subjective - Date & Time of Evaluation Date of Evaluation: 11/12/18 Time of Evaluation: 07:40 - Subjective Subjective: Patient seen and examined at bedside. PEG tube placement yesterday, no complications. No acute events overnight. ROS unobtainable secondary to mental status. Objective - Vital Signs/Intake and Output Vital Signs (last 24 hours): Temp Pulse Resp BP Pulse Ox 100.9 F H 88 21 107/68 100 11/12/18 06:00 11/12/18 06:00 11/12/18 06:00 11/12/18 06:00 11/12/18 06:00 Intake and Output: 11/12/18 11/12/18 06:59 18:59 Intake Total 75 Balance 75 - Medications Medications: Current Medications Acetaminophen (Tylenol 650 Mg Supp) 650 mg RC Q6H PRN PRN Reason: Fever >100.4 F Last Admin: 11/12/18 05:17 Dose: 650 mg Albuterol Sulfate (Albuterol 0.083% Inhal Remedios (2.5 Mg/3 Ml) Ud) 2.5 mg INH Q6 HRESP PRN PRN Reason: Shortness of Breath Last Admin: 11/11/18 15:17 Dose: 2.5 mg Aspirin (Aspirin Chewable) 81 mg PO DAILY [facility] Last Admin: 11/12/18 09:45 Dose: Not Given Carbidopa/Levodopa/Entacapone (Stalevo 150) 1 tab PO TID [facility] Last Admin: 11/12/18 09:47 Dose: Not Given Clopidogrel Bisulfate (Plavix) 75 mg PO DAILY [facility] Last Admin: 11/08/18 10:30 Dose: Not Given Famotidine (Pepcid) 20 mg PO 1000,2200 [facility] Last Admin: 11/12/18 09:45 Dose: Not Given Heparin Sodium (Porcine) (Heparin) 5,000 units SC Q12 [facility]; Protocol Last Admin: 11/12/18 09:45 Dose: 5,000 units Potassium Chloride/Dextrose (Potassium Chl 40 Meq In D5w) 1,000 mls @ 100 mls/hr IV .Q10H [facility] Last Admin: 11/10/18 22:12 Dose: 100 mls/hr Meropenem (Merrem Iv 1 Gm Premix) 1 gm in 50 mls @ 100 mls/hr IVPB Q8 [facility]; Protocol Stop: 11/18/18 22:01 Last Admin: 11/12/18 05:18 Dose: 100 mls/hr Vancomycin HCl (Vancomycin 1gm) 1 gm in 250 mls @ 167 mls/hr IVPB Q12H [facility]; Protocol Stop: 11/19/18 11:16 Ibuprofen (Motrin Tab) 400 mg PO Q6H PRN PRN Reason: Fever >100.4 F Lorazepam (Ativan) 0.25 mg IVP Q8H PRN; Protocol PRN Reason: Anxiety Last Admin: 11/10/18 17:41 Dose: 0.25 mg Saliva Substitute (Saliva Substitute) 10 ml PO Q4H [facility] Last Admin: 11/12/18 09:47 Dose: 10 ml - Labs Labs: 11/12/18 08:00 11/12/18 08:00 PT 17.5 SECONDS (9.4-12.5) H 11/11/18 06:35 INR 1.55 11/11/18 06:35 - Constitutional Appears: Non-toxic, No Acute Distress, Chronically Ill - Head Exam Head Exam: ATRAUMATIC, NORMAL INSPECTION, NORMOCEPHALIC - Respiratory Exam Respiratory Exam: Clear to Ausculation Bilateral, NORMAL BREATHING PATTERN. absent: Decreased Breath Sounds - Cardiovascular Exam Cardiovascular Exam: RRR, +S1, +S2. absent: Murmur - GI/Abdominal Exam GI & Abdominal Exam: Soft, Normal Bowel Sounds. absent: Guarding, Tenderness, Rebound Additional comments: PEG tube in place. Dressing clean, dry, and intact. - Extremities Exam Extremities Exam: Normal Inspection. absent: Calf Tenderness, Pedal Edema, Tenderness - Neurological Exam Neurological Exam: Alert, Awake. absent: Oriented x3 - Psychiatric Exam Psychiatric exam: Flat Affect - Skin Skin Exam: Dry, Intact, Normal Color, Warm Assessment and Plan - Assessment and Plan (Free Text) Plan: Left lower pneumonia Pseudomonas UTI Parkinsonian Dementia Parkinson's disease Stage 2 pressure ulcer CAD Ischemic cardiomyopathy Patient with left lower lobe pneumonia on Doxycycline. Patient on Merrem for pseudomonas UTI. Patient with PEG tube placement with no complications. Patient had large amount of food suctioned by anesthesia during procedure. Will start Jevity tube feeds and advance slowly. Patient will also have tube flushes of free water 200 cc q12 hours. Patient on Ativan prn for agitation. Continue local wound care for pressure ulcer. Patient will continue on Stalevo for Parkinson's disease. We will restart Plavix. Patient is on ASA for stroke prevention, CAD, and cardiomyopathy. Patient is on Heparin for DVT prophylaxis. Ellyn, PGY-3 <Jose Yuan S - Last Filed: 11/12/18 17:44> Objective - Vital Signs/Intake and Output Vital Signs (last 24 hours): Temp Pulse Resp BP Pulse Ox 98.6 F 64 20 91/58 L 93 L 11/12/18 14:00 11/12/18 14:00 11/12/18 14:00 11/12/18 14:00 11/12/18 14:00 Intake and Output: 11/12/18 11/12/18 06:59 18:59 Intake Total 75 Balance 75 - Medications Medications: Current Medications Acetaminophen (Tylenol 650 Mg Supp) 650 mg RC Q6H PRN PRN Reason: Fever >100.4 F Last Admin: 11/12/18 05:17 Dose: 650 mg Albuterol Sulfate (Albuterol 0.083% Inhal Remedios (2.5 Mg/3 Ml) Ud) 2.5 mg INH [id number] PRN PRN Reason: Shortness of Breath Last Admin: 11/11/18 15:17 Dose: 2.5 mg Aspirin (Aspirin Chewable) 81 mg PO DAILY [facility] Last Admin: 11/12/18 09:45 Dose: Not Given Carbidopa/Levodopa/Entacapone (Stalevo 150) 1 tab PO TID [facility] Last Admin: 11/12/18 09:47 Dose: Not Given Clopidogrel Bisulfate (Plavix) 75 mg PO DAILY [facility] Last Admin: 11/08/18 10:30 Dose: Not Given Famotidine (Pepcid) 20 mg PO 1000,2200 [facility] Last Admin: 11/12/18 09:45 Dose: Not Given Heparin Sodium (Porcine) (Heparin) 5,000 units SC Q12 [facility]; Protocol Last Admin: 11/12/18 09:45 Dose: 5,000 units Potassium Chloride/Dextrose (Potassium Chl 40 Meq In D5w) 1,000 mls @ 100 mls/hr IV .Q10H [facility] Last Admin: 11/10/18 22:12 Dose: 100 mls/hr Meropenem (Merrem Iv 1 Gm Premix) 1 gm in 50 mls @ 100 mls/hr IVPB Q8 [facility]; Protocol Stop: 11/18/18 22:01 Last Admin: 11/12/18 14:05 Dose: 100 mls/hr Vancomycin HCl (Vancomycin 1gm) 1 gm in 250 mls @ 167 mls/hr IVPB Q12H [facility]; Protocol Stop: 11/19/18 11:16 Last Admin: 11/12/18 12:13 Dose: 167 mls/hr Ibuprofen (Motrin Tab) 400 mg PO Q6H PRN PRN Reason: Fever >100.4 F Lorazepam (Ativan) 0.25 mg IVP Q8H PRN; Protocol PRN Reason: Anxiety Last Admin: 11/10/18 17:41 Dose: 0.25 mg Saliva Substitute (Saliva Substitute) 10 ml PO Q4H [facility] Last Admin: 11/12/18 09:47 Dose: 10 ml - Labs Labs: 11/12/18 08:00 11/12/18 08:00 PT 17.5 SECONDS (9.4-12.5) H 11/11/18 06:35 INR 1.55 11/11/18 06:35 Assessment and Plan - Assessment and Plan (Free Text) Plan: Patient was seen and examined by me. I have reviewed the note of the medical office worker and have gone over the plan of care. I agree with the note. I have reviewed the medications and the last labs.
[2018-11-12] MEDS: Vancomycin 1gm in NS 250ml 1 GM/250 ML BAG IVPB SCH ×2 (12:13→22:52)
--- NOTE | 2018-11-12 14:59 | PN ---
DATE: 11/12/2018 SUBJECTIVE: The patient seen earlier today in 577, bed 2. He appears chronically ill. He still has a fever. Overall, he is in poor condition. He is cachectic. PHYSICAL EXAMINATION: VITAL SIGNS: On exam, temperature is 100.9, blood pressure is 80/50, respiratory rate of 21, heart rate of 99. HEENT: Examination of HEENT is unremarkable. NECK: Supple. LUNGS: Have decreased breath sounds. HEART: Normal S1, S2. ABDOMEN: Soft, nontender. LABORATORY DATA: Laboratory examination reveals a white count of 4500, hemoglobin of 8. BUN of 12, creatinine of 0.6. Urinalysis is noted and microbiology reveals the patient has Pseudomonas in the urine, notably sensitive Pseudomonas to Cipro, cefepime, meropenem and Zosyn. Blood cultures are negative. The patient had a CT scan of the abdomen and pelvis which shows a left lower lobe infiltrate. Review of orders reveals the patient to be on doxycycline, meropenem.. Dr. Mac's note is reviewed. ASSESSMENT/PLAN: A 78-year-old male was seen earlier today, who has history of coronary artery disease, hypertension, hyperlipidemia, [place]'s disease, cardiac catheterization, appendectomy, history of right-sided pyelonephritis, urinary tract infection, spinal stenosis, admitted on this admission with #1 is severe sepsis with Pseudomonas in the urine as a cause with the left lower lobe healthcare-associated pneumonia, day #3 of meropenem, has fever and tachycardia. We will discontinue the IV doxycycline. We will repeat blood cultures and pancultures and add vancomycin. We will follow with you. Order a septic workup. Pradeep Augustine MD
--- NOTE | 2018-11-12 22:49 | PN ---
DATE: 11/12/2018 The patient was seen and examined. I do agree with the note of the medical records field technician. I was involved in the plan of care. The patient had lower lobe pneumonia that has been treated with doxycycline. He is on meropenem for his pseudomonas UTI. A PEG was placed, and it was difficult as the patient had food particles that were aspirated from his upper airways. The patient had suctioning of this food from airways by Anesthesia. The patient currently has a PEG that is functioning. I started the patient on Jevity and will try to titrate up. We will also place the patient on . He has Parkinson's dementia. The patient had an ischemic cardiomyopathy and is on aspirin. He is also going to be on Plavix for his coronary artery disease and ischemic cardiomyopathy. He is on heparin for DVT prophylaxis. He is on Stalevo for his Parkinson's. He was seen by Neurology. I did speak to Dr. Fraser regarding the case after the patient had the PEG done. The patient is waiting for discharge to rehab facility. Jose Yuan MD
[2018-11-13] MEDS: Saliva Substitute 44.3 ML PO SCH ×5 (03:51→22:40)
[2018-11-13] MEDS ORDERED: Sodium Chloride 0.9% 500 ML IV STA (04:58)
[2018-11-13] MEDS: Meropenem IV 1 gm in NS 1 GM/50 ML BAG IVPB SCH ×3 (05:25→22:36)
[2018-11-13 07:14] LABS: HEMOGLOBIN 7.6 g/dL (14.0-18.0); MEAN CORPUSCULAR HEMOGLOBIN 29.1 pg (25.0-35.0); MEAN CORPUSCULAR HGB CONC 31.7 g/dl (31.0-37.0); MEAN PLATELET VOLUME 9.6 fl (7.0-11.0); RBC 2.61 10^6/uL (3.5-6.1); RED CELL DISTRIBUTION WIDTH 17.1 % (11.5-14.5); WHITE BLOOD COUNT 9.5 10^3/uL (4.5-11.0)
[2018-11-13 08:45] LABS: ALB/GLOB RATIO 0.6 (1.1-1.8); ALBUMIN 2.2 g/dL (3.0-4.8); ALT/SGPT 39 U/L (7-56); AST/SGOT 63 U/L (17-59); BLOOD UREA NITROGEN 18 mg/dL (7-21); CALCIUM 8.7 mg/dL (8.4-10.5); GFR NON-AFRICAN AMERICAN > 60
--- NOTE | 2018-11-13 10:07 | CP.PCM.PN ---
<Daniel Ragland - Last Filed: 11/13/18 10:39> Subjective - Date & Time of Evaluation Date of Evaluation: 11/13/18 Time of Evaluation: 07:15 - Subjective Subjective: Patient seen and examined at bedside. Patient with minimal urine output overnight. Patient with no acute events overnight. ROS unobtainable secondary to mental status. Objective - Vital Signs/Intake and Output Vital Signs (last 24 hours): Temp Pulse Resp BP Pulse Ox 98.6 F 64 20 91/58 L 93 L 11/12/18 14:00 11/12/18 14:00 11/12/18 14:00 11/12/18 14:00 11/12/18 14:00 Intake and Output: 11/13/18 11/13/18 06:59 18:59 Intake Total 0 Balance 0 - Medications Medications: Current Medications Acetaminophen (Tylenol 650 Mg Supp) 650 mg RC Q6H PRN PRN Reason: Fever >100.4 F Last Admin: 11/12/18 05:17 Dose: 650 mg Albuterol Sulfate (Albuterol 0.083% Inhal Remedios (2.5 Mg/3 Ml) Ud) 2.5 mg INH [id number] PRN PRN Reason: Shortness of Breath Last Admin: 11/11/18 15:17 Dose: 2.5 mg Aspirin (Aspirin Chewable) 81 mg PO DAILY [facility] Last Admin: 11/12/18 09:45 Dose: Not Given Carbidopa/Levodopa/Entacapone (Stalevo 150) 1 tab PO TID [facility] Last Admin: 11/12/18 21:54 Dose: Not Given Clopidogrel Bisulfate (Plavix) 75 mg PO DAILY [facility] Last Admin: 11/08/18 10:30 Dose: Not Given Famotidine (Pepcid) 20 mg PO 1000,2200 [facility] Last Admin: 11/12/18 21:59 Dose: 20 mg Heparin Sodium (Porcine) (Heparin) 5,000 units SC Q12 [facility]; Protocol Last Admin: 11/12/18 21:59 Dose: 5,000 units Potassium Chloride/Dextrose (Potassium Chl 40 Meq In D5w) 1,000 mls @ 100 mls/hr IV .Q10H [facility] Last Admin: 11/10/18 22:12 Dose: 100 mls/hr Meropenem (Merrem Iv 1 Gm Premix) 1 gm in 50 mls @ 100 mls/hr IVPB Q8 [facility]; Protocol Stop: 11/18/18 22:01 Last Admin: 11/13/18 05:25 Dose: 100 mls/hr Vancomycin HCl (Vancomycin 1gm) 1 gm in 250 mls @ 167 mls/hr IVPB Q12H [facility]; Protocol Stop: 11/19/18 11:16 Last Admin: 11/12/18 22:52 Dose: 167 mls/hr Ibuprofen (Motrin Tab) 400 mg PO Q6H PRN PRN Reason: Fever >100.4 F Lorazepam (Ativan) 0.25 mg IVP Q8H PRN; Protocol PRN Reason: Anxiety Last Admin: 11/10/18 17:41 Dose: 0.25 mg Saliva Substitute (Saliva Substitute) 10 ml PO Q4H [facility] Last Admin: 11/13/18 03:51 Dose: 10 ml - Labs Labs: 11/13/18 06:45 11/13/18 06:45 PT 17.5 SECONDS (9.4-12.5) H 11/11/18 06:35 INR 1.55 11/11/18 06:35 - Constitutional Appears: Non-toxic, No Acute Distress - Head Exam Head Exam: ATRAUMATIC, NORMAL INSPECTION, NORMOCEPHALIC - ENT Exam ENT Exam: Mucous Membranes Moist - Respiratory Exam Respiratory Exam: Clear to Ausculation Bilateral, NORMAL BREATHING PATTERN. absent: Decreased Breath Sounds, Rales, Rhonchi, Wheezes - Cardiovascular Exam Cardiovascular Exam: RRR, +S1, +S2. absent: Gallop, Rubs, Murmur - GI/Abdominal Exam GI & Abdominal Exam: Soft, Normal Bowel Sounds. absent: Distended, Guarding, Tenderness, Rebound - Extremities Exam Extremities Exam: Normal Inspection. absent: Calf Tenderness, Pedal Edema - Neurological Exam Neurological Exam: Alert, Awake. absent: Oriented x3 - Psychiatric Exam Psychiatric exam: Flat Affect - Skin Skin Exam: Dry, Intact, Normal Color, Warm Assessment and Plan - Assessment and Plan (Free Text) Plan: Urinary retention Normocytic anemia Left lower pneumonia Pseudomonas UTI Parkinsonian Dementia Parkinson's disease Stage 2 pressure ulcer CAD Ischemic cardiomyopathy Patient changed from Doxycycline to Vancomycin for left lower lobe pneumonia. Patient continues on Merrem for pseudomonas UTI. Patient with PEG tube POD #2. We will continue [facility] for tube feeds. Patient will also have tube flushes of free water 200 cc q12 hours. Patient will have urine output watched closely and will obtain bladder scan and insert mann catheter if urinary output does not improve. Patient with normocytic anemia, will obtain anemia work up and transfuse 1 unit PRBCs once family consent is obtained. Patient on Ativan prn for agitation. Continue local wound care for pressure ulcer. We will change Stalevo to Sinemet as Stalevo cannot be crushed for the PEG tube. We will continue Plavix. Patient is on ASA for stroke prevention, CAD, and c ardiomyopathy. Patient is on Heparin for DVT prophylaxis. Ellyn, PGY-3 <Jose Yuan S - Last Filed: 11/13/18 16:00> Objective - Vital Signs/Intake and Output Vital Signs (last 24 hours): Temp Pulse Resp BP Pulse Ox 98.6 F 64 20 91/58 L 93 L 11/12/18 14:00 11/12/18 14:00 11/12/18 14:00 11/12/18 14:00 11/12/18 14:00 Intake and Output: 11/13/18 11/13/18 06:59 18:59 Intake Total 0 Output Total 400 Balance 0 -400 - Medications Medications: Current Medications Acetaminophen (Tylenol 650 Mg Supp) 650 mg RC Q6H PRN PRN Reason: Fever >100.4 F Last Admin: 11/12/18 05:17 Dose: 650 mg Albuterol Sulfate (Albuterol 0.083% Inhal Remedios (2.5 Mg/3 Ml) Ud) 2.5 mg INH [id number] PRN PRN Reason: Shortness of Breath Last Admin: 11/11/18 15:17 Dose: 2.5 mg Aspirin (Aspirin Chewable) 81 mg PO DAILY [facility] Last Admin: 11/13/18 10:34 Dose: 81 mg Carbidopa/Levodopa (Sinemet) 1 tab PO QID [facility] Clopidogrel Bisulfate (Plavix) 75 mg PO DAILY [facility] Last Admin: 11/13/18 10:38 Dose: 75 mg Famotidine (Pepcid) 20 mg PO 1000,2200 [facility] Last Admin: 11/13/18 10:33 Dose: 20 mg Heparin Sodium (Porcine) (Heparin) 5,000 units SC Q12 [facility]; Protocol Last Admin: 11/13/18 10:35 Dose: 5,000 units Meropenem (Merrem Iv 1 Gm Premix) 1 gm in 50 mls @ 100 mls/hr IVPB Q8 [facility]; Protocol Stop: 11/18/18 22:01 Last Admin: 11/13/18 05:25 Dose: 100 mls/hr Vancomycin HCl (Vancomycin 1gm) 1 gm in 250 mls @ 167 mls/hr IVPB Q12H [facility]; Protocol Stop: 11/19/18 11:16 Last Admin: 11/12/18 22:52 Dose: 167 mls/hr Sodium Chloride (Sodium Chloride 0.9%) 1,000 mls @ 100 mls/hr IV .Q10H [facility] Ibuprofen (Motrin Tab) 400 mg PO Q6H PRN PRN Reason: Fever >100.4 F Lorazepam (Ativan) 0.25 mg IVP Q8H PRN; Protocol PRN Reason: Anxiety Last Admin: 11/10/18 17:41 Dose: 0.25 mg Saliva Substitute (Saliva Substitute) 10 ml PO Q4H [facility] Last Admin: 11/13/18 03:51 Dose: 10 ml - Labs Labs: 11/13/18 06:45 11/13/18 06:45 PT 17.5 SECONDS (9.4-12.5) H 11/11/18 06:35 INR 1.55 11/11/18 06:35 Assessment and Plan - Assessment and Plan (Free Text) Plan: Pt seen and examined by me. I have reviewed the note of the medical planner and I agree with it. I have discussed the assessment and plan with the resident. I have reviewed the medications and the last labs.
--- NOTE | 2018-11-13 10:35 | CP.PCM.PN ---
<Yaritza Em - Last Filed: 11/13/18 11:33> Subjective - Date & Time of Evaluation Date of Evaluation: 11/13/18 Time of Evaluation: 10:35 - Subjective Subjective: Yaritza Em, PGY2, GI Progress Note for Dr Fraser: Patient seen and examined at bedside. Overnight, patient's BP noted to be low, given 500 cc bolus with return of BP to 90s/50s. Patient is getting Pivot 1.5 feeds at 40 cc/hr. Patient nonverbal, resting in bed, mildly agitated. Patient had a BM within past 24 hrs. ROS limited due to patient's condition/dementia. Objective - Vital Signs/Intake and Output Vital Signs (last 24 hours): Temp Pulse Resp BP Pulse Ox 98.6 F 64 20 91/58 L 93 L 11/12/18 14:00 11/12/18 14:00 11/12/18 14:00 11/12/18 14:00 11/12/18 14:00 Intake and Output: 11/13/18 11/13/18 06:59 18:59 Intake Total 0 Balance 0 - Medications Medications: Current Medications Acetaminophen (Tylenol 650 Mg Supp) 650 mg RC Q6H PRN PRN Reason: Fever >100.4 F Last Admin: 11/12/18 05:17 Dose: 650 mg Albuterol Sulfate (Albuterol 0.083% Inhal Remedios (2.5 Mg/3 Ml) Ud) 2.5 mg INH [id number] PRN PRN Reason: Shortness of Breath Last Admin: 11/11/18 15:17 Dose: 2.5 mg Aspirin (Aspirin Chewable) 81 mg PO DAILY [facility] Last Admin: 11/12/18 09:45 Dose: Not Given Carbidopa/Levodopa (Sinemet) 1 tab PO QID [facility] Clopidogrel Bisulfate (Plavix) 75 mg PO DAILY [facility] Last Admin: 11/08/18 10:30 Dose: Not Given Famotidine (Pepcid) 20 mg PO 1000,2200 [facility] Last Admin: 11/12/18 21:59 Dose: 20 mg Heparin Sodium (Porcine) (Heparin) 5,000 units SC Q12 [facility]; Protocol Last Admin: 11/12/18 21:59 Dose: 5,000 units Potassium Chloride/Dextrose (Potassium Chl 40 Meq In D5w) 1,000 mls @ 100 mls/hr IV .Q10H [facility] Last Admin: 11/10/18 22:12 Dose: 100 mls/hr Meropenem (Merrem Iv 1 Gm Premix) 1 gm in 50 mls @ 100 mls/hr IVPB Q8 [facility]; Protocol Stop: 11/18/18 22:01 Last Admin: 11/13/18 05:25 Dose: 100 mls/hr Vancomycin HCl (Vancomycin 1gm) 1 gm in 250 mls @ 167 mls/hr IVPB Q12H [facility]; Pro tocol Stop: 11/19/18 11:16 Last Admin: 11/12/18 22:52 Dose: 167 mls/hr Ibuprofen (Motrin Tab) 400 mg PO Q6H PRN PRN Reason: Fever >100.4 F Lorazepam (Ativan) 0.25 mg IVP Q8H PRN; Protocol PRN Reason: Anxiety Last Admin: 11/10/18 17:41 Dose: 0.25 mg Saliva Substitute (Saliva Substitute) 10 ml PO Q4H [facility] Last Admin: 11/13/18 03:51 Dose: 10 ml - Labs Labs: 11/13/18 06:45 11/13/18 06:45 PT 17.5 SECONDS (9.4-12.5) H 11/11/18 06:35 INR 1.55 11/11/18 06:35 - Additional Findings Additional findings: - Constitutional Appears: Cachectic, Chronically Ill - Head Exam Head Exam: ATRAUMATIC, NORMOCEPHALIC - Eye Exam Eye Exam: EOMI, PERRL. absent: Conjunctival injection, Nystagmus, Scleral icterus Pupil Exam: NORMAL ACCOMODATION, PERRL. absent: Miosis, Mydriatic - ENT Exam ENT Exam: Mucous Membranes Dry - Neck Exam Neck Exam: Full ROM - Respiratory Exam Respiratory Exam: NORMAL BREATHING PATTERN - Cardiovascular Exam Cardiovascular Exam: RRR, +S1, +S2. absent: Murmur - GI/Abdominal Exam GI & Abdominal Exam: Soft, Normal Bowel Sounds. + PEG tube site noted, no bleeding at site, feedings infusing well. absent: Guarding, Rigid, Rebound - Extremities Exam Extremities Exam: Normal Inspection - Back Exam Back Exam: NORMAL INSPECTION - Neurological Exam Additional comments: mild agitation - Skin Skin Exam: Normal Color, Warm Assessment and Plan - Assessment and Plan (Free Text) Assessment: # Failure to thrive, poor PO intake, s/p PEG tube, POD#2 # Normocytic anemia 2/2 likely malnutrition # Hypernetremia, resolved # Parkinson's disease # CAD with stents # Decub ulcer - can continue with Pivot 1.5 tube feeds, as per dietitian, currently at 40 ml/hr, goal 74/hr - Hgb 7.6 today (from 8.0) yesterday. On admission, Hgb 10.9. Will obtain iron studies, retic count, B12, folate. Recommend 1 unit prbc transfusion. - continue with wound care - continue to monitor bowel habits- having daily movements endorsed by nursing staff - avoid NSAIDs/narcotics - Further recs per Dr Fraser. Case seen and discussed with Dr Fraser. <Janneth Fraser V - Last Filed: 11/13/18 22:03> Objective - Vital Signs/Intake and Output Vital Signs (last 24 hours): Temp Pulse Resp BP Pulse Ox 99.5 F 88 18 89/53 L 97 11/13/18 19:58 11/13/18 19:58 11/13/18 19:58 11/13/18 19:58 11/13/18 06:00 Intake and Output: 11/13/18 11/14/18 18:59 06:59 Intake Total 0 305 Output Total 400 Balance -400 305 - Medications Medications: Current Medications Acetaminophen (Tylenol 650 Mg Supp) 650 mg RC Q6H PRN PRN Reason: Fever >100.4 F Last Admin: 11/12/18 05:17 Dose: 650 mg Albuterol Sulfate (Albuterol 0.083% Inhal Remedios (2.5 Mg/3 Ml) Ud) 2.5 mg INH [id number] PRN PRN Reason: Shortness of Breath Last Admin: 11/11/18 15:17 Dose: 2.5 mg Aspirin (Aspirin Chewable) 81 mg PO DAILY [facility] Last Admin: 11/13/18 10:34 Dose: 81 mg Carbidopa/Levodopa (Sinemet) 1 tab PO QID [facility] Last Admin: 11/13/18 18:09 Dose: 1 tab Clopidogrel Bisulfate (Plavix) 75 mg PO DAILY [facility] Last Admin: 11/13/18 10:38 Dose: 75 mg Famotidine (Pepcid) 20 mg PO 1000,2200 [facility] Last Admin: 11/13/18 10:33 Dose: 20 mg Heparin Sodium (Porcine) (Heparin) 5,000 units SC Q12 [facility]; Protocol Last Admin: 11/13/18 10:35 Dose: 5,000 units Meropenem (Merrem Iv 1 Gm Premix) 1 gm in 50 mls @ 100 mls/hr IVPB Q8 [facility]; Protocol Stop: 11/18/18 22:01 Last Admin: 11/13/18 14:00 Dose: Not Given Vancomycin HCl (Vancomycin 1gm) 1 gm in 250 mls @ 167 mls/hr IVPB Q12H [facility]; Protocol Stop: 11/19/18 11:16 Last Admin: 11/13/18 17:40 Dose: Not Given Sodium Chloride (Sodium Chloride 0.9%) 1,000 mls @ 100 mls/hr IV .Q10H [facility] Last Admin: 11/13/18 16:29 Dose: 100 mls/hr Ibuprofen (Motrin Tab) 400 mg PO Q6H PRN PRN Reason: Fever >100.4 F Lorazepam (Ativan) 0.25 mg IVP Q8H PRN; Protocol PRN Reason: Anxiety Last Admin: 11/10/18 17:41 Dose: 0.25 mg Saliva Substitute (Saliva Substitute) 10 ml PO Q4H [facility] Last Admin: 11/13/18 16:28 Dose: 10 ml - Labs Labs: 11/13/18 06:45 11/13/18 06:45 PT 17.5 SECONDS (9.4-12.5) H 11/11/18 06:35 INR 1.55 11/11/18 06:35 Attending/Attestation - Attestation I have personally seen and examined this patient.: Yes I have fully participated in the care of the patient.: Yes I have reviewed all pertinent clinical information, including history, physical exam and plan: Yes Notes (Text): This is an addendum to the GI progress report dictated by the medical claims assistant. The patient was seen and evaluated along with the resident team earlier today. Patient is tolerating G-tube feeding. Drop in hemoglobin no active bleeding noticed. Is reasonable thing is transfuse optimization of the condition. No plan for any colonoscopy evaluation. Patient did have an upper GI endoscopy did not reveal any active source of bleeding Continue empiric PPI. Follow-up hemoglobin hematocrit Oral hygiene nursing Thank you Dr. Yuan for allowing us to participate in the care of the patient I did discuss with the patient's family postprocedure 11/13/18 22:00
[2018-11-13 11:43] LABS: TOTAL IRON BINDING CAPACITY 129 ug/dL (261-462)
[2018-11-13 11:51] LABS: % IRON SATURATION 8 % (20-55); IRON 10 ug/dL (45-180)
[2018-11-13] MEDS: Sodium Chloride 0.9% 1,000 ML IV SCH (16:29)
[2018-11-13 17:24] LABS: URINE BILIRUBIN SMALL (NEGATIVE); URINE BLOOD SMALL (NEGATIVE); URINE GLUCOSE (UA) NEGATIVE (NEGATIVE); URINE LEUKOCYTE ESTERASE NEGATIVE Leu/uL (NEGATIVE); URINE PROTEIN TRACE mg/dL (<30 mg/dL)
[2018-11-13 17:29] LABS: URINE APPEARANCE CLEAR (CLEAR); URINE COLOR AMBER (YELLOW)
[2018-11-13 17:31] LABS: FOLATE 6.9 ng/mL
[2018-11-13] MEDS: Vancomycin 1gm in NS 250ml 1 GM/250 ML BAG IVPB SCH ×2 (17:40→23:51)
[2018-11-13 17:43] LABS: URINE RBC 15 - 20 /hpf (0-2)
[2018-11-13 17:44] LABS: URINE BACTERIA TRACE /hpf
--- NOTE | 2018-11-13 20:04 | PN ---
DATE: 11/13/2018 SUBJECTIVE: The patient was seen and examined. I do agree with the note of the medical unit secretary. I was involved in the plan of care. The patient has urinary retention and has a Merrill in place. The patient has Pseudomonas UTI that has been treated. The patient is currently on PEG feedings and will need Sinemet as the Stalevo is not crushable through the PEG. The patient is on aspirin for his coronary artery disease and cardiomyopathy. He is on heparin for DVT prophylaxis. He is getting Jevity for his nutrition and also he is on free water boluses. He is currently on vancomycin for antibiotics and continues to be on meropenem. He is awaiting to be discharged, but he had hemoglobin that was low secondary to acute blood loss from frequent blood tests as well as he also has iron deficiency anemia with iron saturation of 8%. He was given IV iron. Jose Yuan MD
--- NOTE | 2018-11-14 00:36 | PN ---
DATE: 11/13/2018 SUBJECTIVE: The patient is seen in bed, in no acute distress. PHYSICAL EXAMINATION: VITAL SIGNS: Temperature is 99, blood pressure is 90/40, and respiratory rate of 18. HEENT: Unremarkable. NECK: Supple. LUNGS: Have decreased breath sounds. HEART: Normal S1 and S2. ABDOMEN: Soft. LABORATORY DATA: Reveals a white count of 9.5. Microbiology is reviewed. REVIEW OF ORDERS: Reveals the patient to be on meropenem, which requires which we will do so. The patient is also on vancomycin. ASSESSMENT AND PLAN: This is a 78-year-old male was seen earlier today with history of coronary artery disease, hypertension, hyperlipidemia, [place]'s disease, cardiac catheterization, appendectomy, right-sided pyelonephritis, urinary tract infection; admitted on this admission with severe sepsis with Pseudomonas in the urine as a cause and left lower lobe healthcare-associated pneumonia on day #4 of meropenem and the patient on vancomycin day #2. Overall prognosis is quite poor for this patient who is cachectic and end-stage. Pradeep Augustine MD
[2018-11-14] MEDS: Saliva Substitute 44.3 ML PO SCH ×6 (04:31→18:19)
[2018-11-14] MEDS: Meropenem IV 1 gm in NS 1 GM/50 ML BAG IVPB SCH ×3 (05:17→21:50)
[2018-11-14 07:36] LABS: HEMOGLOBIN 7.6 g/dL (14.0-18.0); MEAN CELL VOLUME 90.8 fl (80.0-105.0); MEAN CORPUSCULAR HEMOGLOBIN 29.1 pg (25.0-35.0); MEAN CORPUSCULAR HGB CONC 32.1 g/dl (31.0-37.0); MEAN PLATELET VOLUME 9.6 fl (7.0-11.0); RBC 2.61 10^6/uL (3.5-6.1); RED CELL DISTRIBUTION WIDTH 17.3 % (11.5-14.5); WHITE BLOOD COUNT 9.4 10^3/uL (4.5-11.0)
[2018-11-14 08:14] LABS: BLOOD UREA NITROGEN 22 mg/dL (7-21); GFR NON-AFRICAN AMERICAN > 60
--- NOTE | 2018-11-14 09:58 | PN ---
DATE: 11/14/2018 SUBJECTIVE: The patient is not communicating. PHYSICAL EXAMINATION: VITAL SIGNS: Temperature is 100, pulse of 88, blood pressure 89/53, respirations are 18. GENERAL: The patient is lying in bed, flat, comfortable. HEENT: No oral lesion. Anicteric sclerae. Moist mucosa. Mouth, the patient has dried sputum in the back of his throat and the roof of his mouth. NECK: No JVD, adenopathy, or thyromegaly. CARDIOVASCULAR: S1 and S2, regular. No murmurs, rubs, or gallops. LUNGS: Clear to auscultation bilaterally. No wheeze, rales, or rhonchi. ABDOMEN: Bowel sounds are positive, soft, nontender and nondistended. Positive for PEG. EXTREMITIES: no cyanosis, clubbing or edema. LABS: White count is 9.5, hemoglobin is 7.6, creatinine is 0.5. ASSESSMENT: 1. Urinary retention with Merrill. 2. Hospital-acquired pneumonia. 3. Urinary tract infection. 4. Parkinson's dementia. 5. Parkinson's disease. 6. Coronary artery disease with ischemic cardiomyopathy. 7. Stage II pressure ulcer. PLAN: The patient is currently comfortable. He is getting his Jevity feedings. He is tolerating. He is getting local mouth care. The patient is on heparin for DVT prophylaxis. He is on the meropenem for antibiotics. The patient is on saliva substitute. He is going to change to carbidopa/levodopa because the Stalevo is not able to be crushed through the PEG. He is on IV vancomycin. The patient has pseudomonas UTI that is being treated. The patient is also on water boluses through the PEG. He has a low-grade temperature of 100 and he is being followed by Infectious Disease. Jose Yuan MD
[2018-11-14 10:34] LABS: ALB/GLOB RATIO 0.7 (1.1-1.8); ALBUMIN 2.1 g/dL (3.0-4.8); BILIRUBIN,DIRECT 0.6 mg/dL (0.0-0.4)
[2018-11-14] MEDS: Vancomycin 1gm in NS 250ml 1 GM/250 ML BAG IVPB SCH ×2 (11:23→23:12)
[2018-11-14] MEDS: Sodium Chloride 0.9% 1,000 ML IV SCH (11:23)
--- NOTE | 2018-11-14 13:04 | CP.PCM.PN ---
Subjective - Date & Time of Evaluation Date of Evaluation: 11/14/18 Time of Evaluation: 11:30 - Subjective Subjective: Still with low grade temperatures but comfortable. Objective - Vital Signs/Intake and Output Vital Signs (last 24 hours): Temp Pulse Resp BP Pulse Ox 100.0 F H 88 18 89/53 L 97 11/13/18 22:38 11/13/18 19:58 11/13/18 19:58 11/13/18 19:58 11/13/18 18:00 Intake and Output: 11/14/18 11/14/18 06:59 18:59 Intake Total 305 Balance 305 - Medications Medications: Current Medications Acetaminophen (Tylenol 650 Mg Supp) 650 mg RC Q6H PRN PRN Reason: Fever >100.4 F Last Admin: 11/13/18 22:38 Dose: 650 mg Albuterol Sulfate (Albuterol 0.083% Inhal Remedios (2.5 Mg/3 Ml) Ud) 2.5 mg INH [id number] PRN PRN Reason: Shortness of Breath Last Admin: 11/11/18 15:17 Dose: 2.5 mg Aspirin (Aspirin Chewable) 81 mg PO DAILY [facility] Last Admin: 11/13/18 10:34 Dose: 81 mg Carbidopa/Levodopa (Sinemet) 1 tab PO QID [facility] Last Admin: 11/13/18 22:39 Dose: 1 tab Clopidogrel Bisulfate (Plavix) 75 mg PO DAILY [facility] Last Admin: 11/13/18 10:38 Dose: 75 mg Famotidine (Pepcid) 20 mg PO 1000,2200 [facility] Last Admin: 11/13/18 22:39 Dose: 20 mg Heparin Sodium (Porcine) (Heparin) 5,000 units SC Q12 [facility]; Protocol Last Admin: 11/13/18 22:37 Dose: 5,000 units Meropenem (Merrem Iv 1 Gm Premix) 1 gm in 50 mls @ 100 mls/hr IVPB Q8 [facility]; Protocol Stop: 11/18/18 22:01 Last Admin: 11/14/18 05:17 Dose: 100 mls/hr Vancomycin HCl (Vancomycin 1gm) 1 gm in 250 mls @ 167 mls/hr IVPB Q12H [facility]; Protocol Stop: 11/19/18 11:16 Last Admin: 11/13/18 23:51 Dose: 167 mls/hr Sodium Chloride (Sodium Chloride 0.9%) 1,000 mls @ 100 mls/hr IV .Q10H [facility] Last Admin: 11/13/18 16:29 Dose: 100 mls/hr Ibuprofen (Motrin Tab) 400 mg PO Q6H PRN PRN Reason: Fever >100.4 F Lorazepam (Ativan) 0.25 mg IVP Q8H PRN; Protocol PRN Reason: Anxiety Last Admin: 11/10/18 17:41 Dose: 0.25 mg Saliva Substitute (Saliva Substitute) 10 ml PO Q4H [facility] Last Admin: 11/14/18 04:31 Dose: 10 ml - Labs Labs: 11/14/18 06:10 11/14/18 06:10 PT 17.5 SECONDS (9.4-12.5) H 11/11/18 06:35 INR 1.55 11/11/18 06:35 - Constitutional Appears: Chronically Ill - Head Exam Head Exam: NORMAL INSPECTION - Respiratory Exam Respiratory Exam: Decreased Breath Sounds - Cardiovascular Exam Cardiovascular Exam: +S1, +S2 - GI/Abdominal Exam GI & Abdominal Exam: Soft. absent: Tenderness Assessment and Plan - Assessment and Plan (Free Text) Plan: Assessment severe sepsis due to LL HCAP and Pseudomonas UTI Parkinson's disease dementia HTN CAD Plan on Vancomycin day 3 and Merrem day 5 will continue to monitor clinically overall prognosis is poor
[2018-11-14] MEDS ORDERED: Potassium Chloride 40 mEq/30 ml LIQ UD PO ONE ×2 (13:13→18:00)
[2018-11-14] MEDS: Albuterol 0.083% Inhal Sol (2.5 mg/3 mL) UD INH PRN (19:52)
--- NOTE | 2018-11-15 00:25 | PN ---
DATE: 11/14/2018 SUBJECTIVE: This patient was seen and evaluated earlier. The patient did receive one unit packed RBC, but the hemoglobin remains same of 7.6. The patient was also on IV fluids. The patient did have bowel movements, brown stools but no blood. Tolerating the G-tube feeding. PHYSICAL EXAMINATION VITAL SIGNS: Temperature 100.7, pulse 83, blood pressure 127/77. GENERAL: The patient appears very cachectic. HEENT: Atraumatic. Anicteric. HEART: S1, S2 heard. LUNGS: Bilateral air entry present. ABDOMEN: Soft. PEG site appears normal. NEUROLOGIC: The patient is noncommunicative. LABORATORY DATA: Hemoglobin 7.6, hematocrit 33.7, WBC 9.4, platelets 322. Sodium 145, potassium 2.9, BUN 22, creatinine 0.4. IMPRESSION: This 78-year-old patient with past medical history of Parkinson's disease, dementia, coronary artery disease, decubitus ulcer, pressure ulcer, dysphagic, had percutaneous endoscopic gastrostomy tube placement and the patient did have oropharyngeal secretion status post clearance, found to be anemic status post transfusion, no obvious gastrointestinal bleeding noticed. The patient also has some low-grade fever. RECOMMENDATIONS: Would recommend at this point continue the G-tube feeding. Close followup of the hemoglobin and hematocrit. The patient is on meropenem antibiotics for sepsis, for possible urinary tract infection, for pseudomonas in the urine and also left lower lobe pneumonia. Will check the INR. The patient's INR was 1.55, on 11/09, it was 3.1 and if the INR is elevated as the hemoglobin is not improving, would consider CT of the abdomen and pelvis to rule out any retroperitoneal bleed. Thank you very much for allowing us to participate in the care of the patient. Janneth Fraser MD
[2018-11-15] MEDS: Saliva Substitute 44.3 ML PO SCH ×7 (00:50→23:23)
[2018-11-15] MEDS: Meropenem IV 1 gm in NS 1 GM/50 ML BAG IVPB SCH ×3 (05:19→21:53)
[2018-11-15 08:09] LABS: INR 1.45; PARTIAL THROMBOPLASTIN TIME 30.3 Seconds (26.9-38.3); PROTHROMBIN TIME 16.4 SECONDS (9.4-12.5)
--- NOTE | 2018-11-15 11:13 | CP.PCM.PN ---
Subjective - Date & Time of Evaluation Date of Evaluation: 11/15/18 Time of Evaluation: 10:30 - Subjective Subjective: Not in distress, no fevers. Objective - Vital Signs/Intake and Output Vital Signs (last 24 hours): Temp Pulse Resp BP Pulse Ox 97.6 F 97 H 22 87/52 L 98 11/14/18 06:00 11/14/18 06:00 11/14/18 06:00 11/14/18 06:00 11/14/18 06:00 Intake and Output: 11/14/18 11/14/18 06:59 18:59 Intake Total 305 Balance 305 - Medications Medications: Current Medications Acetaminophen (Tylenol 650 Mg Supp) 650 mg RC Q6H PRN PRN Reason: Fever >100.4 F Last Admin: 11/13/18 22:38 Dose: 650 mg Albuterol Sulfate (Albuterol 0.083% Inhal Remedios (2.5 Mg/3 Ml) Ud) 2.5 mg INH [id number] PRN PRN Reason: Shortness of Breath Last Admin: 11/11/18 15:17 Dose: 2.5 mg Aspirin (Aspirin Chewable) 81 mg PO DAILY [facility] Last Admin: 11/14/18 11:21 Dose: 81 mg Carbidopa/Levodopa (Sinemet) 1 tab PO QID [facility] Last Admin: 11/14/18 11:21 Dose: 1 tab Clopidogrel Bisulfate (Plavix) 75 mg PO DAILY [facility] Last Admin: 11/14/18 11:21 Dose: 75 mg Famotidine (Pepcid) 20 mg PO 1000,2200 [facility] Last Admin: 11/14/18 11:21 Dose: 20 mg Heparin Sodium (Porcine) (Heparin) 5,000 units SC Q12 [facility]; Protocol Last Admin: 11/14/18 11:21 Dose: 5,000 units Meropenem (Merrem Iv 1 Gm Premix) 1 gm in 50 mls @ 100 mls/hr IVPB Q8 [facility]; Protocol Stop: 11/18/18 22:01 Last Admin: 11/14/18 05:17 Dose: 100 mls/hr Vancomycin HCl (Vancomycin 1gm) 1 gm in 250 mls @ 167 mls/hr IVPB Q12H [facility]; Protocol Stop: 11/19/18 11:16 Last Admin: 11/14/18 11:23 Dose: 167 mls/hr Sodium Chloride (Sodium Chloride 0.9%) 1,000 mls @ 100 mls/hr IV .Q10H [facility] Last Admin: 11/14/18 11:23 Dose: 100 mls/hr Ibuprofen (Motrin Tab) 400 mg PO Q6H PRN PRN Reason: Fever >100.4 F Lorazepam (Ativan) 0.25 mg IVP Q8H PRN; Protocol PRN Reason: Anxiety Last Admin: 11/10/18 17:41 Dose: 0.25 mg Saliva Substitute (Saliva Substitute) 10 ml PO Q4H [facility] Last Admin: 11/14/18 11:22 Dose: 10 ml - Labs Labs: 11/14/18 06:10 11/14/18 06:10 PT 17.5 SECONDS (9.4-12.5) H 11/11/18 06:35 INR 1.55 11/11/18 06:35 - Constitutional Appears: Chronically Ill - Head Exam Head Exam: NORMAL INSPECTION - Respiratory Exam Respiratory Exam: Decreased Breath Sounds - Cardiovascular Exam Cardiovascular Exam: +S1, +S2 - GI/Abdominal Exam GI & Abdominal Exam: Soft. absent: Tenderness Assessment and Plan - Assessment and Plan (Free Text) Plan: Assessment severe sepsis due to LLL HCAP and Pseudomonas UTI Parkinson's disease dementia HTN CAD Plan on Vancomycin day 4 and Merrem day 6 up to 7 days of therapy will continue to monitor clinically overall prognosis is poor
[2018-11-15 11:40] LABS: MEAN CELL VOLUME 92.5 fl (80.0-105.0); MEAN CORPUSCULAR HEMOGLOBIN 29.5 pg (25.0-35.0); MEAN CORPUSCULAR HGB CONC 31.9 g/dl (31.0-37.0); MEAN PLATELET VOLUME 9.7 fl (7.0-11.0); RBC 3.05 10^6/uL (3.5-6.1); RED CELL DISTRIBUTION WIDTH 18.4 % (11.5-14.5); WHITE BLOOD COUNT 13.4 10^3/uL (4.5-11.0)
[2018-11-15] MEDS: Albuterol 0.083% Inhal Sol (2.5 mg/3 mL) UD INH SCH ×2 (13:04→20:25)
[2018-11-15] MEDS ORDERED: Potassium Chloride 40 mEq/30 ml LIQ UD PEG STA (13:41)
[2018-11-15] MEDS: Vancomycin 1gm in NS 250ml 1 GM/250 ML BAG IVPB SCH ×2 (15:26→23:21)
--- NOTE | 2018-11-15 19:53 | PN ---
DATE: 11/15/2018 SUBJECTIVE: The patient is a 78-year-old, seen and examined, seems to be short of breath and minimally responsive, unable to carry any conversation, with advanced dementia. PHYSICAL EXAMINATION: VITAL SIGNS: He is afebrile. Pulse 72, respirations 20, blood pressure 96/59. LUNGS: Bilateral soft crackles in the upper lung region. HEART: S1 and S2 audible. ABDOMEN: Soft. PEG in place. NEUROLOGIC: He is non-communicative. LABORATORY DATA: WBC 13.4, hemoglobin 9, hematocrit 28.2, platelets 369. Chemistries: Sodium 145, potassium 2.9, chloride 120, CO2 of 21, BUN 22, creatinine 0.4, blood sugar of 107. LFTs show AST 88, ALT 57. His urine culture done on 11/12/2018 shows no growth. ASSESSMENT: 1. Advanced dementia. 2. Dysphagia, status post percutaneous endoscopic gastrostomy tube placement. 3. Hypokalemia secondary to malnutrition. 4. Status post urinary retention. Currently, he has Merrill. 5. History of Parkinson's disease. 6. Coronary artery disease. 7. Decubitus ulcer. PLAN: I got a call from nurse, Krystle, that the patient has high residue. She aspirated 60 mL. We will hold his PEG feeding for 3 to 4 hours and restart with 50 mL per hour. We will supplement potassium. Poor prognosis. We will continue current medications. Gissel Sanders MD
--- NOTE | 2018-11-15 20:57 | PN ---
DATE: 11/15/2018 SUBJECTIVE: This patient was seen and evaluated earlier. Discussed with the nursing staff. He had an episodes of vomiting, the feeding has been on hold. PHYSICAL EXAMINATION: VITAL SIGNS: Temperature 100.3, pulse 102, blood pressure is , and respirations 22. HEENT: Atraumatic. Anicteric. NECK: Supple. HEART: S1 and S2 heard. LUNGS: Bilateral air entry present. There are few scattered rhonchi present. ABDOMEN: Soft. PEG tube is in place. EXTREMITIES: No . LABORATORY DATA: Hemoglobin 9, hematocrit 28.2, WBC 13.4, and platelet 369. Repeat LFTs shows total bilirubin has come down to normal. Alkaline phosphatase mildly elevated at 138. IMPRESSION AND PLAN: This is a 78-year-old patient with history of Parkinson's disease, dysphagia, coronary artery disease, decubitus ulcer, and had underwent percutaneous endoscopic gastrostomy tube placement. The patient was tolerating the diet, now he had an episode of vomiting. There were few rhonchi heard on the lungs. Feeding has been on hold now. We will check the gastric residue and if there are no further episodes of vomiting for another 6 hours, then we will consider starting a very low dose of gastric tube feeding at 30 mL per hour. If there are any further episodes of vomiting, we will discontinue it. We would request abdominal x-ray flat plate to further evaluate. The patient also had loose bowel movements. We will request stool for Clostridium difficile and chest x-ray to rule out any infiltrate. Last chest x-ray done on 11/08/2018 was reviewed. We will request a chest x-ray. Thank you very much for allowing us to participate in the care of the patient. Janneth Fraser MD
[2018-11-16] MEDS: Albuterol 0.083% Inhal Sol (2.5 mg/3 mL) UD INH SCH ×4 (01:01→20:22)
[2018-11-16] MEDS: Saliva Substitute 44.3 ML PO SCH ×5 (03:24→21:42)
[2018-11-16] MEDS: Meropenem IV 1 gm in NS 1 GM/50 ML BAG IVPB SCH ×3 (05:22→21:33)
[2018-11-16 07:57] LABS: HEMOGLOBIN 8.7 g/dL (14.0-18.0); MEAN CELL VOLUME 93.8 fl (80.0-105.0); MEAN CORPUSCULAR HEMOGLOBIN 28.6 pg (25.0-35.0); MEAN CORPUSCULAR HGB CONC 30.5 g/dl (31.0-37.0); MEAN PLATELET VOLUME 9.5 fl (7.0-11.0); RBC 3.04 10^6/uL (3.5-6.1); RED CELL DISTRIBUTION WIDTH 18.8 % (11.5-14.5); WHITE BLOOD COUNT 14.2 10^3/uL (4.5-11.0)
[2018-11-16 08:20] LABS: ALB/GLOB RATIO 0.7 (1.1-1.8); ALBUMIN 2.1 g/dL (3.0-4.8); ALT/SGPT 43 U/L (7-56); AST/SGOT 66 U/L (17-59); BLOOD UREA NITROGEN 18 mg/dL (7-21); GFR NON-AFRICAN AMERICAN > 60
--- NOTE | 2018-11-16 12:01 | CP.PCM.PN ---
<Yaritza Em - Last Filed: 11/16/18 18:01> Subjective - Date & Time of Evaluation Date of Evaluation: 11/16/18 Time of Evaluation: 10:00 - Subjective Subjective: Yaritza Em, PGY2, GI Progress Note for Dr Fraser: Patient seen and examined at bedside. Patient had a vomiting episode on Friday, for which his tube feeds were held. Tube feeds restarted last night, at 20cc/hr, tolerating well. Patient nonverbal, resting in bed. Patient had watery, 3 BMs, within past 24 hrs. ROS limited due to patient's condition/dementia. Objective - Vital Signs/Intake and Output Vital Signs (last 24 hours): Temp Pulse Resp BP Pulse Ox 98.7 F 78 20 110/90 96 11/16/18 06:00 11/16/18 06:00 11/16/18 06:00 11/16/18 06:00 11/16/18 06:00 Intake and Output: 11/16/18 11/16/18 06:59 18:59 Intake Total 0 Balance 0 - Medications Medications: Current Medications Acetaminophen (Tylenol 650 Mg Supp) 650 mg RC Q6H PRN PRN Reason: Fever >100.4 F Last Admin: 11/14/18 16:58 Dose: 650 mg Albuterol Sulfate (Albuterol 0.083% Inhal Remedios (2.5 Mg/3 Ml) Ud) 2.5 mg INH Q6H RESP PRN PRN Reason: Shortness of Breath Last Admin: 11/14/18 19:52 Dose: 2.5 mg Albuterol Sulfate (Albuterol 0.083% Inhal Remedios (2.5 Mg/3 Ml) Ud) 2.5 mg INH [id number] [facility] Last Admin: 11/16/18 07:28 Dose: 2.5 mg Aspirin (Aspirin Chewable) 81 mg PO DAILY [facility] Last Admin: 11/15/18 12:19 Dose: 81 mg Carbidopa/Levodopa (Sinemet) 1 tab PO QID [facility] Last Admin: 11/15/18 21:58 Dose: 1 tab Clopidogrel Bisulfate (Plavix) 75 mg PO DAILY [facility] Last Admin: 11/15/18 12:15 Dose: 75 mg Famotidine (Pepcid) 20 mg PO 1000,2200 [facility] Last Admin: 11/15/18 21:52 Dose: 20 mg Heparin Sodium (Porcine) (Heparin) 5,000 units SC Q12 [facility]; Protocol Last Admin: 11/15/18 21:54 Dose: 5,000 units Meropenem (Merrem Iv 1 Gm Premix) 1 gm in 50 mls @ 100 mls/hr IVPB Q8 [facility]; Protocol Stop: 11/18/18 22:01 Last Admin: 11/16/18 05:22 Dose: 100 mls/hr Vancomycin HCl (Vancomycin 1gm) 1 gm in 250 mls @ 167 mls/hr IVPB Q12H [facility]; Protocol Stop: 11/19/18 11:16 Last Admin: 11/15/18 23:21 Dose: 167 mls/hr Ibuprofen (Motrin Tab) 400 mg PO Q6H PRN PRN Reason: Fever >100.4 F Lorazepam (Ativan) 0.25 mg IVP Q8H PRN; Protocol PRN Reason: Anxiety Last Admin: 11/15/18 12:58 Dose: 0.25 mg Saliva Substitute (Saliva Substitute) 0 ml PO Q4H [facility] - Labs Labs: 11/16/18 07:10 11/16/18 07:10 PT 16.4 SECONDS (9.4-12.5) H 11/15/18 06:30 INR 1.45 11/15/18 06:30 APTT 30.3 Seconds (26.9-38.3) 11/15/18 06:30 - Additional Findings Additional findings: - Constitutional Appears: Cachectic, Chronically Ill - Head Exam Head Exam: ATRAUMATIC, NORMOCEPHALIC - Eye Exam Eye Exam: EOMI, PERRL. absent: Conjunctival injection, Nystagmus, Scleral icterus Pupil Exam: NORMAL ACCOMODATION, PERRL. absent: Miosis, Mydriatic - ENT Exam ENT Exam: Mucous Membranes Dry - Neck Exam Neck Exam: Full ROM - Respiratory Exam Respiratory Exam: NORMAL BREATHING PATTERN - Cardiovascular Exam Cardiovascular Exam: RRR, +S1, +S2. absent: Murmur - GI/Abdominal Exam GI & Abdominal Exam: Soft, Normal Bowel Sounds. + PEG tube site noted, no bleeding at site, feedings infusing well. absent: Guarding, Rigid, Rebound - Extremities Exam Extremities Exam: Normal Inspection - Back Exam Back Exam: NORMAL INSPECTION - Neurological Exam Additional comments: normal - Skin Skin Exam: Normal Color, Warm Assessment and Plan - Assessment and Plan (Free Text) Assessment: # Failure to thrive, poor PO intake, s/p PEG tube # Normocytic anemia 2/2 anemia of chronic disease # Hypernetremia, resolved # Parkinson's disease # CAD with stents # Decub ulcer - can continue with Pivot 1.5 tube feeds, as per dietitian, currently at 20 ml/hr, goal 75/hr - Hgb 8.7 today. On admission, Hgb 10.9. - Iron studies show anemia of chronic disease, B12, folate normal. Recommend heme consult. - s/p 2 units prbcs transfusion - c diff 11/16 negative - ordered stool occult blood - continue with wound care - continue with tube feeds, advance as tolerated - avoid NSAIDs/narcotics - Further recs per Dr Fraser. Case seen and discussed with Dr Fraser. <Janneth Fraser V - Last Filed: 11/17/18 01:00> Objective - Vital Signs/Intake and Output Vital Signs (last 24 hours): Temp Pulse Resp BP Pulse Ox 98.8 F 82 18 86/55 L 95 11/16/18 22:08 11/16/18 22:08 11/16/18 22:08 11/16/18 22:08 11/16/18 22:08 Intake and Output: 11/16/18 11/17/18 18:59 06:59 Intake Total 0 Balance 0 - Medications Medications: Current Medications Acetaminophen (Tylenol 650 Mg Supp) 650 mg RC Q6H PRN PRN Reason: Fever >100.4 F Last Admin: 11/16/18 16:04 Dose: 650 mg Albuterol Sulfate (Albuterol 0.083% Inhal Remedios (2.5 Mg/3 Ml) Ud) 2.5 mg INH [id number] PRN PRN Reason: Shortness of Breath Last Admin: 11/14/18 19:52 Dose: 2.5 mg Albuterol Sulfate (Albuterol 0.083% Inhal Remedios (2.5 Mg/3 Ml) Ud) 2.5 mg INH [id number] [facility] Last Admin: 11/16/18 20:22 Dose: 2.5 mg Aspirin (Aspirin Chewable) 81 mg PO DAILY [facility] Last Admin: 04/08/19 16:01 Dose: 81 mg Carbidopa/Levodopa (Sinemet) 1 tab PO QID [facility] Last Admin: 11/16/18 21:34 Dose: 1 tab Clopidogrel Bisulfate (Plavix) 75 mg PO DAILY [facility] Last Admin: 11/16/18 16:02 Dose: 75 mg Famotidine (Pepcid) 20 mg PO 1000,2200 [facility] Last Admin: 11/16/18 21:33 Dose: 20 mg Heparin Sodium (Porcine) (Heparin) 5,000 units SC Q12 [facility]; Protocol Last Admin: 11/16/18 21:34 Dose: 5,000 units Meropenem (Merrem Iv 1 Gm Premix) 1 gm in 50 mls @ 100 mls/hr IVPB Q8 [facility]; Protocol Stop: 11/18/18 22:01 Last Admin: 11/16/18 21:33 Dose: 100 mls/hr Vancomycin HCl (Vancomycin 1gm) 1 gm in 250 mls @ 167 mls/hr IVPB Q12H [facility]; Protocol Stop: 11/19/18 11:16 Last Admin: 11/16/18 23:22 Dose: 167 mls/hr Ibuprofen (Motrin Tab) 400 mg PO Q6H PRN PRN Reason: Fever >100.4 F Lorazepam (Ativan) 0.25 mg IVP Q8H PRN; Protocol PRN Reason: Anxiety Last Admin: 11/15/18 12:58 Dose: 0.25 mg Saliva Substitute (Saliva Substitute) 0 ml PO Q4H [facility] Last Admin: 11/16/18 21:42 Dose: 1 ml - Labs Labs: 11/16/18 07:10 11/16/18 07:10 PT 16.4 SECONDS (9.4-12.5) H 11/15/18 06:30 INR 1.45 11/15/18 06:30 APTT 30.3 Seconds (26.9-38.3) 11/15/18 06:30 Attending/Attestation - Attestation I have personally seen and examined this patient.: Yes I have fully participated in the care of the patient.: Yes I have reviewed all pertinent clinical information, including history, physical exam and plan: Yes Notes (Text): This is an addendum to the progress report dictated by the resident. The patient was seen and evaluated here earlier. Slowly G-tube feeding has been increased. Tolerating. PICC site appears unremarkable. Slight drop in her blood count. No obvious bleeding. Follow-up of the INR. If there is significant drop will trend request CT of the abdomen and pelvis to rule out any retroperitoneal bleed 11/17/18 00:59
--- NOTE | 2018-11-16 14:09 | CP.PCM.PN ---
<Pao Aguilar - Last Filed: 11/16/18 15:46> Subjective - Date & Time of Evaluation Date of Evaluation: 11/16/18 Time of Evaluation: 07:30 - Subjective Subjective: Progress Note for Dr. Yuan Service Patient seen and examined at bedside. As per nursing staff, pt had episodes of emesis yesterday at which time Peg tube feeds were held and restarted last night. Patient also experienced multiple watery loose stool. Patient tolerating feeds today. Patient is nonverbal - ROS unobtainable. Objective - Vital Signs/Intake and Output Vital Signs (last 24 hours): Temp Pulse Resp BP Pulse Ox 98.7 F 78 20 110/90 96 11/16/18 06:00 11/16/18 06:00 11/16/18 06:00 11/16/18 06:00 11/16/18 06:00 Intake and Output: 11/16/18 11/16/18 06:59 18:59 Intake Total 0 Balance 0 - Medications Medications: Current Medications Acetaminophen (Tylenol 650 Mg Supp) 650 mg RC Q6H PRN PRN Reason: Fever >100.4 F Last Admin: 11/14/18 16:58 Dose: 650 mg Albuterol Sulfate (Albuterol 0.083% Inhal Remedios (2.5 Mg/3 Ml) Ud) 2.5 mg INH [id number] PRN PRN Reason: Shortness of Breath Last Admin: 11/14/18 19:52 Dose: 2.5 mg Albuterol Sulfate (Albuterol 0.083% Inhal Remedios (2.5 Mg/3 Ml) Ud) 2.5 mg INH [id number] [facility] Last Admin: 11/16/18 07:28 Dose: 2.5 mg Aspirin (Aspirin Chewable) 81 mg PO DAILY [facility] Last Admin: 11/15/18 12:19 Dose: 81 mg Carbidopa/Levodopa (Sinemet) 1 tab PO QID [facility] Last Admin: 11/15/18 21:58 Dose: 1 tab Clopidogrel Bisulfate (Plavix) 75 mg PO DAILY [facility] Last Admin: 11/15/18 12:15 Dose: 75 mg Famotidine (Pepcid) 20 mg PO 1000,2200 [facility] Last Admin: 11/15/18 21:52 Dose: 20 mg Heparin Sodium (Porcine) (Heparin) 5,000 units SC Q12 [facility]; Protocol Last Admin: 11/15/18 21:54 Dose: 5,000 units Meropenem (Merrem Iv 1 Gm Premix) 1 gm in 50 mls @ 100 mls/hr IVPB Q8 [facility]; Protocol Stop: 11/18/18 22:01 Last Admin: 11/16/18 05:22 Dose: 100 mls/hr Vancomycin HCl (Vancomycin 1gm) 1 gm in 250 mls @ 167 mls/hr IVPB Q12H [facility]; Protocol Stop: 11/19/18 11:16 Last Admin: 11/15/18 23:21 Dose: 167 mls/hr Ibuprofen (Motrin Tab) 400 mg PO Q6H PRN PRN Reason: Fever >100.4 F Lorazepam (Ativan) 0.25 mg IVP Q8H PRN; Protocol PRN Reason: Anxiety Last Admin: 11/15/18 12:58 Dose: 0.25 mg Saliva Substitute (Saliva Substitute) 0 ml PO Q4H [facility] - Labs Labs: 11/16/18 07:10 11/16/18 07:10 PT 16.4 SECONDS (9.4-12.5) H 11/15/18 06:30 INR 1.45 11/15/18 06:30 APTT 30.3 Seconds (26.9-38.3) 11/15/18 06:30 - Constitutional Appears: Cachectic, Chronically Ill - Head Exam Head Exam: ATRAUMATIC, NORMAL INSPECTION, NORMOCEPHALIC - Eye Exam Eye Exam: EOMI, Normal appearance, PERRL Pupil Exam: NORMAL ACCOMODATION, PERRL - ENT Exam ENT Exam: Mucous Membranes Dry - Respiratory Exam Respiratory Exam: Decreased Breath Sounds - Cardiovascular Exam Cardiovascular Exam: REGULAR RHYTHM, +S1, +S2 - GI/Abdominal Exam GI & Abdominal Exam: Soft, Normal Bowel Sounds - Neurological Exam Neurological Exam: Awake - Skin Additional comments: stage 2 sacral Assessment and Plan - Assessment and Plan (Free Text) Assessment: 78 M with a PMHx of End stage parkinsons dementia admitted for the failure to thrive. Severe Sepsis 2/2 HCAP - likely 2/2 aspiration - low grade fevers, tylenol prn - merrem and vancomycin as per ID End stage Parkinsons Dementia - Sinemet Pseudomonas UTI - ID consulted, on vancomycin and merrem Hypernatremia - resolved - D5w dc Stage 2 sacral ulcer - air mattress - dressing - continue to monitor Anemia of chronic disease - B12, folate normal. - s/p 2 units prbcs transfusion - no signs of bleeding - H&h Stable Watery loose stools - ordered cdiff, stool occult blood - continue with wound care overall prognosis is poor Seen reviewed and discussed with attending <Jose Yuan S - Last Filed: 11/16/18 17:35> Objective - Vital Signs/Intake and Output Vital Signs (last 24 hours): Temp Pulse Resp BP Pulse Ox 100.5 F H 80 20 88/64 L 98 11/16/18 16:04 11/16/18 14:00 11/16/18 14:00 11/16/18 14:00 11/16/18 14:00 Intake and Output: 11/16/18 11/16/18 06:59 18:59 Intake Total 0 Balance 0 - Medications Medications: Current Medications Acetaminophen (Tylenol 650 Mg Supp) 650 mg RC Q6H PRN PRN Reason: Fever >100.4 F Last Admin: 11/16/18 16:04 Dose: 650 mg Albuterol Sulfate (Albuterol 0.083% Inhal Remedios (2.5 Mg/3 Ml) Ud) 2.5 mg INH Q [id number] PRN PRN Reason: Shortness of Breath Last Admin: 11/14/18 19:52 Dose: 2.5 mg Albuterol Sulfate (Albuterol 0.083% Inhal Remedios (2.5 Mg/3 Ml) Ud) 2.5 mg INH [id number] [facility] Last Admin: 11/16/18 14:02 Dose: 2.5 mg Aspirin (Aspirin Chewable) 81 mg PO DAILY [facility] Last Admin: 11/16/18 16:01 Dose: 81 mg Carbidopa/Levodopa (Sinemet) 1 tab PO QID [facility] Last Admin: 11/16/18 14:00 Dose: 1 tab Clopidogrel Bisulfate (Plavix) 75 mg PO DAILY [facility] Last Admin: 11/16/18 16:02 Dose: 75 mg Famotidine (Pepcid) 20 mg PO 1000,2200 [facility] Last Admin: 11/16/18 16:02 Dose: 20 mg Heparin Sodium (Porcine) (Heparin) 5,000 units SC Q12 [facility]; Protocol Last Admin: 11/16/18 16:02 Dose: 5,000 units Meropenem (Merrem Iv 1 Gm Premix) 1 gm in 50 mls @ 100 mls/hr IVPB Q8 [facility]; Protocol Stop: 11/18/18 22:01 Last Admin: 11/16/18 16:09 Dose: 100 mls/hr Vancomycin HCl (Vancomycin 1gm) 1 gm in 250 mls @ 167 mls/hr IVPB Q12H [facility]; Protocol Stop: 11/19/18 11:16 Last Admin: 11/15/18 23:21 Dose: 167 mls/hr Ibuprofen (Motrin Tab) 400 mg PO Q6H PRN PRN Reason: Fever >100.4 F Lorazepam (Ativan) 0.25 mg IVP Q8H PRN; Protocol PRN Reason: Anxiety Last Admin: 11/15/18 12:58 Dose: 0.25 mg Saliva Substitute (Saliva Substitute) 0 ml PO Q4H [facility] Last Admin: 11/16/18 16:04 Dose: 10 ml - Labs Labs: 11/16/18 07:10 11/16/18 07:10 PT 16.4 SECONDS (9.4-12.5) H 11/15/18 06:30 INR 1.45 11/15/18 06:30 APTT 30.3 Seconds (26.9-38.3) 11/15/18 06:30 Assessment and Plan - Assessment and Plan (Free Text) Assessment: Pt seen and examined by me. I have reviewed the note of the medical staff services manager and I agree with it. I have discussed the assessment and plan with the resident. I have reviewed the medications and the last labs.
[2018-11-16] MEDS: Vancomycin 1gm in NS 250ml 1 GM/250 ML BAG IVPB SCH ×2 (17:39→23:22)
--- NOTE | 2018-11-16 22:20 | PN ---
DATE: 11/16/2018 The patient was seen and examined. I do agree with the note of the medical professionals. I was involved in the plan of care. The patient has hospital-acquired pneumonia. This may be aspiration. The patient is currently on meropenem and vancomycin. He has Parkinson's dementia. He is on Sinemet. The patient has hypernatremia, and we will most likely increase free water intake. He has stage 2 pressure ulcer, and he has an air mattress. Wound care locally is being done. He had acute anemia secondary to blood loss with chronic anemia. He had 2 units of transfusions. The patient has overall poor prognosis. Palliative care has been involved with the patient. The patient's family do not wish to make him DNR. The patient had a white count that is elevated at 14.2. The potassium is 3.9 and sodium is 153. I will increase his free water to 400 mL every 8 hours. Jose Yuan MD
[2018-11-17] MEDS: Albuterol 0.083% Inhal Sol (2.5 mg/3 mL) UD INH SCH ×4 (02:59→21:30)
--- NOTE | 2018-11-17 04:54 | PN ---
DATE: 11/16/2018 SUBJECTIVE: The patient is in bed. PHYSICAL EXAMINATION: VITAL SIGNS: Temperature of 98, T-max is 100.7, blood pressure is 86/50, respiratory rate of 20. HEENT: Unremarkable. NECK: Supple. LUNGS: Have decreased breath sounds. HEART: Normal S1 and S2. ABDOMEN: Soft. LABORATORY DATA: Reveals a white count of 14,000, creatinine is 0.4. Review of orders reveals the patient to be on meropenem and vancomycin. ASSESSMENT AND PLAN: This is a 78-year-old male who was seen earlier today in 577, bed 2 with severe sepsis due to left lower lobe healthcare-associated pneumonia and Pseudomonas urinary tract infection, Parkinson's disease, on vancomycin and meropenem. Vancomycin is day #5 and meropenem is day #7, now with fevers. Overall prognosis is quite poor. Pradeep Augustine MD
[2018-11-17] MEDS: Meropenem IV 1 gm in NS 1 GM/50 ML BAG IVPB SCH (05:41)
[2018-11-17] MEDS: Saliva Substitute 44.3 ML PO SCH ×4 (05:43→22:40)
[2018-11-17 08:05] LABS: BASO # 0.01 K/mm3 (0.0-2.0); BASO % 0.1 % (0.0-3.0); EOS # 0.1 (0.0-0.7); EOS % 0.4 % (1.5-5.0); HEMOGLOBIN 9.1 g/dL (14.0-18.0); LYMPH # 2.2 (1.2-3.4); LYMPH % 14.2 % (22.0-35.0); MEAN CELL VOLUME 95.2 fl (80.0-105.0); MEAN CORPUSCULAR HEMOGLOBIN 29.2 pg (25.0-35.0); MEAN CORPUSCULAR HGB CONC 30.6 g/dl (31.0-37.0); MEAN PLATELET VOLUME 9.3 fl (7.0-11.0); MONO % 6.5 % (1.0-6.0); RBC 3.12 10^6/uL (3.5-6.1); RED CELL DISTRIBUTION WIDTH 19.4 % (11.5-14.5); WHITE BLOOD COUNT 15.7 10^3/uL (4.5-11.0)
[2018-11-17 08:31] LABS: ALB/GLOB RATIO 0.7 (1.1-1.8); ALBUMIN 2.4 g/dL (3.0-4.8); ALT/SGPT 57 U/L (7-56); AST/SGOT 74 U/L (17-59); BLOOD UREA NITROGEN 19 mg/dL (7-21); CALCIUM 8.2 mg/dL (8.4-10.5); GFR NON-AFRICAN AMERICAN > 60
--- NOTE | 2018-11-17 11:15 | CP.PCM.PN ---
<Pao Aguilar - Last Filed: 11/17/18 11:12> Subjective - Date & Time of Evaluation Date of Evaluation: 11/17/18 Time of Evaluation: 08:00 - Subjective Subjective: Progress Note for Dr. Yuan Service Patient was seen and examined at bedside. Patient still experiencing low grade fevers overnight as per nursing staff. Patient's frequency of loose stool has decreased. Patient tolerating tube feeds. ROS unobtainable. Objective - Vital Signs/Intake and Output Vital Signs (last 24 hours): Temp Pulse Resp BP Pulse Ox 97.7 F 94 H 17 112/67 95 11/17/18 07:44 11/17/18 07:44 11/17/18 07:44 11/17/18 07:44 11/17/18 07:44 Intake and Output: 11/17/18 11/17/18 06:59 18:59 Intake Total 500 Balance 500 - Medications Medications: Current Medications Acetaminophen (Tylenol 650 Mg Supp) 650 mg RC Q6H PRN PRN Reason: Fever >100.4 F Last Admin: 11/16/18 16:04 Dose: 650 mg Albuterol Sulfate (Albuterol 0.083% Inhal Remedios (2.5 Mg/3 Ml) Ud) 2.5 mg INH [id number] PRN PRN Reason: Shortness of Breath Last Admin: 11/14/18 19:52 Dose: 2.5 mg Albuterol Sulfate (Albuterol 0.083% Inhal Remedios (2.5 Mg/3 Ml) Ud) 2.5 mg INH [id number] [facility] Last Admin: 11/17/18 07:15 Dose: 2.5 mg Aspirin (Aspirin Chewable) 81 mg PO DAILY [facility] Last Admin: 11/16/18 16:01 Dose: 81 mg Carbidopa/Levodopa (Sinemet) 1 tab PO QID [facility] Last Admin: 11/16/18 21:34 Dose: 1 tab Clopidogrel Bisulfate (Plavix) 75 mg PO DAILY [facility] Last Admin: 11/16/18 16:02 Dose: 75 mg Famotidine (Pepcid) 20 mg PO 1000,2200 [facility] Last Admin: 11/16/18 21:33 Dose: 20 mg Heparin Sodium (Porcine) (Heparin) 5,000 units SC Q12 [facility]; Protocol Last Admin: 11/16/18 21:34 Dose: 5,000 units Meropenem (Merrem Iv 1 Gm Premix) 1 gm in 50 mls @ 100 mls/hr IVPB Q8 [facility]; Protocol Stop: 11/18/18 22:01 Last Admin: 11/17/18 05:41 Dose: 100 mls/hr Vancomycin HCl (Vancomycin 1gm) 1 gm in 250 mls @ 167 mls/hr IVPB Q12H [facility]; Protocol Stop: 11/19/18 11:16 Last Admin: 11/16/18 23:22 Dose: 167 mls/hr Dextrose (Dextrose 5% In Water 1000 Ml) 1,000 mls @ 100 mls/hr IV .Q10H [facility] Ibuprofen (Motrin Tab) 400 mg PO Q6H PRN PRN Reason: Fever >100.4 F Lorazepam (Ativan) 0.25 mg IVP Q8H PRN; Protocol PRN Reason: Anxiety Last Admin: 11/15/18 12:58 Dose: 0.25 mg Saliva Substitute (Saliva Substitute) 0 ml PO Q4H [facility] Last Admin: 11/17/18 05:43 Dose: 1 ml - Labs Labs: 11/17/18 07:45 11/17/18 07:45 PT 16.4 SECONDS (9.4-12.5) H 11/15/18 06:30 INR 1.45 11/15/18 06:30 APTT 30.3 Seconds (26.9-38.3) 11/15/18 06:30 - Constitutional Appears: Chronically Ill - Head Exam Head Exam: ATRAUMATIC, NORMAL INSPECTION, NORMOCEPHALIC - Eye Exam Eye Exam: EOMI, Normal appearance, PERRL Pupil Exam: NORMAL ACCOMODATION, PERRL - ENT Exam ENT Exam: Mucous Membranes Dry - Respiratory Exam Respiratory Exam: Decreased Breath Sounds, Rhonchi - Cardiovascular Exam Cardiovascular Exam: REGULAR RHYTHM, +S1, +S2 - GI/Abdominal Exam GI & Abdominal Exam: Soft, Normal Bowel Sounds Additional comments: PEG - Extremities Exam Extremities Exam: Full ROM, Normal Capillary Refill, Normal Inspection. absent: Joint Swelling, Pedal Edema - Neurological Exam Neurological Exam: Alert, Awake - Psychiatric Exam Psychiatric exam: Flat Affect - Skin Skin Exam: Dry, Normal Color, Warm Additional comments: sacral ulcer Assessment and Plan - Assessment and Plan (Free Text) Assessment: 1. End stage parkinson's dementia 2. Severe sepsis HCAP likely 2/2 aspiration and pseudomonas UTI 3. Hypernatremia 4. CAD with Ischemic cardiomyopathy 5. Anemia of Chronic Disease 6. Parkinson's disease 7. Stage 2 sacral decubitus ulcer Plan: Patient is comfortable, tolerating tube feeds, increased his free water flushes to 400 q4 as well as his IVF to D5W @100 ml/hr to address his hypernatremia as he has a free water deficit of ~ 3.6 L. Patient continues to have low grade fevers overnight, with an increasking leukocytosis likely due to recurrent aspiration. He is on abx therapy with merrem and vancomycin as per ID for HCAP and UTI coverage. Patient is on air mattress on account of his stage 2 sacral ulcer with dressing changes. As per nursing staff, his loose watery bowel movement have abated, and negative for C. diff. H&H is stable s/p 2 units prbc transfusion. Patient is on heparin for dvt prophylaxis. Patient continued on carbidopa/ levodopa for Parkinson's. Overall prognosis is poor Seen reviewed and discussed with Dr. Yuan <Jose Yuan S - Last Filed: 11/17/18 16:26> Objective - Vital Signs/Intake and Output Vital Signs (last 24 hours): Temp Pulse Resp BP Pulse Ox 100.4 F H 99 H 20 88/54 L 93 L 11/17/18 16:02 11/17/18 14:00 11/17/18 14:00 11/17/18 14:00 11/17/18 14:00 Intake and Output: 11/17/18 11/17/18 06:59 18:59 Intake Total 500 Balance 500 - Medications Medications: Current Medications Acetaminophen (Tylenol 650 Mg Supp) 650 mg RC Q6H PRN PRN Reason: Fever >100.4 F Last Admin: 11/17/18 16:02 Dose: 650 mg Albuterol Sulfate (Albuterol 0.083% Inhal Remedios (2.5 Mg/3 Ml) Ud) 2.5 mg INH [id number] PRN PRN Reason: Shortness of Breath Last Admin: 11/14/18 19:52 Dose: 2.5 mg Albuterol Sulfate (Albuterol 0.083% Inhal Remedios (2.5 Mg/3 Ml) Ud) 2.5 mg INH [id number] [facility] Last Admin: 11/17/18 13:18 Dose: 2.5 mg Aspirin (Aspirin Chewable) 81 mg PO DAILY [facility] Last Admin: 11/17/18 12:00 Dose: 81 mg Carbidopa/Levodopa (Sinemet) 1 tab PO QID [facility] Last Admin: 11/17/18 16:02 Dose: 1 tab Clopidogrel Bisulfate (Plavix) 75 mg PO DAILY [facility] Last Admin: 11/17/18 12:00 Dose: 75 mg Famotidine (Pepcid) 20 mg PO 1000,2200 [facility] Last Admin: 11/17/18 12:00 Dose: 20 mg Heparin Sodium (Porcine) (Heparin) 5,000 units SC Q12 [facility]; Protocol Last Admin: 11/17/18 12:00 Dose: 5,000 units Dextrose (Dextrose 5% In Water 1000 Ml) 1,000 mls @ 100 mls/hr IV .Q10H [facility] Last Admin: 11/17/18 12:01 Dose: 100 mls/hr Ibuprofen (Motrin Tab) 400 mg PO Q6H PRN PRN Reason: Fever >100.4 F Lorazepam (Ativan) 0.25 mg IVP Q8H PRN; Protocol PRN Reason: Anxiety Last Admin: 11/15/18 12:58 Dose: 0.25 mg Saliva Substitute (Saliva Substitute) 0 ml PO Q4H [facility] Last Admin: 11/17/18 16:03 Dose: 1 ml - Labs Labs: 11/17/18 07:45 11/17/18 07:45 PT 16.4 SECONDS (9.4-12.5) H 11/15/18 06:30 INR 1.45 11/15/18 06:30 APTT 30.3 Seconds (26.9-38.3) 11/15/18 06:30 Assessment and Plan - Assessment and Plan (Free Text) Assessment: Pt seen and examined by me. I have reviewed the note of the medical office clerk and I agree with it. I have discussed the assessment and plan with the resident. I have reviewed the medications and the last labs.
--- NOTE | 2018-11-17 14:02 | PN ---
DATE: 11/17/2018 SUBJECTIVE: The patient seen earlier today, in no acute distress. PHYSICAL EXAMINATION: VITAL SIGNS: Temperature 98, blood pressure 112/60, respiratory rate 18. HEENT: Examination of HEENT is unremarkable. NECK: Supple. LUNGS: Decreased breath sounds. HEART: Normal S1, S2. ABDOMEN: Soft. LABORATORY DATA: Reveals a white count of 15,000, hemoglobin of 9, BUN 19, creatinine 0.5. Urinalysis is noted and microbiology reveals the urine cultures are negative. Stool for C. diff antigen and toxin are both negative. Blood cultures are negative. Review of orders reveals the patient to be on meropenem. The patient has had a new fever and today is day #9 of meropenem. ASSESSMENT AND PLAN: This is a 78-year-old male who was seen earlier today, was admitted with severe sepsis, left lower lobe healthcare associated pneumonia, Pseudomonas urinary tract infection, vancomycin day #6 and meropenem day #8. We will discontinue the antibiotics. The patient did have an IV infiltrate which may explain the fever currently now. We will discontinue antibiotics and follow the patient. We will follow with you. Pradeep Augustine MD
[2018-11-17] MEDS: Vancomycin 1gm in NS 250ml 1 GM/250 ML BAG IVPB SCH (16:04)
--- NOTE | 2018-11-17 18:36 | CP.PCM.PN ---
<Yaritza Em - Last Filed: 11/17/18 18:32> Subjective - Date & Time of Evaluation Date of Evaluation: 11/17/18 Time of Evaluation: 10:00 - Subjective Subjective: Yaritza Em, PGY2, GI Progress Note for Dr Fraser: Patient seen and examined at bedside. No acute events overnight. Patient tolerating tube feeds well at 40 cc per hour, with 10 cc residual. Patient had 1 loose BM yesterday. ROS limited due to patient's condition/dementia. Objective - Vital Signs/Intake and Output Vital Signs (last 24 hours): Temp Pulse Resp BP Pulse Ox 100.4 F H 99 H 20 88/54 L 93 L 11/17/18 16:02 11/17/18 14:00 11/17/18 14:00 11/17/18 14:00 11/17/18 14:00 Intake and Output: 11/17/18 11/17/18 06:59 18:59 Intake Total 500 Balance 500 - Medications Medications: Current Medications Acetaminophen (Tylenol 650 Mg Supp) 650 mg RC Q6H PRN PRN Reason: Fever >100.4 F Last Admin: 11/17/18 16:02 Dose: 650 mg Albuterol Sulfate (Albuterol 0.083% Inhal Remedios (2.5 Mg/3 Ml) Ud) 2.5 mg INH [id number] PRN PRN Reason: Shortness of Breath Last Admin: 11/14/18 19:52 Dose: 2.5 mg Albuterol Sulfate (Albuterol 0.083% Inhal Remedios (2.5 Mg/3 Ml) Ud) 2.5 mg INH [id number] [facility] Last Admin: 11/17/18 13:18 Dose: 2.5 mg Aspirin (Aspirin Chewable) 81 mg PO DAILY [facility] Last Admin: 11/17/18 12:00 Dose: 81 mg Carbidopa/Levodopa (Sinemet) 1 tab PO QID [facility] Last Admin: 11/17/18 16:02 Dose: 1 tab Clopidogrel Bisulfate (Plavix) 75 mg PO DAILY [facility] Last Admin: 11/17/18 12:00 Dose: 75 mg Famotidine (Pepcid) 20 mg PO 1000,2200 [facility] Last Admin: 11/17/18 12:00 Dose: 20 mg Heparin Sodium (Porcine) (Heparin) 5,000 units SC Q12 [facility]; Protocol Last Admin: 11/17/18 12:00 Dose: 5,000 units Dextrose (Dextrose 5% In Water 1000 Ml) 1,000 mls @ 100 mls/hr IV .Q10H [facility] Last Admin: 11/17/18 12:01 Dose: 100 mls/hr Ibuprofen (Motrin Tab) 400 mg PO Q6H PRN PRN Reason: Fever >100.4 F Lorazepam (Ativan) 0.25 mg IVP Q8H PRN; Protocol PRN Reason: Anxiety Last Admin: 11/15/18 12:58 Dose: 0.25 mg Saliva Substitute (Saliva Substitute) 0 ml PO Q4H [facility] Last Admin: 11/17/18 16:03 Dose: 1 ml - Labs Labs: 11/17/18 07:45 11/17/18 07:45 PT 16.4 SECONDS (9.4-12.5) H 11/15/18 06:30 INR 1.45 11/15/18 06:30 APTT 30.3 Seconds (26.9-38.3) 11/15/18 06:30 - Additional Findings Additional findings: - Constitutional Appears: Cachectic, Chronically Ill - Head Exam Head Exam: ATRAUMATIC, NORMOCEPHALIC - Eye Exam Eye Exam: EOMI, PERRL. absent: Conjunctival injection, Nystagmus, Scleral icterus Pupil Exam: NORMAL ACCOMODATION, PERRL. absent: Miosis, Mydriatic - ENT Exam ENT Exam: Mucous Membranes Dry - Neck Exam Neck Exam: Full ROM - Respiratory Exam Respiratory Exam: NORMAL BREATHING PATTERN - Cardiovascular Exam Cardiovascular Exam: RRR, +S1, +S2. absent: Murmur - GI/Abdominal Exam GI & Abdominal Exam: Soft, Normal Bowel Sounds. + PEG tube site noted, no bleeding at site, feedings infusing well. absent: Guarding, Rigid, Rebound - Extremities Exam Extremities Exam: Normal Inspection - Back Exam Back Exam: NORMAL INSPECTION - Neurological Exam Additional comments: normal - Skin Skin Exam: Normal Color, Warm Assessment and Plan - Assessment and Plan (Free Text) Assessment: # Failure to thrive, poor PO intake, s/p PEG tube # Normocytic anemia 2/2 anemia of chronic disease # Hypernetremia # Parkinson's disease # CAD with stents # Decub ulcer - Since Pivot is not available, discussed with dietitian for Vital 1.2 feeds, patient tolerating at 40 cc/hr, goal 50-60/hr. - Na 155 today, agree with increasing free water 400 cc q8. will cont to monitor. - Hgb 9.1 today, stable. On admission, Hgb 10.9. - Iron studies show anemia of chronic disease, B12, folate normal. Recommend heme consult. - s/p 2 units prbcs transfusion - c diff 11/16 negative - ordered stool occult blood - continue with wound care - continue with tube feeds, advance as tolerated - avoid NSAIDs/narcotics - Further recs per Dr Fraser. Case seen and discussed with Dr Fraser. <Janneth Fraser V - Last Filed: 11/18/18 00:49> Objective - Vital Signs/Intake and Output Vital Signs (last 24 hours): Temp Pulse Resp BP Pulse Ox 100 F H 88 20 88/54 L 92 L 11/18/18 00:26 11/17/18 22:21 11/17/18 22:21 11/17/18 14:00 11/17/18 22:21 Intake and Output: 11/17/18 11/18/18 18:59 06:59 Intake Total 0 Balance 0 - Medications Medications: Current Medications Acetaminophen (Tylenol 650 Mg Supp) 650 mg RC Q6H PRN PRN Reason: Fever >100.4 F Last Admin: 11/17/18 16:02 Dose: 650 mg Albuterol Sulfate (Albuterol 0.083% Inhal Remedios (2.5 Mg/3 Ml) Ud) 2.5 mg INH [id number] PRN PRN Reason: Shortness of Breath Last Admin: 11/14/18 19:52 Dose: 2.5 mg Albuterol Sulfate (Albuterol 0.083% Inhal Remedios (2.5 Mg/3 Ml) Ud) 2.5 mg INH [id number] [facility] Last Admin: 11/17/18 21:30 Dose: 2.5 mg Aspirin (Aspirin Chewable) 81 mg PO DAILY [facility] Last Admin: 11/17/18 12:00 Dose: 81 mg Carbidopa/Levodopa (Sinemet) 1 tab PO QID [facility] Last Admin: 11/17/18 22:57 Dose: 1 tab Clopidogrel Bisulfate (Plavix) 75 mg PO DAILY [facility] Last Admin: 11/17/18 12:00 Dose: 75 mg Famotidine (Pepcid) 20 mg PO 1000,2200 [facility] Last Admin: 11/17/18 22:56 Dose: 20 mg Heparin Sodium (Porcine) (Heparin) 5,000 units SC Q12 [facility]; Protocol Last Admin: 11/17/18 22:57 Dose: 5,000 units Dextrose (Dextrose 5% In Water 1000 Ml) 1,000 mls @ 100 mls/hr IV .Q10H [facility] Last Admin: 11/18/18 00:28 Dose: 100 mls/hr Ibuprofen (Motrin Tab) 400 mg PO Q6H PRN PRN Reason: Fever >100.4 F Last Admin: 11/18/18 00:26 Dose: 400 mg Lorazepam (Ativan) 0.25 mg IVP Q8H PRN; Protocol PRN Reason: Anxiety Last Admin: 11/15/18 12:58 Dose: 0.25 mg Saliva Substitute (Saliva Substitute) 0 ml PO Q4H [facility] Last Admin: 11/17/18 16:03 Dose: 1 ml - Labs Labs: 11/17/18 07:45 11/17/18 07:45 PT 16.4 SECONDS (9.4-12.5) H 11/15/18 06:30 INR 1.45 11/15/18 06:30 APTT 30.3 Seconds (26.9-38.3) 11/15/18 06:30 Attending/Attestation - Attestation I have personally seen and examined this patient.: Yes I have fully participated in the care of the patient.: Yes I have reviewed all pertinent clinical information, including history, physical exam and plan: Yes Notes (Text): This patient was seen and evaluated here earlier along with the resident. This is an addendum to the GI progress report dictated by the resident. Patient is now tolerating G-tube feeding. Follow-up with a hemoglobin. Thank you very much for allowing us to participate in the care of the patient 11/18/18 00:47
--- NOTE | 2018-11-17 20:46 | PN ---
DATE: 11/17/2018 SUBJECTIVE: The patient was seen and examined. I do agree with the note of the medical scribe. I was involved in the plan of care. The patient has hypernatremia. He is going to have increase in the free water that is going to be delivered. The patient is also going to need IV fluids with D5W. He has low grade fever so he had increase in insensible losses. The patient has coronary artery disease that is being treated. His Parkinson's dementia is advanced and end stage. The patient has a PEG and has been getting PEG feedings. He is going to continue with heparin for DVT prophylaxis. He is on Plavix for his coronary artery disease. He is on carbidopa, levodopa for his Parkinson's. Jose Yuan MD
[2018-11-18] MEDS: Saliva Substitute 44.3 ML PO SCH ×5 (02:45→22:10)
[2018-11-18] MEDS: Albuterol 0.083% Inhal Sol (2.5 mg/3 mL) UD INH SCH ×4 (03:36→21:46)
[2018-11-18 07:46] LABS: BASO # 0.01 K/mm3 (0.0-2.0); BASO % 0.1 % (0.0-3.0); EOS # 0.1 (0.0-0.7); HEMOGLOBIN 7.7 g/dL (14.0-18.0); LYMPH # 1.8 (1.2-3.4); LYMPH % 14.6 % (22.0-35.0); MEAN CELL VOLUME 95.1 fl (80.0-105.0); MEAN CORPUSCULAR HEMOGLOBIN 28.9 pg (25.0-35.0); MEAN CORPUSCULAR HGB CONC 30.4 g/dl (31.0-37.0); MEAN PLATELET VOLUME 9.6 fl (7.0-11.0); MONO # 0.6 (0.1-0.6); MONO % 5.1 % (1.0-6.0); RBC 2.66 10^6/uL (3.5-6.1); RED CELL DISTRIBUTION WIDTH 19.2 % (11.5-14.5); WHITE BLOOD COUNT 12.5 10^3/uL (4.5-11.0)
[2018-11-18 08:04] LABS: ALB/GLOB RATIO 0.7 (1.1-1.8); ALT/SGPT 40 U/L (7-56); AST/SGOT 73 U/L (17-59); BLOOD UREA NITROGEN 20 mg/dL (7-21); CALCIUM 7.5 mg/dL (8.4-10.5); GFR NON-AFRICAN AMERICAN > 60
--- NOTE | 2018-11-18 09:27 | CP.PCM.PN ---
<Yaritza Em - Last Filed: 11/18/18 17:08> Subjective - Date & Time of Evaluation Date of Evaluation: 11/18/18 Time of Evaluation: 09:27 - Subjective Subjective: Yaritza Em, PGY2, GI Progress Note for Dr Fraser: Patient seen and examined at bedside. Patient had temp of 100.4F at 4 PM yesterday. No acute events overnight. Patient tolerating tube feeds well with 5 cc residual, no vomiting episodes. Last BM yesterday morning. No bloody stool as per nursing staff. ROS limited due to patient's condition/dementia. Objective - Vital Signs/Intake and Output Vital Signs (last 24 hours): Temp Pulse Resp BP Pulse Ox 98.5 F 87 17 112/72 94 L 11/18/18 06:00 11/18/18 06:00 11/18/18 06:00 11/18/18 06:00 11/18/18 06:00 Intake and Output: 11/18/18 11/18/18 06:59 18:59 Intake Total 2880 Balance 2880 - Medications Medications: Current Medications Acetaminophen (Tylenol 650 Mg Supp) 650 mg RC Q6H PRN PRN Reason: Fever >100.4 F Last Admin: 11/17/18 16:02 Dose: 650 mg Albuterol Sulfate (Albuterol 0.083% Inhal Remedios (2.5 Mg/3 Ml) Ud) 2.5 mg INH Q6H RESP PRN PRN Reason: Shortness of Breath Last Admin: 11/14/18 19:52 Dose: 2.5 mg Albuterol Sulfate (Albuterol 0.083% Inhal Remedios (2.5 Mg/3 Ml) Ud) 2.5 mg INH [id number] [facility] Last Admin: 11/18/18 07:30 Dose: 2.5 mg Aspirin (Aspirin Chewable) 81 mg PO DAILY [facility] Last Admin: 11/17/18 12:00 Dose: 81 mg Carbidopa/Levodopa (Sinemet) 1 tab PO QID [facility] Last Admin: 11/17/18 22:57 Dose: 1 tab Clopidogrel Bisulfate (Plavix) 75 mg PO DAILY [facility] Last Admin: 11/17/18 12:00 Dose: 75 mg Famotidine (Pepcid) 20 mg PO 1000,2200 [facility] Last Admin: 11/17/18 22:56 Dose: 20 mg Heparin Sodium (Porcine) (Heparin) 5,000 units SC Q12 [facility]; Protocol Last Admin: 11/17/18 22:57 Dose: 5,000 units Dextrose (Dextrose 5% In Water 1000 Ml) 1,000 mls @ 100 mls/hr IV .Q10H [facility] Last Admin: 11/18/18 00:28 Dose: 100 mls/hr Ibuprofen (Motrin Tab) 400 mg PO Q6H PRN PRN Reason: Fever >100.4 F Last Admin: 11/18/18 00:26 Dose: 400 mg Lorazepam (Ativan) 0.25 mg IVP Q8H PRN; Protocol PRN Reason: Anxiety Last Admin: 11/15/18 12:58 Dose: 0.25 mg Saliva Substitute (Saliva Substitute) 0 ml PO Q4H [facility] Last Admin: 11/18/18 07:18 Dose: 1 ml - Labs Labs: 11/18/18 07:20 11/18/18 07:20 PT 16.4 SECONDS (9.4-12.5) H 11/15/18 06:30 INR 1.45 11/15/18 06:30 APTT 30.3 Seconds (26.9-38.3) 11/15/18 06:30 - Additional Findings Additional findings: - Constitutional Appears: Cachectic, Chronically Ill - Head Exam Head Exam: ATRAUMATIC, NORMOCEPHALIC - Eye Exam Eye Exam: EOMI, PERRL. absent: Conjunctival injection, Nystagmus, Scleral icterus Pupil Exam: NORMAL ACCOMODATION, PERRL. absent: Miosis, Mydriatic - ENT Exam ENT Exam: Mucous Membranes Dry - Neck Exam Neck Exam: Full ROM - Respiratory Exam Respiratory Exam: NORMAL BREATHING PATTERN - Cardiovascular Exam Cardiovascular Exam: RRR, +S1, +S2. absent: Murmur - GI/Abdominal Exam GI & Abdominal Exam: Soft, Normal Bowel Sounds. + PEG tube site noted, no bleeding at site, feedings infusing well. absent: Guarding, Rigid, Rebound - Extremities Exam Extremities Exam: Normal Inspection - Back Exam Back Exam: NORMAL INSPECTION - Skin Skin Exam: Normal Color, Warm + decub ulcer Assessment and Plan - Assessment and Plan (Free Text) Assessment: # Failure to thrive, poor PO intake, s/p PEG tube # Normocytic anemia 2/2 anemia of chronic disease # Hypernetremia, resolving # Parkinson's disease # CAD with stents # Decub ulcer - Continue with tube feeds - Hgb 8.4 today (from 9.1). Will order bat abd pelvis to r/o retroperitoneal bleed. - stool occult ordered, reminded nurse to collect it. - Na trended down today to 144, continue with free water flushes 400 cc q8. will cont to monitor. - Iron studies show anemia of chronic disease, B12, folate normal. - s/p 2 units prbcs transfusion on 11/13 - c diff 11/16 negative - continue with wound care - avoid NSAIDs/narcotics - Further recs per Dr Fraser. Case seen and discussed with Dr Fraser. <Janneth Fraser V - Last Filed: 11/18/18 21:57> Objective - Vital Signs/Intake and Output Vital Signs (last 24 hours): Temp Pulse Resp BP Pulse Ox 99.7 F H 83 20 90/57 L 96 11/18/18 14:00 11/18/18 14:00 11/18/18 14:00 11/18/18 14:00 11/18/18 14:00 Intake and Output: 11/18/18 11/19/18 18:59 06:59 Intake Total 0 Balance 0 - Medications Medications: Current Medications Acetaminophen (Tylenol 650 Mg Supp) 650 mg RC Q6H PRN PRN Reason: Fever >100.4 F Last Admin: 11/17/18 16:02 Dose: 650 mg Albuterol Sulfate (Albuterol 0.083% Inhal Remedios (2.5 Mg/3 Ml) Ud) 2.5 mg INH [id number] PRN PRN Reason: Shortness of Breath Last Admin: 11/14/18 19:52 Dose: 2.5 mg Albuterol Sulfate (Albuterol 0.083% Inhal Remedios (2.5 Mg/3 Ml) Ud) 2.5 mg INH [id number] [facility] Last Admin: 11/18/18 21:46 Dose: 2.5 mg Aspirin (Aspirin Chewable) 81 mg PO DAILY [facility] Last Admin: 11/18/18 10:28 Dose: 81 mg Carbidopa/Levodopa (Sinemet) 1 tab PO QID [facility] Last Admin: 11/18/18 18:32 Dose: 1 tab Clopidogrel Bisulfate (Plavix) 75 mg PO DAILY [facility] Last Admin: 11/18/18 10:29 Dose: 75 mg Famotidine (Pepcid) 20 mg PO 1000,2200 [facility] Last Admin: 11/18/18 10:29 Dose: 20 mg Heparin Sodium (Porcine) (Heparin) 5,000 units SC Q12 [facility]; Protocol Last Admin: 11/18/18 10:29 Dose: 5,000 units Dextrose (Dextrose 5% In Water 1000 Ml) 1,000 mls @ 75 mls/hr IV .[id number] [facility] Last Admin: 11/18/18 14:10 Dose: 75 mls/hr Ibuprofen (Motrin Tab) 400 mg PO Q6H PRN PRN Reason: Fever >100.4 F Last Admin: 11/18/18 14:11 Dose: 400 mg Lorazepam (Ativan) 0.25 mg IVP Q8H PRN; Protocol PRN Reason: Anxiety Last Admin: 11/15/18 12:58 Dose: 0.25 mg Saliva Substitute (Saliva Substitute) 0 ml PO Q4H [facility] Last Admin: 11/18/18 18:31 Dose: 1 ml - Labs Labs: 11/18/18 10:40 11/18/18 07:20 PT 16.4 SECONDS (9.4-12.5) H 11/15/18 06:30 INR 1.45 11/15/18 06:30 APTT 30.3 Seconds (26.9-38.3) 11/15/18 06:30 Attending/Attestation - Attestation I have personally seen and examined this patient.: Yes I have fully participated in the care of the patient.: Yes I have reviewed all pertinent clinical information, including history, physical exam and plan: Yes Notes (Text): This patient was seen and evaluated here earlier along with the medical physicist. This is an addendum to the progress note dictated by the resident. Patient has still significant drop in blood count. No obvious melena or bright red blood per rectum. Requested CT of the abdomen and pelvis to rule out any retroperitoneal bleed. History of coagulopathy in the past now INR stabilized. Patient has poor respiratory effort to cough out. Needs more frequent oropharyngeal toileting. Patient's son was at bedside at the time of examination. Tolerating G-tube feeding. Thank you Dr. Kruse for allowing us to participate in the care of the patient. We will continue to closely follow-up his care and suggest further recommendations based on the clinical course 11/18/18 21:54
[2018-11-18 10:47] LABS: HEMOGLOBIN 8.4 g/dL (14.0-18.0); MEAN CELL VOLUME 95.9 fl (80.0-105.0); MEAN CORPUSCULAR HEMOGLOBIN 28.6 pg (25.0-35.0); MEAN CORPUSCULAR HGB CONC 29.8 g/dl (31.0-37.0); MEAN PLATELET VOLUME 9.6 fl (7.0-11.0); RBC 2.94 10^6/uL (3.5-6.1); WHITE BLOOD COUNT 13.4 10^3/uL (4.5-11.0)
[2018-11-18] MEDS ORDERED: Potassium Chloride 40 mEq/30 ml LIQ UD PO ONE ×2 (13:15→14:15)
--- NOTE | 2018-11-18 14:07 | CP.PCM.PN ---
<Pao Aguilar - Last Filed: 11/18/18 14:04> Subjective - Date & Time of Evaluation Date of Evaluation: 11/18/18 Time of Evaluation: 09:00 - Subjective Subjective: Progress Note for Dr. Yuan Patient off antibiotics now, found to be resting comfortably. The patient had a low grade fever overnight that has resolved. ROS unobtainable 2/2 condition. Objective - Vital Signs/Intake and Output Vital Signs (last 24 hours): Temp Pulse Resp BP Pulse Ox 98.5 F 87 17 112/72 94 L 11/18/18 06:00 11/18/18 06:00 11/18/18 06:00 11/18/18 06:00 11/18/18 06:00 Intake and Output: 11/18/18 11/18/18 06:59 18:59 Intake Total 2880 Balance 2880 - Medications Medications: Current Medications Acetaminophen (Tylenol 650 Mg Supp) 650 mg RC Q6H PRN PRN Reason: Fever >100.4 F Last Admin: 11/17/18 16:02 Dose: 650 mg Albuterol Sulfate (Albuterol 0.083% Inhal Remedios (2.5 Mg/3 Ml) Ud) 2.5 mg INH [id number] PRN PRN Reason: Shortness of Breath Last Admin: 11/14/18 19:52 Dose: 2.5 mg Albuterol Sulfate (Albuterol 0.083% Inhal Remedios (2.5 Mg/3 Ml) Ud) 2.5 mg INH [id number] [facility] Last Admin: 11/18/18 13:40 Dose: 2.5 mg Aspirin (Aspirin Chewable) 81 mg PO DAILY [facility] Last Admin: 11/18/18 10:28 Dose: 81 mg Carbidopa/Levodopa (Sinemet) 1 tab PO QID [facility] Last Admin: 11/18/18 10:29 Dose: 1 tab Clopidogrel Bisulfate (Plavix) 75 mg PO DAILY [facility] Last Admin: 11/18/18 10:29 Dose: 75 mg Famotidine (Pepcid) 20 mg PO 1000,2200 [facility] Last Admin: 11/18/18 10:29 Dose: 20 mg Heparin Sodium (Porcine) (Heparin) 5,000 units SC Q12 [facility]; Protocol Last Admin: 11/18/18 10:29 Dose: 5,000 units Dextrose (Dextrose 5% In Water 1000 Ml) 1,000 mls @ 75 mls/hr IV .[id number] [facility] Ibuprofen (Motrin Tab) 400 mg PO Q6H PRN PRN Reason: Fever >100.4 F Last Admin: 11/18/18 00:26 Dose: 400 mg Lorazepam (Ativan) 0.25 mg IVP Q8H PRN; Protocol PRN Reason: Anxiety Last Admin: 11/15/18 12:58 Dose: 0.25 mg Saliva Substitute (Saliva Substitute) 0 ml PO Q4H [facility] Last Admin: 11/18/18 07:18 Dose: 1 ml - Labs Labs: 11/18/18 10:40 11/18/18 07:20 PT 16.4 SECONDS (9.4-12.5) H 11/15/18 06:30 INR 1.45 11/15/18 06:30 APTT 30.3 Seconds (26.9-38.3) 11/15/18 06:30 - Constitutional Appears: No Acute Distress - Head Exam Head Exam: ATRAUMATIC, NORMAL INSPECTION, NORMOCEPHALIC - Eye Exam Eye Exam: EOMI, Normal appearance, PERRL Pupil Exam: NORMAL ACCOMODATION, PERRL - ENT Exam ENT Exam: Mucous Membranes Moist, Normal Exam - Respiratory Exam Respiratory Exam: Decreased Breath Sounds, NORMAL BREATHING PATTERN - Cardiovascular Exam Cardiovascular Exam: REGULAR RHYTHM, +S1, +S2. absent: Murmur - GI/Abdominal Exam GI & Abdominal Exam: Soft. absent: Tenderness Additional comments: PEG - Neurological Exam Neurological Exam: Alert, Awake, CN II-XII Intact - Psychiatric Exam Psychiatric exam: Normal Affect, Normal Mood - Skin Additional comments: Sacral stage 2 Assessment and Plan - Assessment and Plan (Free Text) Assessment: 1. End stage parkinson's dementia 2. Severe sepsis HCAP likely 2/2 aspiration and pseudomonas UTI 3. Hypernatremia 4. CAD with Ischemic cardiomyopathy 5. Anemia of Chronic Disease 6. Parkinson's disease 7. Stage 2 sacral decubitus ulcer Plan: Patient is comfortable, tolerating tube feeds, tolerated 400 q4 as well as his IVF to D5W @100 ml/hr to address his hypernatremia that is resolving. Currently on D5w @75ml/hr. Repeat H&H demonstrated a Hgb of 8.4. Patient continues to have low grade fevers overnight, with an decreasing leukocytosis likely due to IV line infiltration - off abx as per ID. Patient is on air mattress on account of his stage 2 sacral ulcer with dressing changes. As per nursing staff, his loose watery bowel movement have abated, and negative for C. diff. Patient is on heparin for dvt prophylaxis. Patient continued on carbidopa/ levodopa for Parkinson's. Overall prognosis is poor. Pending Placement after medically optimized. Seen reviewed and discussed with Dr. Yuan <Jose Yuan S - Last Filed: 11/18/18 14:58> Objective - Vital Signs/Intake and Output Vital Signs (last 24 hours): Temp Pulse Resp BP Pulse Ox 99.7 F H 83 20 90/57 L 96 11/18/18 14:00 11/18/18 14:00 11/18/18 14:00 11/18/18 14:00 11/18/18 14:00 Intake and Output: 11/18/18 11/18/18 06:59 18:59 Intake Total 2880 Balance 2880 - Medications Medications: Current Medications Acetaminophen (Tylenol 650 Mg Supp) 650 mg RC Q6H PRN PRN Reason: Fever >100.4 F Last Admin: 11/17/18 16:02 Dose: 650 mg Albuterol Sulfate (Albuterol 0.083% Inhal Remedios (2.5 Mg/3 Ml) Ud) 2.5 mg INH [id number] PRN PRN Reason: Shortness of Breath Last Admin: 11/14/18 19:52 Dose: 2.5 mg Albuterol Sulfate (Albuterol 0.083% Inhal Remedios (2.5 Mg/3 Ml) Ud) 2.5 mg INH [id number] [facility] Last Admin: 11/18/18 13:40 Dose: 2.5 mg Aspirin (Aspirin Chewable) 81 mg PO DAILY [facility] Last Admin: 11/18/18 10:28 Dose: 81 mg Carbidopa/Levodopa (Sinemet) 1 tab PO QID [facility] Last Admin: 11/18/18 10:29 Dose: 1 tab Clopidogrel Bisulfate (Plavix) 75 mg PO DAILY [facility] Last Admin: 11/18/18 10:29 Dose: 75 mg Famotidine (Pepcid) 20 mg PO 1000,2200 [facility] Last Admin: 11/18/18 10:29 Dose: 20 mg Heparin Sodium (Porcine) (Heparin) 5,000 units SC Q12 [facility]; Protocol Last Admin: 11/18/18 10:29 Dose: 5,000 units Dextrose (Dextrose 5% In Water 1000 Ml) 1,000 mls @ 75 mls/hr IV .[id number] [facility] Last Admin: 11/18/18 14:10 Dose: 75 mls/hr Ibuprofen (Motrin Tab) 400 mg PO Q6H PRN PRN Reason: Fever >100.4 F Last Admin: 11/18/18 14:11 Dose: 400 mg Lorazepam (Ativan) 0.25 mg IVP Q8H PRN; Protocol PRN Reason: Anxiety Last Admin: 11/15/18 12:58 Dose: 0.25 mg Saliva Substitute (Saliva Substitute) 0 ml PO Q4H [facility] Last Admin: 11/18/18 14:11 Dose: 1 ml - Labs Labs: 11/18/18 10:40 11/18/18 07:20 PT 16.4 SECONDS (9.4-12.5) H 11/15/18 06:30 INR 1.45 11/15/18 06:30 APTT 30.3 Seconds (26.9-38.3) 11/15/18 06:30 Assessment and Plan - Assessment and Plan (Free Text) Assessment: Pt seen and examined by me. I have reviewed the note of the front office medical assistant and I agree with it. I have discussed the assessment and plan with the resident. I have reviewed the medications and the last labs. Pt with Parkinson Dementia. He had hypernatremia and was given IVF, which has improved his Na. He had a low Hb and it was repeated. It was better. He has not had fevers. Will plan on discharging once the Na is better. He has CAD that is stable. He is on PEG feedings and tolerating. Heparin for DVT pophylaxis. He is on Sinemet for his Parkinsons.
--- NOTE | 2018-11-18 15:12 | PN ---
DATE: 11/18/2018 SUBJECTIVE: The patient seen earlier today in 577, bed 2. PHYSICAL EXAMINATION: VITAL SIGNS: Temperature is 98, blood pressure is 112/70, respiratory rate of 18. HEENT: Unremarkable. NECK: Supple. LUNGS: Have decreased breath sounds. HEART: Normal S1 and S2. ABDOMEN: Soft and nontender. LABORATORY DATA: Reveals a white count of 13,400, hemoglobin of 8. Chemistries are noted. Microbiology is reviewed. REVIEW OF ORDERS: Reveals the patient to be off antibiotics. ASSESSMENT AND PLAN: A 78-year-old male with severe sepsis, left lower lobe healthcare associated pneumonia, Pseudomonas urinary tract infection, and has completed vancomycin and meropenem. Currently off antibiotics. Chronically ill, endstage appearing. Pradeep Augustine MD
[2018-11-19] MEDS: Saliva Substitute 44.3 ML PO SCH ×6 (02:30→22:44)
[2018-11-19] MEDS: Albuterol 0.083% Inhal Sol (2.5 mg/3 mL) UD INH SCH ×4 (03:16→20:45)
[2018-11-19 07:23] LABS: EOS # 0.1 (0.0-0.7); EOS % 1.1 % (1.5-5.0); LYMPH # 1.9 (1.2-3.4); LYMPH % 18.5 % (22.0-35.0); MEAN CELL VOLUME 95.3 fl (80.0-105.0); MEAN CORPUSCULAR HGB CONC 30.4 g/dl (31.0-37.0); MEAN PLATELET VOLUME 9.5 fl (7.0-11.0); MONO # 0.6 (0.1-0.6); MONO % 6.2 % (1.0-6.0); RBC 2.76 10^6/uL (3.5-6.1); RED CELL DISTRIBUTION WIDTH 18.6 % (11.5-14.5); WHITE BLOOD COUNT 10.2 10^3/uL (4.5-11.0)
[2018-11-19 07:53] LABS: ALB/GLOB RATIO 0.6 (1.1-1.8); ALBUMIN 2.1 g/dL (3.0-4.8); ALT/SGPT 47 U/L (7-56); AST/SGOT 63 U/L (17-59); BLOOD UREA NITROGEN 14 mg/dL (7-21); CALCIUM 7.8 mg/dL (8.4-10.5); GFR NON-AFRICAN AMERICAN > 60
--- NOTE | 2018-11-19 09:21 | CP.PCM.PN ---
<Pao Aguilar - Last Filed: 11/19/18 09:18> Subjective - Date & Time of Evaluation Date of Evaluation: 11/19/18 Time of Evaluation: 08:30 - Subjective Subjective: Progress Note for Dr. Yuan Patient seen and examined at bedside. Patient had normal bowel movement. Tolerating tube feeds with 15cc residuals. ROS unobtainable Objective - Vital Signs/Intake and Output Vital Signs (last 24 hours): Temp Pulse Resp BP Pulse Ox 99 F 84 18 112/58 L 100 11/19/18 06:00 11/19/18 06:00 11/19/18 06:00 11/19/18 06:00 11/19/18 06:00 Intake and Output: 11/19/18 11/19/18 06:59 18:59 Intake Total 1900 Balance 1900 - Medications Medications: Current Medications Acetaminophen (Tylenol 650 Mg Supp) 650 mg RC Q6H PRN PRN Reason: Fever >100.4 F Last Admin: 11/17/18 16:02 Dose: 650 mg Albuterol Sulfate (Albuterol 0.083% Inhal Remedios (2.5 Mg/3 Ml) Ud) 2.5 mg INH [id number] PRN PRN Reason: Shortness of Breath Last Admin: 11/14/18 19:52 Dose: 2.5 mg Albuterol Sulfate (Albuterol 0.083% Inhal Remedios (2.5 Mg/3 Ml) Ud) 2.5 mg INH [id number] [facility] Last Admin: 11/19/18 07:53 Dose: 2.5 mg Aspirin (Aspirin Chewable) 81 mg PO DAILY [facility] Last Admin: 11/18/18 10:28 Dose: 81 mg Carbidopa/Levodopa (Sinemet) 1 tab PO QID [facility] Last Admin: 11/18/18 22:06 Dose: 1 tab Clopidogrel Bisulfate (Plavix) 75 mg PO DAILY [facility] Last Admin: 11/18/18 10:29 Dose: 75 mg Famotidine (Pepcid) 20 mg PO 1000,2200 [facility] Last Admin: 11/18/18 22:06 Dose: 20 mg Heparin Sodium (Porcine) (Heparin) 5,000 units SC Q12 [facility]; Protocol Last Admin: 11/18/18 22:07 Dose: 5,000 units Dextrose (Dextrose 5% In Water 1000 Ml) 1,000 mls @ 75 mls/hr IV .[id number] [facility] Last Admin: 11/19/18 06:02 Dose: 75 mls/hr Ibuprofen (Motrin Tab) 400 mg PO Q6H PRN PRN Reason: Fever >100.4 F Last Admin: 11/18/18 14:11 Dose: 400 mg Lorazepam (Ativan) 0.25 mg IVP Q8H PRN; Protocol PRN Reason: Anxiety Last Admin: 11/15/18 12:58 Dose: 0.25 mg Saliva Substitute (Saliva Substitute) 0 ml PO Q4H [facility] Last Admin: 11/19/18 02:30 Dose: 1 ml - Labs Labs: 11/19/18 06:30 11/19/18 06:30 PT 16.4 SECONDS (9.4-12.5) H 11/15/18 06:30 INR 1.45 11/15/18 06:30 APTT 30.3 Seconds (26.9-38.3) 11/15/18 06:30 - Constitutional Appears: Chronically Ill - Head Exam Head Exam: ATRAUMATIC, NORMAL INSPECTION, NORMOCEPHALIC - Eye Exam Eye Exam: EOMI, Normal appearance, PERRL Pupil Exam: NORMAL ACCOMODATION, PERRL - ENT Exam ENT Exam: Mucous Membranes Moist, Normal Exam - Neck Exam Neck Exam: Full ROM, Normal Inspection. absent: Lymphadenopathy - Respiratory Exam Respiratory Exam: Clear to Ausculation Bilateral, NORMAL BREATHING PATTERN - Cardiovascular Exam Cardiovascular Exam: REGULAR RHYTHM, +S1, +S2. absent: Murmur - GI/Abdominal Exam GI & Abdominal Exam: Soft, Normal Bowel Sounds. absent: Tenderness - Rectal Exam Rectal Exam: NORMAL INSPECTION - Neurological Exam Neurological Exam: Awake - Skin Additional comments: sacral decubitus ulcer stage 3 Assessment and Plan - Assessment and Plan (Free Text) Assessment: 1. End stage parkinson's dementia 2. Severe sepsis HCAP likely 2/2 aspiration and pseudomonas UTI, completed abx 3. Hypernatremia, resolved 4. CAD with Ischemic cardiomyopathy 5. Anemia of Chronic Disease 6. Parkinson's disease 7. Stage 3 sacral decubitus ulcer Plan: Patient is comfortable, tolerating tube feeds, tolerated 400 q4 as well as his IVF to D5W @75 ml/hr to address his hypernatremia that is resolving. Currently o n D5w @75ml/hr. Repeat H&H demonstrated a Hgb of 8.4. Patient continues to have low grade fevers overnight, with an decreasing leukocytosis likely due to IV line infiltration - completed abx for HCAP and UTI as per ID. Patient is on air mattress on account of his stage 3 sacral ulcer with dressing changes. Patient is on heparin for dvt prophylaxis. Patient continued on carbidopa/ levodopa for Parkinson's. CT abdOverall prognosis is poor. Pending CT/abd read to r/o retroperitoneal bleed. Placement after medically optimized. Seen reviewed and discussed with Dr. Yuan <Jose Yuan S - Last Filed: 11/19/18 20:51> Objective - Vital Signs/Intake and Output Vital Signs (last 24 hours): Temp Pulse Resp BP Pulse Ox 97.7 F 79 20 74/48 L 95 11/19/18 15:30 11/19/18 15:30 11/19/18 15:30 11/19/18 15:30 11/19/18 14:00 Intake and Output: 11/19/18 11/20/18 18:59 06:59 Intake Total 380 Output Total 2 Balance 378 - Medications Medications: Current Medications Acetaminophen (Tylenol 650 Mg Supp) 650 mg RC Q6H PRN PRN Reason: Fever >100.4 F Last Admin: 11/17/18 16:02 Dose: 650 mg Albuterol Sulfate (Albuterol 0.083% Inhal Remedios (2.5 Mg/3 Ml) Ud) 2.5 mg INH [id number] PRN PRN Reason: Shortness of Breath Last Admin: 11/14/18 19:52 Dose: 2.5 mg Albuterol Sulfate (Albuterol 0.083% Inhal Remedios (2.5 Mg/3 Ml) Ud) 2.5 mg INH [id number] [facility] Last Admin: 11/19/18 20:45 Dose: 2.5 mg Aspirin (Aspirin Chewable) 81 mg PO DAILY [facility] Last Admin: 11/19/18 10:48 Dose: 81 mg Carbidopa/Levodopa (Sinemet) 1 tab PO QID [facility] Last Admin: 11/19/18 17:16 Dose: 1 tab Clopidogrel Bisulfate (Plavix) 75 mg PO DAILY [facility] Last Admin: 11/19/18 10:48 Dose: 75 mg Famotidine (Pepcid) 20 mg PO 1000,2200 [facility] Last Admin: 11/19/18 10:49 Dose: 20 mg Heparin Sodium (Porcine) (Heparin) 5,000 units SC Q12 [facility]; Protocol Last Admin: 11/19/18 10:48 Dose: 5,000 units Dextrose (Dextrose 5% In Water 1000 Ml) 1,000 mls @ 75 mls/hr IV .[id number] [facility] Last Admin: 11/19/18 06:02 Dose: 75 mls/hr Ibuprofen (Motrin Tab) 400 mg PO Q6H PRN PRN Reason: Fever >100.4 F Last Admin: 11/18/18 14:11 Dose: 400 mg Lorazepam (Ativan) 0.25 mg IVP Q8H PRN; Protocol PRN Reason: Anxiety Last Admin: 11/15/18 12:58 Dose: 0.25 mg Polyethylene Glycol (Miralax) 17 gm PO DAILY PRN PRN Reason: Constipation Saliva Substitute (Saliva Substitute) 0 ml PO Q4H [facility] Last Admin: 11/19/18 17:16 Dose: 44.3 ml - Labs Labs: 11/19/18 06:30 11/19/18 06:30 PT 16.4 SECONDS (9.4-12.5) H 11/15/18 06:30 INR 1.45 11/15/18 06:30 APTT 30.3 Seconds (26.9-38.3) 11/15/18 06:30 Assessment and Plan - Assessment and Plan (Free Text) Assessment: Pt seen and examined by me. I have reviewed the note of the medical physics researcher and I agree with it. I have discussed the assessment and plan with the resident. I have reviewed the medications and the last labs.
[2018-11-19] MEDS ORDERED: POLYETHYLENE GLYCOL 3350 17 GM/Dose PACKET PO PRN (09:55)
--- NOTE | 2018-11-19 09:56 | CP.PCM.PN ---
<Yaritza Em - Last Filed: 11/19/18 11:58> Subjective - Date & Time of Evaluation Date of Evaluation: 11/19/18 Time of Evaluation: 09:51 - Subjective Subjective: Yaritza Em, PGY2, GI Progress Note for Dr Fraser: Patient seen and examined at bedside. No acute events overnight. Patient tolerating tube feeds at 50 cc/hr, with 25 cc residual as per night nurse. No episodes of vomiting, fevers. Last BM yesterday, small, pasty, nonbloody as per bedside nurse. ROS limited due to patient's condition/dementia. Objective - Vital Signs/Intake and Output Vital Signs (last 24 hours): Temp Pulse Resp BP Pulse Ox 99 F 84 18 112/58 L 100 11/19/18 06:00 11/19/18 06:00 11/19/18 06:00 11/19/18 06:00 11/19/18 06:00 Intake and Output: 11/19/18 11/19/18 06:59 18:59 Intake Total 1900 Balance 1900 - Medications Medications: Current Medications Acetaminophen (Tylenol 650 Mg Supp) 650 mg RC Q6H PRN PRN Reason: Fever >100.4 F Last Admin: 11/17/18 16:02 Dose: 650 mg Albuterol Sulfate (Albuterol 0.083% Inhal Remedios (2.5 Mg/3 Ml) Ud) 2.5 mg INH [id number] PRN PRN Reason: Shortness of Breath Last Admin: 11/14/18 19:52 Dose: 2.5 mg Albuterol Sulfate (Albuterol 0.083% Inhal Remedios (2.5 Mg/3 Ml) Ud) 2.5 mg INH [id number] [facility] Last Admin: 11/19/18 07:53 Dose: 2.5 mg Aspirin (Aspirin Chewable) 81 mg PO DAILY [facility] Last Admin: 11/18/18 10:28 Dose: 81 mg Carbidopa/Levodopa (Sinemet) 1 tab PO QID [facility] Last Admin: 11/18/18 22:06 Dose: 1 tab Clopidogrel Bisulfate (Plavix) 75 mg PO DAILY [facility] Last Admin: 11/18/18 10:29 Dose: 75 mg Famotidine (Pepcid) 20 mg PO 1000,2200 [facility] Last Admin: 11/18/18 22:06 Dose: 20 mg Heparin Sodium (Porcine) (Heparin) 5,000 units SC Q12 [facility]; Protocol Last Admin: 11/18/18 22:07 Dose: 5,000 units Dextrose (Dextrose 5% In Water 1000 Ml) 1,000 mls @ 75 mls/hr IV .[id number] [facility] Last Admin: 11/19/18 06:02 Dose: 75 mls/hr Ibuprofen (Motrin Tab) 400 mg PO Q6H PRN PRN Reason: Fever >100.4 F Last Admin: 11/18/18 14:11 Dose: 400 mg Lorazepam (Ativan) 0.25 mg IVP Q8H PRN; Protocol PRN Reason: Anxiety Last Admin: 11/15/18 12:58 Dose: 0.25 mg Saliva Substitute (Saliva Substitute) 0 ml PO Q4H [facility] Last Admin: 11/19/18 02:30 Dose: 1 ml - Labs Labs: 11/19/18 06:30 11/19/18 06:30 PT 16.4 SECONDS (9.4-12.5) H 11/15/18 06:30 INR 1.45 11/15/18 06:30 APTT 30.3 Seconds (26.9-38.3) 11/15/18 06:30 - Additional Findings Additional findings: - Constitutional Appears: Cachectic, Chronically Ill - Head Exam Head Exam: ATRAUMATIC, NORMOCEPHALIC - Eye Exam Eye Exam: EOMI, PERRL. absent: Conjunctival injection, Nystagmus, Scleral icterus Pupil Exam: NORMAL ACCOMODATION, PERRL. absent: Miosis, Mydriatic - ENT Exam ENT Exam: Mucous Membranes Dry - Neck Exam Neck Exam: Full ROM - Respiratory Exam Respiratory Exam: NORMAL BREATHING PATTERN - Cardiovascular Exam Cardiovascular Exam: RRR, +S1, +S2. absent: Murmur - GI/Abdominal Exam GI & Abdominal Exam: Soft, Normal Bowel Sounds. + PEG tube site noted, no bleeding at site, feedings infusing well. absent: Guarding, Rigid, Rebound - Extremities Exam Extremities Exam: Normal Inspection - Back Exam Back Exam: NORMAL INSPECTION - Skin Skin Exam: Normal Color, Warm + decub ulcer Assessment and Plan - Assessment and Plan (Free Text) Assessment: # Failure to thrive, poor PO intake, s/p PEG tube # Normocytic anemia 2/2 anemia of chronic disease # Hypernetremia, resolving # Parkinson's disease # CAD with stents # Decub ulcer - Continue with tube feeds - Hgb 8.0 today (from 8.4 yesterday). Patient being transfused 1 unit prbcs as per primary team. - CT abd pelvis official read is negative for retroperitoneal bleeds. However, will review film with radiology to confirm. - Stool occult negative. - Miralax prn constipation - NA 142 today, on D5W at 75/hr. continue with free water flushes. - Iron studies show anemia of chronic disease, B12, folate normal. will order transferrin. - s/p 2 units prbcs transfusion on 11/13 - c diff 11/16 negative - continue with wound care - avoid NSAIDs/narcotics - Further recs per Dr Fraser. Case seen and discussed with Dr Fraser. <Janneth Fraser V - Last Filed: 11/19/18 23:10> Objective - Vital Signs/Intake and Output Vital Signs (last 24 hours): Temp Pulse Resp BP Pulse Ox 99 F 80 18 90/56 L 94 L 11/19/18 22:46 11/19/18 22:46 11/19/18 22:46 11/19/18 22:46 11/19/18 22:46 Intake and Output: 11/19/18 11/20/18 18:59 06:59 Intake Total 380 0 Output Total 2 Balance 378 0 - Medications Medications: Current Medications Acetaminophen (Tylenol 650 Mg Supp) 650 mg RC Q6H PRN PRN Reason: Fever >100.4 F Last Admin: 11/17/18 16:02 Dose: 650 mg Albuterol Sulfate (Albuterol 0.083% Inhal Remedios (2.5 Mg/3 Ml) Ud) 2.5 mg INH [id number] PRN PRN Reason: Shortness of Breath Last Admin: 11/14/18 19:52 Dose: 2.5 mg Albuterol Sulfate (Albuterol 0.083% Inhal Remedios (2.5 Mg/3 Ml) Ud) 2.5 mg INH [id number] [facility] Last Admin: 11/19/18 20:45 Dose: 2.5 mg Aspirin (Aspirin Chewable) 81 mg PO DAILY [facility] Last Admin: 11/19/18 10:48 Dose: 81 mg Carbidopa/Levodopa (Sinemet) 1 tab PO QID [facility] Last Admin: 11/19/18 22:44 Dose: 1 tab Clopidogrel Bisulfate (Plavix) 75 mg PO DAILY [facility] Last Admin: 11/19/18 10:48 Dose: 75 mg Famotidine (Pepcid) 20 mg PO 1000,2200 [facility] Last Admin: 11/19/18 22:46 Dose: 20 mg Heparin Sodium (Porcine) (Heparin) 5,000 units SC Q12 [facility]; Protocol Last Admin: 11/19/18 22:43 Dose: 5,000 units Dextrose (Dextrose 5% In Water 1000 Ml) 1,000 mls @ 75 mls/hr IV .[id number] [facility] Last Admin: 11/19/18 06:02 Dose: 75 mls/hr Ibuprofen (Motrin Tab) 400 mg PO Q6H PRN PRN Reason: Fever >100.4 F Last Admin: 11/18/18 14:11 Dose: 400 mg Lorazepam (Ativan) 0.25 mg IVP Q8H PRN; Protocol PRN Reason: Anxiety Last Admin: 11/15/18 12:58 Dose: 0.25 mg Polyethylene Glycol (Miralax) 17 gm PO DAILY PRN PRN Reason: Constipation Saliva Substitute (Saliva Substitute) 0 ml PO Q4H [facility] Last Admin: 11/19/18 22:44 Dose: 1 ml - Labs Labs: 11/19/18 06:30 11/19/18 06:30 PT 16.4 SECONDS (9.4-12.5) H 11/15/18 06:30 INR 1.45 11/15/18 06:30 APTT 30.3 Seconds (26.9-38.3) 11/15/18 06:30 Attending/Attestation - Attestation I have personally seen and examined this patient.: Yes I have fully participated in the care of the patient.: Yes I have reviewed all pertinent clinical information, including history, physical exam and plan: Yes Notes (Text): This patient was seen and evaluated along with the medical reimbursement specialist earlier today. This is an addendum to the progress report dictated by the resident. We will review the CT with the radiologist. Distended gallbladder however no leukocytosis no significant abdominal tenderness. Follow-up hemoglobin and to follow-up LFT 11/19/18 23:08
--- NOTE | 2018-11-19 10:12 | CT ---
Date of service: 11/18/2018 PROCEDURE: CT Abdomen and Pelvis without intravenous contrast HISTORY: rule out retroperitoneal bleed COMPARISON: 11/10/2018 TECHNIQUE: Technique. Contrast dose: Radiation dose: Total exam DLP = 637.84 mGy-cm. This CT exam was performed using one or more of the following dose reduction techniques: Automated exposure control, adjustment of the mA and/or kV according to patient size, and/or use of iterative reconstruction technique. FINDINGS: LOWER THORAX: There is bibasilar consolidation consistent with pneumonia. LIVER: Unremarkable. No gross lesion or ductal dilatation. GALLBLADDER AND BILE DUCTS: There is distention of the gallbladder similar to the previous exam. No obvious stone. PANCREAS: Unremarkable. No gross lesion or ductal dilatation. SPLEEN: Unremarkable. ADRENALS: Unremarkable. No mass. KIDNEYS AND URETERS: Unremarkable. No hydronephrosis. No solid mass. VASCULATURE: Unremarkable. No aortic aneurysm. Aortic calcification BOWEL: Unremarkable. No obstruction. No gross mural thickening. APPENDIX: Unremarkable. Normal appendix. PERITONEUM: Unremarkable. No free fluid. No free air. LYMPH NODES: Unremarkable. No enlarged lymph nodes. BLADDER: Unremarkable. REPRODUCTIVE: Unremarkable. BONES: Chronic fracture of the right hip. Chronic degenerative changes in the spine OTHER FINDINGS: The report concurs with the preliminary [facility] report IMPRESSION: Distention of the gallbladder. No acute intra-abdominal or intrapelvic abnormalities
[2018-11-19 10:52] LABS: IRON 22 ug/dL (45-180)
[2018-11-19 11:02] LABS: % IRON SATURATION 19 % (20-55); TOTAL IRON BINDING CAPACITY 117 ug/dL (261-462)
--- NOTE | 2018-11-19 23:52 | PN ---
DATE: 11/19/2018 HOSPITAL COURSE: Patient was seen and examined. I do agree with the note of the medical doctor md. I was involved in the plan of care. The patient has advanced Parkinson's dementia. He had atherosclerosis and aspiration and that is the cause of his low-grade fever. He has anemia. The patient was given one unit of transfusion. He is going to continue with local wound care. He has a stage 3 pressure ulcer. I did speak to the patient's to give her an update on the patient's diagnoses and plan of care. A CT of the abdomen was done that showed no acute findings. I did speak about hospice services with the patient and patient's . I believe that their son is continuing with concomitant aggressive intervention, although the prognosis is poor. Patient's sodium has improved and he is no longer hypernatremic. Patient has saturation of 19% of ferritin per thousand. Jose Yuan MD
--- NOTE | 2018-11-20 00:39 | PN ---
DATE: 11/19/2018 SUBJECTIVE: The patient is seen in bed, in no acute distress, nontoxic. PHYSICAL EXAMINATION: VITAL SIGNS: Temperature is 97, blood pressure is 74/40, respiratory rate 20, heart rate of 79. HEENT: Unremarkable. NECK: Supple. LUNGS: Have decreased breath sounds. HEART: Normal S1 and S2. ABDOMEN: Soft. LABORATORY EXAMINATION: Reveals a white count of 10,000. Creatinine 0.4. Review of orders reveals the patient to be on no antibiotics. ASSESSMENT AND PLAN: A 78-year-old male with severe sepsis, left lower lobe healthcare-associated pneumonia, Pseudomonas urinary tract infection. Completed vancomycin and meropenem. Currently off of antibiotics. The patient is at risk for developing nosocomial infections. Pradeep Augustine MD
[2018-11-20] MEDS: Albuterol 0.083% Inhal Sol (2.5 mg/3 mL) UD INH SCH ×4 (01:13→19:39)
[2018-11-20] MEDS: Saliva Substitute 44.3 ML PO SCH ×4 (04:03→13:44)
[2018-11-20 07:51] LABS: BASO # 0.01 K/mm3 (0.0-2.0); BASO % 0.1 % (0.0-3.0); EOS # 0.1 (0.0-0.7); EOS % 0.6 % (1.5-5.0); LYMPH % 21.5 % (22.0-35.0); MEAN CELL VOLUME 92.6 fl (80.0-105.0); MEAN CORPUSCULAR HEMOGLOBIN 28.8 pg (25.0-35.0); MEAN CORPUSCULAR HGB CONC 31.1 g/dl (31.0-37.0); MEAN PLATELET VOLUME 9.7 fl (7.0-11.0); MONO # 0.7 (0.1-0.6); MONO % 7.7 % (1.0-6.0); RBC 3.12 10^6/uL (3.5-6.1); RED CELL DISTRIBUTION WIDTH 18.2 % (11.5-14.5); WHITE BLOOD COUNT 9.3 10^3/uL (4.5-11.0)
[2018-11-20 08:02] LABS: ALB/GLOB RATIO 0.7 (1.1-1.8); ALBUMIN 2.3 g/dL (3.0-4.8); ALT/SGPT 54 U/L (7-56); AST/SGOT 84 U/L (17-59); BLOOD UREA NITROGEN 15 mg/dL (7-21); CALCIUM 7.6 mg/dL (8.4-10.5); GFR NON-AFRICAN AMERICAN > 60
--- NOTE | 2018-11-20 11:44 | CP.PCM.PN ---
<Yaritza Em - Last Filed: 11/20/18 12:24> Subjective - Date & Time of Evaluation Date of Evaluation: 11/20/18 Time of Evaluation: 11:40 - Subjective Subjective: Yaritza Em, PGY2, GI Progress Note for Dr Fraser: Patient seen and examined at bedside. No acute events overnight. Patient having tube feeds at 50 cc/hr, with 30 cc residual overnight. Stopped feeds for some time. No vomiting, fevers. ROS limited due to patient's condition/dementia. Objective - Vital Signs/Intake and Output Vital Signs (last 24 hours): Temp Pulse Resp BP Pulse Ox 97 F L 81 22 93/55 L 99 11/20/18 06:00 11/20/18 06:00 11/20/18 06:00 11/20/18 06:00 11/20/18 06:00 Intake and Output: 11/20/18 11/20/18 06:59 18:59 Intake Total 0 Output Total 2 1 Balance -2 -1 - Medications Medications: Current Medications Acetaminophen (Tylenol 650 Mg Supp) 650 mg RC Q6H PRN PRN Reason: Fever >100.4 F Last Admin: 11/17/18 16:02 Dose: 650 mg Albuterol Sulfate (Albuterol 0.083% Inhal Remedios (2.5 Mg/3 Ml) Ud) 2.5 mg INH [id number] PRN PRN Reason: Shortness of Breath Last Admin: 11/14/18 19:52 Dose: 2.5 mg Albuterol Sulfate (Albuterol 0.083% Inhal Remedios (2.5 Mg/3 Ml) Ud) 2.5 mg INH [id number] [facility] Last Admin: 11/20/18 07:19 Dose: 2.5 mg Aspirin (Aspirin Chewable) 81 mg PO DAILY [facility] Last Admin: 11/20/18 10:18 Dose: 81 mg Carbidopa/Levodopa (Sinemet) 1 tab PO QID [facility] Last Admin: 11/20/18 10:18 Dose: 1 tab Clopidogrel Bisulfate (Plavix) 75 mg PO DAILY [facility] Last Admin: 11/20/18 10:18 Dose: 75 mg Famotidine (Pepcid) 20 mg PO 1000,2200 [facility] Last Admin: 11/20/18 10:18 Dose: 20 mg Heparin Sodium (Porcine) (Heparin) 5,000 units SC Q12 [facility]; Protocol Last Admin: 11/20/18 10:18 Dose: 5,000 units Ibuprofen (Motrin Tab) 400 mg PO Q6H PRN PRN Reason: Fever >100.4 F Last Admin: 11/18/18 14:11 Dose: 400 mg Lorazepam (Ativan) 0.25 mg IVP Q8H PRN; Protocol PRN Reason: Anxiety Last Admin: 11/15/18 12:58 Dose: 0.25 mg Polyethylene Glycol (Miralax) 17 gm PO DAILY PRN PRN Reason: Constipation Saliva Substitute (Saliva Substitute) 0 ml PO Q4H [facility] Last Admin: 11/20/18 06:13 Dose: 1 ml - Labs Labs: 11/20/18 07:15 11/20/18 07:15 PT 16.4 SECONDS (9.4-12.5) H 11/15/18 06:30 INR 1.45 11/15/18 06:30 APTT 30.3 Seconds (26.9-38.3) 11/15/18 06:30 - Additional Findings Additional findings: - Constitutional Appears: Cachectic, Chronically Ill - Head Exam Head Exam: ATRAUMATIC, NORMOCEPHALIC - Eye Exam Eye Exam: EOMI, PERRL. absent: Conjunctival injection, Nystagmus, Scleral icterus Pupil Exam: NORMAL ACCOMODATION, PERRL. absent: Miosis, Mydriatic - ENT Exam ENT Exam: Mucous Membranes Dry - Neck Exam Neck Exam: Full ROM - Respiratory Exam Respiratory Exam: NORMAL BREATHING PATTERN - Cardiovascular Exam Cardiovascular Exam: RRR, +S1, +S2. absent: Murmur - GI/Abdominal Exam GI & Abdominal Exam: Soft, Normal Bowel Sounds. + PEG tube site noted, no bleeding at site, feedings infusing well. absent: Guarding, Rigid, Rebound - Extremities Exam Extremities Exam: Normal Inspection - Back Exam Back Exam: NORMAL INSPECTION - Skin Skin Exam: Normal Color, Warm + decub ulcer Assessment and Plan - Assessment and Plan (Free Text) Assessment: # Failure to thrive, poor PO intake, s/p PEG tube # Normocytic anemia 2/2 anemia of chronic disease # Hypernetremia, resolved # Parkinson's disease # CAD with stents # Decub ulcer - Continue with tube feeds - Hgb 9 today, patient s/p 1 unit prbc transfusion yesterday. - CT abd pelvis negative for retroperitoneal bleeds, discussed with Dr Fraser and reviewed with radiologist as well. - Stool occult negative. - Miralax prn constipation - NA 137 today. continue with free water flushes. - Iron studies show anemia of chronic disease, B12, folate normal. transferrin low. - s/p 2 units prbcs transfusion on 11/13 - c diff 11/16 negative - continue with wound care - avoid NSAIDs/narcotics - Stable to discharge from GI standpoint - Poor prognosis - Further recs per Dr Fraser. Case seen and discussed with Dr Fraser. <Janneth Fraser V - Last Filed: 11/21/18 00:11> Objective - Vital Signs/Intake and Output Vital Signs (last 24 hours): Temp Pulse Resp BP Pulse Ox 97.7 F 79 20 105/64 96 11/20/18 14:00 11/20/18 14:00 11/20/18 14:00 11/20/18 14:00 11/20/18 14:00 Intake and Output: 11/20/18 11/21/18 18:59 06:59 Output Total 1 2 Balance -1 -2 - Labs Labs: 11/20/18 07:15 11/20/18 07:15 PT 16.4 SECONDS (9.4-12.5) H 11/15/18 06:30 INR 1.45 11/15/18 06:30 APTT 30.3 Seconds (26.9-38.3) 11/15/18 06:30 Attending/Attestation - Attestation I have personally seen and examined this patient.: Yes I have fully participated in the care of the patient.: Yes I have reviewed all pertinent clinical information, including history, physical exam and plan: Yes Notes (Text): p 11/21/18 00:11
--- NOTE | 2018-11-20 13:02 | CP.PCM.DIS ---
<Pao Aguilar - Last Filed: 11/21/18 12:48> Provider - Provider Date of Admission: 11/04/18 20:36 Attending physician: Jose Yuan MD Consults: 11/05/18 07:36 Nursing Referral for Wound Care Routine Comment: Physician Instructions: Reason For Exam: partial thickness in sacral area 11/05/18 09:37 Palliative Care Consult Routine Comment: Consulting Provider: Jessica Marin Physician Instructions: Reason For Exam: Hospice; advance directive 11/06/18 12:35 Neurology Consult Routine Comment: Consulting Provider: Jeffrey Rehman Consulting Physician: Jeffrey Rehman Reason for Consult: Parkinson's eval 11/07/18 12:18 Gastroenterology Consult Routine Comment: G-TUBE placement Consulting Provider: Janneth Fraser V Consulting Physician: Janneth Fraser V Reason for Consult: G-tube placement 11/08/18 08:00 Consult [Physician Consult] Routine Comment: urine positve for pseudomonas Consulting Provider: Pradeep Augustine Consulting Physician: Pradeep Augustine Reason for Consult: temp 102 11/16/18 05:04 Nursing Referral for Wound Care Routine Comment: Physician Instructions: Reason For Exam: wound eval. 11/19/18 16:41 Nursing Referral for Wound Care Routine Comment: Physician Instructions: Reason For Exam: partial thickness in sacral area Time Spent in preparation of Discharge (in minutes): 45 Hospital Course - Lab Results Lab Results: Micro Results 11/12/18 11:20 Blood Blood Culture - Final NO GROWTH AFTER 5 DAYS 11/12/18 11:20 Blood Gram Stain - Final TEST NOT PERFORMED 11/12/18 11:45 Blood Blood Culture - Final NO GROWTH AFTER 5 DAYS 11/12/18 11:45 Blood Gram Stain - Final TEST NOT PERFORMED 11/15/18 16:00 Stool C. difficile Antigen & Toxins A,B - Final 11/12/18 16:45 Urine Random Urine Culture - Final No Growth (<1,000 CFU/ML) 11/12/18 11:40 Naris MRSA Culture (Admit) - Final MRSA NOT DETECTED 11/08/18 07:40 Blood-Venous Blood Culture - Final NO GROWTH AFTER 5 DAYS 11/08/18 07:40 Blood-Venous Gram Stain - Final TEST NOT PERFORMED 11/07/18 22:30 Blood Blood Culture - Final NO GROWTH AFTER 5 DAYS 11/07/18 22:30 Blood Gram Stain - Final TEST NOT PERFORMED 11/07/18 22:10 Blood Blood Culture - Final NO GROWTH AFTER 5 DAYS 11/07/18 22:10 Blood Gram Stain - Final TEST NOT PERFORMED 11/08/18 14:40 Sputum Induced Gram Stain - Final 11/08/18 14:40 Sputum Induced Sputum Culture - Final NORMAL ORAL ADILIA 11/04/18 19:51 Blood Blood Culture - Final NO GROWTH AFTER 5 DAYS 11/04/18 19:51 Blood Gram Stain - Final TEST NOT PERFORMED 11/04/18 18:36 Blood Blood Culture - Final NO GROWTH AFTER 5 DAYS 11/04/18 18:36 Blood Gram Stain - Final TEST NOT PERFORMED 11/08/18 11:50 Naris MRSA Culture (Admit) - Final MRSA NOT DETECTED 11/04/18 19:28 Urine Random Urine Culture - Final Pseudomonas Aeruginosa Most Recent Lab Values WBC 9.3 10^3/uL (4.5-11.0) 11/20/18 07:15 RBC 3.12 10^6/uL (3.5-6.1) L 11/20/18 07:15 Hgb 9.0 g/dL (14.0-18.0) L 11/20/18 07:15 Hct 28.9 % (42.0-52.0) L 11/20/18 07:15 MCV 92.6 fl (80.0-105.0) 11/20/18 07:15 MCH 28.8 pg (25.0-35.0) 11/20/18 07:15 MCHC 31.1 g/dl (31.0-37.0) 11/20/18 07:15 RDW 18.2 % (11.5-14.5) H 11/20/18 07:15 Plt Count 361 10^3/uL (120.0-450.0) 11/20/18 07:15 MPV 9.7 fl (7.0-11.0) 11/20/18 07:15 Neut % (Auto) 70.1 % (50.0-68.0) H 11/20/18 07:15 Lymph % (Auto) 21.5 % (22.0-35.0) L 11/20/18 07:15 Aurora % (Auto) 7.7 % (1.0-6.0) H 11/20/18 07:15 Eos % (Auto) 0.6 % (1.5-5.0) L 11/20/18 07:15 Baso % (Auto) 0.1 % (0.0-3.0) 11/20/18 07:15 Lymph # (Auto) 2.0 (1.2-3.4) 11/20/18 07:15 Aurora # (Auto) 0.7 (0.1-0.6) H 11/20/18 07:15 Eos # (Auto) 0.1 (0.0-0.7) 11/20/18 07:15 Baso # (Auto) 0.01 K/mm3 (0.0-2.0) 11/20/18 07:15 Absolute Neuts (auto) 6.48 (1.4-6.5) 11/20/18 07:15 Retic Count 2.63 % (0.5-1.5) H 11/14/18 06:10 PT 16.4 SECONDS (9.4-12.5) H 11/15/18 06:30 INR 1.45 11/15/18 06:30 APTT 30.3 Seconds (26.9-38.3) 11/15/18 06:30 pCO2 19 mm/Hg (35-45) L* 11/08/18 08:03 pO2 70.0 mm/Hg (80-100) L 11/08/18 08:03 HCO3 15.2 mmol/L (21-28) L 11/08/18 08:03 ABG pH 7.51 (7.35-7.45) H 11/08/18 08:03 ABG Total CO2 15.8 mmol.L (22-28) L 11/08/18 08:03 ABG O2 Saturation 98.1 % (95-98) H 11/08/18 08:03 ABG Base Excess -5.4 mmol/L (-2.0-3.0) L 11/08/18 08:03 ABG Potassium 3.5 mmol/L (3.6-5.2) L 11/08/18 08:03 Sodium 144.0 mmol/L (132-148) 11/08/18 08:03 Chloride 120.0 mmol/L (98-107) H 11/08/18 08:03 Glucose 88 mg/dl (75-110) 11/08/18 08:03 Lactate 1.0 mmol/L (0.7-2.1) 11/08/18 08:03 FiO2 28.0 % 11/08/18 08:03 Crit Value Called To Nurse 11/08/18 08:03 Crit Value Called By Calin cosby 11/08/18 08:03 Blood Gas Notified Time 806 11/08/18 08:03 Sodium 137 mmol/L (132-148) 11/20/18 07:15 Potassium 4.2 mmol/L (3.6-5.0) 11/20/18 07:15 Chloride 109 mmol/L (98-107) H 11/20/18 07:15 Carbon Dioxide 25 mmol/L (21-33) 11/20/18 07:15 Anion Gap 8 (10-20) L 11/20/18 07:15 BUN 15 mg/dL (7-21) 11/20/18 07:15 Creatinine 0.4 mg/dl (0.8-1.5) L 11/20/18 07:15 Est GFR ( Amer) > 60 11/20/18 07:15 Est GFR (Non-Af Amer) > 60 11/20/18 07:15 Random Glucose 85 mg/dL (70-110) 11/20/18 07:15 Lactic Acid 1.2 mmol/L (0.7-2.1) 11/08/18 07:40 Calcium 7.6 mg/dL (8.4-10.5) L 11/20/18 07:15 Phosphorus 3.7 mg/dL (2.5-4.5) 11/20/18 07:15 Magnesium 2.0 mg/dL (1.7-2.2) 11/20/18 07:15 Iron 22 ug/dL (45-180) L 11/19/18 10:30 TIBC 117 ug/dL (261-462) L 11/19/18 10:30 % Saturation 19 % (20-55) L 11/19/18 10:30 Transferrin < 80.00 mg/dL (206-381) L 11/19/18 10:30 Ferritin 3090.0 ng/mL 11/19/18 10:20 Total Bilirubin 0.6 mg/dL (0.2-1.3) 11/20/18 07:15 Direct Bilirubin 0.6 mg/dL (0.0-0.4) H 11/14/18 06:30 AST 84 U/L (17-59) H D 11/20/18 07:15 ALT 54 U/L (7-56) 11/20/18 07:15 Alkaline Phosphatase 129 U/L (38-126) H 11/20/18 07:15 Troponin I 0.03 ng/mL D 11/08/18 07:40 Total Protein 5.4 g/dL (5.8-8.3) L 11/20/18 07:15 Albumin 2.3 g/dL (3.0-4.8) L 11/20/18 07:15 Globulin 3.2 gm/dL 11/20/18 07:15 Albumin/Globulin Ratio 0.7 (1.1-1.8) L 11/20/18 07:15 HDL Cholesterol 9 mg/dL (29-60) L 11/14/18 06:30 Lipase 45 U/L (23-300) 11/04/18 18:36 Vitamin B12 696 pg/mL (239-931) 11/13/18 10:32 Folate 6.9 ng/mL 11/13/18 10:32 Procalcitonin 2.55 NG/ML (0.19-0.49) H 11/12/18 11:20 Arterial Blood Potassium 3.5 mmol/L (3.6-5.2) L 11/08/18 08:03 Urine Color Zofia (YELLOW) 11/13/18 16:45 Urine Appearance Clear (CLEAR) 11/13/18 16:45 Urine pH 5.0 (4.7-8.0) 11/13/18 16:45 Ur Specific Turpin >= 1.030 (1.005-1.035) 11/13/18 16:45 Urine Protein Trace mg/dL (<30 mg/dL) H 11/13/18 16:45 Urine Glucose (UA) Negative mg/dL (NEGATIVE) 11/13/18 16:45 Urine Ketones Trace mg/dL (NEGATIVE) H 11/13/18 16:45 Urine Blood Small (NEGATIVE) H 11/13/18 16:45 Urine Nitrate Positive (NEGATIVE) H 11/13/18 16:45 Urine Bilirubin Small (NEGATIVE) H 11/13/18 16:45 Urine Urobilinogen 2.0 E.U./dL (<1 E.U./dL) H 11/13/18 16:45 Ur Leukocyte Esterase Negative Alli/uL (NEGATIVE) 11/13/18 16:45 Urine RBC 15 - 20 /hpf (0-2) H 11/13/18 16:45 Urine WBC 5 - 10 /hpf (0-6) H 11/13/18 16:45 Ur Epithelial Cells 10 - 12 /hpf (0-5) H 11/13/18 16:45 Urine Bacteria Trace /hpf (NONE) 11/13/18 16:45 Stool Occult Blood Negative (NEGATIVE) 11/19/18 06:30 Influenza Typ A,B (EIA) Negative for flu a/b (NEGATIVE) 11/12/18 11:40 Ur L.pneumophila Ag Negative (NEGATIVE) 11/13/18 16:45 Blood Type O POSITIVE 11/19/18 10:20 Antibody Screen Negative 11/19/18 10:20 Crossmatch See Detail 11/19/18 10:20 BBK History Checked Patient has bt 11/19/18 10:20 - Hospital Course Hospital Course: 78 year old male with history includes end-stage Parkinson's disease, CAD and hypertension presented to the ED admitted with hypernatremia, UTI, and stage 2 sacral decubtus. Palliative care, was consulted and discussed plans of care with family. Patient is bed bound, unable to perform ADL's and unable to swallow food safely. Patient was unable to swallow and after discussion with family, PEG tube placement was agreed upon. Patient initially had episodes of intolerance to tube feeds, however eventually began to tolerate feeds. His hypernatremia was addressed with 400 q4 as well as his IVF to D5W @75 ml/hr which eventually resolved. Currently on D5w @75ml/hr. Patient had completed abx therapy as per ID for HCAP and UTI. Patient had anemia and was transfused 3 u pRBC with subsequent stable H&H and no evidence of bleeding. Patient had CT/abd read to r/o retroperitoneal bleed, which was negative. Patient is on air mattress on account of his stage 3 sacral ulcer with dressing changes. Patient is on heparin for dvt prophylaxis. Patient continued on carbidopa/ levodopa for Parkinson's. Asa and plavix for stroke prevention. He will continue care at [facility]. Discharge Exam - Head Exam Head Exam: ATRAUMATIC, NORMAL INSPECTION, NORMOCEPHALIC - Eye Exam Eye Exam: EOMI, Normal appearance, PERRL Pupil Exam: NORMAL ACCOMODATION, PERRL - ENT Exam ENT Exam: Mucous Membranes Dry - Respiratory Exam Respiratory Exam: Clear to PA & Lateral, UNREMARKABLE - Cardiovascular Exam Cardiovascular Exam: REGULAR RHYTHM, +S1, +S2 - GI/Abdominal Exam GI & Abdominal Exam: Normal Bowel Sounds, Soft. absent: Tenderness Additional comments: PEG in place - Neurological Exam Neurological exam: Altered - Psychiatric Exam Psychiatric exam: Flat Affect - Skin Additional comments: stage 3 sacral decubitus Discharge Plan - Follow Up Plan Condition: FAIR Disposition: [facility] Instructions: Pressure Sores (DC), Urinary Tract Infection, Adult (DC), How to Prevent Pressure Sores, Aspiration Pneumonia (DC), Dementia (DC), Parkinson Disease (DC), How to Care for Your Mouth and Teeth, How to Give a Tube Feeding Additional Instructions: 1. Please note that you are being discharges today to [facility] 2. Please continue orders as currently prescribed. Referrals: Malik Rehman MD [Staff Provider] - Janneth Fraser MD [Medical Doctor] - <Jose Yuan - Last Filed: 11/21/18 17:24> Provider - Provider Date of Admission: 11/04/18 20:36 Attending physician: Jose Yuan MD Consults: 11/05/18 07:36 Nursing Referral for Wound Care Routine Comment: Physician Instructions: Reason For Exam: partial thickness in sacral area 11/05/18 09:37 Palliative Care Consult Routine Comment: Consulting Provider: Jessica Marin Physician Instructions: Reason For Exam: Hospice; advance directive 11/06/18 12:35 Neurology Consult Routine Comment: Consulting Provider: Jeffrey Rehman Consulting Physician: Jeffrey Rehman Reason for Consult: Parkinson's eval 11/07/18 12:18 Gastroenterology Consult Routine Comment: G-TUBE placement Consulting Provider: Janneth Fraser V Consulting Physician: Janneth Fraser V Reason for Consult: G-tube placement 11/08/18 08:00 Consult [Physician Consult] Routine Comment: urine positve for pseudomonas Consulting Provider: Pradeep Augustine Consulting Physician: Pradeep Augustine Reason for Consult: temp 102 11/16/18 05:04 Nursing Referral for Wound Care Routine Comment: Physician Instructions: Reason For Exam: wound eval. 11/19/18 16:41 Nursing Referral for Wound Care Routine Comment: Physician Instructions: Reason For Exam: partial thickness in sacral area Hospital Course - Lab Results Lab Results: Micro Results 11/12/18 11:20 Blood Blood Culture - Final NO GROWTH AFTER 5 DAYS 11/12/18 11:20 Blood Gram Stain - Final TEST NOT PERFORMED 11/12/18 11:45 Blood Blood Culture - Final NO GROWTH AFTER 5 DAYS 11/12/18 11:45 Blood Gram Stain - Final TEST NOT PERFORMED 11/15/18 16:00 Stool C. difficile Antigen & Toxins A,B - Final 11/12/18 16:45 Urine Random Urine Culture - Final No Growth (<1,000 CFU/ML) 11/12/18 11:40 Naris MRSA Culture (Admit) - Final MRSA NOT DETECTED 11/08/18 07:40 Blood-Venous Blood Culture - Final NO GROWTH AFTER 5 DAYS 11/08/18 07:40 Blood-Venous Gram Stain - Final TEST NOT PERFORMED 11/07/18 22:30 Blood Blood Culture - Final NO GROWTH AFTER 5 DAYS 11/07/18 22:30 Blood Gram Stain - Final TEST NOT PERFORMED 11/07/18 22:10 Blood Blood Culture - Final NO GROWTH AFTER 5 DAYS 11/07/18 22:10 Blood Gram Stain - Final TEST NOT PERFORMED 11/08/18 14:40 Sputum Induced Gram Stain - Final 11/08/18 14:40 Sputum Induced Sputum Culture - Final NORMAL ORAL ADILIA 11/04/18 19:51 Blood Blood Culture - Final NO GROWTH AFTER 5 DAYS 11/04/18 19:51 Blood Gram Stain - Final TEST NOT PERFORMED 11/04/18 18:36 Blood Blood Culture - Final NO GROWTH AFTER 5 DAYS 11/04/18 18:36 Blood Gram Stain - Final TEST NOT PERFORMED 11/08/18 11:50 Naris MRSA Culture (Admit) - Final MRSA NOT DETECTED 11/04/18 19:28 Urine Random Urine Culture - Final Pseudomonas Aeruginosa Most Recent Lab Values WBC 9.3 10^3/uL (4.5-11.0) 11/20/18 07:15 RBC 3.12 10^6/uL (3.5-6.1) L 11/20/18 07:15 Hgb 9.0 g/dL (14.0-18.0) L 11/20/18 07:15 Hct 28.9 % (42.0-52.0) L 11/20/18 07:15 MCV 92.6 fl (80.0-105.0) 11/20/18 07:15 MCH 28.8 pg (25.0-35.0) 11/20/18 07:15 MCHC 31.1 g/dl (31.0-37.0) 11/20/18 07:15 RDW 18.2 % (11.5-14.5) H 11/20/18 07:15 Plt Count 361 10^3/uL (120.0-450.0) 11/20/18 07:15 MPV 9.7 fl (7.0-11.0) 11/20/18 07:15 Neut % (Auto) 70.1 % (50.0-68.0) H 11/20/18 07:15 Lymph % (Auto) 21.5 % (22.0-35.0) L 11/20/18 07:15 Aurora % (Auto) 7.7 % (1.0-6.0) H 11/20/18 07:15 Eos % (Auto) 0.6 % (1.5-5.0) L 11/20/18 07:15 Baso % (Auto) 0.1 % (0.0-3.0) 11/20/18 07:15 Lymph # (Auto) 2.0 (1.2-3.4) 11/20/18 07:15 Aurora # (Auto) 0.7 (0.1-0.6) H 11/20/18 07:15 Eos # (Auto) 0.1 (0.0-0.7) 11/20/18 07:15 Baso # (Auto) 0.01 K/mm3 (0.0-2.0) 11/20/18 07:15 Absolute Neuts (auto) 6.48 (1.4-6.5) 11/20/18 07:15 Retic Count 2.63 % (0.5-1.5) H 11/14/18 06:10 PT 16.4 SECONDS (9.4-12.5) H 11/15/18 06:30 INR 1.45 11/15/18 06:30 APTT 30.3 Seconds (26.9-38.3) 11/15/18 06:30 pCO2 19 mm/Hg (35-45) L* 11/08/18 08:03 pO2 70.0 mm/Hg (80-100) L 11/08/18 08:03 HCO3 15.2 mmol/L (21-28) L 11/08/18 08:03 ABG pH 7.51 (7.35-7.45) H 11/08/18 08:03 ABG Total CO2 15.8 mmol.L (22-28) L 11/08/18 08:03 ABG O2 Saturation 98.1 % (95-98) H 11/08/18 08:03 ABG Base Excess -5.4 mmol/L (-2.0-3.0) L 11/08/18 08:03 ABG Potassium 3.5 mmol/L (3.6-5.2) L 11/08/18 08:03 Sodium 144.0 mmol/L (132-148) 11/08/18 08:03 Chloride 120.0 mmol/L (98-107) H 11/08/18 08:03 Glucose 88 mg/dl (75-110) 11/08/18 08:03 Lactate 1.0 mmol/L (0.7-2.1) 11/08/18 08:03 FiO2 28.0 % 11/08/18 08:03 Crit Value Called To Nurse 11/08/18 08:03 Crit Value Called By Calin cosby 11/08/18 08:03 Blood Gas Notified Time 806 11/08/18 08:03 Sodium 137 mmol/L (132-148) 11/20/18 07:15 Potassium 4.2 mmol/L (3.6-5.0) 11/20/18 07:15 Chloride 109 mmol/L (98-107) H 11/20/18 07:15 Carbon Dioxide 25 mmol/L (21-33) 11/20/18 07:15 Anion Gap 8 (10-20) L 11/20/18 07:15 BUN 15 mg/dL (7-21) 11/20/18 07:15 Creatinine 0.4 mg/dl (0.8-1.5) L 11/20/18 07:15 Est GFR ( Amer) > 60 11/20/18 07:15 Est GFR (Non-Af Amer) > 60 11/20/18 07:15 Random Glucose 85 mg/dL (70-110) 11/20/18 07:15 Lactic Acid 1.2 mmol/L (0.7-2.1) 11/08/18 07:40 Calcium 7.6 mg/dL (8.4-10.5) L 11/20/18 07:15 Phosphorus 3.7 mg/dL (2.5-4.5) 11/20/18 07:15 Magnesium 2.0 mg/dL (1.7-2.2) 11/20/18 07:15 Iron 22 ug/dL (45-180) L 11/19/18 10:30 TIBC 117 ug/dL (261-462) L 11/19/18 10:30 % Saturation 19 % (20-55) L 11/19/18 10:30 Transferrin < 80.00 mg/dL (206-381) L 11/19/18 10:30 Ferritin 3090.0 ng/mL 11/19/18 10:20 Total Bilirubin 0.6 mg/dL (0.2-1.3) 11/20/18 07:15 Direct Bilirubin 0.6 mg/dL (0.0-0.4) H 11/14/18 06:30 AST 84 U/L (17-59) H D 11/20/18 07:15 ALT 54 U/L (7-56) 11/20/18 07:15 Alkaline Phosphatase 129 U/L (38-126) H 11/20/18 07:15 Troponin I 0.03 ng/mL D 11/08/18 07:40 Total Protein 5.4 g/dL (5.8-8.3) L 11/20/18 07:15 Albumin 2.3 g/dL (3.0-4.8) L 11/20/18 07:15 Globulin 3.2 gm/dL 11/20/18 07:15 Albumin/Globulin Ratio 0.7 (1.1-1.8) L 11/20/18 07:15 HDL Cholesterol 9 mg/dL (29-60) L 11/14/18 06:30 Lipase 45 U/L (23-300) 11/04/18 18:36 Vitamin B12 696 pg/mL (239-931) 11/13/18 10:32 Folate 6.9 ng/mL 11/13/18 10:32 Procalcitonin 2.55 NG/ML (0.19-0.49) H 11/12/18 11:20 Arterial Blood Potassium 3.5 mmol/L (3.6-5.2) L 11/08/18 08:03 Urine Color Zofia (YELLOW) 11/13/18 16:45 Urine Appearance Clear (CLEAR) 11/13/18 16:45 Urine pH 5.0 (4.7-8.0) 11/13/18 16:45 Ur Specific Turpin >= 1.030 (1.005-1.035) 11/13/18 16:45 Urine Protein Trace mg/dL (<30 mg/dL) H 11/13/18 16:45 Urine Glucose (UA) Negative mg/dL (NEGATIVE) 11/13/18 16:45 Urine Ketones Trace mg/dL (NEGATIVE) H 11/13/18 16:45 Urine Blood Small (NEGATIVE) H 11/13/18 16:45 Urine Nitrate Positive (NEGATIVE) H 11/13/18 16:45 Urine Bilirubin Small (NEGATIVE) H 11/13/18 16:45 Urine Urobilinogen 2.0 E.U./dL (<1 E.U./dL) H 11/13/18 16:45 Ur Leukocyte Esterase Negative Alli/uL (NEGATIVE) 11/13/18 16:45 Urine RBC 15 - 20 /hpf (0-2) H 11/13/18 16:45 Urine WBC 5 - 10 /hpf (0-6) H 11/13/18 16:45 Ur Epithelial Cells 10 - 12 /hpf (0-5) H 11/13/18 16:45 Urine Bacteria Trace /hpf (NONE) 11/13/18 16:45 Stool Occult Blood Negative (NEGATIVE) 11/19/18 06:30 Influenza Typ A,B (EIA) Negative for flu a/b (NEGATIVE) 11/12/18 11:40 Ur L.pneumophila Ag Negative (NEGATIVE) 11/13/18 16:45 Blood Type O POSITIVE 11/19/18 10:20 Antibody Screen Negative 11/19/18 10:20 Crossmatch See Detail 11/19/18 10:20 BBK History Checked Patient has bt 11/19/18 10:20 - Hospital Course Hospital Course: Pt seen and examined by me. I have reviewed the note of the medical billing and coding instructor and I agree with it. I have discussed the assessment and plan with the resident. I have reviewed the medications and the last labs.
[2018-11-20 14:13] VITALS: BP 105/64; PULSE 79; RESP 20; TEMP 97.7; O2SAT 96
--- NOTE | 2018-11-21 01:12 | PN ---
DATE: 11/20/2018 SUBJECTIVE: The patient is in bed in no acute distress, nontoxic. PHYSICAL EXAMINATION: VITAL SIGNS: Temperature is 97, blood pressure is 105/60, respiratory rate of 20. HEENT: Unremarkable. NECK: Supple. LUNGS: Decreased breath sounds. HEART: Normal S1, S2. ABDOMEN: Soft, nontender. LABORATORY EXAMINATION: Reveals a white count of 9.3, hemoglobin of 9. Chemistries are noted. Urinalysis is noted. Serology is noted. Microbiology is noted. ASSESSMENT AND PLAN: A 78-year-old male with severe sepsis, left lower lobe healthcare-associated pneumonia, and Pseudomonas urinary tract infection; completed antibiotic therapy, currently off of antibiotics. The patient is at high risk of developing nosocomial infections. We will follow with you. Pradeep Augustine MD
--- NOTE | 2018-11-21 07:42 | DS ---
HOSPITAL COURSE: The patient was seen and examined. I do agree with the note of the medical officer. I was involved in the plan of care. The patient had hyponatremia and that has improved. He is going to be on free water with 400 mL every 8 hours. He had a stage 3 pressure ulcer that is getting local wound care. The patient had a CT of the abdomen and pelvis that showed no acute abnormalities. His hemoglobin has been stable. The patient was given one unit of transfusion yesterday. The patient is currently on heparin for DVT prophylaxis. He is on Motrin for pain. He is on carbidopa levodopa for his Parkinson's. He has a history of Parkinson's. The patient has a PEG tube that is working. He will be continued on his regimen at the rehab facility that he is going to be discharged to. His overall prognosis is poor and I did speak to the patient's yesterday to give her an update on the patient's diagnosis and plan of care. I spoke with Dr. Fraser as well. The patient is going to [facility]. Jose Yuan MD
--- NOTE | 2018-11-26 10:36 | PQF ---
PROVIDER RESPONSE TEXT: Severe malnutrition Dysphagia Po intake was less than 75% Albumin 2g REVIEWER QUERY TEXT: Malnutrition Severity Malnutrition is documented in the Medical Record. Please specify the severity Such as: -- Mild - first degree -- Moderate - second degree -- Severe - third degree -- Severe malnutrition with marasmus -- Other, please specify The patient's Clinical Indicators include: The diagnosis of malnutrition was noted several times on notes written by GI resident and co-signed b y you. Please document severity of malnutrition. Query created by: Shana Javier on 11/16/2018 2:29 PM Electronically signed by: Janneth Fraser MD 11/26/2018 10:33 AM
== END 2018-11-20 22:09 | DRG 871 ==
LOC: ED 17:26 → ERH 20:36 → 5RSO 23:58
PROVIDERS: ADMIT Internal Medicine Nephrology; ATTEND Internal Medicine Nephrology
PROC: 3E0F7GC Introduction of Other Therapeutic Substance into Respiratory Tract, Via Natural or Artificial Opening (ICD-10-PCS; 2018-11-07)
PROC: 0DH63UZ Insertion of Feeding Device into Stomach, Percutaneous Approach (ICD-10-PCS; principal; 2018-11-11 14:45)
PROC: 3E0G76Z Introduction of Nutritional Substance into Upper GI, Via Natural or Artificial Opening (ICD-10-PCS; 2018-11-12)
PROC: 30233N1 Transfusion of Nonautologous Red Blood Cells into Peripheral Vein, Percutaneous Approach (ICD-10-PCS; 2018-11-13)
DX: A41.52 Sepsis due to Pseudomonas (principal); J69.0 Pneumonitis due to inhalation of food and vomit; L89.153 Pressure ulcer of sacral region, stage 3; G92 Toxic encephalopathy; E43 Unspecified severe protein-calorie malnutrition; E87.0 Hyperosmolality and hypernatremia; N39.0 Urinary tract infection, site not specified; E27.1 Primary adrenocortical insufficiency; R47.01 Aphasia; R64 Cachexia; D62 Acute posthemorrhagic anemia; G20 Parkinson's disease; F02.80 Dementia in other diseases classified elsewhere, unspecified severity, without behavioral disturbance, psychotic disturbance, mood disturbance, and anxiety; R62.7 Adult failure to thrive; I25.10 Atherosclerotic heart disease of native coronary artery without angina pectoris; G30.9 Alzheimer's disease, unspecified; E86.0 Dehydration; I25.5 Ischemic cardiomyopathy; Z87.891 Personal history of nicotine dependence; D50.9 Iron deficiency anemia, unspecified; D63.8 Anemia in other chronic diseases classified elsewhere; E87.6 Hypokalemia; R13.10 Dysphagia, unspecified; Z74.01 Bed confinement status; E78.5 Hyperlipidemia, unspecified; R65.20 Severe sepsis without septic shock; R33.9 Retention of urine, unspecified; I10 Essential (primary) hypertension; R32 Unspecified urinary incontinence; E87.8 Other disorders of electrolyte and fluid balance, not elsewhere classified; Y95 Nosocomial condition; Z95.5 Presence of coronary angioplasty implant and graft; Z68.23 Body mass index [BMI] 23.0-23.9, adult